=== PATIENT | male | born 1940 | race Caucasian/White ===

== ENCOUNTER 2018-12-12 00:07 | Outpatient (CLI) | payer MEDICARE, MEDICAID | END 2018-12-12 00:08 | disposition critical access hospital (66) | LOC: EMS 00:07 | PROVIDERS: ATTEND Surgery | DX: M25.551 Pain in right hip (principal); W01.0XXA Fall on same level from slipping, tripping and stumbling without subsequent striking against object, initial encounter; Y92.096 Garden or yard of other non-institutional residence as the place of occurrence of the external cause | CPT/HCPCS: A0425; A0429 ==

== ENCOUNTER 2018-12-12 00:24 | Emergency (ER) | payer MEDICARE, MEDICAID ==
--- NOTE | 2018-12-12 00:38 | ED Physician Documentation ---
PD HPI LOWER EXT INJURY - Stated complaint Stated Complaint: GLF, RT HIP PAIN - Chief complaint Chief Complaint: Ext Problem - History obtained from History obtained from: Patient - History of Present Illness PD HPI LOW EXT INJURY LOCATION: Right, Hip, Upper leg Type of injury: Fall (He states he was out smoking his evening cigarettes and got up to go back into the facility. He states he does have positional vertigo if he gets up quickly or turns fast and usually tries to move slowly. He got up from the chair and turned to walk and felt dizzy and off balance and fell to the right side. He had pain in the right hip and was unable to get back up. He denies any injury to the head. He is not noticing any chest pain or belly pain.) Where injury occurred: Home ([facility] where he has been a resident for only 3 weeks.) Timing - onset: How many hours ago (1), Today Timing - duration: Hours (1) Timing - details: Abrupt onset Worsened by: Moving, Palpating Associated symptoms: No: Weakness, Numbness Contributing factors: Anticoagulated (Xarelto for chronic atrial fibrillation) Similar symptoms before: Has not had sx before Recently seen: Not recently seen Review of Systems Constitutional: denies: Fever, Chills, Myalgias Nose: denies: Rhinorrhea / runny nose, Congestion Throat: denies: Sore throat Cardiac: denies: Chest pain / pressure, Pedal edema, Calf pain Respiratory: denies: Dyspnea, Cough GI: denies: Abdominal Pain, Vomiting, Diarrhea, Bloody / black stool : denies: Dysuria Skin: denies: Abrasion (s), Laceration (s) Musculoskeletal: reports: Joint pain (right hip since fall, not prior) Neurologic: denies: Generalized weakness, Altered mental status, Headache PD PAST MEDICAL HISTORY - Past Medical History Past Medical History: Yes Cardiovascular: Congestive heart failure, Atrial fibrillation Respiratory: None Neuro: Dementia (possibly with agitation) Endocrine/Autoimmune: None GI: None : Incontinence HEENT: None Psych: Schizophrenia Musculoskeletal: None Derm: None - Present Medications Home Medications: Ambulatory Orders Medication Instructions Recorded Confirmed Atorvastatin Calcium 20 mg PO DAILY 12/12/18 12/12/18 Calcium Carbonate/Vitamin D3 1 tab PO DAILY 12/12/18 12/12/18 [Calcium 500-Vit D3 200 Tablet] Carvedilol 12.5 mg PO BID 12/12/18 12/12/18 Cetirizine [ZyrTEC] 0.5 tab PO DAILY 12/12/18 12/12/18 Furosemide 20 mg PO DAILY 12/12/18 12/12/18 Gabapentin 300 mg PO BID 12/12/18 12/12/18 Lisinopril/Hydrochlorothiazide 10 mg PO DAILY 12/12/18 12/12/18 [Lisinopril-Hctz 10-12.5 mg Tab] Potassium Chloride 20 mg PO TID 12/12/18 12/12/18 QUEtiapine [SEROquel] 25 mg PO DAILY 12/12/18 12/12/18 Rivaroxaban [Xarelto] 20 mg PO DAILY 12/12/18 12/12/18 Sertraline [Zoloft] 50 mg PO DAILY 12/12/18 12/12/18 Spironolactone 25 mg PO DAILY 12/12/18 12/12/18 metFORMIN [Glucophage] 1,000 mg PO BID 12/12/18 12/12/18 traMADol [Ultram] 25 mg PO BID 12/12/18 12/12/18 - Allergies Allergies/Adverse Reactions: Allergies Allergy/AdvReac Type Severity Reaction Status Date / Time No Known Drug Allergies Allergy Verified 12/12/18 00:34 - Living Situation Living Situation: reports: Alone Living Arrangement: reports: retirement - Social History Does the pt smoke?: Yes Smoking Status: Current every day smoker PD ED PE NORMAL - Vitals Vital signs reviewed: Yes - General General: Alert and oriented X 3 (He is oriented to person place and time. He does get a little confused about some of his but background history. I asked if he has had an elevated blood count or white count in the past and he referred more to blood pressure and blood sugar.), No acute distress, Well developed/nourished - HEENT HEENT: Atraumatic, Moist mucous membranes - Neck Neck: Supple, no meningeal sign, No adenopathy - Cardiac Cardiac: No murmur, No rub. No: RRR (irregular but rate controlled) - Respiratory Respiratory: Other (no chestwall tenderness. Denies pain with deep breathing. ). No: Clear bilaterally (faint fine crackles at bases, but otherwise clear) - Abdomen Abdomen: Normal bowel sounds, Soft, Non tender, No organomegaly - Male Male : Deferred - Rectal Rectal: Deferred - Back Back: No CVA TTP, No spinal TTP - Derm Derm: Normal color, Warm and dry - Extremities Extremities: No edema, No calf tenderness / cord, Other (right hip with local swelling or deformity proximal femur/trochanter area. Pain with ROM. Normal pulses and cap refill in toes. ) - Neuro Neuro: Alert and oriented X 3 (he is oriented to person, place, time. He is able to tell me his new to the fall, home care facility. Prior to that he is not ledezma re the name of the facility and said that town was located in [place] and who could not actually tell if he meant [place] or [place]. old records currently unavailable.), No motor deficit, No sensory deficit Results - Vitals Vitals: Vital Signs - 24 hr 12/12/18 12/12/18 12/12/18 00:26 01:06 01:57 Heart Rate 92 97 Respiratory 17 17 16 Rate Blood Pressure 165/82 H O2 Saturation 100 12/12/18 12/12/18 12/12/18 02:08 03:08 03:39 Heart Rate 99 97 98 Respiratory 18 19 18 Rate Blood Pressure 142/76 H 128/73 145/77 H O2 Saturation 95 96 12/12/18 04:07 Heart Rate 94 Respiratory 18 Rate Blood Pressure 137/90 H O2 Saturation 97 Oxygen O2 Source Nasal cannula - Labs Labs: Laboratory Tests 12/12/18 12/12/18 12/12/18 00:50 00:50 01:45 WBC 28.8 H RBC 4.10 L Hgb 12.7 L Hct 40.2 L MCV 98.0 H MCH 31.0 MCHC 31.6 L RDW 13.4 Plt Count 297 MPV 11.7 H Neut # (Auto) Not Reportable Lymph # (Auto) Not Reportable [place] # (Auto) Not Reportable Eos # (Auto) Not Reportable Baso # (Auto) Not Reportable Absolute Nucleated RBC Not Reportable Total Counted 100 Band Neuts % (Manual) 9 Abnorm Lymph % (Manual) 0 Nucleated RBC % Not Reportable Neutrophils # (Manual) 24.2 H Lymphocytes # (Manual) 2.3 Monocytes # (Manual) 1.4 H Eosinophils # (Manual) 0.6 Basophils # (Manual) 0.3 H Differential Comment MANUAL DIFFERENTIAL Platelet Estimate NORMAL (130-450,000) RBC Morph Micro Appear NORMAL APPEARANCE PT 16.3 H INR 1.5 H APTT 35.7 H Sodium 139 Potassium 5.3 H Chloride 102 Carbon Dioxide 26 Anion Gap 11.0 BUN 30 H Creatinine 1.4 H Estimated GFR (MDRD) 49 L Glucose 202 H Calcium 9.4 Total Bilirubin 1.4 H AST 20 ALT 15 Alkaline Phosphatase 119 Total Protein 7.8 Albumin 4.2 Globulin 3.6 Albumin/Globulin Ratio 1.2 Lipase 26 Urine Color Urine Clarity Urine pH Ur Specific Lind[place] Urine Protein Urine Glucose (UA) Urine Ketones Urine Occult Blood Urine Nitrite Urine Bilirubin Urine Urobilinogen Ur Leukocyte Esterase Ur Microscopic Review Urine Culture Comments Ethyl Alcohol < 5.0 12/12/18 02:00 WBC RBC Hgb Hct MCV MCH MCHC RDW Plt Count MPV Neut # (Auto) Lymph # (Auto) [place] # (Auto) Eos # (Auto) Baso # (Auto) Absolute Nucleated RBC Total Counted Band Neuts % (Manual) Abnorm Lymph % (Manual) Nucleated RBC % Neutrophils # (Manual) Lymphocytes # (Manual) Monocytes # (Manual) Eosinophils # (Manual) Basophils # (Manual) Differential Comment Platelet Estimate RBC Morph Micro Appear PT INR APTT Sodium Potassium Chloride Carbon Dioxide Anion Gap BUN Creatinine Estimated GFR (MDRD) Glucose Calcium Total Bilirubin AST ALT Alkaline Phosphatase Total Protein Albumin Globulin Albumin/Globulin Ratio Lipase Urine Color YELLOW Urine Clarity CLEAR Urine pH 6.0 Ur Specific Lind[place] 1.020 Urine Protein NEGATIVE Urine Glucose (UA) NEGATIVE Urine Ketones NEGATIVE Urine Occult Blood NEGATIVE Urine Nitrite NEGATIVE Urine Bilirubin NEGATIVE Urine Urobilinogen 0.2 (NORMAL) Ur Leukocyte Esterase NEGATIVE Ur Microscopic Review NOT INDICATED Urine Culture Comments NOT INDICATED Ethyl Alcohol - Rads (name of study) head CT Radiology: Prelim report reviewed (Senescent changes. No signs of acute intracranial bleeding.), See rad report right femur Radiology: Prelim report reviewed (Right intertrochanteric fracture with slight displacement.), See rad report chest xray Radiology: Prelim report reviewed (Nondisplaced right 10th rib fracture. Cardiomegaly. No signs of heart failure.), See rad report PD MEDICAL DECISION MAKING - ED course Complexity details: considered differential (Sounded like a mechanical fall with feeling off balance as he stood up from his chair. He states he has had balance disorder with standing quickly in the past. He does have history of atrial fibrillation but does not seem to be in congestive failure. He denies any recent illness. He denies any blood dyscrasias such as leukemia. His findings are likely consistent with a hip fracture. However in addition to the hip fracture on x-ray, he also has an apparent 10th rib fracture though there is no chest pain or tenderness. He also has abnormal white count of 28,000 without apparent infectious source at the moment. He will need medical clearance for heart and also is on a blood thinner so these are complications to his surgical repair of the hip due to the medical comorbidities.), d/w patient, d/w consultant intern (Dr. Fry, Hospitalist at [facility]. His concern is we do not have pharmacy technician infusion available until Friday. The patient's chest x-ray suggestive of cardiomyopathy or enlarged heart at least. He does not have any pedal edema and only has faint crackles to suggest no acute CHF. However his medication list is consistent with CHF and he does have a known atrial fibrillation and is on Xarelto. Given the above medications and findings, Dr. Lopez did not feel he was able to medically clear the patient satisfactorily for at least 3 days not felt inappropriate for the hip fracture. He defers to another hospital.), other (I talked with Dr. Brown who is on for hospitalist service at [facility] who could do the medical clearance and request that we talk with orthopedics. I talked with Dr. Ramsey on for orthopedics who is able to take care of the hip fracture and is understanding of the need for transfer due to medical clearance issues.) Departure - Departure Disposition: 02 Transfer Acute Care Hosp Clinical Impression: Chronic atrial fibrillation, Anticoagulant long-term use Fall from slip, trip, or stumble Qualifiers: Encounter type: initial encounter Qualified Code(s): W01.0XXA - Fall on same level from slipping, tripping and stumbling without subsequent striking against object, initial encounter Closed right hip fracture Qualifiers: Encounter type: initial encounter Qualified Code(s): S72.001A - Fracture of unspecified part of neck of right femur, initial encounter for closed fracture Rib fracture Qualifiers: Encounter type: initial encounter Rib fracture type: single rib Fracture type: closed Laterality: right Qualified Code(s): S22.31XA - Fracture of one rib, right side, initial encounter for closed fracture Leukocytosis Qualifiers: Leukocytosis type: unspecified Qualified Code(s): D72.829 - Elevated white blood cell count, unspecified Condition: Stable Record reviewed to determine appropriate education?: Yes
[2018-12-12] MEDS ORDERED: MORPHINE 10 MG/ML VIAL IVP STA (00:51)
[2018-12-12] MEDS ORDERED: SODIUM CHLORIDE 0.9% 1,000 ML IV ONE ×2 (00:51→05:11)
[2018-12-12] MEDS ORDERED: ONDANSETRON 4 MG/2 ML VIAL IVP STA (00:51)
[2018-12-12 01:00] LABS: BASOPHILS % (AUTO) 0.5 %; EOSINOPHILS % (AUTO) 1.5 %; HGB - HEMOGLOBIN 12.7 g/dL (14.0-18.0); MEAN CORPUSCULAR HGB CONC 31.6 g/dL (32.0-36.0); MEAN PLATELET VOLUME 11.7 fL (7.4-11.4); MONOCYTES % (AUTO) 4.9 %; NEUTROPHILS % (AUTO) 86.2 %; PLT - PLATELET COUNT 297 10^3/uL (130-450); RED CELL DISTRIBUTION WIDTH 13.4 % (12.0-15.0); WHITE BLOOD COUNT 28.8 x10^3/uL (4.8-10.8)
[2018-12-12 01:12] LABS: ABNORMAL LYMPHS % (MANUAL) 0 %
[2018-12-12 01:13] LABS: ALBUMIN 4.2 g/dL (3.2-5.5); ALBUMIN/GLOBULIN RATIO 1.2 (1.0-2.2); ALKALINE PHOSPHATASE 119 IU/L (42-121); ALT ALANINE AMINOTRANSFERASE 15 IU/L (10-60); AST ASPARTATE AMINOTRANSFERASE 20 IU/L (10-42); BILIRUBIN,TOTAL 1.4 mg/dL (0.2-1.0); BUN - BLOOD UREA NITROGEN 30 mg/dL (6-20); CALCIUM 9.4 mg/dL (8.5-10.3); CARBON DIOXIDE - CO2 26 mmol/L (21-32); CHLORIDE 102 mmol/L (101-111); CREATININE 1.4 mg/dL (0.6-1.2); GFR - MDRD 49 (>89); GLUCOSE 202 mg/dL (70-100); LIPASE 26 U/L (22-51); SODIUM 139 mmol/L (135-145); TOTAL PROTEIN 7.8 g/dL (6.7-8.2)
[2018-12-12 01:43] LABS: BAND NEUTROPHILS % (MANUAL) 9 %; BASOPHILS # (MANUAL) 0.3 10^3/uL (0-0.1); BASOPHILS % (MANUAL) 1 %; DIFFERENTIAL COMMENT MANUAL DIFFERENTIAL; EOSINOPHILS # (MANUAL) 0.6 10^3/uL (0-0.7); LYMPHOCYTES # (MANUAL) 2.3 10^3/uL (1.5-3.5); LYMPHOCYTES % (MANUAL) 8 %; MONOCYTES # (MANUAL) 1.4 10^3/uL (0.0-1.0); PLATELET ESTIMATE, MANUAL NORMAL (130-450,000) (NORMAL); RBC MORPHOLOGY (MULTIPLE) NORMAL APPEARANCE (NORMAL)
[2018-12-12 02:03] LABS: INR 1.5 (0.8-1.2); PT - PROTHROMBIN TIME 16.3 secs (9.9-12.6)
--- NOTE | 2018-12-12 02:09 | XRAY Report ---
Reason: fall Procedure Date: 12/12/2018 Accession Number: [id number] / [id number] Procedure: XR - Chest 1 View X-Ray CPT Code: 00774 FULL RESULT: EXAM: CHEST RADIOGRAPHY EXAM DATE: 12/12/2018 01:55 AM. CLINICAL HISTORY: Fall. COMPARISON: None. TECHNIQUE: 1 view. FINDINGS: Lungs/Pleura: No focal opacities evident. No pleural effusion. No pneumothorax. Mediastinum: Within exam limitations, the cardiomediastinal contour is normal. Other: Nondisplaced right 10th rib fracture. IMPRESSION: Nondisplaced right 10th rib fracture. Clear lungs. No pneumothorax or pleural effusion. RADIA
--- NOTE | 2018-12-12 02:11 | CT Report ---
Reason: fall, leg injury, but on Xarelto Procedure Date: 12/12/2018 Accession Number: [id number] / [id number] Procedure: CT - HEAD WO CPT Code: FULL RESULT: EXAM: CT HEAD EXAM DATE: 12/12/2018 01:53 AM. CLINICAL HISTORY: Ground-level fall, on blood thinners, on Xarelto. COMPARISON: None. TECHNIQUE: Multiaxial CT images were obtained from the foramen magnum to the vertex. Reformats: Sagittal and coronal. IV contrast: None. In accordance with CT protocol optimization, one or more of the following dose reduction techniques were utilized for this exam: automated exposure control, adjustment of mA and/or KV based on patient size, or use of iterative reconstructive technique. FINDINGS: Parenchyma: No intraparenchymal hemorrhage. No evidence of mass, midline shift or CT findings of acute infarction. Small bilateral deep brain lacunar infarcts. Ortez-white differentiation is distinct. Diffuse mild chronic microangiopathic white matter changes are evident. Extraaxial Spaces: Normal for age. No subdural or epidural collections identified. Ventricles: The ventricles and cortical sulci are enlarged, consistent with age-related tissue loss. Sinuses: Imaged paranasal sinuses, orbits, and mastoids show no significant abnormality with incidental left maxillary sinus mucosal thickening noted. Bones: No evidence of fracture or calvarial defect. Other: None. IMPRESSION: Mild senescent changes without evidence of acute intracranial abnormality. RADIA
--- NOTE | 2018-12-12 02:11 | XRAY Report ---
Reason: fall with upper right thigh pain Procedure Date: 12/12/2018 Accession Number: [id number] / [id number] Procedure: XR - Femur 2V RT CPT Code: FULL RESULT: EXAM: RIGHT FEMUR RADIOGRAPHY EXAM DATE: 12/12/2018 01:56 AM. CLINICAL HISTORY: Fall with upper right thigh pain. COMPARISON: None. TECHNIQUE: 2 views. FINDINGS: Bones: Displaced intertrochanteric hip fracture. Joints: The visualized hip and knee joints are normal. No effusions. Soft Tissues: Vascular calcifications. IMPRESSION: Displaced right hip intertrochanteric fracture. RADIA
[2018-12-12 02:12] LABS: BILIRUBIN,URINE NEGATIVE (NEGATIVE); CLARITY,URINE CLEAR (CLEAR); GLUCOSE, URINE (UA) NEGATIVE (NEGATIVE); KETONES,URINE (UA) NEGATIVE (NEGATIVE); LEUKOCYTE ESTERASE, URINE NEGATIVE (NEGATIVE); NITRITE,URINE NEGATIVE (NEGATIVE); OCCULT BLOOD,URINE NEGATIVE (NEGATIVE); PROTEIN,URINE NEGATIVE (NEGATIVE); UROBILINOGEN,URINE 0.2 (NORMAL) E.U./dL (NORMAL)
[2018-12-12 02:21] LABS: PARTIAL THROMBOPLASTIN TIME 35.7 secs (24.9-33.3)
[2018-12-12] MEDS ORDERED: MORPHINE 2 MG/ML CARPUJECT IVP STA (02:36)
[2018-12-12] MEDS ORDERED: LORazepam 2 MG/ML VIAL IVP STA (02:36)
[2018-12-12 05:04] VITALS: BP 125/65
== END 2018-12-12 05:53 | disposition short-term general hospital (02) ==
LOC: ED 00:24
DX: S72.141A Displaced intertrochanteric fracture of right femur, initial encounter for closed fracture (principal); S22.31XA Fracture of one rib, right side, initial encounter for closed fracture; W01.0XXA Fall on same level from slipping, tripping and stumbling without subsequent striking against object, initial encounter; Y92.096 Garden or yard of other non-institutional residence as the place of occurrence of the external cause; D72.829 Elevated white blood cell count, unspecified; I48.20 Chronic atrial fibrillation, unspecified; Z79.01 Long term (current) use of anticoagulants; I50.9 Heart failure, unspecified; F17.210 Nicotine dependence, cigarettes, uncomplicated; F03.90 Unspecified dementia, unspecified severity, without behavioral disturbance, psychotic disturbance, mood disturbance, and anxiety
CPT/HCPCS: 36415; 70450; 71045; 73552; 80053; 81003; 83690; 83880; 85025; 85610; 85730; 93005; 96361; 96374; 96375; 99284; 99285; J2060; 80320; 81001; 87086

== ENCOUNTER 2018-12-12 05:20 | Outpatient (CLI) | payer MEDICARE, MEDICAID | END 2018-12-12 05:21 | disposition short-term general hospital (02) | LOC: EMS 05:20 | PROVIDERS: ATTEND Surgery | DX: S72.001A Fracture of unspecified part of neck of right femur, initial encounter for closed fracture (principal); S22.31XA Fracture of one rib, right side, initial encounter for closed fracture; I48.91 Unspecified atrial fibrillation; W01.0XXA Fall on same level from slipping, tripping and stumbling without subsequent striking against object, initial encounter | CPT/HCPCS: A0425; A0428 ==

== ENCOUNTER 2020-06-06 08:25 | Outpatient (CLI) | payer MEDICARE, MEDICAID ==
--- OUTSIDE RECORDS SUMMARY | 2020-06-13 23:33 | EXTERNAL MEDICAL SUMMARY RPT | Continuity of Care Document ---
:1940 Demographics Phone Unavailable Preferred Language Unknown Marital Status Unknown Gnosticist Affiliation Unknown Race Unknown Ethnic Group Unknown Author Organization [facility] Address [address] [place] [address] Phone Social History date description facility [id number]
== END 2020-06-06 08:26 | disposition critical access hospital (66) ==
LOC: EMS 08:25
DX: K62.5 Hemorrhage of anus and rectum (principal)
CPT/HCPCS: A0425; A0429

== ENCOUNTER 2020-06-06 08:33 | Inpatient (IN) | payer MEDICARE, MEDICAID ==
--- NOTE | 2020-06-06 08:45 | ED Physician Documentation ---
PD HPI GI BLEED - Stated complaint Stated Complaint: BRBPR - Chief complaint Chief Complaint: Abd Pain - History obtained from History obtained from: Patient, EMS - History of Present Illness Timing - onset: Today Timing - details: Abrupt onset Associated symptoms: BRBPR Contributing factors: Anticoagulated Improved by: Other (nothing) Worsened by: Other (nothing) Similar symptoms before: Has not had sx before Recently seen: Not recently seen - Additional information Additional information: 79-year-old male with history of schizophrenia who lives at [facility] is on Pradaxa for atrial fibrillation. This morning he was found to have bright red blood in the diaper. The patient otherwise feels similar to usual. Review of Systems Constitutional: denies: Fever Eyes: denies: Decreased vision Ears: denies: Ear pain Nose: denies: Congestion Throat: denies: Sore throat Cardiac: denies: Chest pain / pressure, Palpitations Respiratory: denies: Dyspnea, Cough GI: denies: Abdominal Pain, Nausea, Vomiting : denies: Dysuria, Frequency Skin: denies: Rash Musculoskeletal: denies: Neck pain, Back pain, Extremity pain Neurologic: denies: Generalized weakness, Focal weakness, Numbness PD PAST MEDICAL HISTORY - Past Medical History Cardiovascular: Congestive heart failure, Hypertension, High cholesterol, Atrial fibrillation Respiratory: None Neuro: Dementia Endocrine/Autoimmune: Type 2 diabetes GI: None : Incontinence HEENT: None Psych: Schizophrenia, Other Musculoskeletal: None Derm: None - Past Surgical History Past Surgical History: Yes - Present Medications Home Medications: Ambulatory Orders Medication Instructions Recorded Confirmed Atorvastatin Calcium 20 mg PO DAILY 12/12/18 12/12/18 Calcium Carbonate/Vitamin D3 1 tab PO DAILY 12/12/18 12/12/18 [Calcium 500-Vit D3 200 Tablet] Cetirizine [ZyrTEC] 0.5 tab PO DAILY 12/12/18 12/12/18 Furosemide 20 mg PO DAILY 12/12/18 12/12/18 Gabapentin 300 mg PO BID 12/12/18 12/12/18 Lisinopril/Hydrochlorothiazide 10 mg PO DAILY 12/12/18 12/12/18 [Lisinopril-Hctz 10-12.5 mg Tab] Potassium Chloride 20 mg PO TID 12/12/18 12/12/18 QUEtiapine [SEROquel] 25 mg PO DAILY 12/12/18 12/12/18 Rivaroxaban [Xarelto] 20 mg PO DAILY 12/12/18 12/12/18 Sertraline [Zoloft] 50 mg PO DAILY 12/12/18 12/12/18 Spironolactone 25 mg PO DAILY 12/12/18 12/12/18 carvediloL [Carvedilol] 12.5 mg PO BID 12/12/18 12/12/18 metFORMIN [Glucophage] 1,000 mg PO BID 12/12/18 12/12/18 traMADol [Ultram] 25 mg PO BID 12/12/18 12/12/18 - Allergies Allergies/Adverse Reactions: Allergies Allergy/AdvReac Type Severity Reaction Status Date / Time No Known Drug Allergies Allergy Verified 06/06/20 08:42 - Social History Does the pt smoke?: Yes Smoking Status: Current every day smoker - POLST Patient has POLST: No PD ED PE NORMAL - Vitals Vital signs reviewed: Yes (Normal) - General General: No acute distress, Well developed/nourished - HEENT HEENT: Atraumatic, PERRL, EOMI - Neck Neck: Supple, no meningeal sign - Cardiac Cardiac: RRR, No murmur - Respiratory Respiratory: No respiratory distress, Clear bilaterally - Abdomen Abdomen: Normal bowel sounds, Soft, Non tender, Non distended, No organomegaly - Rectal Rectal: Other (There is dried blood all over the buttocks and rectum. The exam is non-tender. ) - Back Back: No CVA TTP, No spinal TTP - Derm Derm: Normal color, Warm and dry - Neuro Neuro: director talent acquisition 2-12 intact, No motor deficit, No sensory deficit, Normal speech Eye Opening: Spontaneous Motor: Obeys Commands Verbal: Oriented GCS Score: 15 - Psych Psych: Normal mood, Normal affect Results - Vitals Vitals: Vital Signs - 24 hr 06/06/20 06/06/20 06/06/20 08:38 09:37 11:08 Temperature 36.7 C 36.4 C L Heart Rate 100 103 H 90 Respiratory 18 14 12 Rate Blood Pressure 110/66 120/72 119/79 O2 Saturation 99 99 97 Oxygen O2 Source Room air - Labs Labs: Laboratory Tests 06/06/20 06/06/20 06/06/20 03:30 09:00 09:00 WBC 9.3 RBC 3.28 L Hgb 9.9 L Hct 31.1 L MCV 94.8 H MCH 30.2 MCHC 31.8 L RDW 13.6 Plt Count 260 MPV 9.6 Neut # (Auto) 6.5 Lymph # (Auto) 1.6 Dukes # (Auto) 0.6 Eos # (Auto) 0.5 Baso # (Auto) 0.1 Absolute Nucleated RBC 0.00 Nucleated RBC % 0.0 PT INR APTT Sodium Potassium Chloride Carbon Dioxide Anion Gap BUN Creatinine Estimated GFR (MDRD) Glucose Calcium Total Bilirubin AST ALT Alkaline Phosphatase Total Protein Albumin Globulin Albumin/Globulin Ratio Lipase Blood Type O POSITIVE Blood Type Recheck O POSITIVE Antibody Screen NEGATIVE 06/06/20 06/06/20 09:00 09:00 WBC RBC Hgb Hct MCV MCH MCHC RDW Plt Count MPV Neut # (Auto) Lymph # (Auto) Dukes # (Auto) Eos # (Auto) Baso # (Auto) Absolute Nucleated RBC Nucleated RBC % PT 14.3 H INR 1.3 H APTT 32.3 Sodium 140 Potassium 4.7 Chloride 105 Carbon Dioxide 24 Anion Gap 11.0 BUN 20 Creatinine 1.0 Estimated GFR (MDRD) 72 L Glucose 121 H Calcium 8.9 Total Bilirubin 0.6 AST 14 ALT 16 Alkaline Phosphatase 162 H Total Protein 6.4 L Albumin 3.0 L Globulin 3.4 Albumin/Globulin Ratio 0.9 L Lipase 20 L Blood Type Blood Type Recheck Antibody Screen PD MEDICAL DECISION MAKING - ED course Complexity details: reviewed old records, reviewed results, re-evaluated patient, considered differential, d/w patient ED course: 79-year-old male with a history of chronic atrial fibrillation on Pradaxa has had bright red blood per rectum this morning his hemoglobin is down about 3 g from our only specimen from 2 years ago. He has not had further output since he has been here in the emergency department. Dr. Jolene Lux is consulted in the case and graciously agrees to care for the patient in the hospital. Patient has been admitted into the hospital during the coronavirus pandemic and is a respiratory PCR is obtained to rule out coronavirus for placement of the patient in the appropriate bed of the hospital. Departure - Departure Disposition: ED Place in Observation Clinical Impression: Anticoagulant long-term use GI bleeding Qualifiers: GI bleed type/associated pathology: melena Qualified Code(s): K92.1 - Kimberly
[2020-06-06 09:16] LABS: BASOPHILS # (AUTO) 0.1 10^3/uL (0.0-0.1); BASOPHILS % (AUTO) 0.6 %; EOSINOPHILS # (AUTO) 0.5 10^3/uL (0.0-0.7); EOSINOPHILS % (AUTO) 4.9 %; HCT - HEMATOCRIT 31.1 % (42.0-52.0); HGB - HEMOGLOBIN 9.9 g/dL (14.0-18.0); LYMPHOCYTES # (AUTO) 1.6 10^3/uL (1.5-3.5); LYMPHOCYTES % (AUTO) 17.4 %; MEAN CORPUSCULAR HEMOGLOBIN 30.2 pg (27.0-31.0); MEAN CORPUSCULAR HGB CONC 31.8 g/dL (32.0-36.0); MEAN CORPUSCULAR VOLUME 94.8 fL (80.0-94.0); MEAN PLATELET VOLUME 9.6 fL (7.4-11.4); MONOCYTES # (AUTO) 0.6 10^3/uL (0.0-1.0); MONOCYTES % (AUTO) 6.7 %; NEUTROPHILS # (AUTO) 6.5 10^3/uL (1.5-6.6); NEUTROPHILS % (AUTO) 70.1 %; PLT - PLATELET COUNT 260 10^3/uL (130-450); RED BLOOD COUNT 3.28 10^6/uL (4.70-6.10); RED CELL DISTRIBUTION WIDTH 13.6 % (12.0-15.0); WHITE BLOOD COUNT 9.3 x10^3/uL (4.8-10.8)
[2020-06-06 09:21] LABS: INR 1.3 (0.8-1.2); PT - PROTHROMBIN TIME 14.3 secs (9.9-12.6)
[2020-06-06 09:28] LABS: PARTIAL THROMBOPLASTIN TIME 32.3 secs (24.9-33.3)
[2020-06-06 09:29] LABS: ALBUMIN/GLOBULIN RATIO 0.9 (1.0-2.2); BILIRUBIN,TOTAL 0.6 mg/dL (0.2-1.0); CALCIUM 8.9 mg/dL (8.5-10.3); POTASSIUM 4.7 mmol/L (3.5-5.0); TOTAL PROTEIN 6.4 g/dL (6.7-8.2)
[2020-06-06] MEDS ORDERED: SODIUM CHLORIDE FLUSH 0.9% 10 ML SYRINGE IVP PRN (12:25)
[2020-06-06] MEDS ORDERED: ONDANSETRON 4 MG/2 ML VIAL IVP PRN (12:25)
[2020-06-06] MEDS ORDERED: ACETAMINOPHEN 325 MG TABLET PO PRN (12:25)
[2020-06-06] MEDS ORDERED: traMADol 50 MG TABLET PO PRN (12:39)
[2020-06-06 12:58] LABS: ESTIMATED AVERAGE GLUCOSE 146 mg/dL (70-100); HEMOGLOBIN A1c% 6.7 % (4.27-6.07)
[2020-06-06] MEDS ORDERED: carvediloL 12.5 MG TABLET PO SCH (13:00)
--- NOTE | 2020-06-06 13:46 | HISTORY & PHYSICAL EXAMINATION ---
Chief Complaint - Chief Complaint Chief Complaint: GI bleed History of Present Illness - Admitted From Admitted From:: ER - History Obtained From Records Reviewed: [facility] History obtained from: pt and [facility] - History of Present Illness HPI Comment/Other: This is a 79 years-old male with a past medical history significant for congestive heart failure, hypertension, hyperlipidemia, H fibrillation with Xarelto, dementia, diabetic 2, incontinence, schizophrenia, Hemorrhoid, who present ER complain of GI bleed. Pt Report on yesterday morning when he had a diarrhea, he notified toilet is red with blood. He denies abdominal pain, Lightheaded, dizziness, Chest pain, palpitation, fever, cough, shortness of breathing. Pt also Report he had a history of hemorrhoid. Patient is living at [facility]. Patient is taking Xarelto for his a fibrillation. Routine laboratory tests show patient's hemoglobin is 9.9, patient had 12.7 in 2019. Khari lowe is admitted for GI bleed. Discussed the care goal with patient, patient wish to have full code. History - Past Medical History Cardiovascular: reports: Congestive heart failure, Hypertension, High cholesterol, Atrial fibrillation Respiratory: reports: None Neuro: reports: Dementia Endocrine/Autoimmune: reports: Type 2 diabetes GI: reports: None : reports: Incontinence HEENT: reports: None Psych: reports: Schizophrenia, Other Musculoskeletal: reports: None Derm: reports: None MRSA Hx?: No - Family & Social History Family History: Mother: , Father: Family History Comment/Other: Patient reported his father had alcohol issue and at age 81. He report his mother from diabetic complication at later age of 80 Social History Notes: He lived with at [place] and moved to the [facility]. He had 3 children. now pt is living at [facility] - POLST Patient has POLST: No Meds/Allgy - Home Medications Home Medications: Ambulatory Orders Medication Instructions Recorded Confirmed Atorvastatin Calcium 20 mg PO DAILY 12/12/18 12/12/18 Calcium Carbonate/Vitamin D3 1 tab PO DAILY 12/12/18 12/12/18 [Calcium 500-Vit D3 200 Tablet] Cetirizine [ZyrTEC] 0.5 tab PO DAILY 12/12/18 12/12/18 Furosemide 10 mg PO DAILY 12/12/18 12/12/18 Gabapentin 300 mg PO TID 12/12/18 12/12/18 Lisinopril/Hydrochlorothiazide 10 mg PO DAILY 12/12/18 12/12/18 [Lisinopril-Hctz 10-12.5 mg Tab] Potassium Chloride 20 mg PO TID 12/12/18 12/12/18 QUEtiapine [SEROquel] 25 mg PO DAILY 12/12/18 12/12/18 Rivaroxaban [Xarelto] 20 mg PO DAILY 12/12/18 12/12/18 Sertraline [Zoloft] 50 mg PO DAILY 12/12/18 12/12/18 Spironolactone 25 mg PO DAILY 12/12/18 12/12/18 carvediloL [Carvedilol] 12.5 mg PO BID 12/12/18 12/12/18 metFORMIN [Glucophage] 1,000 mg PO BID 12/12/18 12/12/18 traMADol [Ultram] 50 mg PO Q8H PRN 12/12/18 12/12/18 Acetaminophen [Aphen] 650 mg PO Q4H PRN 06/06/20 Ascorbic Acid [Vitamin C] 250 mg PO DAILY 06/06/20 Calcium Carbonate/Vitamin D3 1 PO BID 06/06/20 [Calcium 500 mg Chewable Tablet] Cholecalciferol (Vitamin D3) 50 mcg PO DAILY 06/06/20 [Vitamin D3] Docusate Sodium [Dok] 300 mg PO TID 06/06/20 Ferrous Sulfate [Feosol] 325 mg PO DAILY 06/06/20 Loperamide [Imodium] 2 mg PO PRN PRN 06/06/20 Ondansetron HCl [Zofran] 4 mg PO Q4H PRN 06/06/20 Tamsulosin HCl [Flomax] 0.4 mg PO DAILY 06/06/20 bisacodyL [Gentle Laxative] 5 mg PO DAILY 06/06/20 carvediloL [Coreg] 3.125 mg PO BID 06/06/20 metFORMIN [Glucophage] 500 mg PO BID 06/06/20 risperiDONE [RisperDAL] 1 mg PO HS 06/06/20 - Allergies Allergies/Adverse Reactions: Allergies Allergy/AdvReac Type Severity Reaction Status Date / Time No Known Drug Allergies Allergy Verified 06/06/20 08:42 Review of Systems - Constitutional Constitutional: denies: Fever, Chills, Weakness, Diaphoresis - Eyes Eyes: denies: Pain, Blurred vision, Field loss, Vision loss - Ears, Nose & Throat Ears, Nose & Throat: denies: Ear pain, Vertigo, Nosebleeds, Bleeding gums - Cardiovascular Cariovascular: denies: Irregular heart rate, Palpitations, Chest pain, Lightheadedness, Syncope, Exertional dyspnea, Decr. exercise tolerance - Respiratory Respiratory: denies: Cough, Sputum production, Wheezing, Hemoptysis, SOB at rest - Gastrointestinal Gastrointestinal: reports: Diarrhea, Rectal bleeding. denies: Abdominal pain, Constipation, Black stools, Bloody stools, Nausea, Vomiting - Genitourinary Genitourinary: denies: Dysuria, Hematuria, Incontinence, Flank pain - Musculoskeletal Musculoskeletal: denies: Muscle pain, Muscle aches, Muscle weakness - Integumentary Integumentary: denies: Rash, Lesions - Neurological Neurological: denies: Focal weakness, Headache, Dizziness, Numbness, Pre- existing deficit, Abnormal gait, Seizures, Incoordination, Slurred speech - Psychiatric Psychiatric: denies: Depression, Suicidal - Endocrine Endocrine: denies: Polyuria, Polyphagia - Hematologic/Lymphatic Hematologic/Lymphatic: denies: Petechiae, Blood clots Prior Level of Functionality: pt is living at [facility] and dependent Exam - Vital Signs Vital Signs: Vital Signs x48h Temp Pulse Pulse Resp BP BP Pulse Ox 06/06/20 13:11 36.4 C L 86 20 127/59 L 99 06/06/20 11:08 36.4 C L 90 12 119/79 97 06/06/20 09:37 103 H 14 120/72 99 06/06/20 08:38 36.7 C 100 18 110/66 99 - Physical Exam General Appearance: positive: No acute distress, Alert. negative: Lethargic Eyes Bilateral: positive: Normal inspection, PERRL, No lid inflammation ENT: positive: ENT inspection nml, No signs of dehydration. negative: Purulent nasal drainage Neck: positive: Nml inspection, Trachea midline. negative: Thyromegaly, Tracheal deviation Respiratory: positive: Chest non-tender, No respiratory distress. negative: Wheezes, Rales Cardiovascular: positive: Regular rate & rhythm, No murmur. negative: Tachycardia, Bradycardia, Systolic murmur, Diastolic murmur Peripheral Pulses: positive: 2+ Abdomen: positive: Non-tender, Nml bowel sounds, No distention. negative: Tenderness, Guarding, Rebound Back: positive: Nml inspection Skin: positive: Color nml, Warm, Dry. negative: Cyanosis, Diaphoresis, Pallor Extremities: positive: Non-tender, Nml appearance. negative: Calf tenderness Neurologic/Psychiatric: positive: Sensation nml, Mood/affect nml. negative: W eakness, Sensory loss, Facial droop, Slurred/abnml speech Conclusion/Plan - Problem List (1) GI bleeding Conclusion/Plan: pt has rectal bleed, and HGB is 9.9, drop from previous 12.7. Patient is taking Xarelto for his atrial fibrillation. Consult with GI surgeon to plan to have colonoscopy for patient tomorrow, we will have to do bowel prepare, hold Xarelto, H&H monitor HGB. Patient also has history of hemorrhoid. Qualifiers: GI bleed type/associated pathology: melena Qualified Code(s): K92.1 - Melena (2) A-fib Conclusion/Plan: Patient's heart rate is controlled, will resume patient Coreg, hold Xarelto now, Continue monitor and storage bin tender (3) Diabetes Conclusion/Plan: Patient had A1c 6.7, patient take Metformin in the home, we will start with sliding scale, ACH S to check glucose, hypoglycemia protocol (4) HTN (hypertension) Conclusion/Plan: Patient's blood pressure is stable, we will resume home Coreg, continue vital signs monitor (5) Hx of schizophrenia Conclusion/Plan: Patient has history of schizophrenia, now patient seems stable, will resume home Zoloft and Seroquel. - Lab Results Fish Bones: 06/06/20 15:12 06/06/20 09:00 Core Measures - Anticipated LOS I expect patient to be DC'd or transferred within 96 hours.: Yes - DVT/VTE - Prophylaxis VTE/DVT Device ordered at admit?: Yes VTE/DVT Prophylaxis med ordered at admit?: Yes
[2020-06-06] MEDS: PANTOPRAZOLE 40 MG TABLET PO SCH (14:49)
[2020-06-06] MEDS: SERTRALINE 50 MG TABLET PO SCH (14:49)
[2020-06-06 15:14] LABS: B. PARAPERTUSSIS- RESP PCR PAN NOT DETECTED; B. PERTUSSIS- RESP PCR PANEL NOT DETECTED; C. PNEUMONIAE- RESP PCR PANEL NOT DETECTED; CORONAVIRUS 229E-RESP PCR NOT DETECTED; CORONAVIRUS HKU1-RESP PCR NOT DETECTED; CORONAVIRUS NL63-RESP PCR NOT DETECTED; CORONAVIRUS OC43-RESP PCR NOT DETECTED; HUMAN METAPNEUMOVIRUS NOT DETECTED; INFLUENZA A- RESP PCR PANEL NOT DETECTED; INFLUENZA B - RESP PCR PANEL NOT DETECTED; M. PNEUMONIAE- RESP PCR PANEL NOT DETECTED; PARAINFLUENZA VIRUS 1 NOT DETECTED; PARAINFLUENZA VIRUS 2 NOT DETECTED; PARAINFLUENZA VIRUS 3 NOT DETECTED; PARAINFLUENZA VIRUS 4 NOT DETECTED; RHINOVIRUS/ENTEROVIRUS DETECTED; RSV- RESP PCR PANEL NOT DETECTED; SARS-CoV-2 -RESP PCR PANEL NOT DETECTED
[2020-06-06 15:17] LABS: HCT - HEMATOCRIT 33.1 % (42.0-52.0); HGB - HEMOGLOBIN 10.5 g/dL (14.0-18.0)
[2020-06-06] MEDS: SODIUM CHLORIDE FLUSH 0.9% 10 ML SYRINGE IVP SCH (16:33)
--- NOTE | 2020-06-06 16:44 | CONSULTATION NOTE ---
Referring Provider Name of Referring Provider:: Tita Bautistaist Service Consult Date: 06/06/20 Chief Complaint - Chief Complaint Chief Complaint: Hematochezia History of Present Illness - Admitted From Admitted From:: [facility] assisted living - History Obtained From Records Reviewed: EMR and patient History obtained from: EMR and patient Exam Limitations: Patient with schizophrenia and some dementia - History of Present Illness HPI Comment/Other: 10-royr-lae-year-old male presenting for gastrointestinal bleed with hematochezia on systemic anticoagulation. Noncontributory family history. Notable past surgical history to include no prior abdominal surgical interventions. Patient reports change in bowel function, indicates positive bleeding per rectum, and also however denies reflux associated symptoms. Patient does not use tobacco. Patient has history of psychiatric disorder for which he is on medical management. Positive history of Coronary artery disease including atrial fibrillation. Patient takes Xarelto for systemic anticoagulation. Endoscopic history includes remote colonoscopy for which he is not able to provide definitive history. History - Past Medical History Cardiovascular: reports: Congestive heart failure, Hypertension, High cholesterol, Atrial fibrillation Respiratory: reports: None Neuro: reports: Dementia Endocrine/Autoimmune: reports: Type 2 diabetes GI: reports: None : reports: Incontinence HEENT: reports: None Psych: reports: Schizophrenia, Other Musculoskeletal: reports: None Derm: reports: None MRSA Hx?: No - Family & Social History Family History: Mother: , Father: Family History Comment/Other: Patient reported his father had alcohol issue and at age 81. He report his mother from diabetic complication at later age of 80 Social History Notes: He lived with at [place] and moved to the [facility]. He had 3 children. now pt is living at [facility] - POLST Patient has POLST: No Meds/Allgy - Home Medications Home Medications: Ambulatory Orders Medication Instructions Recorded Confirmed Furosemide 10 mg PO DAILY 12/12/18 06/06/20 Gabapentin 300 mg PO TID 12/12/18 06/06/20 Rivaroxaban [Xarelto] 20 mg PO DAILY 12/12/18 06/06/20 Sertraline [Zoloft] 50 mg PO DAILY 12/12/18 06/06/20 traMADol [Ultram] 50 mg PO Q8H PRN 12/12/18 06/06/20 Acetaminophen [Aphen] 650 mg PO Q4H PRN 06/06/20 06/06/20 Ascorbic Acid [Vitamin C] 250 mg PO DAILY 06/06/20 06/06/20 Calcium Carbonate [Tums (Calcium 500 mg PO BID 06/06/20 06/06/20 Carbonate 500mg)] Cholecalciferol (Vitamin D3) 50 mcg PO DAILY 06/06/20 06/06/20 [Vitamin D3] Diclofenac Sodium [Venngel One] 1 % TOP Q8H PRN 06/06/20 06/06/20 Docusate Sodium [Dok] 300 mg PO DAILY 06/06/20 06/06/20 Ferrous Sulfate [Feosol] 325 mg PO DAILY 06/06/20 06/06/20 Lidocaine [Lidoderm] 1 patch TOP DAILY 06/06/20 06/06/20 Lisinopril [Zestril] 2.5 mg PO DAILY 06/06/20 06/06/20 Loperamide [Imodium] 2 mg PO PRN PRN 06/06/20 06/06/20 Loratadine [Allergy Relief] 10 mg PO DAILY 06/06/20 06/06/20 Multivitamin with Iron 1 tab PO DAILY 06/06/20 06/06/20 [Multivitamins with Iron] Ondansetron HCl [Zofran] 4 mg PO Q4H PRN 06/06/20 06/06/20 Tamsulosin HCl [Flomax] 0.4 mg PO DAILY 06/06/20 06/06/20 bisacodyL [Gentle Laxative] 5 mg PO DAILY PRN 06/06/20 06/06/20 carvediloL [Coreg] 3.125 mg PO BID 06/06/20 06/06/20 metFORMIN [Glucophage] 500 mg PO BID 06/06/20 06/06/20 risperiDONE [RisperDAL] 1 mg PO HS 06/06/20 06/06/20 - Allergies Allergies/Adverse Reactions: Allergies Allergy/AdvReac Type Severity Reaction Status Date / Time No Known Drug Allergies Allergy Verified 06/06/20 08:42 Review of Systems - Constitutional Constitutional: reports: Fatigue - Gastrointestinal Gastrointestinal: reports: Change in bowel habits, Rectal bleeding Exam - Vital Signs Reviewed Vital Signs: Yes Vital Signs: Vital Signs x48h Temp Pulse Pulse Resp BP BP BP 06/06/20 15:54 36.3 C L 63 18 102/65 06/06/20 13:11 36.4 C L 86 20 127/59 L 06/06/20 11:08 36.4 C L 90 12 119/79 06/06/20 09:37 103 H 14 120/72 Pulse Ox 06/06/20 15:54 98 06/06/20 13:11 99 06/06/20 11:08 97 06/06/20 09:37 99 - Physical Exam General Appearance: positive: No acute distress, Alert Eyes Bilateral: positive: Normal inspection, PERRL, EOMI ENT: positive: ENT inspection nml, Pharynx nml, Other (Poor dentition) Neck: positive: Nml inspection Respiratory: positive: Chest non-tender, No respiratory distress, Breath sounds nml. negative: Wheezes, Rales, Rhonchi Cardiovascular: positive: Irregularly irregular Abdomen: positive: Non-tender, No distention. negative: Tenderness, Guarding, Rebound Skin: positive: Color nml Extremities: positive: Non-tender, Full ROM, Nml appearance Neurologic/Psychiatric: positive: Oriented x3, CN's nml (2-12), Motor nml, Sensation nml, Mood/affect nml Conclusion and Plan - Lab Results Laboratory Results 06/06/20 15:12: Hgb 10.5 L, Hct 33.1 L 06/06/20 12:55: Nasal Adenovirus (PCR) NOT DETECTED, Nasal B. parapertussis DNA (PCR) NOT DETECTED, Nasal Coronavir 229E PCR NOT DETECTED, Nasal Coronavir HKU1 PCR NOT DETECTED, Nasal Coronavir NL63 PCR NOT DETECTED, Nasal Coronavir OC43 PCR NOT DETECTED, Nasal Enterovir/Rhinovir PCR DETECTED A, Nasal Influenza B PCR NOT DETECTED, Nasal Influenza A PCR NOT DETECTED, Nasal Parainfluen 1 PCR NOT DETECTED, Nasal Parainfluen 2 PCR NOT DETECTED, Nasal Parainfluen 3 PCR NOT DETECTED, Nasal Parainfluen 4 PCR NOT DETECTED, Nasal RSV (PCR) NOT DETECTED, Nasal B.pertussis DNA PCR NOT DETECTED, Nasal C.pneumoniae (PCR) NOT DETECTED, Shine Human Metapneumo PCR NOT DETECTED, Nasal M.pneumoniae (PCR) NOT DETECTED, Nasal SARS-CoV-2 (PCR) NOT DETECTED 06/06/20 12:35: Estimat Average Glucose 146 H, Hemoglobin A1c % 6.7 H 06/06/20 09:00: Sodium 140, Potassium 4.7, Chloride 105, Carbon Dioxide 24, Anion Gap 11.0, BUN 20, Creatinine 1.0, Estimated GFR (MDRD) 72 L, Glucose 121 H, Calcium 8.9, Total Bilirubin 0.6, AST 14, ALT 16, Alkaline Phosphatase 162 H, Total Protein 6.4 L, Albumin 3.0 L, Globulin 3.4, Albumin/Globulin Ratio 0.9 L, Lipase 20 L 06/06/20 09:00: PT 14.3 H, INR 1.3 H, APTT 32.3 06/06/20 09:00: WBC 9.3, RBC 3.28 L, Hgb 9.9 L, Hct 31.1 L, MCV 94.8 H, MCH 30.2, MCHC 31.8 L, RDW 13.6, Plt Count 260, MPV 9.6, Neut # (Auto) 6.5, Lymph # (Auto) 1.6, Navarro # (Auto) 0.6, Eos # (Auto) 0.5, Baso # (Auto) 0.1, Absolute Nucleated RBC 0.00, Nucleated RBC % 0.0 06/06/20 09:00: Blood Type O POSITIVE, Antibody Screen NEGATIVE 06/06/20 03:30: Blood Type Recheck O POSITIVE - Diagnosis Diagnosis: 1. Atrial fibrillation. 2. Systemic anticoagulation. 3. Acute on chronic blood loss anemia. 4. Gastrointestinal bleed - Plan Plan: 1. Care per hospitalist service 2. Trend H&H and transfuse appropriately given the patient's history of cardiac disease 3. Telemetry and close hemodynamic monitoring 4. Plan upper endoscopy to evaluate source, as well as proceed with colonoscopy. Colonoscopy indicated for bleeding. Risks and benefits discussed at length. Informed consent obtained. Risks include but are not limited to, bleeding, infection, perforation, missed lesions, injury to local structures, need for further surgeries, and the periprocedural/sedation risks of heart attack stroke and . Patient was advised if any concerning areas were noted these would be sampled if too big to resect or performed for excision if within reasonable limits for endoscopic intervention. 5. Aggressive resuscitation 6. As is always the case, diagnostic endoscopy with potential for therapeutic interventions. Given limitations, surgical interventions and/or transfer for advanced gastrointestinal interventions and/or interventional radiographic interventions remain part of this complex algorithm. 7. Bowel rest and bowel prep in anticipation of colonoscopy 8. PPI infusion and consider Carafate pending results Please note that voice recognition software was used to transcribe this note and inadvertent errors might persist in spite of review and editing. I am obliged to you for your attention. I am thankful to you for allowing me to participate with you in this care of this patient.
[2020-06-06] MEDS: INSULIN ASPART 300 UNIT/3 ML PEN SUBQ SCH ×2 (17:39→21:25)
--- NOTE | 2020-06-06 18:02 | PHARMACY PROGRESS NOTE ---
- Best Possible Medication History Admit Date and Time: 06/06/20 1225 Processed by: Pharmacy Medication History completed: Yes Patient Interview: Pt unable to participate Secondary Source(s): Facility MAR as ONLY source As the person ultimately responsible for medication therapy, providers are able to order a medication from an existing home medication list in [facility] via the "Reconcile Routine" prior to Confirmation of that medication by manager decision support. Such practice is discouraged except when the physician, in their clinical judgment, deems that a medical need exists for a medication without regard to previous use.
[2020-06-06] MEDS: SODIUM/POTASSIUM/MAG SULFATES 354 ML PREP KIT PO SCH (19:07)
[2020-06-06] MEDS ORDERED: QUEtiapine 25 MG TABLET PO SCH (21:00)
[2020-06-06 22:59] LABS: HCT - HEMATOCRIT 29.5 % (42.0-52.0); HGB - HEMOGLOBIN 9.5 g/dL (14.0-18.0)
[2020-06-07] MEDS: SODIUM CHLORIDE FLUSH 0.9% 10 ML SYRINGE IVP SCH ×3 (01:15→19:39)
[2020-06-07 05:23] LABS: BASOPHILS # (AUTO) 0.1 10^3/uL (0.0-0.1); BASOPHILS % (AUTO) 0.7 %; EOSINOPHILS # (AUTO) 0.5 10^3/uL (0.0-0.7); EOSINOPHILS % (AUTO) 5.4 %; HCT - HEMATOCRIT 27.6 % (42.0-52.0); HGB - HEMOGLOBIN 8.8 g/dL (14.0-18.0); LYMPHOCYTES # (AUTO) 1.8 10^3/uL (1.5-3.5); LYMPHOCYTES % (AUTO) 21.5 %; MEAN CORPUSCULAR HEMOGLOBIN 30.6 pg (27.0-31.0); MEAN CORPUSCULAR HGB CONC 31.9 g/dL (32.0-36.0); MEAN CORPUSCULAR VOLUME 95.8 fL (80.0-94.0); MEAN PLATELET VOLUME 9.9 fL (7.4-11.4); MONOCYTES # (AUTO) 0.7 10^3/uL (0.0-1.0); MONOCYTES % (AUTO) 7.8 %; NEUTROPHILS # (AUTO) 5.5 10^3/uL (1.5-6.6); NEUTROPHILS % (AUTO) 64.4 %; PLT - PLATELET COUNT 239 10^3/uL (130-450); RED BLOOD COUNT 2.88 10^6/uL (4.70-6.10); RED CELL DISTRIBUTION WIDTH 13.7 % (12.0-15.0); WHITE BLOOD COUNT 8.5 x10^3/uL (4.8-10.8)
[2020-06-07 05:35] LABS: CALCIUM 8.3 mg/dL (8.5-10.3); POTASSIUM 4.2 mmol/L (3.5-5.0)
[2020-06-07] MEDS: SODIUM/POTASSIUM/MAG SULFATES 354 ML PREP KIT PO SCH (05:52)
[2020-06-07] MEDS: ZINC OXIDE 20% OINT 30 GM TUBE TOP PRN ×2 (05:52→22:05)
[2020-06-07] MEDS: PANTOPRAZOLE 40 MG TABLET PO SCH (06:08)
[2020-06-07] MEDS: INSULIN REGULAR HUMAN 300 UNIT/3 ML VIAL SUBQ SCH ×4 (08:46→22:04)
[2020-06-07] MEDS: SERTRALINE 50 MG TABLET PO SCH (08:47)
[2020-06-07] MEDS: carvediloL 3.125 MG TABLET PO SCH ×2 (08:51→22:05)
[2020-06-07 13:18] LABS: HCT - HEMATOCRIT 28.3 % (42.0-52.0); HGB - HEMOGLOBIN 9.2 g/dL (14.0-18.0)
[2020-06-07] MEDS: SODIUM CHLORIDE 0.9% 1,000 ML IV SCH ×2 (14:13→21:59)
--- NOTE | 2020-06-07 15:27 | PROVIDER PROGRESS NOTE ---
Assessment/Plan - Problem List (1) GI bleeding Qualifiers: GI bleed type/associated pathology: melena Qualified Code(s): K92.1 - Melena Assessment/Plan: 06/07 Patient had a bowel movement which still show bright bloody stool but blood content in stool is significantly reduced, compared with previous as pt state. Patient will have colonoscopy on later this afternoon. We will continue H&H, we will follow up colonoscopy results, Continue hold patient home anticoagulation medication. pt has rectal bleed, and HGB is 9.9, drop from previous 12.7. Patient is taking Xarelto for his atrial fibrillation. Consult with GI surgeon to plan to have colonoscopy for patient tomorrow, we will have to do bowel prepare, hold Xarelto, H&H monitor HGB. Patient also has history of hemorrhoid. (2) A-fib Conclusion/Plan: 06/07 Stable, continue hold home anticoagulation medication Patient's heart rate is controlled, will resume patient Coreg, hold Xarelto now, Continue quality assurance monitor (3) Diabetes Conclusion/Plan: Patient had A1c 6.7, patient take Metformin in the home, we will start with sliding scale, ACH S to check glucose, hypoglycemia protocol (4) HTN (hypertension) Conclusion/Plan: Patient's blood pressure is stable, we will resume home Coreg, continue vital signs monitor (5) Hx of schizophrenia Conclusion/Plan: Patient has history of schizophrenia, now patient seems stable, will resume home Zoloft and resperidal. - Current Meds Current Meds: Current Medications Generic Name Dose Route Start Last Admin Trade Name Freq PRN Reason Stop Dose Admin Acetaminophen 650 mg 06/06/20 12:25 06/07/20 08:46 Acetaminophen 325 Mg Tablet PO 650 mg Q4HR PRN Administration Pain 1 to 4 Carvedilol 3.125 mg 06/07/20 09:00 06/07/20 08:51 Carvedilol 3.125 Mg Tablet PO 3.125 mg BID JERRY Administration Sodium Chloride 1,000 mls @ 100 mls/hr 06/07/20 13:00 06/07/20 14:13 Normal Saline 0.9% IV 06/08/20 08:59 100 mls/hr .Q10H JERRY Administration Insulin Human Regular 1 - 5 unit 06/07/20 08:00 06/07/20 12:18 Insulin Regular Human 300 Unit/3 Ml Vial SUBQ Not Given Q6HR [facility] Protocol Multi-Ingredient Ointment 1 applic 06/07/20 02:42 06/07/20 05:52 Zinc Oxide 20% Oint 30 Gm Tube TOP 1 applic PRN PRN Administration Skin Care Pantoprazole Sodium 40 mg 06/06/20 13:00 06/07/20 06:08 Pantoprazole 40 Mg Tablet PO 40 mg QDAC JERRY Administration Quetiapine Fumarate 25 mg 06/06/20 21:00 06/06/20 21:24 Quetiapine 25 Mg Tablet PO 25 mg QPM JERRY Administration Sertraline HCl 50 mg 06/06/20 13:00 06/07/20 08:47 Sertraline 50 Mg Tablet PO 50 mg DAILY JERRY Administration Sodium Chloride 10 ml 06/06/20 17:00 06/07/20 08:51 Sodium Chloride Flush 0.9% 10 Ml Syringe IVP 10 ml 0100,0900,1700 JERRY Administration - Lab Result Fish Bone Diagrams: 06/07/20 13:05 06/07/20 05:04 - Additional Planning My Orders: My Active Orders 06/06/20 17:00 Sodium Chloride Flush 0.9% [Normal Saline Flush 0.9%] 10 ml IVP 0100,0900,1700 06/06/20 21:00 QUEtiapine [SEROquel] 25 mg PO QPM 06/07/20 00:01 NPO except Meds [DIET] 06/07/20 02:42 Zinc Oxide 20% Oint [Zinc Oxide] 1 applic TOP PRN PRN 06/07/20 08:00 Insulin Regular Human [Humulin R] 1 - 5 unit SUBQ Q6HR 06/07/20 09:00 carvediloL [Coreg] 3.125 mg PO BID 06/07/20 13:00 Sodium Chloride 0.9% [Normal Saline 0.9%] 1,000 ml IV 100 mls/hr 06/07/20 21:00 H&H [HEMOGLOBIN AND HEMATOCRIT] [HEME] Timed 06/08/20 05:00 BMP - BASIC METABOLIC PANEL [CHEM] DAILYLAB CBC - COMP BLD CT W/AUTO DIFF [HEME] DAILYLAB 06/09/20 05:00 BMP - BASIC METABOLIC PANEL [CHEM] DAILYLAB CBC - COMP BLD CT W/AUTO DIFF [HEME] DAILYLAB 06/10/20 05:00 BMP - BASIC METABOLIC PANEL [CHEM] DAILYLAB CBC - COMP BLD CT W/AUTO DIFF [HEME] DAILYLAB 06/11/20 05:00 BMP - BASIC METABOLIC PANEL [CHEM] DAILYLAB CBC - COMP BLD CT W/AUTO DIFF [HEME] DAILYLAB Subjective - Subjective Patient Reports: Feeling Better Objective Vital Signs: Vital Signs - 24 hr 06/06/20 06/06/20 06/07/20 15:54 21:00 01:00 Temperature 36.3 C L 36.4 C L 36.4 C L Heart Rate [ 63 87 87 Brachial] Respiratory 18 20 18 Rate Blood Pressure 102/65 152/77 H 136/76 H [Right Brachial artery] O2 Saturation 98 98 98 06/07/20 06/07/20 06/07/20 05:00 07:45 11:48 Temperature 36.4 C L 36.9 C 36.7 C Heart Rate [ 84 82 72 Brachial] Respiratory 16 16 18 Rate Blood Pressure 142/86 H 136/67 H 139/76 H [Right Brachial artery] O2 Saturation 100 97 98 Oxygen O2 Source Room air I&O (Last 24 Hrs): Intake and Output Totals x24h 06/05/20 06/06/20 06/07/20 23:59 23:59 23:59 Intake Total 1044 1100 Output Total 800 1255 Balance 244 -155 General: Alert, Oriented x3, Cooperative, No acute distress HEENT: Atraumatic Neck: Supple Lymphatic: no adenopathy Neuro: Alert, Non Focal, Oriented Times 3 Cardiovascular: Regular rate, Normal S1, Normal S2 Respiratory: Chest non-tender, No respiratory distress Abdomen: Normal bowel sounds, Soft Extremities: Normal pulses - Results Results: Laboratory Results WBC 8.5 x10^3/uL (4.8-10.8) 06/07/20 05:04 RBC 2.88 10^6/uL (4.70-6.10) L 06/07/20 05:04 Hgb 9.2 g/dL (14.0-18.0) L 06/07/20 13:05 Hct 28.3 % (42.0-52.0) L 06/07/20 13:05 MCV 95.8 fL (80.0-94.0) H 06/07/20 05:04 MCH 30.6 pg (27.0-31.0) 06/07/20 05:04 MCHC 31.9 g/dL (32.0-36.0) L 06/07/20 05:04 RDW 13.7 % (12.0-15.0) 06/07/20 05:04 Plt Count 239 10^3/uL (130-450) 06/07/20 05:04 MPV 9.9 fL (7.4-11.4) 06/07/20 05:04 Neut # (Auto) 5.5 10^3/uL (1.5-6.6) 06/07/20 05:04 Lymph # (Auto) 1.8 10^3/uL (1.5-3.5) 06/07/20 05:04 [place] # (Auto) 0.7 10^3/uL (0.0-1.0) 06/07/20 05:04 Eos # (Auto) 0.5 10^3/uL (0.0-0.7) 06/07/20 05:04 Baso # (Auto) 0.1 10^3/uL (0.0-0.1) 06/07/20 05:04 Absolute Nucleated RBC 0.00 x10^3/uL 06/07/20 05:04 Nucleated RBC % 0.0 /100WBC 06/07/20 05:04 PT 14.3 secs (9.9-12.6) H 06/06/20 09:00 INR 1.3 (0.8-1.2) H 06/06/20 09:00 APTT 32.3 secs (24.9-33.3) 06/06/20 09:00 Sodium 140 mmol/L (135-145) 06/07/20 05:04 Potassium 4.2 mmol/L (3.5-5.0) 06/07/20 05:04 Chloride 109 mmol/L (101-111) 06/07/20 05:04 Carbon Dioxide 24 mmol/L (21-32) 06/07/20 05:04 Anion Gap 7.0 (6-13) 06/07/20 05:04 BUN 17 mg/dL (6-20) 06/07/20 05:04 Creatinine 1.0 mg/dL (0.6-1.2) 06/07/20 05:04 Estimated GFR (MDRD) 72 (>89) L 06/07/20 05:04 Glucose 105 mg/dL (70-100) H 06/07/20 05:04 Estimat Average Glucose 146 mg/dL (70-100) H 06/06/20 12:35 Hemoglobin A1c % 6.7 % (4.27-6.07) H 06/06/20 12:35 Calcium 8.3 mg/dL (8.5-10.3) L 06/07/20 05:04 Total Bilirubin 0.6 mg/dL (0.2-1.0) 06/06/20 09:00 AST 14 IU/L (10-42) 06/06/20 09:00 ALT 16 IU/L (10-60) 06/06/20 09:00 Alkaline Phosphatase 162 IU/L (42-121) H 06/06/20 09:00 Total Protein 6.4 g/dL (6.7-8.2) L 06/06/20 09:00 Albumin 3.0 g/dL (3.2-5.5) L 06/06/20 09:00 Globulin 3.4 g/dL (2.1-4.2) 06/06/20 09:00 Albumin/Globulin Ratio 0.9 (1.0-2.2) L 06/06/20 09:00 Lipase 20 U/L (22-51) L 06/06/20 09:00 Nasal Adenovirus (PCR) NOT DETECTED 06/06/20 12:55 Nasal B. parapertussis DNA (PCR) NOT DETECTED 06/06/20 12:55 Nasal Coronavir 229E PCR NOT DETECTED 06/06/20 12:55 Nasal Coronavir HKU1 PCR NOT DETECTED 06/06/20 12:55 Nasal Coronavir NL63 PCR NOT DETECTED 06/06/20 12:55 Nasal Coronavir OC43 PCR NOT DETECTED 06/06/20 12:55 Nasal Enterovir/Rhinovir PCR DETECTED A 06/06/20 12:55 Nasal Influenza B PCR NOT DETECTED 06/06/20 12:55 Nasal Influenza A PCR NOT DETECTED 06/06/20 12:55 Nasal Parainfluen 1 PCR NOT DETECTED 06/06/20 12:55 Nasal Parainfluen 2 PCR NOT DETECTED 06/06/20 12:55 Nasal Parainfluen 3 PCR NOT DETECTED 06/06/20 12:55 Nasal Parainfluen 4 PCR NOT DETECTED 06/06/20 12:55 Nasal RSV (PCR) NOT DETECTED 06/06/20 12:55 Nasal B.pertussis DNA PCR NOT DETECTED 06/06/20 12:55 Nasal C.pneumoniae (PCR) NOT DETECTED 06/06/20 12:55 Shine Human Metapneumo PCR NOT DETECTED 06/06/20 12:55 Nasal M.pneumoniae (PCR) NOT DETECTED 06/06/20 12:55 Nasal SARS-CoV-2 (PCR) NOT DETECTED 06/06/20 12:55 Blood Type O POSITIVE 06/06/20 09:00 Blood Type Recheck O POSITIVE 06/06/20 03:30 Antibody Screen NEGATIVE 06/06/20 09:00 ABX Reporting Has patient been on IV antibiotics over the past 48 hours?: No Current Medications - Current Medications Current Medications: Active Medications Acetaminophen (Acetaminophen 325 Mg Tablet) 650 mg PO Q4HR PRN PRN Reason: Pain 1 to 4 Last Admin: 06/07/20 08:46 Dose: 650 mg Documented by: Carvedilol (Carvedilol 3.125 Mg Tablet) 3.125 mg PO BID [facility] Last Admin: 06/07/20 08:51 Dose: 3.125 mg Documented by: Ferrous Sulfate (Ferrous Sulfate 325 Mg Tablet) 325 mg PO DAILY [facility] Sodium Chloride (Normal Saline 0.9%) 1,000 mls @ 100 mls/hr IV .Q10H [facility] Stop: 06/08/20 08:59 Last Admin: 06/07/20 14:13 Dose: 100 mls/hr Documented by: Insulin Human Regular (Insulin Regular Human 300 Unit/3 Ml Vial) 1 - 5 unit SUBQ Q6HR [facility]; Protocol Last Admin: 06/07/20 12:18 Dose: Not Given Documented by: Loperamide HCl (Loperamide 2 Mg Capsule) 2 mg PO PRN PRN PRN Reason: Diarrhea Loratadine (Loratadine 10 Mg Tablet) 10 mg PO DAILY [facility] Multi-Ingredient Ointment (Zinc Oxide 20% Oint 30 Gm Tube) 1 applic TOP PRN PRN PRN Reason: Skin Care Last Admin: 06/07/20 05:52 Dose: 1 applic Documented by: Non-Formulary Medication (Ascorbic Acid [Vitamin C]) 250 mg PO DAILY [facility] Non-Formulary Medication (Multivitamin With Iron [Multivitamins With Iron]) 1 tab PO DAILY [facility] Ondansetron HCl (Ondansetron 4 Mg/2 Ml Vial) 4 mg IVP Q6HR PRN PRN Reason: Nausea / Vomiting Pantoprazole Sodium (Pantoprazole 40 Mg Tablet) 40 mg PO QDAC [facility] Last Admin: 06/07/20 06:08 Dose: 40 mg Documented by: Risperidone (Risperidone 1 Mg Tablet) 1 mg PO HS [facility] Sertraline HCl (Sertraline 50 Mg Tablet) 50 mg PO DAILY [facility] Last Admin: 06/07/20 08:47 Dose: 50 mg Documented by: Sodium Chloride (Sodium Chloride Flush 0.9% 10 Ml Syringe) 10 ml IVP PRN PRN PRN Reason: NEEDED PER PROVIDER ORDERS Sodium Chloride (Sodium Chloride Flush 0.9% 10 Ml Syringe) 10 ml IVP 0100,0900,1700 [facility] Last Admin: 06/07/20 08:51 Dose: 10 ml Documented by: Tramadol HCl (Tramadol 50 Mg Tablet) 50 mg PO Q4HR PRN PRN Reason: PAIN Furosemide 10 mg PO DAILY 12/12/18 Gabapentin 300 mg PO TID 12/12/18 Rivaroxaban [Xarelto] 20 mg PO DAILY 12/12/18 Sertraline [Zoloft] 50 mg PO DAILY 12/12/18 traMADol [Ultram] 50 mg PO Q8H PRN 12/12/18 Acetaminophen [Aphen] 650 mg PO Q4H PRN 06/06/20 Ascorbic Acid [Vitamin C] 250 mg PO DAILY 06/06/20 Calcium Carbonate [Tums (Calcium Carbonate 500mg)] 500 mg PO BID 06/06/20 Cholecalciferol (Vitamin D3) [Vitamin D3] 50 mcg PO DAILY 06/06/20 Diclofenac Sodium [Venngel One] 1 % TOP Q8H PRN 06/06/20 Docusate Sodium [Dok] 300 mg PO DAILY 06/06/20 Ferrous Sulfate [Feosol] 325 mg PO DAILY 06/06/20 Lidocaine [Lidoderm] 1 patch TOP DAILY 06/06/20 Lisinopril [Zestril] 2.5 mg PO DAILY 06/06/20 Loperamide [Imodium] 2 mg PO PRN PRN 06/06/20 Loratadine [Allergy Relief] 10 mg PO DAILY 06/06/20 Multivitamin with Iron [Multivitamins with Iron] 1 tab PO DAILY 06/06/20 Ondansetron HCl [Zofran] 4 mg PO Q4H PRN 06/06/20 Tamsulosin HCl [Flomax] 0.4 mg PO DAILY 06/06/20 bisacodyL [Gentle Laxative] 5 mg PO DAILY PRN 06/06/20 carvediloL [Coreg] 3.125 mg PO BID 06/06/20 metFORMIN [Glucophage] 500 mg PO BID 06/06/20 risperiDONE [RisperDAL] 1 mg PO HS 06/06/20
[2020-06-07] MEDS ORDERED: LOPERAMIDE 2 MG CAPSULE PO PRN (15:29)
--- NOTE | 2020-06-07 15:47 | ANESTHESIA ---
Pre-Anesthesia VS, & Labs - Diagnosis Diagnosis 1. Atrial fibrillation 2. Systemic anticoagulation 3. Acute on chronic blood loss anemia 4. Gastrointestinal bleed - Procedure EGD and colonoscopy Vital Signs: Temp Pulse Resp BP Pulse Ox 36.7 C 72 18 139/76 H 98 06/07/20 11:48 06/07/20 11:48 06/07/20 11:48 06/07/20 11:48 06/07/20 11:48 Height: 5 ft 9 in Weight (kg): 88.5 kg Body Mass Index: 28.8 BMI Classification: Overweight - NPO >8 hours - Lab Results Current Lab Results: Laboratory Tests 06/07/20 13:05: Hgb 9.2 L, Hct 28.3 L 06/07/20 05:04: Sodium 140, Potassium 4.2, Chloride 109, Carbon Dioxide 24, Anion Gap 7.0, BUN 17, Creatinine 1.0, Estimated GFR (MDRD) 72 L, Glucose 105 H, Calcium 8.3 L 06/07/20 05:04: WBC 8.5, RBC 2.88 L, Hgb 8.8 L, Hct 27.6 L, MCV 95.8 H, MCH 30.6, MCHC 31.9 L, RDW 13.7, Plt Count 239, MPV 9.9, Neut # (Auto) 5.5, Lymph # (Auto) 1.8, [place] # (Auto) 0.7, Eos # (Auto) 0.5, Baso # (Auto) 0.1, Absolute Nucleated RBC 0.00, Nucleated RBC % 0.0 06/06/20 22:53: Hgb 9.5 L, Hct 29.5 L 06/06/20 15:12: Hgb 10.5 L, Hct 33.1 L 06/06/20 12:35: Estimat Average Glucose 146 H, Hemoglobin A1c % 6.7 H 06/06/20 09:00: Sodium 140, Potassium 4.7, Chloride 105, Carbon Dioxide 24, Anion Gap 11.0, BUN 20, Creatinine 1.0, Estimated GFR (MDRD) 72 L, Glucose 121 H , Calcium 8.9, Total Bilirubin 0.6, AST 14, ALT 16, Alkaline Phosphatase 162 H, Total Protein 6.4 L, Albumin 3.0 L, Globulin 3.4, Albumin/Globulin Ratio 0.9 L, Lipase 20 L 06/06/20 09:00: PT 14.3 H, INR 1.3 H, APTT 32.3 06/06/20 09:00: WBC 9.3, RBC 3.28 L, Hgb 9.9 L, Hct 31.1 L, MCV 94.8 H, MCH 30.2, MCHC 31.8 L, RDW 13.6, Plt Count 260, MPV 9.6, Neut # (Auto) 6.5, Lymph # (Auto) 1.6, [place] # (Auto) 0.6, Eos # (Auto) 0.5, Baso # (Auto) 0.1, Absolute Nucleated RBC 0.00, Nucleated RBC % 0.0 06/06/20 09:00: Blood Type O POSITIVE, Antibody Screen NEGATIVE 06/06/20 03:30: Blood Type Recheck O POSITIVE Fish Bones: 06/07/20 13:05 06/07/20 05:04 Home Medications and Allergies Home Medications: Ambulatory Orders Acetaminophen [Aphen] 650 mg PO Q4H PRN 06/06/20 Ascorbic Acid [Vitamin C] 250 mg PO DAILY 06/06/20 Calcium Carbonate [Tums (Calcium Carbonate 500mg)] 500 mg PO BID 06/06/20 Cholecalciferol (Vitamin D3) [Vitamin D3] 50 mcg PO DAILY 06/06/20 Diclofenac Sodium [Venngel One] 1 % TOP Q8H PRN 06/06/20 Docusate Sodium [Dok] 300 mg PO DAILY 06/06/20 Ferrous Sulfate [Feosol] 325 mg PO DAILY 06/06/20 Lidocaine [Lidoderm] 1 patch TOP DAILY 06/06/20 Lisinopril [Zestril] 2.5 mg PO DAILY 06/06/20 Loperamide [Imodium] 2 mg PO PRN PRN 06/06/20 Loratadine [Allergy Relief] 10 mg PO DAILY 06/06/20 Multivitamin with Iron [Multivitamins with Iron] 1 tab PO DAILY 06/06/20 Ondansetron HCl [Zofran] 4 mg PO Q4H PRN 06/06/20 Tamsulosin HCl [Flomax] 0.4 mg PO DAILY 06/06/20 bisacodyL [Gentle Laxative] 5 mg PO DAILY PRN 06/06/20 carvediloL [Coreg] 3.125 mg PO BID 06/06/20 metFORMIN [Glucophage] 500 mg PO BID 06/06/20 risperiDONE [RisperDAL] 1 mg PO HS 06/06/20 Active Medications Acetaminophen (Acetaminophen 325 Mg Tablet) 650 mg PO Q4HR PRN PRN Reason: Pain 1 to 4 Last Admin: 06/07/20 08:46 Dose: 650 mg Documented by: Ascorbic Acid (Ascorbic Acid Chew 500 Mg Tablet) 250 mg PO DAILY [facility] Carvedilol (Carvedilol 3.125 Mg Tablet) 3.125 mg PO BID [facility] Last Admin: 06/07/20 08:51 Dose: 3.125 mg Documented by: Ferrous Sulfate (Ferrous Sulfate 325 Mg Tablet) 325 mg PO DAILY [facility] Sodium Chloride (Normal Saline 0.9%) 1,000 mls @ 100 mls/hr IV .Q10H [facility] Stop: 06/08/20 08:59 Last Admin: 06/07/20 14:13 Dose: 100 mls/hr Documented by: Insulin Human Regular (Insulin Regular Human 300 Unit/3 Ml Vial) 1 - 5 unit SUBQ Q6HR [facility]; Protocol Last Admin: 06/07/20 12:18 Dose: Not Given Documented by: Loperamide HCl (Loperamide 2 Mg Capsule) 2 mg PO PRN PRN PRN Reason: Diarrhea Loratadine (Loratadine 10 Mg Tablet) 10 mg PO DAILY [facility] Multi-Ingredient Ointment (Zinc Oxide 20% Oint 30 Gm Tube) 1 applic TOP PRN PRN PRN Reason: Skin Care Last Admin: 06/07/20 05:52 Dose: 1 applic Documented by: Non-Formulary Medication (Multivitamin With Iron [Multivitamins With Iron]) 1 tab PO DAILY [facility] Ondansetron HCl (Ondansetron 4 Mg/2 Ml Vial) 4 mg IVP Q6HR PRN PRN Reason: Nausea / Vomiting Pantoprazole Sodium (Pantoprazole 40 Mg Tablet) 40 mg PO QDAC [facility] Last Admin: 06/07/20 06:08 Dose: 40 mg Documented by: Risperidone (Risperidone 1 Mg Tablet) 1 mg PO HS [facility] Sertraline HCl (Sertraline 50 Mg Tablet) 50 mg PO DAILY [facility] Last Admin: 06/07/20 08:47 Dose: 50 mg Documented by: Sodium Chloride (Sodium Chloride Flush 0.9% 10 Ml Syringe) 10 ml IVP PRN PRN PRN Reason: NEEDED PER PROVIDER ORDERS Sodium Chloride (Sodium Chloride Flush 0.9% 10 Ml Syringe) 10 ml IVP 0100,0900,1700 JERRY Last Admin: 06/07/20 08:51 Dose: 10 ml Documented by: Tramadol HCl (Tramadol 50 Mg Tablet) 50 mg PO Q4HR PRN PRN Reason: PAIN Furosemide 10 mg PO DAILY 12/12/18 Gabapentin 300 mg PO TID 12/12/18 Rivaroxaban [Xarelto] 20 mg PO DAILY 12/12/18 Sertraline [Zoloft] 50 mg PO DAILY 12/12/18 traMADol [Ultram] 50 mg PO Q8H PRN 12/12/18 Acetaminophen [Aphen] 650 mg PO Q4H PRN 06/06/20 Ascorbic Acid [Vitamin C] 250 mg PO DAILY 06/06/20 Calcium Carbonate [Tums (Calcium Carbonate 500mg)] 500 mg PO BID 06/06/20 Cholecalciferol (Vitamin D3) [Vitamin D3] 50 mcg PO DAILY 06/06/20 Diclofenac Sodium [Venngel One] 1 % TOP Q8H PRN 06/06/20 Docusate Sodium [Dok] 300 mg PO DAILY 06/06/20 Ferrous Sulfate [Feosol] 325 mg PO DAILY 06/06/20 Lidocaine [Lidoderm] 1 patch TOP DAILY 06/06/20 Lisinopril [Zestril] 2.5 mg PO DAILY 06/06/20 Loperamide [Imodium] 2 mg PO PRN PRN 06/06/20 Loratadine [Allergy Relief] 10 mg PO DAILY 06/06/20 Multivitamin with Iron [Multivitamins with Iron] 1 tab PO DAILY 06/06/20 Ondansetron HCl [Zofran] 4 mg PO Q4H PRN 06/06/20 Tamsulosin HCl [Flomax] 0.4 mg PO DAILY 06/06/20 bisacodyL [Gentle Laxative] 5 mg PO DAILY PRN 06/06/20 carvediloL [Coreg] 3.125 mg PO BID 06/06/20 metFORMIN [Glucophage] 500 mg PO BID 06/06/20 risperiDONE [RisperDAL] 1 mg PO HS 06/06/20 Allergies/Adverse Reactions: Allergies Allergy/AdvReac Type Severity Reaction Status Date / Time No Known Drug Allergies Allergy Verified 06/06/20 08:42 Anes History & Medical History - Anesthetic History Family history of Anesthesia Complications: Denies Family history of Malignant Hyperthermia: Denies - Medical History Cardiovascular: reports: Congestive heart failure, Hypertension, High cholesterol, Atrial fibrillation Pulmonary: reports: None Gastrointestinal: reports: None Urinary: reports: Incontinence Neuro: reports: Dementia Musculoskeletal: reports: None Endocrine/Autoimmune: reports: Type 2 diabetes Blood Disorders: reports: None Skin: reports: None Smoking Status: Unknown if ever smoked Psychosocial: reports: No issues indicated History of Cancer?: No Exam General: Alert, Cooperative Dental: Poor dentition Mouth Openin Fingerbreadth Neck Mobility: Reduced Mallampati classification: III Thyromental Distance: 4-6 cm Mental/Cognitive Status: Normal for patient Plan Anesthesia Type: MAC Consent for Procedure(s) Verified and Reviewed: Yes Code Status: Attempt Resuscitation ASA classification: 3-Severe systemic disease Is this case an emergency?: No
[2020-06-07] MEDS ORDERED: PROPOFOL 200 MG/20 ML VIAL IVP ONE ×2 (16:14→16:59)
--- NOTE | 2020-06-07 17:54 | PROVIDER PROGRESS NOTE ---
Progress Note 79-year-old male presenting with acute gastrointestinal bleed. On Xarelto. History of multiple comorbid states including atrial fibrillation. Does not recollect last colonoscopy. Underwent bowel prep and upper and lower endoscopy with findings as per below: Colonoscopy: 1. Bright red blood noted within the sigmoid and left colon. Extensive diverticulosis both medium and large mouth. No active diverticular bleed appreciated. Great care was taken in order to evaluate the entirety of the left colon including the rectosigmoid junction, sigmoid and areas of most significant hematochezia. There is no active extravasation or bleeding diathesis noted both on intubation and slow withdrawal was circumferential survey. 2. The ileocecal valve was achieved and the the right colon was without any hematochezia was noted for bilious stool. A historic Endo Clip was noted within the cecum at a site of a likely previous polypectomy. We did not attempt to intubate the ileocecal valve absent any bright red blood noted within the cecum and ascending colon. 3. Slow circumferential withdrawal noted a sessile polyp within the splenic f lexure which was performed for hot snare polypectomy and closed with a Endo Clip. 4. Again as listed above the extensive diverticulosis was surveyed and without any active bleeding that could be appreciated however it became clear that this was the most likely source of the patient's hematochezia which appeared to be self-limited at this time. 5. Retroflexion revealed internal hemorrhoids nonbleeding. Esophagogastro duodenoscopy: 1. Hiatal hernia appreciated large 2. Duodenum intubated and noted to the second portion, no duodenitis. There was no blood noted throughout the entirety of the EGD exam. No biopsies taken given the patient is anticoagulated historically and absent generalized symptoms we deferred sampling at this time. 3. No diffuse gastritis or gastropathy. No antral gastritis. Stomach was only noted for hiatal hernia. 4. GE junction without any significant reflux associated changes. No varices. No esophagitis. Recommendations going forward: 1. Hold anticoagulation 2. Acid suppression therapy may transition to oral 3. Trend H&H 4. If the patient rebleeds may be best served by transfer to a center that able to perform angiography however the bleed is most likely diverticular in nature and the majority of these are self-limited. Please note that voice recognition software was used to transcribe this note and inadvertent errors might persist in spite of review and editing. I am obliged to you for your attention. I am thankful to you for allowing me to participate with you in this care of this patient.
[2020-06-07 21:10] LABS: HCT - HEMATOCRIT 28.8 % (42.0-52.0); HGB - HEMOGLOBIN 9.2 g/dL (14.0-18.0)
--- NOTE | 2020-06-07 21:38 | ANESTHESIA POST OP EVALUATION ---
Anesthesia Post Eval - Post Anesthesia Eval Vitals: Last Vital Signs Temp 36.7 C 06/07/20 20:03 Pulse 97 06/07/20 20:03 Resp 18 06/07/20 20:03 BP 148/67 H 06/07/20 20:03 Pulse Ox 96 06/07/20 20:03 CV Function Including HR & BP: positive: Stable Pain Control: positive: Satisfactory Nausea & Vomiting: positive: Negative Mental Status: positive: Baseline Respiratory Status: Airway Patent Hydration Status: Satisfactory Anesthesia Complications: positive: None
[2020-06-07] MEDS: risperiDONE 1 MG TABLET PO SCH (22:05)
[2020-06-08] MEDS: SODIUM CHLORIDE FLUSH 0.9% 10 ML SYRINGE IVP SCH ×3 (04:55→20:48)
[2020-06-08 05:42] LABS: BASOPHILS # (AUTO) 0.1 10^3/uL (0.0-0.1); BASOPHILS % (AUTO) 0.6 %; EOSINOPHILS # (AUTO) 0.4 10^3/uL (0.0-0.7); EOSINOPHILS % (AUTO) 3.9 %; HCT - HEMATOCRIT 26.1 % (42.0-52.0); HGB - HEMOGLOBIN 8.3 g/dL (14.0-18.0); LYMPHOCYTES # (AUTO) 1.6 10^3/uL (1.5-3.5); LYMPHOCYTES % (AUTO) 17.8 %; MEAN CORPUSCULAR HEMOGLOBIN 30.2 pg (27.0-31.0); MEAN CORPUSCULAR HGB CONC 31.8 g/dL (32.0-36.0); MEAN CORPUSCULAR VOLUME 94.9 fL (80.0-94.0); MEAN PLATELET VOLUME 9.9 fL (7.4-11.4); MONOCYTES # (AUTO) 0.7 10^3/uL (0.0-1.0); NEUTROPHILS # (AUTO) 6.3 10^3/uL (1.5-6.6); NEUTROPHILS % (AUTO) 69.5 %; PLT - PLATELET COUNT 214 10^3/uL (130-450); RED BLOOD COUNT 2.75 10^6/uL (4.70-6.10); RED CELL DISTRIBUTION WIDTH 14.1 % (12.0-15.0)
[2020-06-08] MEDS: PANTOPRAZOLE 40 MG TABLET PO SCH (06:40)
[2020-06-08] MEDS: INSULIN REGULAR HUMAN 300 UNIT/3 ML VIAL SUBQ SCH ×4 (06:43→20:49)
[2020-06-08 08:27] LABS: MAGNESIUM 2.1 mg/dL (1.7-2.8); PHOSPHORUS 3.5 mg/dL (2.5-4.6)
[2020-06-08] MEDS: ASCORBIC ACID CHEW 500 MG TABLET PO SCH (09:10)
[2020-06-08] MEDS: SERTRALINE 50 MG TABLET PO SCH (09:10)
[2020-06-08] MEDS: carvediloL 3.125 MG TABLET PO SCH ×2 (09:10→20:48)
[2020-06-08] MEDS: TAMSULOSIN 0.4 MG CAPSULE PO SCH (09:10)
[2020-06-08] MEDS: MULTIVITAMIN TABLET PO SCH (09:10)
[2020-06-08] MEDS: FERROUS SULFATE 325 MG TABLET PO SCH (09:10)
[2020-06-08] MEDS: LORATADINE 10 MG TABLET PO SCH (09:11)
[2020-06-08] MEDS: guaiFENesin 600 MG TABLET PO SCH ×2 (10:57→20:48)
[2020-06-08 13:01] LABS: HCT - HEMATOCRIT 29.4 % (42.0-52.0); HGB - HEMOGLOBIN 9.3 g/dL (14.0-18.0)
--- NOTE | 2020-06-08 14:43 | PROVIDER PROGRESS NOTE ---
Assessment/Plan - Problem List (1) GI bleeding Qualifiers: GI bleed type/associated pathology: melena Qualified Code(s): K92.1 - Melena Assessment/Plan: he had colonoscopy done on yesterday by surgeon, patient was found diverticulosis which likely caused patient had a GI bleed. Patient was recommended by surgeon hold patient's home Xarelto. Patient hemoglobin was decreased to 8.3 then increased to 9.3. Patient had no bowel movement on today. We will continue H&H to monitor hemoglobin, Monitor if bloody in bowel movement. 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 Patient is planned to [facility] where he come from. 06/07 Patient had a bowel movement which still show bright bloody stool but blood content in stool is significantly reduced, compared with previous as pt state. Patient will have colonoscopy on later this afternoon. We will continue H&H, we will follow up colonoscopy results, Continue hold patient home anticoagulation medication. pt has rectal bleed, and HGB is 9.9, drop from previous 12.7. Patient is taking Xarelto for his atrial fibrillation. Consult with GI surgeon to plan to have colonoscopy for patient tomorrow, we will have to do bowel prepare, hold Xarelto, H&H monitor HGB. Patient also has history of hemorrhoid. (2) A-fib Conclusion/Plan: 06/08 stable 06/07 Stable, continue hold home anticoagulation medication Patient's heart rate is controlled, will resume patient Coreg, hold Xarelto now, Continue hospital monitor (3) Diabetes Conclusion/Plan: Patient had A1c 6.7, patient take Metformin in the home, we will start with sliding scale, ACH S to check glucose, hypoglycemia protocol (4) HTN (hypertension) Conclusion/Plan: Patient's blood pressure is stable, we will resume home Coreg, continue vital signs monitor (5) Hx of schizophrenia Conclusion/Plan: Patient has history of schizophrenia, now patient seems stable, will resume home Zoloft and resperidal. - Current Meds Current Meds: Current Medications Generic Name Dose Route Start Last Admin Trade Name Freq PRN Reason Stop Dose Admin Acetaminophen 650 mg 06/06/20 12:25 06/07/20 08:46 Acetaminophen 325 Mg Tablet PO 650 mg Q4HR PRN Administration Pain 1 to 4 Ascorbic Acid 250 mg 06/08/20 09:00 06/08/20 09:10 Ascorbic Acid Chew 500 Mg Tablet PO 250 mg DAILY JERRY Administration Carvedilol 3.125 mg 06/07/20 09:00 06/08/20 09:10 Carvedilol 3.125 Mg Tablet PO 3.125 mg BID JERRY Administration Ferrous Sulfate 325 mg 06/08/20 09:00 06/08/20 09:10 Ferrous Sulfate 325 Mg Tablet PO 325 mg DAILY JERRY Administration Guaifenesin 600 mg 06/08/20 10:00 06/08/20 10:57 Guaifenesin 600 Mg Tablet PO 600 mg BID JERRY Administration Insulin Human Regular 1 - 5 unit 06/07/20 21:00 06/08/20 11:21 Insulin Regular Human 300 Unit/3 Ml Vial SUBQ 2 unit ACHS JERRY Administration Protocol Loratadine 10 mg 06/08/20 09:00 06/08/20 09:11 Loratadine 10 Mg Tablet PO 10 mg DAILY JERRY Administration Multi-Ingredient Ointment 1 applic 06/07/20 02:42 06/07/20 22:05 Zinc Oxide 20% Oint 30 Gm Tube TOP 1 applic PRN PRN Administration Skin Care Multivitamins 1 tab 06/08/20 08:00 06/08/20 09:10 Multivitamin Tablet PO 1 tab DAILYWM JERRY Administration Pantoprazole Sodium 40 mg 06/06/20 13:00 06/08/20 06:40 Pantoprazole 40 Mg Tablet PO 40 mg QDAC JERRY Administration Risperidone 1 mg 06/07/20 21:00 06/07/20 22:05 Risperidone 1 Mg Tablet PO 1 mg HS JERRY Administration Sertraline HCl 50 mg 06/06/20 13:00 06/08/20 09:10 Sertraline 50 Mg Tablet PO 50 mg DAILY JERRY Administration Sodium Chloride 10 ml 06/06/20 17:00 06/08/20 09:11 Sodium Chloride Flush 0.9% 10 Ml Syringe IVP 10 ml 0100,0900,1700 JERRY Administration Tamsulosin HCl 0.4 mg 06/08/20 09:00 06/08/20 09:10 Tamsulosin 0.4 Mg Capsule PO 0.4 mg DAILY JERRY Administration - Lab Result Fish Bone Diagrams: 06/08/20 12:53 06/08/20 05:03 - Additional Planning My Orders: My Active Orders 06/07/20 15:29 Loperamide [Imodium] 2 mg PO PRN PRN 06/07/20 Dinner Carb-controlled Diet [DIET] 06/07/20 21:00 risperiDONE [RisperDAL] 1 mg PO HS 06/08/20 08:00 Multivitamin [Theragran] 1 tab PO DAILYWM 06/08/20 08:57 Out of bed 3+ hours today [RC] TID 06/08/20 09:00 Ascorbic Acid Chew [Vitamin C] 250 mg PO DAILY Ferrous Sulfate [Feosol] 325 mg PO DAILY Loratadine [Claritin] 10 mg PO DAILY Tamsulosin [Flomax] 0.4 mg PO DAILY 06/08/20 10:00 guaiFENesin [Mucinex] 600 mg PO BID 06/08/20 21:00 H&H [HEMOGLOBIN AND HEMATOCRIT] [HEME] Q8H 06/09/20 05:00 BMP - BASIC METABOLIC PANEL [CHEM] DAILYLAB CBC - COMP BLD CT W/AUTO DIFF [HEME] DAILYLAB 06/10/20 05:00 BMP - BASIC METABOLIC PANEL [CHEM] DAILYLAB CBC - COMP BLD CT W/AUTO DIFF [HEME] DAILYLAB 06/11/20 05:00 BMP - BASIC METABOLIC PANEL [CHEM] DAILYLAB CBC - COMP BLD CT W/AUTO DIFF [HEME] DAILYLAB Subjective - Subjective Patient Reports: Feeling Better Objective Vital Signs: Vital Signs - 24 hr 06/07/20 06/07/20 06/07/20 17:00 17:20 18:00 Temperature 36.8 C 36.8 C 36.6 C Heart Rate [ 92 74 78 Brachial] Respiratory 17 17 16 Rate Blood Pressure 113/57 L 125/63 138/67 H [Right Brachial artery] O2 Saturation 96 97 99 06/07/20 06/07/20 06/07/20 20:03 21:37 23:44 Temperature 36.7 C 36.7 C 36.7 C Heart Rate [ 97 99 69 Brachial] Respiratory 18 18 16 Rate Blood Pressure 148/67 H 138/56 H 94/48 L [Right Brachial artery] O2 Saturation 96 99 97 06/08/20 06/08/20 04:52 07:16 Temperature 36.5 C 36.3 C L Heart Rate [ 80 77 Brachial] Respiratory 18 16 Rate Blood Pressure 122/73 130/60 [Right Brachial artery] O2 Saturation 94 95 Oxygen O2 Source Room air I&O (Last 24 Hrs): Intake and Output Totals x24h 06/06/20 06/07/20 06/08/20 23:59 23:59 23:59 Intake Total 1044 2196.667 2775 Output Total 800 1605 100 Balance 244 204.656 3282 General: Alert, Cooperative, No acute distress HEENT: Atraumatic Neck: Supple Lymphatic: no adenopathy Neuro: Alert Cardiovascular: Regular rate, Normal S1, Normal S2 Respiratory: Chest non-tender, No respiratory distress Abdomen: Normal bowel sounds, Soft Extremities: Normal pulses - Results Results: Laboratory Results WBC 9.0 x10^3/uL (4.8-10.8) 06/08/20 05:03 RBC 2.75 10^6/uL (4.70-6.10) L 06/08/20 05:03 Hgb 9.3 g/dL (14.0-18.0) L 06/08/20 12:53 Hct 29.4 % (42.0-52.0) L 06/08/20 12:53 MCV 94.9 fL (80.0-94.0) H 06/08/20 05:03 MCH 30.2 pg (27.0-31.0) 06/08/20 05:03 MCHC 31.8 g/dL (32.0-36.0) L 06/08/20 05:03 RDW 14.1 % (12.0-15.0) 06/08/20 05:03 Plt Count 214 10^3/uL (130-450) 06/08/20 05:03 MPV 9.9 fL (7.4-11.4) 06/08/20 05:03 Neut # (Auto) 6.3 10^3/uL (1.5-6.6) 06/08/20 05:03 Lymph # (Auto) 1.6 10^3/uL (1.5-3.5) 06/08/20 05:03 [place] # (Auto) 0.7 10^3/uL (0.0-1.0) 06/08/20 05:03 Eos # (Auto) 0.4 10^3/uL (0.0-0.7) 06/08/20 05:03 Baso # (Auto) 0.1 10^3/uL (0.0-0.1) 06/08/20 05:03 Absolute Nucleated RBC 0.00 x10^3/uL 06/08/20 05:03 Nucleated RBC % 0.0 /100WBC 06/08/20 05:03 PT 14.3 secs (9.9-12.6) H 06/06/20 09:00 INR 1.3 (0.8-1.2) H 06/06/20 09:00 APTT 32.3 secs (24.9-33.3) 06/06/20 09:00 Sodium 139 mmol/L (135-145) 06/08/20 05:03 Potassium 4.0 mmol/L (3.5-5.0) 06/08/20 05:03 Chloride 109 mmol/L (101-111) 06/08/20 05:03 Carbon Dioxide 22 mmol/L (21-32) 06/08/20 05:03 Anion Gap 8.0 (6-13) 06/08/20 05:03 BUN 15 mg/dL (6-20) 06/08/20 05:03 Creatinine 1.0 mg/dL (0.6-1.2) 06/08/20 05:03 Estimated GFR (MDRD) 72 (>89) L 06/08/20 05:03 Glucose 96 mg/dL (70-100) 06/08/20 05:03 Estimat Average Glucose 146 mg/dL (70-100) H 06/06/20 12:35 Hemoglobin A1c % 6.7 % (4.27-6.07) H 06/06/20 12:35 Calcium 8.0 mg/dL (8.5-10.3) L 06/08/20 05:03 Phosphorus 3.5 mg/dL (2.5-4.6) 06/08/20 05:03 Magnesium 2.1 mg/dL (1.7-2.8) 06/08/20 05:03 Total Bilirubin 0.6 mg/dL (0.2-1.0) 06/06/20 09:00 AST 14 IU/L (10-42) 06/06/20 09:00 ALT 16 IU/L (10-60) 06/06/20 09:00 Alkaline Phosphatase 162 IU/L (42-121) H 06/06/20 09:00 Total Protein 6.4 g/dL (6.7-8.2) L 06/06/20 09:00 Albumin 3.0 g/dL (3.2-5.5) L 06/06/20 09:00 Globulin 3.4 g/dL (2.1-4.2) 06/06/20 09:00 Albumin/Globulin Ratio 0.9 (1.0-2.2) L 06/06/20 09:00 Lipase 20 U/L (22-51) L 06/06/20 09:00 Nasal Adenovirus (PCR) NOT DETECTED 06/06/20 12:55 Nasal B. parapertussis DNA (PCR) NOT DETECTED 06/06/20 12:55 Nasal Coronavir 229E PCR NOT DETECTED 06/06/20 12:55 Nasal Coronavir HKU1 PCR NOT DETECTED 06/06/20 12:55 Nasal Coronavir NL63 PCR NOT DETECTED 06/06/20 12:55 Nasal Coronavir OC43 PCR NOT DETECTED 06/06/20 12:55 Nasal Enterovir/Rhinovir PCR DETECTED A 06/06/20 12:55 Nasal Influenza B PCR NOT DETECTED 06/06/20 12:55 Nasal Influenza A PCR NOT DETECTED 06/06/20 12:55 Nasal Parainfluen 1 PCR NOT DETECTED 06/06/20 12:55 Nasal Parainfluen 2 PCR NOT DETECTED 06/06/20 12:55 Nasal Parainfluen 3 PCR NOT DETECTED 06/06/20 12:55 Nasal Parainfluen 4 PCR NOT DETECTED 06/06/20 12:55 Nasal RSV (PCR) NOT DETECTED 06/06/20 12:55 Nasal B.pertussis DNA PCR NOT DETECTED 06/06/20 12:55 Nasal C.pneumoniae (PCR) NOT DETECTED 06/06/20 12:55 Shine Human Metapneumo PCR NOT DETECTED 06/06/20 12:55 Nasal M.pneumoniae (PCR) NOT DETECTED 06/06/20 12:55 Nasal SARS-CoV-2 (PCR) NOT DETECTED 06/06/20 12:55 Blood Type O POSITIVE 06/06/20 09:00 Blood Type Recheck O POSITIVE 06/06/20 03:30 Antibody Screen NEGATIVE 06/06/20 09:00 ABX Reporting Has patient been on IV antibiotics over the past 48 hours?: No Current Medications - Current Medications Current Medications: Active Medications Acetaminophen (Acetaminophen 325 Mg Tablet) 650 mg PO Q4HR PRN PRN Reason: Pain 1 to 4 Last Admin: 06/07/20 08:46 Dose: 650 mg Documented by: Ascorbic Acid (Ascorbic Acid Chew 500 Mg Tablet) 250 mg PO DAILY [facility] Last Admin: 06/08/20 09:10 Dose: 250 mg Documented by: Carvedilol (Carvedilol 3.125 Mg Tablet) 3.125 mg PO BID [facility] Last Admin: 06/08/20 09:10 Dose: 3.125 mg Documented by: Ferrous Sulfate (Ferrous Sulfate 325 Mg Tablet) 325 mg PO DAILY [facility] Last Admin: 06/08/20 09:10 Dose: 325 mg Documented by: Guaifenesin (Guaifenesin 600 Mg Tablet) 600 mg PO BID [facility] Last Admin: 06/08/20 10:57 Dose: 600 mg Documented by: Insulin Human Regular (Insulin Regular Human 300 Unit/3 Ml Vial) [facility] Protocol Last Admin: 06/08/20 11:21 Dose: 2 unit Documented by: Loperamide HCl (Loperamide 2 Mg Capsule) 2 mg PO PRN PRN PRN Reason: Diarrhea Loratadine (Loratadine 10 Mg Tablet) 10 mg PO DAILY [facility] Last Admin: 06/08/20 09:11 Dose: 10 mg Documented by: Multi-Ingredient Ointment (Zinc Oxide 20% Oint 30 Gm Tube) 1 applic TOP PRN PRN PRN Reason: Skin Care Last Admin: 06/07/20 22:05 Dose: 1 applic Documented by: Multivitamins (Multivitamin Tablet) 1 tab PO DAILYWM [facility] Last Admin: 06/08/20 09:10 Dose: 1 tab Documented by: Ondansetron HCl (Ondansetron 4 Mg/2 Ml Vial) 4 mg IVP Q6HR PRN PRN Reason: Nausea / Vomiting Pantoprazole Sodium (Pantoprazole 40 Mg Tablet) 40 mg PO QDAC [facility] Last Admin: 06/08/20 06:40 Dose: 40 mg Documented by: Risperidone (Risperidone 1 Mg Tablet) 1 mg PO HS [facility] Last Admin: 06/07/20 22:05 Dose: 1 mg Documented by: Sertraline HCl (Sertraline 50 Mg Tablet) 50 mg PO DAILY [facility] Last Admin: 06/08/20 09:10 Dose: 50 mg Documented by: Sodium Chloride (Sodium Chloride Flush 0.9% 10 Ml Syringe) 10 ml IVP PRN PRN PRN Reason: NEEDED PER PROVIDER ORDERS Sodium Chloride (Sodium Chloride Flush 0.9% 10 Ml Syringe) 10 ml IVP 0100,0900,1700 [facility] Last Admin: 06/08/20 09:11 Dose: 10 ml Documented by: Tamsulosin HCl (Tamsulosin 0.4 Mg Capsule) 0.4 mg PO DAILY [facility] Last Admin: 06/08/20 09:10 Dose: 0.4 mg Documented by: Tramadol HCl (Tramadol 50 Mg Tablet) 50 mg PO Q4HR PRN PRN Reason: PAIN Furosemide 10 mg PO DAILY 12/12/18 Gabapentin 300 mg PO TID 12/12/18 Rivaroxaban [Xarelto] 20 mg PO DAILY 12/12/18 Sertraline [Zoloft] 50 mg PO DAILY 12/12/18 traMADol [Ultram] 50 mg PO Q8H PRN 12/12/18 Acetaminophen [Aphen] 650 mg PO Q4H PRN 06/06/20 Ascorbic Acid [Vitamin C] 250 mg PO DAILY 06/06/20 Calcium Carbonate [Tums (Calcium Carbonate 500mg)] 500 mg PO BID 06/06/20 Cholecalciferol (Vitamin D3) [Vitamin D3] 50 mcg PO DAILY 06/06/20 Diclofenac Sodium [Venngel One] 1 % TOP Q8H PRN 06/06/20 Docusate Sodium [Dok] 300 mg PO DAILY 06/06/20 Ferrous Sulfate [Feosol] 325 mg PO DAILY 06/06/20 Lidocaine [Lidoderm] 1 patch TOP DAILY 06/06/20 Lisinopril [Zestril] 2.5 mg PO DAILY 06/06/20 Loperamide [Imodium] 2 mg PO PRN PRN 06/06/20 Loratadine [Allergy Relief] 10 mg PO DAILY 06/06/20 Multivitamin with Iron [Multivitamins with Iron] 1 tab PO DAILY 06/06/20 Ondansetron HCl [Zofran] 4 mg PO Q4H PRN 06/06/20 Tamsulosin HCl [Flomax] 0.4 mg PO DAILY 06/06/20 bisacodyL [Gentle Laxative] 5 mg PO DAILY PRN 06/06/20 carvediloL [Coreg] 3.125 mg PO BID 06/06/20 metFORMIN [Glucophage] 500 mg PO BID 06/06/20 risperiDONE [RisperDAL] 1 mg PO HS 06/06/20
[2020-06-08] MEDS: risperiDONE 1 MG TABLET PO SCH (20:49)
[2020-06-08 21:06] LABS: HCT - HEMATOCRIT 26.4 % (42.0-52.0); HGB - HEMOGLOBIN 8.7 g/dL (14.0-18.0)
[2020-06-09] MEDS: SODIUM CHLORIDE FLUSH 0.9% 10 ML SYRINGE IVP SCH ×3 (01:57→21:26)
[2020-06-09] MEDS: PANTOPRAZOLE 40 MG TABLET PO SCH (06:00)
[2020-06-09 07:28] LABS: BASOPHILS % (AUTO) 0.5 %; EOSINOPHILS # (AUTO) 0.4 10^3/uL (0.0-0.7); HCT - HEMATOCRIT 24.9 % (42.0-52.0); HGB - HEMOGLOBIN 8.3 g/dL (14.0-18.0); LYMPHOCYTES # (AUTO) 1.7 10^3/uL (1.5-3.5); LYMPHOCYTES % (AUTO) 19.7 %; MEAN CORPUSCULAR HEMOGLOBIN 31.4 pg (27.0-31.0); MEAN CORPUSCULAR HGB CONC 33.3 g/dL (32.0-36.0); MEAN CORPUSCULAR VOLUME 94.3 fL (80.0-94.0); MEAN PLATELET VOLUME 9.9 fL (7.4-11.4); MONOCYTES # (AUTO) 0.7 10^3/uL (0.0-1.0); MONOCYTES % (AUTO) 8.1 %; NEUTROPHILS # (AUTO) 5.9 10^3/uL (1.5-6.6); NEUTROPHILS % (AUTO) 67.4 %; PLT - PLATELET COUNT 208 10^3/uL (130-450); RED BLOOD COUNT 2.64 10^6/uL (4.70-6.10); RED CELL DISTRIBUTION WIDTH 13.9 % (12.0-15.0); WHITE BLOOD COUNT 8.7 x10^3/uL (4.8-10.8)
[2020-06-09 07:38] LABS: CALCIUM 8.3 mg/dL (8.5-10.3); CREATININE 1.2 mg/dL (0.6-1.2)
[2020-06-09] MEDS: MULTIVITAMIN TABLET PO SCH (08:00)
[2020-06-09] MEDS: INSULIN REGULAR HUMAN 300 UNIT/3 ML VIAL SUBQ SCH ×4 (08:00→21:27)
[2020-06-09] MEDS: ASCORBIC ACID CHEW 500 MG TABLET PO SCH (09:08)
[2020-06-09] MEDS: FERROUS SULFATE 325 MG TABLET PO SCH (09:08)
[2020-06-09] MEDS: LORATADINE 10 MG TABLET PO SCH (09:08)
[2020-06-09] MEDS: carvediloL 3.125 MG TABLET PO SCH ×2 (09:08→21:25)
[2020-06-09] MEDS: TAMSULOSIN 0.4 MG CAPSULE PO SCH (09:08)
[2020-06-09] MEDS: SERTRALINE 50 MG TABLET PO SCH (09:08)
[2020-06-09] MEDS: guaiFENesin 600 MG TABLET PO SCH ×2 (09:12→21:25)
[2020-06-09] MEDS ORDERED: GI COCKTAIL 120 ML BOTTLE PO PRN (11:26)
[2020-06-09 12:41] LABS: HCT - HEMATOCRIT 29.7 % (42.0-52.0); HGB - HEMOGLOBIN 9.7 g/dL (14.0-18.0)
--- NOTE | 2020-06-09 14:27 | PROVIDER PROGRESS NOTE ---
Assessment/Plan - Problem List (1) GI bleeding Qualifiers: GI bleed type/associated pathology: melena Qualified Code(s): K92.1 - Melena Assessment/Plan: 06/09 Patient had no bowel movement on today. Patient's hemoglobin increases to 9.7 from 8.3. Patient's home Xarelto is hold now. Continue H&H to monitor HGB. [facility] can not take the patient on today, per social work, plan to take pt on tomorrow. he had colonoscopy done on yesterday by surgeon, patient was found diverticulosis which likely caused patient had a GI bleed. Patient was recommended by surgeon hold patient's home Xarelto. Patient hemoglobin was dec reased to 8.3 then increased to 9.3. Patient had no bowel movement on today. We will continue H&H to monitor hemoglobin, Monitor if bloody in bowel movement. hospital tray service worker report patient cannot be discharged on today because authorization from insurance. Patient is planned to [facility] come from. 06/07 Patient had a bowel movement which still show bright bloody stool but blood content in stool is significantly reduced, compared with previous as pt state. Patient will have colonoscopy on later this afternoon. We will continue H&H, we will follow up colonoscopy results, Continue hold patient home anticoagulation medication. pt has rectal bleed, and HGB is 9.9, drop from previous 12.7. Patient is taking Xarelto for his atrial fibrillation. Consult with GI surgeon to plan to have colonoscopy for patient tomorrow, we will have to do bowel prepare, hold Xarelto, H&H monitor HGB. Patient also has history of hemorrhoid. 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 - Current Meds Current Meds: Current Medications Generic Name Dose Route Start Last Admin Trade Name Freq PRN Reason Stop Dose Admin Acetaminophen 650 mg 06/06/20 12:25 06/07/20 08:46 Acetaminophen 325 Mg Tablet PO 650 mg Q4HR PRN Administration Pain 1 to 4 Ascorbic Acid 250 mg 06/08/20 09:00 06/09/20 09:08 Ascorbic Acid Chew 500 Mg Tablet PO 250 mg DAILY JERRY Administration Carvedilol 3.125 mg 06/07/20 09:00 06/09/20 09:08 Carvedilol 3.125 Mg Tablet PO 3.125 mg BID JERRY Administration Ferrous Sulfate 325 mg 06/08/20 09:00 06/09/20 09:08 Ferrous Sulfate 325 Mg Tablet PO 325 mg DAILY JERRY Administration Guaifenesin 600 mg 06/08/20 10:00 06/09/20 09:12 Guaifenesin 600 Mg Tablet PO 600 mg BID JERRY Administration Insulin Human Regular 1 - 5 unit 06/07/20 21:00 06/09/20 11:58 Insulin Regular Human 300 Unit/3 Ml Vial SUBQ 1 unit ACHS JERRY Administration Protocol Loratadine 10 mg 06/08/20 09:00 06/09/20 09:08 Loratadine 10 Mg Tablet PO 10 mg DAILY JERRY Administration Multi-Ingredient Mouthwash/Gargle 30 ml 06/09/20 11:26 06/09/20 11:51 Gi Cocktail 120 Ml Bottle PO 30 ml Q4H PRN Administration Abdominal Pain Multi-Ingredient Ointment 1 applic 06/07/20 02:42 06/07/20 22:05 Zinc Oxide 20% Oint 30 Gm Tube TOP 1 applic PRN PRN Administration Skin Care Multivitamins 1 tab 06/08/20 08:00 06/09/20 08:00 Multivitamin Tablet PO 1 tab DAILYWM JERRY Administration Pantoprazole Sodium 40 mg 06/06/20 13:00 06/09/20 06:00 Pantoprazole 40 Mg Tablet PO 40 mg QDAC JERRY Administration Risperidone 1 mg 06/07/20 21:00 06/08/20 20:49 Risperidone 1 Mg Tablet PO 1 mg HS JERRY Administration Sertraline HCl 50 mg 06/06/20 13:00 06/09/20 09:08 Sertraline 50 Mg Tablet PO 50 mg DAILY JERRY Administration Sodium Chloride 10 ml 06/06/20 17:00 06/09/20 09:08 Sodium Chloride Flush 0.9% 10 Ml Syringe IVP 10 ml 0100,0900,1700 JERRY Administration Tamsulosin HCl 0.4 mg 06/08/20 09:00 06/09/20 09:08 Tamsulosin 0.4 Mg Capsule PO 0.4 mg DAILY JERRY Administration - Lab Result Fish Bone Diagrams: 06/09/20 12:27 06/09/20 07:15 - Additional Planning My Orders: My Active Orders 06/09/20 07:58 Out of bed 4+ hours [RC] QID 06/09/20 11:26 Gi Cocktail 30 ml PO Q4H PRN 06/10/20 05:00 BMP - BASIC METABOLIC PANEL [CHEM] DAILYLAB CBC - COMP BLD CT W/AUTO DIFF [HEME] DAILYLAB 06/11/20 05:00 BMP - BASIC METABOLIC PANEL [CHEM] DAILYLAB CBC - COMP BLD CT W/AUTO DIFF [HEME] DAILYLAB Subjective - Subjective Patient Reports: Feeling Better Objective Vital Signs: Vital Signs - 24 hr 06/08/20 06/08/20 06/09/20 17:30 19:51 00:50 Temperature 36.2 C L 36.5 C 36.5 C Heart Rate [ 68 68 77 Brachial] Respiratory 20 20 18 Rate Blood Pressure 125/53 L 138/67 H 122/69 [Right Brachial artery] O2 Saturation 98 98 98 06/09/20 06/09/20 06/09/20 05:57 07:25 11:16 Temperature 36.5 C 36.5 C 36.9 C Heart Rate [ 88 85 99 Brachial] Respiratory 18 18 18 Rate Blood Pressure 130/72 149/71 H 139/79 H [Right Brachial artery] O2 Saturation 96 97 95 Oxygen O2 Source Room air I&O (Last 24 Hrs): Intake and Output Totals x24h 06/07/20 06/08/20 06/09/20 23:59 23:59 23:59 Intake Total 2196.667 3305 1680 Output Total 8534 976 8212 Balance 662.528 6545 85 General: Alert, Cooperative, No acute distress HEENT: Atraumatic Neck: Supple Lymphatic: no adenopathy Neuro: Alert, Non Focal Cardiovascular: Regular rate, Normal S1, Normal S2 Respiratory: Chest non-tender, No respiratory distress Abdomen: Normal bowel sounds, Soft Extremities: Normal pulses - Results Results: Laboratory Results WBC 8.7 x10^3/uL (4.8-10.8) 06/09/20 07:15 RBC 2.64 10^6/uL (4.70-6.10) L 06/09/20 07:15 Hgb 9.7 g/dL (14.0-18.0) L 06/09/20 12:27 Hct 29.7 % (42.0-52.0) L 06/09/20 12:27 MCV 94.3 fL (80.0-94.0) H 06/09/20 07:15 MCH 31.4 pg (27.0-31.0) H 06/09/20 07:15 MCHC 33.3 g/dL (32.0-36.0) 06/09/20 07:15 RDW 13.9 % (12.0-15.0) 06/09/20 07:15 Plt Count 208 10^3/uL (130-450) 06/09/20 07:15 MPV 9.9 fL (7.4-11.4) 06/09/20 07:15 Neut # (Auto) 5.9 10^3/uL (1.5-6.6) 06/09/20 07:15 Lymph # (Auto) 1.7 10^3/uL (1.5-3.5) 06/09/20 07:15 Steele # (Auto) 0.7 10^3/uL (0.0-1.0) 06/09/20 07:15 Eos # (Auto) 0.4 10^3/uL (0.0-0.7) 06/09/20 07:15 Baso # (Auto) 0.0 10^3/uL (0.0-0.1) 06/09/20 07:15 Absolute Nucleated RBC 0.00 x10^3/uL 06/09/20 07:15 Nucleated RBC % 0.0 /100WBC 06/09/20 07:15 PT 14.3 secs (9.9-12.6) H 06/06/20 09:00 INR 1.3 (0.8-1.2) H 06/06/20 09:00 APTT 32.3 secs (24.9-33.3) 06/06/20 09:00 Sodium 139 mmol/L (135-145) 06/09/20 07:15 Potassium 4.0 mmol/L (3.5-5.0) 06/09/20 07:15 Chloride 107 mmol/L (101-111) 06/09/20 07:15 Carbon Dioxide 23 mmol/L (21-32) 06/09/20 07:15 Anion Gap 9.0 (6-13) 06/09/20 07:15 BUN 13 mg/dL (6-20) 06/09/20 07:15 Creatinine 1.2 mg/dL (0.6-1.2) 06/09/20 07:15 Estimated GFR (MDRD) 58 (>89) L 06/09/20 07:15 Glucose 124 mg/dL (70-100) H 06/09/20 07:15 Estimat Average Glucose 146 mg/dL (70-100) H 06/06/20 12:35 Hemoglobin A1c % 6.7 % (4.27-6.07) H 06/06/20 12:35 Calcium 8.3 mg/dL (8.5-10.3) L 06/09/20 07:15 Phosphorus 3.5 mg/dL (2.5-4.6) 06/08/20 05:03 Magnesium 2.1 mg/dL (1.7-2.8) 06/08/20 05:03 Total Bilirubin 0.6 mg/dL (0.2-1.0) 06/06/20 09:00 AST 14 IU/L (10-42) 06/06/20 09:00 ALT 16 IU/L (10-60) 06/06/20 09:00 Alkaline Phosphatase 162 IU/L (42-121) H 06/06/20 09:00 Total Protein 6.4 g/dL (6.7-8.2) L 06/06/20 09:00 Albumin 3.0 g/dL (3.2-5.5) L 06/06/20 09:00 Globulin 3.4 g/dL (2.1-4.2) 06/06/20 09:00 Albumin/Globulin Ratio 0.9 (1.0-2.2) L 06/06/20 09:00 Lipase 20 U/L (22-51) L 06/06/20 09:00 Nasal Adenovirus (PCR) NOT DETECTED 06/06/20 12:55 Nasal B. parapertussis DNA (PCR) NOT DETECTED 06/06/20 12:55 Nasal Coronavir 229E PCR NOT DETECTED 06/06/20 12:55 Nasal Coronavir HKU1 PCR NOT DETECTED 06/06/20 12:55 Nasal Coronavir NL63 PCR NOT DETECTED 06/06/20 12:55 Nasal Coronavir OC43 PCR NOT DETECTED 06/06/20 12:55 Nasal Enterovir/Rhinovir PCR DETECTED A 06/06/20 12:55 Nasal Influenza B PCR NOT DETECTED 06/06/20 12:55 Nasal Influenza A PCR NOT DETECTED 06/06/20 12:55 Nasal Parainfluen 1 PCR NOT DETECTED 06/06/20 12:55 Nasal Parainfluen 2 PCR NOT DETECTED 06/06/20 12:55 Nasal Parainfluen 3 PCR NOT DETECTED 06/06/20 12:55 Nasal Parainfluen 4 PCR NOT DETECTED 06/06/20 12:55 Nasal RSV (PCR) NOT DETECTED 06/06/20 12:55 Nasal B.pertussis DNA PCR NOT DETECTED 06/06/20 12:55 Nasal C.pneumoniae (PCR) NOT DETECTED 06/06/20 12:55 Shine Human Metapneumo PCR NOT DETECTED 06/06/20 12:55 Nasal M.pneumoniae (PCR) NOT DETECTED 06/06/20 12:55 Nasal SARS-CoV-2 (PCR) NOT DETECTED 06/06/20 12:55 Blood Type O POSITIVE 06/06/20 09:00 Blood Type Recheck O POSITIVE 06/06/20 03:30 Antibody Screen NEGATIVE 06/06/20 09:00 ABX Reporting Has patient been on IV antibiotics over the past 48 hours?: No Current Medications - Current Medications Current Medications: Active Medications Acetaminophen (Acetaminophen 325 Mg Tablet) 650 mg PO Q4HR PRN PRN Reason: Pain 1 to 4 Last Admin: 06/07/20 08:46 Dose: 650 mg Documented by: Ascorbic Acid (Ascorbic Acid Chew 500 Mg Tablet) 250 mg PO DAILY [facility] Last Admin: 06/09/20 09:08 Dose: 250 mg Documented by: Carvedilol (Carvedilol 3.125 Mg Tablet) 3.125 mg PO BID [facility] Last Admin: 06/09/20 09:08 Dose: 3.125 mg Documented by: Ferrous Sulfate (Ferrous Sulfate 325 Mg Tablet) 325 mg PO DAILY [facility] Last Admin: 06/09/20 09:08 Dose: 325 mg Documented by: Guaifenesin (Guaifenesin 600 Mg Tablet) 600 mg PO BID [facility] Last Admin: 06/09/20 09:12 Dose: 600 mg Documented by: Insulin Human Regular (Insulin Regular Human 300 Unit/3 Ml Vial) 1 - 5 unit SUBQ [facility]; Protocol Last Admin: 06/09/20 11:58 Dose: 1 unit Documented by: Loperamide HCl (Loperamide 2 Mg Capsule) 2 mg PO PRN PRN PRN Reason: Diarrhea Loratadine (Loratadine 10 Mg Tablet) 10 mg PO DAILY [facility] Last Admin: 06/09/20 09:08 Dose: 10 mg Documented by: Multi-Ingredient Mouthwash/Gargle (Gi Cocktail 120 Ml Bottle) 30 ml PO Q4H PRN PRN Reason: Abdominal Pain Last Admin: 06/09/20 11:51 Dose: 30 ml Documented by: Multi-Ingredient Ointment (Zinc Oxide 20% Oint 30 Gm Tube) 1 applic TOP PRN PRN PRN Reason: Skin Care Last Admin: 06/07/20 22:05 Dose: 1 applic Documented by: Multivitamins (Multivitamin Tablet) 1 tab PO DAILYWM [facility] Last Admin: 06/09/20 08:00 Dose: 1 tab Documented by: Non-Formulary Medication (Lisinopril [Zestril]) 2.5 mg PO DAILY [facility] Ondansetron HCl (Ondansetron 4 Mg/2 Ml Vial) 4 mg IVP Q6HR PRN PRN Reason: Nausea / Vomiting Pantoprazole Sodium (Pantoprazole 40 Mg Tablet) 40 mg PO QDAC [facility] Last Admin: 06/09/20 06:00 Dose: 40 mg Documented by: Risperidone (Risperidone 1 Mg Tablet) 1 mg PO HS [facility] Last Admin: 06/08/20 20:49 Dose: 1 mg Documented by: Sertraline HCl (Sertraline 50 Mg Tablet) 50 mg PO DAILY [facility] Last Admin: 06/09/20 09:08 Dose: 50 mg Documented by: Sodium Chloride (Sodium Chloride Flush 0.9% 10 Ml Syringe) 10 ml IVP PRN PRN PRN Reason: NEEDED PER PROVIDER ORDERS Sodium Chloride (Sodium Chloride Flush 0.9% 10 Ml Syringe) 10 ml IVP 0100,0900,1700 [facility] Last Admin: 06/09/20 09:08 Dose: 10 ml Documented by: Tamsulosin HCl (Tamsulosin 0.4 Mg Capsule) 0.4 mg PO DAILY [facility] Last Admin: 06/09/20 09:08 Dose: 0.4 mg Documented by: Tramadol HCl (Tramadol 50 Mg Tablet) 50 mg PO Q4HR PRN PRN Reason: PAIN Furosemide 10 mg PO DAILY 12/12/18 Gabapentin 300 mg PO TID 12/12/18 Rivaroxaban [Xarelto] 20 mg PO DAILY 12/12/18 Sertraline [Zoloft] 50 mg PO DAILY 12/12/18 traMADol [Ultram] 50 mg PO Q8H PRN 12/12/18 Acetaminophen [Aphen] 650 mg PO Q4H PRN 06/06/20 Ascorbic Acid [Vitamin C] 250 mg PO DAILY 06/06/20 Calcium Carbonate [Tums (Calcium Carbonate 500mg)] 500 mg PO BID 06/06/20 Cholecalciferol (Vitamin D3) [Vitamin D3] 50 mcg PO DAILY 06/06/20 Diclofenac Sodium [Venngel One] 1 % TOP Q8H PRN 06/06/20 Docusate Sodium [Dok] 300 mg PO DAILY 06/06/20 Ferrous Sulfate [Feosol] 325 mg PO DAILY 06/06/20 Lidocaine [Lidoderm] 1 patch TOP DAILY 06/06/20 Lisinopril [Zestril] 2.5 mg PO DAILY 06/06/20 Loperamide [Imodium] 2 mg PO PRN PRN 06/06/20 Loratadine [Allergy Relief] 10 mg PO DAILY 06/06/20 Multivitamin with Iron [Multivitamins with Iron] 1 tab PO DAILY 06/06/20 Ondansetron HCl [Zofran] 4 mg PO Q4H PRN 06/06/20 Tamsulosin HCl [Flomax] 0.4 mg PO DAILY 06/06/20 bisacodyL [Gentle Laxative] 5 mg PO DAILY PRN 06/06/20 carvediloL [Coreg] 3.125 mg PO BID 06/06/20 metFORMIN [Glucophage] 500 mg PO BID 06/06/20 risperiDONE [RisperDAL] 1 mg PO HS 06/06/20
[2020-06-09] MEDS: lisinopriL 5 MG TABLET PO SCH (16:43)
--- NOTE | 2020-06-09 16:50 | Discharge Plan ---
"Discharge Plan for SNF / [facility] - Discharge Plan And Transition Orders Problem Reviewed?: Yes Disposition: 03 SNF DC/Xfer Condition: Stable Allergies and Adverse Reactions: Allergies Allergy/AdvReac Type Severity Reaction Status Date / Time No Known Drug Allergies Allergy Verified 06/06/20 08:42 Health Concerns: GI bleeding Plan of Treatment: pt had colonoscopy which show patient had Extensive diverticulosis, the bleed is most likely diverticular in nature and the majority of these are self- limited. pt's HGB is increased significantly, pt had no bowel movement on today. pt has hx of afib and took Xarelto, may hold Xarelto now for his GI bleed healing, and discuss with pt's PCP for further management. Care Goals: stabilization and improvement of pt's medical conditions. Assessment: Discussed the care plan with pt, answered his questions. - SNF / [facility] Transition Orders Admit to (Facility): [facility] Under the care of (Name): Dr. Alfredo Barakat Discharge Diagnosis: GI bleed, afib, diabetes, HTN, hx of schizophrenia. Medicare Certification Statement: I certify that [facility] care is medically necessary on a continuing basis for any of the conditions for which she/he is receiving care during hospitalization. Notify PCP of admission and forward orders to primary provider for signature. Weight on admission and: Daily Call PCP immediately if weight increases by: 2 kg Other Notification Orders: Call PCP immediately if patient develops dyspnea, chest pain/tightness or edema. House Bowel Program: Yes Additional Bowel Program Orders: If no BM after 2 days, nurse may give M.O.M. 30ml PO PRN and/or ducolax Supp 1 ND and/or MCKENNA 250mg P.O., and/or senna 1-2 tabs PO. On day 3 nurse may give repeat above order until residents constipation is resolved. Annual Influenza Vaccine (between Nov 08 and June 07): Yes Two-step PPD per [facility] [id number] or approved exception documents: Yes Treatments & Other Orders: pt had colonoscopy which show patient had Extensive diverticulosis, the bleed is most likely diverticular in nature and the majority of these are self-limited. pt's HGB is increased significantly, pt had no bowel movement on today. pt has hx of afib and took Xarelto, may hold Xarelto now for his GI bleed healing, and discuss with pt's PCP for further management. Medication Orders: PLEASE REFER TO THE DISCHARGE MEDICATION LIST. Insulin Orders?: No - Medications New Prescriptions: Pantoprazole Sodium [Protonix] 20 mg PO DAILY #30 tab - Diet Type: Geriatric Texture: Regular Liquids: Thin May have monthly special meal: Yes - Therapies | Activity Rehabilitation Potential: Maximize functional status Activity: Activity as Tolerated"
--- NOTE | 2020-06-09 17:14 | DISCHARGE SUMMARY ---
"Discharge Summary Admit Date: 06/06/20 Discharge Date: 06/10/20 Discharging Provider: Karlos Watts Primary Care Provider: Anika Garcia Condition at Discharge: Stable Discharge Disposition: SNF DC/Xfer Discharge Facility Name: [facility] - DIAGNOSES Discharge Diagnoses with Status of Each Condition: (1) GI bleeding pt has bowel movement, no GI bleeding. pt's HGB is stable. Pt had colonoscopy done at hospital, which was found to have extensive diverticulosis. Per surgeon report it is likely the resource to cause the bleed. pt took Xarelto at home. pt's home med Xarelto is hold now. Discussed with pt, Pt may discuss with his PCP to determine if continue Xarelto after his GI bleeding was healed. continue home iron pill. (2) A-fib HR is stable, hold Xarelto as discussed above, continue home meds (3) Diabetes Patient had A1c 6.7, continue home meds (4) HTN (hypertension) stable (5) Hx of schizophrenia stable - HPI History of Present Illness: This is a 79 years-old male with a past medical history significant for congestive heart failure, hypertension, hyperlipidemia, H fibrillation with Xarelto, dementia, diabetic 2, incontinence, schizophrenia, Hemorrhoid, who present ER complain of GI bleed. Pt Report on yesterday morning when he had a diarrhea, he notified toilet is red with blood. He denies abdominal pain, Lightheaded, dizziness, Chest pain, palpitation, fever, cough, shortness of breathing. Pt also Report he had a history of hemorrhoid. Patient is living at [facility]. Patient is taking Xarelto for his a fibrillation. Routine laboratory tests show patient's hemoglobin is 9.9, patient had 12.7 in 2019. Patient is admitted for GI bleed. Discussed the care goal with patient, patient wish to have full code. - CONSULTS | PROCEDURES Consultations: Dr. Cooper Procedures: Colonoscopy - HOSPITAL COURSE Hospital Course: pt was admitted for GI bleed. pt took Xarelto at home. pt had H&H to monitor his HGB. pt had colonoscopy done at hospital. pt was found to have extensive diverticulosis which is likely the resource for bleeding. pt's home med Xarelto is hold now. Discussed with pt, Pt may discuss with his PCP to determine if continue Xarelto after his GI bleeding was healed. After treated in hospital, pt has no more GI bleed, his HGB is stable. - ALLERGIES Allergies/Adverse Reactions: Allergies Allergy/AdvReac Type Severity Reaction Status Date / Time No Known Drug Allergies Allergy Verified 06/06/20 08:42 - MEDICATIONS Home Medications: Ambulatory Orders Medication Instructions Recorded Confirmed Furosemide 10 mg PO DAILY 12/12/18 06/06/20 Gabapentin 300 mg PO TID 12/12/18 06/06/20 Sertraline [Zoloft] 50 mg PO DAILY 12/12/18 06/06/20 traMADol [Ultram] 50 mg PO Q8H PRN 12/12/18 06/06/20 Acetaminophen [Aphen] 650 mg PO Q4H PRN 06/06/20 06/06/20 Ascorbic Acid [Vitamin C] 250 mg PO DAILY 06/06/20 06/06/20 Calcium Carbonate [Tums (Calcium 500 mg PO BID 06/06/20 06/06/20 Carbonate 500mg)] Cholecalciferol (Vitamin D3) 50 mcg PO DAILY 06/06/20 06/06/20 [Vitamin D3] Diclofenac Sodium [Venngel One] 1 % TOP Q8H PRN 06/06/20 06/06/20 Docusate Sodium [Dok] 300 mg PO DAILY 06/06/20 06/06/20 Ferrous Sulfate [Feosol] 325 mg PO DAILY 06/06/20 06/06/20 Lidocaine [Lidoderm] 1 patch TOP DAILY 06/06/20 06/06/20 Lisinopril [Zestril] 2.5 mg PO DAILY 06/06/20 06/06/20 Loperamide [Imodium] 2 mg PO PRN PRN 06/06/20 06/06/20 Loratadine [Allergy Relief] 10 mg PO DAILY 06/06/20 06/06/20 Multivitamin with Iron 1 tab PO DAILY 06/06/20 06/06/20 [Multivitamins with Iron] Ondansetron HCl [Zofran] 4 mg PO Q4H PRN 06/06/20 06/06/20 Tamsulosin HCl [Flomax] 0.4 mg PO DAILY 06/06/20 06/06/20 bisacodyL [Gentle Laxative] 5 mg PO DAILY PRN 06/06/20 06/06/20 carvediloL [Coreg] 3.125 mg PO BID 06/06/20 06/06/20 metFORMIN [Glucophage] 500 mg PO BID 06/06/20 06/06/20 risperiDONE [RisperDAL] 1 mg PO HS 06/06/20 06/06/20 Pantoprazole Sodium [Protonix] 20 mg PO DAILY #30 tab 06/09/20 - PHYSICAL EXAM AT DISCHARGE General Appearance: positive: No acute distress, Alert. negative: Lethargic Eyes Bilateral: positive: Normal inspection, PERRL, No lid inflammation ENT: positive: ENT inspection nml, No signs of dehydration. negative: Purulent nasal drainage Neck: positive: Nml inspection, Trachea midline. negative: Thyromegaly, Tracheal deviation Respiratory: positive: Chest non-tender, No respiratory distress, Breath sounds nml. negative: Wheezes, Rales Cardiovascular: positive: Regular rate & rhythm, No murmur. negative: Tachycardia, Bradycardia, Systolic murmur, Diastolic murmur Peripheral Pulses: positive: 2+ Abdomen: positive: Non-tender, Nml bowel sounds, No distention. negative: Tenderness, Guarding, Rebound Back: positive: Nml inspection Skin: positive: Color nml, Warm, Dry. negative: Cyanosis, Diaphoresis, Pallor Extremities: positive: Non-tender, Nml appearance. negative: Pedal edema Neurologic/Psychiatric: positive: Motor nml, Sensation nml, Mood/affect nml. negative: Weakness, Sensory loss, Facial droop, Slurred/abnml speech, Depressed mood/affect - LABS Result Diagrams: 06/10/20 05:40 06/10/20 05:40 - FOLLOW UP Follow Up: pt had colonoscopy which show patient had Extensive diverticulosis, the bleed is most likely diverticular in nature and the majority of these are self- limited. pt's HGB is increased significantly, pt had no bowel movement on today. pt has hx of afib and took Xarelto, may hold Xarelto now for his GI bleed healing, and discuss with pt's PCP for further management after his GI bleeding was healed - TIME SPENT Time Spent in Discharge (Minutes): 30"
[2020-06-09 19:44] LABS: B. PARAPERTUSSIS- RESP PCR PAN NOT DETECTED; B. PERTUSSIS- RESP PCR PANEL NOT DETECTED; C. PNEUMONIAE- RESP PCR PANEL NOT DETECTED; CORONAVIRUS 229E-RESP PCR NOT DETECTED; CORONAVIRUS HKU1-RESP PCR NOT DETECTED; CORONAVIRUS NL63-RESP PCR NOT DETECTED; CORONAVIRUS OC43-RESP PCR NOT DETECTED; HUMAN METAPNEUMOVIRUS NOT DETECTED; INFLUENZA A- RESP PCR PANEL NOT DETECTED; INFLUENZA B - RESP PCR PANEL NOT DETECTED; M. PNEUMONIAE- RESP PCR PANEL NOT DETECTED; PARAINFLUENZA VIRUS 1 NOT DETECTED; PARAINFLUENZA VIRUS 2 NOT DETECTED; PARAINFLUENZA VIRUS 3 NOT DETECTED; PARAINFLUENZA VIRUS 4 NOT DETECTED; RHINOVIRUS/ENTEROVIRUS DETECTED; RSV- RESP PCR PANEL NOT DETECTED; SARS-CoV-2 -RESP PCR PANEL NOT DETECTED
[2020-06-09 21:08] LABS: HCT - HEMATOCRIT 26.8 % (42.0-52.0); HGB - HEMOGLOBIN 8.7 g/dL (14.0-18.0)
[2020-06-09] MEDS: risperiDONE 1 MG TABLET PO SCH (21:25)
[2020-06-10] MEDS: SODIUM CHLORIDE FLUSH 0.9% 10 ML SYRINGE IVP SCH ×2 (00:07→08:31)
[2020-06-10 06:10] LABS: BASOPHILS # (AUTO) 0.1 10^3/uL (0.0-0.1); BASOPHILS % (AUTO) 0.6 %; EOSINOPHILS # (AUTO) 0.4 10^3/uL (0.0-0.7); EOSINOPHILS % (AUTO) 4.6 %; HCT - HEMATOCRIT 26.6 % (42.0-52.0); HGB - HEMOGLOBIN 8.6 g/dL (14.0-18.0); LYMPHOCYTES # (AUTO) 1.7 10^3/uL (1.5-3.5); LYMPHOCYTES % (AUTO) 19.1 %; MEAN CORPUSCULAR HEMOGLOBIN 30.6 pg (27.0-31.0); MEAN CORPUSCULAR HGB CONC 32.3 g/dL (32.0-36.0); MEAN CORPUSCULAR VOLUME 94.7 fL (80.0-94.0); MEAN PLATELET VOLUME 9.9 fL (7.4-11.4); MONOCYTES # (AUTO) 0.7 10^3/uL (0.0-1.0); MONOCYTES % (AUTO) 7.7 %; NEUTROPHILS % (AUTO) 67.8 %; PLT - PLATELET COUNT 225 10^3/uL (130-450); RED BLOOD COUNT 2.81 10^6/uL (4.70-6.10); RED CELL DISTRIBUTION WIDTH 14.3 % (12.0-15.0); WHITE BLOOD COUNT 8.9 x10^3/uL (4.8-10.8)
[2020-06-10 06:14] LABS: CALCIUM 8.4 mg/dL (8.5-10.3); CREATININE 1.1 mg/dL (0.6-1.2); POTASSIUM 3.9 mmol/L (3.5-5.0)
[2020-06-10] MEDS: INSULIN REGULAR HUMAN 300 UNIT/3 ML VIAL SUBQ SCH (06:25)
[2020-06-10] MEDS: PANTOPRAZOLE 40 MG TABLET PO SCH (06:34)
[2020-06-10] MEDS: INSULIN ASPART 300 UNIT/3 ML PEN SUBQ SCH ×2 (07:39→12:12)
[2020-06-10] MEDS: MULTIVITAMIN TABLET PO SCH (08:29)
[2020-06-10] MEDS: guaiFENesin 600 MG TABLET PO SCH (08:29)
[2020-06-10] MEDS: lisinopriL 5 MG TABLET PO SCH (08:30)
[2020-06-10] MEDS: ASCORBIC ACID CHEW 500 MG TABLET PO SCH (08:30)
[2020-06-10] MEDS: TAMSULOSIN 0.4 MG CAPSULE PO SCH (08:30)
[2020-06-10] MEDS: SERTRALINE 50 MG TABLET PO SCH (08:30)
[2020-06-10] MEDS: FERROUS SULFATE 325 MG TABLET PO SCH (08:30)
[2020-06-10] MEDS: LORATADINE 10 MG TABLET PO SCH (08:31)
[2020-06-10] MEDS: carvediloL 3.125 MG TABLET PO SCH (08:31)
[2020-06-10] MEDS ORDERED: MIN OIL/DIMETHICON/COCONUT OIL 92 GM TUBE TOP PRN (10:22)
[2020-06-10] MEDS: ZINC OXIDE 20% OINT 30 GM TUBE TOP PRN (12:12)
[2020-06-10 13:14] VITALS: BP 119/67
--- OUTSIDE RECORDS SUMMARY | 2020-06-13 22:10 | EXTERNAL MEDICAL SUMMARY RPT | Continuity of Care Document ---
:1940 Demographics Phone Unavailable Preferred Language Unknown Marital Status Unknown Moravian Affiliation Unknown Race Unknown Ethnic Group Unknown Author Organization [facility] [address] [place] [address] Phone Social History date description facility [id number]
== END 2020-06-10 13:20 | DRG 378 ==
LOC: EDUNIT# → ED 08:33 → MS2 12:25 → OBSVTOIN 06-07 14:27
PROVIDERS: ADMIT Nurse Practitioner Gerontology; ATTEND Specialist
PROC: 0DBL8ZZ Excision of Transverse Colon, Via Natural or Artificial Opening Endoscopic (ICD-10-PCS; principal; 2020-06-07 16:30)
PROC: 0DJ08ZZ Inspection of Upper Intestinal Tract, Via Natural or Artificial Opening Endoscopic (ICD-10-PCS; 2020-06-07 16:30)
DX: K92.2 Gastrointestinal hemorrhage, unspecified (principal); K57.31 Diverticulosis of large intestine without perforation or abscess with bleeding; I48.20 Chronic atrial fibrillation, unspecified; Z20.822 Contact with and (suspected) exposure to COVID-19; D62 Acute posthemorrhagic anemia; K64.8 Other hemorrhoids; I11.0 Hypertensive heart disease with heart failure; I50.9 Heart failure, unspecified; F20.9 Schizophrenia, unspecified; E78.5 Hyperlipidemia, unspecified; E11.9 Type 2 diabetes mellitus without complications; R32 Unspecified urinary incontinence; R19.7 Diarrhea, unspecified; K64.9 Unspecified hemorrhoids; Z79.01 Long term (current) use of anticoagulants; Z79.899 Other long term (current) drug therapy; F03.90 Unspecified dementia, unspecified severity, without behavioral disturbance, psychotic disturbance, mood disturbance, and anxiety; I25.10 Atherosclerotic heart disease of native coronary artery without angina pectoris; D12.3 Benign neoplasm of transverse colon; K44.9 Diaphragmatic hernia without obstruction or gangrene; E66.3 Overweight; Z68.28 Body mass index [BMI] 28.0-28.9, adult; Z79.84 Long term (current) use of oral hypoglycemic drugs
CPT/HCPCS: 36415; 80048; 80053; 83036; 83690; 83735; 84100; 85014; 85018; 85025; 85610; 85730; 86850; 86900; 86901; 87631; 99284; 99285; A9270; G0378; J1815; 0202U

== ENCOUNTER 2020-06-14 08:00 | Outpatient (CLI) | payer MEDICARE, MEDICAID ==
[2020-06-14 14:18] LABS: BASOPHILS # (AUTO) 0.1 10^3/uL (0.0-0.1); BASOPHILS % (AUTO) 0.7 %; EOSINOPHILS # (AUTO) 0.3 10^3/uL (0.0-0.7); EOSINOPHILS % (AUTO) 4.8 %; HCT - HEMATOCRIT 28.7 % (42.0-52.0); LYMPHOCYTES # (AUTO) 1.3 10^3/uL (1.5-3.5); LYMPHOCYTES % (AUTO) 18.3 %; MEAN CORPUSCULAR HEMOGLOBIN 30.8 pg (27.0-31.0); MEAN CORPUSCULAR HGB CONC 31.4 g/dL (32.0-36.0); MEAN CORPUSCULAR VOLUME 98.3 fL (80.0-94.0); MEAN PLATELET VOLUME 10.2 fL (7.4-11.4); MONOCYTES # (AUTO) 0.6 10^3/uL (0.0-1.0); NEUTROPHILS # (AUTO) 4.6 10^3/uL (1.5-6.6); NEUTROPHILS % (AUTO) 67.1 %; PLT - PLATELET COUNT 240 10^3/uL (130-450); RED BLOOD COUNT 2.92 10^6/uL (4.70-6.10); RED CELL DISTRIBUTION WIDTH 15.9 % (12.0-15.0); WHITE BLOOD COUNT 6.9 x10^3/uL (4.8-10.8)
[2020-06-14 14:29] LABS: ALBUMIN 3.2 g/dL (3.2-5.5); BILIRUBIN,TOTAL 0.9 mg/dL (0.2-1.0); CALCIUM 8.7 mg/dL (8.5-10.3); POTASSIUM 4.2 mmol/L (3.5-5.0); TOTAL PROTEIN 6.3 g/dL (6.7-8.2)
== END 2020-06-14 23:59 | disposition home or self-care (01) ==
LOC: LAB.R 08:00
DX: E78.5 Hyperlipidemia, unspecified (principal); E11.40 Type 2 diabetes mellitus with diabetic neuropathy, unspecified; E16.2 Hypoglycemia, unspecified; R17 Unspecified jaundice; E66.09 Other obesity due to excess calories; I50.9 Heart failure, unspecified; K57.92 Diverticulitis of intestine, part unspecified, without perforation or abscess without bleeding
CPT/HCPCS: 80053; 82728; 85025

== ENCOUNTER 2020-07-04 16:02 | Outpatient (CLI) | payer MEDICARE, MEDICAID | END 2020-07-04 16:03 | disposition home or self-care (01) | LOC: EMS 16:02 | DX: M25.551 Pain in right hip (principal); M25.511 Pain in right shoulder; S09.90XA Unspecified injury of head, initial encounter; W06.XXXA Fall from bed, initial encounter; Y93.89 Activity, other specified; Y92.199 Unspecified place in other specified residential institution as the place of occurrence of the external cause; Z74.01 Bed confinement status | CPT/HCPCS: A0425; A0428; A0429 ==

== ENCOUNTER 2020-07-04 16:07 | Emergency (ER) | payer MEDICARE, MEDICAID ==
--- NOTE | 2020-07-04 16:25 | ED Physician Documentation ---
PD HPI Fall - Stated complaint Stated Complaint: DECREASED LOC/HIP PX - Chief complaint Chief Complaint: Ext Problem - History obtained from History obtained from: Patient, EMS, Caregiver - History of Present Illness Mechanism of injury: Unknown (patient reportedly rolled out of bed and fell to right side with pain at right hip, elbow, lateral chest. Did strike head but denies headache per se. Patient states he was feeling somewhat weaker the past few days.) Fall distance: From bed Where injury occurred: Other (SNF) Timing - onset: Today Injury(ies) location: Head, Chest, Right Upper Extremity (elbow), Right Lower Extremity (lateral hip). No: Neck, Abdomen Associated symptoms: No: LOC, AMS, Weakness, Paresthesias Worsens with: Movement (mainly the hip), Palpation Similar symptoms before: Diagnosis (has had prior hip repairs both sides in the past.) Recently seen: Not recently seen Review of Systems Constitutional: denies: Fever, Chills Nose: denies: Rhinorrhea / runny nose, Congestion Throat: denies: Sore throat Respiratory: denies: Cough GI: denies: Abdominal Pain Skin: denies: Abrasion (s), Laceration (s) Neurologic: denies: Focal weakness, Numbness, Headache PD PAST MEDICAL HISTORY - Past Medical History Cardiovascular: Congestive heart failure, Hypertension, High cholesterol, Atrial fibrillation Respiratory: None Neuro: Dementia Endocrine/Autoimmune: Type 2 diabetes GI: None : Incontinence HEENT: None Psych: Schizophrenia, Other Musculoskeletal: None Derm: None - Past Surgical History Past Surgical History: Yes - Present Medications Home Medications: Ambulatory Orders Medication Instructions Recorded Confirmed Furosemide 10 mg PO DAILY 12/12/18 06/06/20 Gabapentin 300 mg PO TID 12/12/18 06/06/20 Sertraline [Zoloft] 50 mg PO DAILY 12/12/18 06/06/20 traMADol [Ultram] 50 mg PO Q8H PRN 12/12/18 06/06/20 Acetaminophen [Aphen] 650 mg PO Q4H PRN 06/06/20 06/06/20 Ascorbic Acid [Vitamin C] 250 mg PO DAILY 06/06/20 06/06/20 Calcium Carbonate [Tums (Calcium 500 mg PO BID 06/06/20 06/06/20 Carbonate 500mg)] Cholecalciferol (Vitamin D3) 50 mcg PO DAILY 06/06/20 06/06/20 [Vitamin D3] Diclofenac Sodium [Venngel One] 1 % TOP Q8H PRN 06/06/20 06/06/20 Docusate Sodium [Dok] 300 mg PO DAILY 06/06/20 06/06/20 Ferrous Sulfate [Feosol] 325 mg PO DAILY 06/06/20 06/06/20 Lidocaine [Lidoderm] 1 patch TOP DAILY 06/06/20 06/06/20 Lisinopril [Zestril] 2.5 mg PO DAILY 06/06/20 06/06/20 Loperamide [Imodium] 2 mg PO PRN PRN 06/06/20 06/06/20 Loratadine [Allergy Relief] 10 mg PO DAILY 06/06/20 06/06/20 Multivitamin with Iron 1 tab PO DAILY 06/06/20 06/06/20 [Multivitamins with Iron] Ondansetron HCl [Zofran] 4 mg PO Q4H PRN 06/06/20 06/06/20 Tamsulosin HCl [Flomax] 0.4 mg PO DAILY 06/06/20 06/06/20 bisacodyL [Gentle Laxative] 5 mg PO DAILY PRN 06/06/20 06/06/20 carvediloL [Coreg] 3.125 mg PO BID 06/06/20 06/06/20 metFORMIN [Glucophage] 500 mg PO BID 06/06/20 06/06/20 risperiDONE [RisperDAL] 1 mg PO HS 06/06/20 06/06/20 Pantoprazole Sodium [Protonix] 20 mg PO DAILY #30 tab 06/09/20 - Allergies Allergies/Adverse Reactions: Allergies Allergy/AdvReac Type Severity Reaction Status Date / Time No Known Drug Allergies Allergy Verified 06/06/20 08:42 - Social History Does the pt smoke?: Yes Smoking Status: Unknown if ever smoked Does the pt drink ETOH?: No Does the pt have substance abuse?: No - POLST Patient has POLST: No PD ED PE NORMAL - Vitals Vital signs reviewed: Yes - General General: Alert and oriented X 3, No acute distress, Well developed/nourished - HEENT HEENT: Other (mild tender right lateral occiput. ) - Neck Neck: Supple, no meningeal sign, No bony TTP - Cardiac Cardiac: RRR, No murmur - Respiratory Respiratory: Clear bilaterally - Abdomen Abdomen: Soft, Non tender - Derm Derm: Normal color, Warm and dry - Extremities Extremities: Other (right elbow with mild lateral tenderness; no effusion. No noted deformity. Right lateral hip with tender area but passive ROM of the hip without pain. ) - Neuro Neuro: Alert and oriented X 3, No motor deficit, Normal speech Results - Vitals Vitals: Vital Signs - 24 hr 07/04/20 07/04/20 07/04/20 16:14 16:21 16:32 Temperature 36.7 C Heart Rate 81 91 Respiratory 18 16 Rate Blood Pressure 172/72 H 148/90 H O2 Saturation 97 98 07/04/20 18:48 Temperature Heart Rate 88 Respiratory 18 Rate Blood Pressure 147/66 H O2 Saturation 98 Oxygen O2 Source Room air - Labs Labs: Laboratory Tests 07/04/20 07/04/20 16:32 16:32 WBC 7.9 RBC 3.26 L Hgb 10.0 L Hct 31.5 L MCV 96.6 H MCH 30.7 MCHC 31.7 L RDW 15.0 Plt Count 227 MPV 10.0 Neut # (Auto) 5.7 Lymph # (Auto) 1.0 L Norman # (Auto) 0.8 Eos # (Auto) 0.4 Baso # (Auto) 0.0 Absolute Nucleated RBC 0.00 Nucleated RBC % 0.0 Sodium 139 Potassium 4.0 Chloride 104 Carbon Dioxide 26 Anion Gap 9.0 BUN 20 Creatinine 1.1 Estimated GFR (MDRD) 64 L Glucose 110 H Calcium 8.6 Total Bilirubin 0.8 AST 17 ALT 17 Alkaline Phosphatase 115 Total Creatine Kinase 37 Total Protein 6.9 Albumin 3.5 Globulin 3.4 Albumin/Globulin Ratio 1.0 Lipase 22 - Rads (name of study) head CT Radiology: Prelim report reviewed (no ICH nor acute findings.), See rad report elbow xray Radiology: Prelim report reviewed (no fracture), See rad report chest xray Radiology: Prelim report reviewed (no acute process, no fractures), See rad report right hip Radiology: Prelim report reviewed (no fracture; prior hip repairs both sides. ), See rad report PD MEDICAL DECISION MAKING - ED course Complexity details: considered differential, d/w patient Departure - Departure Disposition: 01 Home, Self Care Clinical Impression: Fall from bed, initial encounter Contusion, hip Qualifiers: Encounter type: initial encounter Laterality: right Qualified Code(s): S70.01XA - Contusion of right hip, initial encounter Contusion, upper arm Qualifiers: Encounter type: initial encounter Laterality: right Qualified Code(s): S40.021A - Contusion of right upper arm, initial encounter Head contusion Qualifiers: Encounter type: initial encounter Contusion of head detail: scalp Qualified Code(s): S00.03XA - Contusion of scalp, initial encounter Condition: Stable Record reviewed to determine appropriate education?: Yes Instructions: ED Contusion Hip Follow-Up: Alfredo Barakat, [Primary Care Provider] - Comments: No fracture seen on your elbow chest or hip. No bleeding or abnormality seen on your head CT scan. Your basic white count and chemistry panel are normal. You are slightly anemic on blood count. Continue usual medications. Add Tylenol every 4-6 hours if needed for pains. Discharge Date/Time: 07/04/20 19:25
[2020-07-04 16:37] LABS: BASOPHILS % (AUTO) 0.5 %; EOSINOPHILS # (AUTO) 0.4 10^3/uL (0.0-0.7); EOSINOPHILS % (AUTO) 5.6 %; HCT - HEMATOCRIT 31.5 % (42.0-52.0); MEAN CORPUSCULAR HEMOGLOBIN 30.7 pg (27.0-31.0); MEAN CORPUSCULAR HGB CONC 31.7 g/dL (32.0-36.0); MEAN CORPUSCULAR VOLUME 96.6 fL (80.0-94.0); MONOCYTES # (AUTO) 0.8 10^3/uL (0.0-1.0); MONOCYTES % (AUTO) 10.1 %; NEUTROPHILS # (AUTO) 5.7 10^3/uL (1.5-6.6); NEUTROPHILS % (AUTO) 71.7 %; PLT - PLATELET COUNT 227 10^3/uL (130-450); RED BLOOD COUNT 3.26 10^6/uL (4.70-6.10); WHITE BLOOD COUNT 7.9 x10^3/uL (4.8-10.8)
[2020-07-04 16:51] LABS: ALBUMIN 3.5 g/dL (3.2-5.5); BILIRUBIN,TOTAL 0.8 mg/dL (0.2-1.0); CALCIUM 8.6 mg/dL (8.5-10.3); CREATININE 1.1 mg/dL (0.6-1.2); TOTAL PROTEIN 6.9 g/dL (6.7-8.2)
--- NOTE | 2020-07-04 17:30 | XRAY Report ---
PROCEDURE: Hip w/Pelvis 2-3V RT INDICATIONS: fall to right side TECHNIQUE: AP pelvis with lateral view(s) of the right hip(s). COMPARISON: X-ray femur 12/12/2018 FINDINGS: Bones: There is bilateral soni fixation of the femoral heads and necks bilaterally. Previous right fra cture appears healed. Mild deformity is noted within the left femur is also suggestive of old fractur e. Hardware is intact. Lateral view is limited secondary to overlying soft tissues. Pelvic ring appea rs intact. No suspicious bony lesions. Soft tissues: The visualized bowel gas pattern is normal. No suspicious soft tissue calcifications. IMPRESSION: 1. Bilateral hip fixation with hardware intact. Old fractures are present. 2. No definitively identified acute fracture. However, lateral view is limited. If this remains of co ncern, CT is recommended for further evaluation. Reviewed by: Leonor Mejia MD on 07/04/2020 4:29 PM JESSICA Approved by: Leonor Mejia MD on 07/04/2020 4:29 PM AKBRIGETTE Station ID: [id number]
--- NOTE | 2020-07-04 17:30 | XRAY Report ---
PROCEDURE: Elbow 3 View RT INDICATIONS: fall to right side TECHNIQUE: 3 views of the elbow were acquired. COMPARISON: None FINDINGS: Bones: No fractures or dislocations. No suspicious bony lesions. Soft tissues: No elbow joint effusion. No suspicious soft tissue calcifications. Radiodensity is n oted overlying the soft tissues at the level of the distal humerus possibly related to radiopaque for eign body of indeterminate age. IMPRESSION: No visualized acute fracture or dislocation. However, occult injury cannot be excluded. Recommend mike rt interval imaging follow-up in 7-10 days as clinically indicated for additional evaluation. Reviewed by: Leonor Mejia MD on 07/04/2020 4:29 PM JESSICA Approved by: Leonor Mejia MD on 07/04/2020 4:29 PM AKBRIGETTE Station ID: [id number]
--- NOTE | 2020-07-04 17:31 | XRAY Report ---
PROCEDURE: Chest 1 View X-Ray INDICATIONS: fall with some chest pain TECHNIQUE: One view of the chest was acquired. COMPARISON: Chest x-ray 12/12/2018 FINDINGS: Surgical changes and devices: None. Lungs and pleura: There is a diffuse appearance of increased pulmonary vascularity. Mediastinum: Mediastinal contours appear normal. Heart size is enlarged. Bones and chest wall: No suspicious bony lesions. Overlying soft tissues appear unremarkable. IMPRESSION: Cardiomegaly with diffuse pulmonary vascularity suggestive of edema. Reviewed by: Leonor Mejia MD on 07/04/2020 4:30 PM AKBRIGETTE Approved by: Leonor Mejia MD on 07/04/2020 4:30 PM AKBRIGETTE Station ID: [id number]
--- NOTE | 2020-07-04 17:35 | CT Report ---
PROCEDURE: HEAD WO INDICATIONS: fall struck head TECHNIQUE: Noncontrast 4.5 mm thick angled axial sections acquired from the foramen magnum to the vertex. For r adiation dose reduction, the following was used: automated exposure control, adjustment of mA and/or kV according to patient size. COMPARISON: None. FINDINGS: Image quality: Excellent. The ventricular system and cortical sulci demonstrate atrophy, consistent for patient's stated age. There are areas of hypodensity in the periventricular and subcortical white matter. There is no acut e intra or extra-axial fluid collection. No acute hemorrhage, mass lesion or midline shift. Brainst em is unremarkable. Globes are symmetrical. Sinuses demonstrate partially visualized mucous retention cysts versus polyps in the maxillary sinuses bilaterally. Osseous structures are intact. IMPRESSION: 1. No acute intracranial process. 2. Moderate atrophy and chronic microvascular ischemic changes. Reviewed by: Leonor Mejia MD on 07/04/2020 4:34 PM JESSICA Approved by: Leonor Mejia MD on 07/04/2020 4:34 PM AKDT Station ID: [id number]
[2020-07-04 18:48] VITALS: BP 147/66
== END 2020-07-04 19:25 | disposition home or self-care (01) ==
LOC: EDUNIT# → ED 16:07 → SUPCPDRO 16:07 → ED 19:25
DX: S70.01XA Contusion of right hip, initial encounter (principal); S50.01XA Contusion of right elbow, initial encounter; S00.93XA Contusion of unspecified part of head, initial encounter; W06.XXXA Fall from bed, initial encounter; Y92.129 Unspecified place in nursing home as the place of occurrence of the external cause; I10 Essential (primary) hypertension; I48.91 Unspecified atrial fibrillation
CPT/HCPCS: 36415; 80053; 82550; 83690; 85025; 99284

== ENCOUNTER 2020-07-04 19:23 | Outpatient (CLI) | payer MEDICARE, MEDICAID | END 2020-07-04 19:24 | disposition home or self-care (01) | LOC: EMS 19:23 | PROVIDERS: ATTEND Emergency Medicine | DX: Z74.01 Bed confinement status (principal) | CPT/HCPCS: A0425; A0428 ==

== ENCOUNTER 2021-03-22 07:00 | Outpatient (CLI) | payer MEDICARE, MEDICAID ==
[2021-03-22 17:41] LABS: BASOPHILS # (AUTO) 0.1 10^3/uL (0.0-0.1); BASOPHILS % (AUTO) 0.8 %; EOSINOPHILS # (AUTO) 0.3 10^3/uL (0.0-0.7); EOSINOPHILS % (AUTO) 4.6 %; HCT - HEMATOCRIT 36.5 % (42.0-52.0); HGB - HEMOGLOBIN 12.1 g/dL (14.0-18.0); LYMPHOCYTES # (AUTO) 1.7 10^3/uL (1.5-3.5); LYMPHOCYTES % (AUTO) 23.7 %; MEAN CORPUSCULAR HEMOGLOBIN 31.3 pg (27.0-31.0); MEAN CORPUSCULAR HGB CONC 33.2 g/dL (32.0-36.0); MEAN CORPUSCULAR VOLUME 94.6 fL (80.0-94.0); MEAN PLATELET VOLUME 12.1 fL (7.4-11.4); MONOCYTES # (AUTO) 0.5 10^3/uL (0.0-1.0); MONOCYTES % (AUTO) 7.5 %; NEUTROPHILS # (AUTO) 4.5 10^3/uL (1.5-6.6); NEUTROPHILS % (AUTO) 63.3 %; PLT - PLATELET COUNT 199 10^3/uL (130-450); RED BLOOD COUNT 3.86 10^6/uL (4.70-6.10); RED CELL DISTRIBUTION WIDTH 14.6 % (12.0-15.0); WHITE BLOOD COUNT 7.1 x10^3/uL (4.8-10.8)
[2021-03-22 18:04] LABS: ALBUMIN 3.3 g/dL (3.2-5.5); ALKALINE PHOSPHATASE 58 IU/L (42-121); ALT ALANINE AMINOTRANSFERASE 13 IU/L (10-60); AST ASPARTATE AMINOTRANSFERASE 15 IU/L (10-42); BILIRUBIN,TOTAL 1.3 mg/dL (0.2-1.0); BUN - BLOOD UREA NITROGEN 32 mg/dL (6-20); CALCIUM 8.7 mg/dL (8.5-10.3); CARBON DIOXIDE - CO2 26 mmol/L (21-32); CHLORIDE 103 mmol/L (101-111); CHOL/HDL RATIO 4.7 (<5.0); CHOLESTEROL 147 mg/dL; CREATININE 1.1 mg/dL (0.6-1.2); GFR - MDRD 64 (>89); GLUCOSE 127 mg/dL (70-100); HDL CHOLESTEROL 31 mg/dL; LDL CHOLESTEROL,CALCULATED 98 mg/dL; LDL/HDL RATIO 3.2 (<3.6); POTASSIUM 3.7 mmol/L (3.5-5.0); SODIUM 138 mmol/L (135-145); TOTAL PROTEIN 6.6 g/dL (6.7-8.2); TRIGLYCERIDES 89 mg/dL; VLDL CHOLESTEROL 18 mg/dL
[2021-03-22 20:26] LABS: ESTIMATED AVERAGE GLUCOSE 126 mg/dL (70-100)
== END 2021-03-22 23:59 | disposition home or self-care (01) ==
LOC: LAB 07:00
DX: E78.5 Hyperlipidemia, unspecified (principal); D62 Acute posthemorrhagic anemia; E66.09 Other obesity due to excess calories; E11.40 Type 2 diabetes mellitus with diabetic neuropathy, unspecified; R13.11 Dysphagia, oral phase
CPT/HCPCS: 36415; 80053; 80061; 83036; 83721; 84443; 85025

== ENCOUNTER 2021-12-18 14:30 | Outpatient (CLI) | payer MEDICARE, MEDICAID ==
--- NOTE | 2021-12-18 15:38 | XRAY Report ---
PROCEDURE: Chest 2 View X-Ray INDICATIONS: SHORTNESS OF BREATH TECHNIQUE: 2 view(s) of the chest. COMPARISON: Chest x-ray one view, 07/04/2020. FINDINGS: Surgical changes and devices: None. Lungs and pleura: There is left hemidiaphragm elevation and left basilar scars and atelectasis. No p leural effusions or pneumothorax. Mediastinum: Mediastinal contours are normal. Heart size is mildly increased. Aorta is tortuous and mildly aneurysmal. Bones and chest wall: No suspicious bony abnormalities. Soft tissues appear unremarkable. IMPRESSION: 1. No acute cardiopulmonary disease. 2. Left hemidiaphragm elevation and left basilar scars and atelectasis. 3. Mild cardiomegaly. 4. Tortuous and mildly aneurysmal thoracic aorta. Reviewed by: Vane Morel MD on 12/18/2021 3:36 PM PDT Approved by: Vane Morel MD on 12/18/2021 3:36 PM PDT Station ID: [id number]
== END 2021-12-18 14:31 | disposition home or self-care (01) ==
LOC: DI 14:30
PROVIDERS: ATTEND Internal Medicine
DX: J98.11 Atelectasis (principal); I71.20 Thoracic aortic aneurysm, without rupture, unspecified; I51.7 Cardiomegaly; J98.6 Disorders of diaphragm; R06.02 Shortness of breath

== ENCOUNTER 2022-01-17 08:00 | Outpatient (CLI) | payer MEDICARE, MEDICAID ==
[2022-01-17 18:36] LABS: HCT - HEMATOCRIT 37.8 % (42.0-52.0); HGB - HEMOGLOBIN 12.2 g/dL (14.0-18.0); MEAN CORPUSCULAR HEMOGLOBIN 30.1 pg (27.0-31.0); MEAN CORPUSCULAR HGB CONC 32.3 g/dL (32.0-36.0); MEAN CORPUSCULAR VOLUME 93.3 fL (80.0-94.0); MEAN PLATELET VOLUME 11.5 fL (7.4-11.4); RED BLOOD COUNT 4.05 10^6/uL (4.70-6.10); RED CELL DISTRIBUTION WIDTH 13.7 % (12.0-15.0); WHITE BLOOD COUNT 8.2 x10^3/uL (4.8-10.8)
[2022-01-17 18:48] LABS: ALBUMIN 3.7 g/dL (3.2-5.5); ALBUMIN/GLOBULIN RATIO 1.2 (1.0-2.2); BILIRUBIN,TOTAL 1.2 mg/dL (0.2-1.0); CREATININE 1.1 mg/dL (0.6-1.2); POTASSIUM 4.1 mmol/L (3.5-5.0); TOTAL PROTEIN 6.8 g/dL (6.7-8.2)
== END 2022-01-17 23:59 | disposition home or self-care (01) ==
LOC: LAB.R 08:00
PROVIDERS: ATTEND Internal Medicine
DX: E11.9 Type 2 diabetes mellitus without complications (principal); E78.5 Hyperlipidemia, unspecified; R53.81 Other malaise; D62 Acute posthemorrhagic anemia
CPT/HCPCS: 80053; 85027

== ENCOUNTER 2022-07-11 08:00 | Outpatient (CLI) | payer MEDICARE, MEDICAID | END 2022-07-11 23:59 | disposition home or self-care (01) | LOC: LAB 08:00 | PROVIDERS: ATTEND Registered Nurse | DX: E11.9 Type 2 diabetes mellitus without complications (principal) | CPT/HCPCS: 36415 ==

== ENCOUNTER 2022-07-14 08:00 | Outpatient (CLI) | payer MEDICARE, MEDICAID ==
[2022-07-14 21:14] LABS: ESTIMATED AVERAGE GLUCOSE 126 mg/dL (70-100)
== END 2022-07-14 23:59 | disposition home or self-care (01) ==
LOC: LAB.R 08:00
DX: E11.9 Type 2 diabetes mellitus without complications (principal)
CPT/HCPCS: 83036

== ENCOUNTER 2022-10-27 08:00 | Outpatient (CLI) | payer MEDICARE, MEDICAID ==
[2022-10-27 07:27] LABS: CALCIUM 9.2 mg/dL (8.5-10.3); CREATININE 1.1 mg/dL (0.6-1.3); POTASSIUM 4.1 mmol/L (3.5-4.5)
[2022-10-27 07:32] LABS: BASOPHILS # (AUTO) 0.1 10^3/uL (0.0-0.1); EOSINOPHILS # (AUTO) 0.4 10^3/uL (0.0-0.7); HCT - HEMATOCRIT 36.5 % (42.0-52.0); HGB - HEMOGLOBIN 11.8 g/dL (14.0-18.0); LYMPHOCYTES # (AUTO) 1.3 10^3/uL (1.5-3.5); LYMPHOCYTES % (AUTO) 22.6 %; MEAN CORPUSCULAR HEMOGLOBIN 30.4 pg (27.0-31.0); MEAN CORPUSCULAR HGB CONC 32.3 g/dL (32.0-36.0); MEAN CORPUSCULAR VOLUME 94.1 fL (80.0-94.0); MONOCYTES # (AUTO) 0.6 10^3/uL (0.0-1.0); MONOCYTES % (AUTO) 9.6 %; NEUTROPHILS # (AUTO) 3.5 10^3/uL (1.5-6.6); NEUTROPHILS % (AUTO) 60.6 %; PLT - PLATELET COUNT 183 10^3/uL (130-450); RED BLOOD COUNT 3.88 10^6/uL (4.70-6.10); RED CELL DISTRIBUTION WIDTH 13.5 % (12.0-15.0); WHITE BLOOD COUNT 5.8 x10^3/uL (4.8-10.8)
[2022-10-27 18:42] LABS: BILIRUBIN,URINE NEGATIVE (NEGATIVE); GLUCOSE, URINE (UA) NEGATIVE (NEGATIVE); KETONES,URINE (UA) NEGATIVE (NEGATIVE); LEUKOCYTE ESTERASE, URINE TRACE (NEGATIVE); NITRITE,URINE POSITIVE (NEGATIVE); OCCULT BLOOD,URINE TRACE-INTA (NEGATIVE); PROTEIN,URINE NEGATIVE (NEGATIVE); UROBILINOGEN,URINE 0.2 (NORMAL) E.U./dL (NORMAL)
[2022-10-27 18:43] LABS: CLARITY,URINE HAZY (CLEAR)
[2022-10-27 18:50] LABS: BACTERIA,URINE Many /HPF (None Seen); RBC,URINE 0-5 /HPF (0-5); SQUAMOUS EPITHELIAL CELL,UR FEW Squamous (<= Few)
== END 2022-10-27 23:59 | disposition home or self-care (01) ==
LOC: LAB.R 08:00
PROVIDERS: ATTEND Registered Nurse
DX: E11.9 Type 2 diabetes mellitus without complications (principal); N39.0 Urinary tract infection, site not specified
CPT/HCPCS: 80048; 81001; 85025; 87077; 87086; 87181

== ENCOUNTER 2023-02-19 08:00 | Outpatient (CLI) | payer MEDICARE, MEDICAID | END 2023-02-19 08:01 | disposition home or self-care (01) | LOC: LAB.R 08:00 | PROVIDERS: ATTEND Registered Nurse | DX: N39.0 Urinary tract infection, site not specified (principal) ==

== ENCOUNTER 2023-02-19 08:00 | Outpatient (CLI) | payer MEDICARE, MEDICAID ==
[2023-02-19 21:19] LABS: BILIRUBIN,URINE NEGATIVE (NEGATIVE); GLUCOSE, URINE (UA) NEGATIVE (NEGATIVE); KETONES,URINE (UA) NEGATIVE (NEGATIVE); LEUKOCYTE ESTERASE, URINE NEGATIVE (NEGATIVE); NITRITE,URINE NEGATIVE (NEGATIVE); OCCULT BLOOD,URINE NEGATIVE (NEGATIVE); PH,URINE 5.5 PH (5.0-7.5); PROTEIN,URINE NEGATIVE (NEGATIVE); UROBILINOGEN,URINE 0.2 (NORMAL) E.U./dL (NORMAL)
[2023-02-19 21:22] LABS: CLARITY,URINE HAZY (CLEAR)
[2023-02-19 21:32] LABS: BACTERIA,URINE Many /HPF (None Seen); RBC,URINE None Seen /HPF (0-5); SQUAMOUS EPITHELIAL CELL,UR FEW Squamous (<= Few); WBC,URINE 0-3 /HPF (0-3)
== END 2023-02-19 23:59 | disposition home or self-care (01) ==
LOC: LAB 08:00 → MERGE 21:02 → LAB 23:59
PROVIDERS: ATTEND Registered Nurse
DX: N39.0 Urinary tract infection, site not specified (principal)
CPT/HCPCS: 81001; 87086

== ENCOUNTER 2023-02-28 03:52 | Outpatient (CLI) | payer MEDICARE, MEDICAID | END 2023-02-28 03:53 | disposition critical access hospital (66) | LOC: EMS 03:52 | DX: R31.9 Hematuria, unspecified (principal) | CPT/HCPCS: A0425; A0429 ==

== ENCOUNTER 2023-02-28 04:00 | Emergency (ER) | payer MEDICARE, MEDICAID ==
--- NOTE | 2023-02-28 04:09 | ED Physician Documentation ---
History of Present Illness - Stated complaint Stated Complaint: - Chief complaint Chief Complaint: General - History obtained from History obtained from: EMS - Additonal information Additional information: 82yM with history of dementia presents from [facility] where a caregiver was doing a nighttime check and found he had blood in his urine. ems was called due to this concern. patient denies pain anywhere. history limited by patient dementia. PD PAST MEDICAL HISTORY - Past Medical History Cardiovascular: High cholesterol, Atrial fibrillation, Congestive heart failure, Hypertension Respiratory: None Neuro: Dementia Endocrine/Autoimmune: Type 2 diabetes GI: None : Incontinence HEENT: None Psych: Schizophrenia, Other Musculoskeletal: None Derm: None - Past Surgical History Past Surgical History: Yes - Present Medications Home Medications: Ambulatory Orders Medication Instructions Recorded Confirmed Furosemide 10 mg PO DAILY 12/12/18 02/28/23 Gabapentin 300 mg PO TID 12/12/18 02/28/23 Sertraline [Zoloft] 50 mg PO DAILY 12/12/18 02/28/23 Acetaminophen [Aphen] 650 mg PO Q4H PRN 06/06/20 02/28/23 Ascorbic Acid [Vitamin C] 250 mg PO DAILY 06/06/20 02/28/23 Calcium Carbonate [Tums (Calcium 500 mg PO BID 06/06/20 02/28/23 Carbonate 500mg)] Diclofenac Sodium [Venngel One] 1 % TOP Q8H PRN 06/06/20 02/28/23 Docusate Sodium [Dok] 300 mg PO DAILY 06/06/20 02/28/23 Lisinopril [Zestril] 10 mg PO DAILY 06/06/20 02/28/23 Loperamide [Imodium] 2 mg PO PRN PRN 06/06/20 02/28/23 Multivitamin with Iron 1 tab PO DAILY 06/06/20 02/28/23 [Multivitamins with Iron] Tamsulosin HCl [Flomax] 0.4 mg PO DAILY 06/06/20 02/28/23 bisacodyL [Gentle Laxative] 5 mg PO DAILY PRN 06/06/20 02/28/23 carvediloL [Coreg] 3.125 mg PO BID 06/06/20 02/28/23 metFORMIN [Glucophage] 500 mg PO BID 06/06/20 02/28/23 risperiDONE [RisperDAL] 1 mg PO HS 06/06/20 02/28/23 Pantoprazole Sodium [Protonix] 20 mg PO DAILY #30 tab 06/09/20 02/28/23 Albuterol Sulfate [Proair 2 puffs IH Q4HR PRN 02/28/23 02/28/23 Digihaler] Aspirin EC [Ecotrin] 1 tab PO DAILY 02/28/23 02/28/23 Cefpodoxime Proxetil [Vantin] 200 mg PO Q12H #28 tablet 02/28/23 Tamsulosin HCl [Flomax] 1 cap PO DAILY 02/28/23 02/28/23 - Allergies Allergies/Adverse Reactions: Allergies Allergy/AdvReac Type Severity Reaction Status Date / Time No Known Drug Allergies Allergy Verified 02/20/23 14:20 - Social History Does the pt smoke?: Yes Smoking Status: Current every day smoker Does the pt drink ETOH?: No Does the pt have substance abuse?: No - POLST Patient has POLST: No PD ED PE NORMAL - Vitals Vital signs reviewed: Yes - General General: No acute distress, Well developed/nourished, Other (AOX1 at baseline) - HEENT HEENT: Atraumatic, PERRL, EOMI, Moist mucous membranes, Pharynx benign - Abdomen Abdomen: Non tender, Non distended - Male Male : Other (normal ext male genitalia. patient wearing clean diaper) Results - Vitals Vitals: Vital Signs - 24 hr 02/28/23 04:01 Temperature 35.7 C L Heart Rate 75 Respiratory 20 Rate Blood Pressure 133/59 H O2 Saturation 98 Oxygen O2 Source Room air - Labs Labs: Laboratory Tests 02/28/23 04:10 Urine Color YELLOW Urine Clarity HAZY Urine pH 6.0 Ur Specific [place] 1.020 Urine Protein TRACE Urine Glucose (UA) NEGATIVE Urine Ketones NEGATIVE Urine Occult Blood LARGE H Urine Nitrite NEGATIVE Urine Bilirubin NEGATIVE Urine Urobilinogen 4 H Ur Leukocyte Esterase TRACE H Urine RBC TNTC H Urine WBC 4-5 Ur Squamous Epith Cells MOD Squamous H Urine Bacteria Many H Urine Culture Comments NOT INDICATED PD Medical Decision Making - ED course ED course: 82yM presents to the ED with hematuria detected by staffing specialist at [facility] on nighttime rounds. patient otherwise asymptomatic. straight cath and urinalysis conducted. +blood and leuk esterase on u/a. Saw on previous labs he had uti back in october. plan to administer antibiotics and dc home to [facility] to f/u with his pcp. return precautions given. Departure - Departure Disposition: , Self Care Clinical Impression: UTI (urinary tract infection) Condition: Stable Instructions: ED UTI Cystitis Male Prescriptions: Cefpodoxime Proxetil [Vantin] 200 mg PO Q12H #28 tablet Comments: Mr. Zee was seen in the emergency department for blood in the urine and found to have UTI. Antibiotics were provided and prescription was printed for him. Please follow-up with his primary care provider and have him return to the [facility] if he has any new or worsening symptoms or you have other concerns. Forms: PCP List
[2023-02-28 04:18] LABS: BILIRUBIN,URINE NEGATIVE (NEGATIVE); GLUCOSE, URINE (UA) NEGATIVE (NEGATIVE); KETONES,URINE (UA) NEGATIVE (NEGATIVE); LEUKOCYTE ESTERASE, URINE TRACE (NEGATIVE); NITRITE,URINE NEGATIVE (NEGATIVE); OCCULT BLOOD,URINE LARGE (NEGATIVE); PROTEIN,URINE TRACE mg/dL (NEGATIVE); UROBILINOGEN,URINE 4 E.U./dL (NORMAL)
[2023-02-28 04:19] LABS: CLARITY,URINE HAZY (CLEAR)
[2023-02-28 04:30] LABS: BACTERIA,URINE Many /HPF (None Seen); RBC,URINE TNTC /HPF (0-5); SQUAMOUS EPITHELIAL CELL,UR MOD Squamous (<= Few)
[2023-02-28] MEDS ORDERED: LIDOCAINE 1% 2 ML VIAL MC ONE (04:32)
[2023-02-28] MEDS ORDERED: cefTRIAXone 1 GM VIAL IM STA (04:32)
[2023-02-28 05:48] VITALS: BP 132/70; O2SAT 95
== END 2023-02-28 04:57 | disposition home or self-care (01) ==
LOC: EDUNIT# → ED 04:00
DX: N39.0 Urinary tract infection, site not specified (principal); R31.9 Hematuria, unspecified; E78.00 Pure hypercholesterolemia, unspecified; I48.91 Unspecified atrial fibrillation; I11.0 Hypertensive heart disease with heart failure; I50.9 Heart failure, unspecified; F03.90 Unspecified dementia, unspecified severity, without behavioral disturbance, psychotic disturbance, mood disturbance, and anxiety; E11.9 Type 2 diabetes mellitus without complications; F17.200 Nicotine dependence, unspecified, uncomplicated; Z87.440 Personal history of urinary (tract) infections; Z79.899 Other long term (current) drug therapy; Z79.84 Long term (current) use of oral hypoglycemic drugs; Z79.82 Long term (current) use of aspirin
CPT/HCPCS: 51701; 81001; 87086; 99283; 99284

== ENCOUNTER 2023-02-28 04:58 | Outpatient (CLI) | payer MEDICARE, MEDICAID | END 2023-02-28 04:59 | LOC: EMS 04:58 | PROVIDERS: ATTEND Emergency Medicine | DX: Z51.5 Encounter for palliative care (principal); N39.0 Urinary tract infection, site not specified; R53.1 Weakness | CPT/HCPCS: A0425; A0428 ==

== ENCOUNTER 2023-06-11 10:37 | Outpatient (CLI) | payer MEDICARE, MEDICAID ==
[2023-06-11 12:48] LABS: ESTIMATED AVERAGE GLUCOSE 114 mg/dL (70-100); HEMOGLOBIN A1c% 5.6 % (4.27-6.07)
== END 2023-06-11 10:38 | disposition home or self-care (01) ==
LOC: LAB.R 10:37
PROVIDERS: ATTEND Registered Nurse
DX: E11.9 Type 2 diabetes mellitus without complications (principal)
CPT/HCPCS: 83036

== ENCOUNTER 2023-06-25 11:50 | Outpatient (CLI) | payer MEDICARE, MEDICAID ==
--- NOTE | 2023-06-25 16:21 | XRAY Report ---
PROCEDURE: Chest 2V INDICATIONS: PNEUMONIA TECHNIQUE: 2 views of the chest were acquired. COMPARISON: Chest x-ray 12/18/2021 FINDINGS: Surgical changes and devices: None. Lungs and pleura: Mild streaky opacities within the visualized left base. Mediastinum: Mediastinal contours appear normal. Heart size is normal. Unchanged elevation of the left hemidiaphragm. Bones and chest wall: No suspicious bony lesions. Overlying soft tissues appear unremarkable. IMPRESSION: Mild left basilar streaky opacities possibly representing atelectasis. Developing pneumonia cannot be excluded. Reviewed by: Leonor Mejia MD on 06/25/2023 4:19 PM PDT Approved by: Leonor Mejia MD on 06/25/2023 4:19 PM PDT Station ID: [id number]
== END 2023-06-25 11:51 | disposition home or self-care (01) ==
LOC: DI 11:50
PROVIDERS: ATTEND Registered Nurse
DX: J18.9 Pneumonia, unspecified organism (principal)

== ENCOUNTER 2023-07-04 14:32 | Outpatient (CLI) | payer MEDICARE, MEDICAID ==
[2023-07-04 15:25] LABS: ALBUMIN 3.6 g/dL (3.2-5.5); ALBUMIN/GLOBULIN RATIO 1.2 (1.0-2.2); BILIRUBIN,TOTAL 1.1 mg/dL (0.2-1.0); CALCIUM 9.4 mg/dL (8.5-10.3); POTASSIUM 4.3 mmol/L (3.5-4.5); TOTAL PROTEIN 6.6 g/dL (6.4-8.9)
== END 2023-07-04 14:33 | disposition home or self-care (01) ==
LOC: LAB.R 14:32
PROVIDERS: ATTEND Registered Nurse
DX: E78.5 Hyperlipidemia, unspecified (principal)
CPT/HCPCS: 80053

== ENCOUNTER 2023-10-01 13:46 | Outpatient (CLI) | payer MEDICARE, MEDICAID | END 2023-10-01 23:59 | disposition critical access hospital (66) | LOC: EMS 13:46 | DX: R41.82 Altered mental status, unspecified (principal) | CPT/HCPCS: A0425; A0429 ==

== ENCOUNTER 2023-10-01 13:55 | Emergency (ER) | payer MEDICARE, MEDICAID ==
--- NOTE | 2023-10-01 14:12 | ED Physician Documentation ---
PD HPI ALTERED MENTAL STATUS - Stated complaint Stated Complaint: AMS - Chief complaint Chief Complaint: Neuro - History obtained from History obtained from: Patient, EMS, Caregiver - History of Present Illness Timing - onset: Today Timing - duration: Hours Timing - details: Other (Unknown onset of symptoms. The patient was felt to be acting more close to normal around 9 AM this morning but reportedly was not necessarily up and out of bed per se. Noted to be fairly confused and poor interaction prior to EMS called and brought here. No focal deficits.) Quality / character: Less responsive, Confused Contributing factors: Recent med change (The patient had been having some problems with agitation at times. He was started on hydroxyzine new medication just yesterday with apparently a dose at bedtime. Not clear if he had another dose this morning as his MAR was not with him but his med list was.) Basline status: Alert and oriented X 3 (with some forgetfulness c/w dementia.), Walker Similar symptoms before: Has not had sx before Review of Systems Unable to obtain: AMS, Other (info from caregivers.) Constitutional: denies: Fever Nose: denies: Congestion GI: denies: Vomiting, Diarrhea PD PAST MEDICAL HISTORY - Past Medical History Cardiovascular: High cholesterol, Atrial fibrillation, Congestive heart failure, Hypertension Respiratory: None Neuro: Dementia Endocrine/Autoimmune: Type 2 diabetes GI: None : Incontinence HEENT: None Psych: Schizophrenia, Other Musculoskeletal: None Derm: None - Past Surgical History Past Surgical History: Yes - Present Medications Home Medications: Ambulatory Orders Medication Instructions Recorded Confirmed Furosemide 10 mg PO DAILY 12/12/18 10/01/23 Gabapentin 300 mg PO TID 12/12/18 10/01/23 Sertraline [Zoloft] 50 mg PO DAILY 12/12/18 10/01/23 Acetaminophen [Aphen] 650 mg PO Q4H PRN 06/06/20 10/01/23 Ascorbic Acid [Vitamin C] 250 mg PO DAILY 06/06/20 10/01/23 Calcium Carbonate [Tums (Calcium 500 mg PO BID 06/06/20 10/01/23 Carbonate 500mg)] Diclofenac Sodium [Venngel One] 1 % TOP Q8H PRN 06/06/20 10/01/23 Docusate Sodium [Dok] 300 mg PO DAILY 06/06/20 10/01/23 Lisinopril [Zestril] 10 mg PO DAILY 06/06/20 10/01/23 Loperamide [Imodium] 2 mg PO PRN PRN 06/06/20 10/01/23 Multivitamin with Iron 1 tab PO DAILY 06/06/20 10/01/23 [Multivitamins with Iron] Tamsulosin HCl [Flomax] 0.4 mg PO DAILY 06/06/20 10/01/23 bisacodyL [Gentle Laxative] 5 mg PO DAILY PRN 06/06/20 10/01/23 carvediloL [Coreg] 3.125 mg PO BID 06/06/20 10/01/23 metFORMIN [Glucophage] 500 mg PO BID 06/06/20 10/01/23 risperiDONE [RisperDAL] 1 mg PO HS 06/06/20 10/01/23 Pantoprazole Sodium [Protonix] 20 mg PO DAILY #30 tab 06/09/20 10/01/23 Albuterol Sulfate [Proair 2 puffs IH Q4HR PRN 02/28/23 10/01/23 Digihaler] Aspirin EC [Ecotrin] 1 tab PO DAILY 02/28/23 10/01/23 Cefpodoxime Proxetil [Vantin] 200 mg PO Q12H #28 tablet 02/28/23 10/01/23 Tamsulosin HCl [Flomax] 1 cap PO DAILY 02/28/23 10/01/23 Ciprofloxacin [Cipro] 250 mg PO Q12H #14 tablet 10/01/23 - Allergies Allergies/Adverse Reactions: Allergies Allergy/AdvReac Type Severity Reaction Status Date / Time No Known Drug Allergies Allergy Verified 10/01/23 13:59 - Social History Does the pt smoke?: Yes Smoking Status: Current every day smoker Does the pt drink ETOH?: No Does the pt have substance abuse?: No - POLST Patient has POLST: No PD ED PE NORMAL - General General: No: Alert and oriented X 3 (rousable to eye opening and some verbal response that is unintelligible. ) - Neck Neck: No adenopathy, No bruit - Cardiac Cardiac: RRR, No murmur - Respiratory Respiratory: Clear bilaterally - Abdomen Abdomen: Normal bowel sounds, Soft, Non distended - Derm Derm: Normal color, Warm and dry - Extremities Extremities: Other (responds to firm tactile with mild eye opening. Has adequate gag reflex. ) - Neuro Neuro: No: Alert and oriented X 3 Results - Vitals Vitals: Vital Signs - 24 hr 10/01/23 10/01/23 13:59 16:17 Temperature 36.8 C 36.2 C L Heart Rate 66 61 Respiratory 18 24 Rate Blood Pressure 137/82 H 164/80 H O2 Saturation 98 95 Oxygen O2 Source Room air - Labs Labs: Laboratory Tests 10/01/23 10/01/23 10/01/23 14:32 14:32 15:05 WBC 6.6 RBC 3.75 L Hgb 11.5 L Hct 36.3 L MCV 96.8 H MCH 30.7 MCHC 31.7 L RDW 15.5 H Plt Count 146 MPV 11.7 H Neut # (Auto) 4.0 Lymph # (Auto) 1.3 L [place] # (Auto) 0.7 Eos # (Auto) 0.6 Baso # (Auto) 0.1 Absolute Nucleated RBC 0.00 Nucleated RBC % 0.0 Sodium 138 Potassium 4.0 Chloride 103 Carbon Dioxide 30 Anion Gap 5.0 L BUN 20 Creatinine 0.9 Estimated GFR (MDRD) 81 L Glucose 84 Calcium 9.3 Magnesium 1.6 L Total Bilirubin 1.7 H AST 13 ALT 10 Alkaline Phosphatase 61 Total Protein 6.7 Albumin 3.7 Globulin 3.0 Albumin/Globulin Ratio 1.2 Lipase 21 Urine Color YELLOW Urine Clarity HAZY Urine pH 7.0 Ur Specific [place] 1.010 Urine Protein NEGATIVE Urine Glucose (UA) NEGATIVE Urine Ketones NEGATIVE Urine Occult Blood NEGATIVE Urine Nitrite POSITIVE H Urine Bilirubin NEGATIVE Urine Urobilinogen 0.2 (NORMAL) Ur Leukocyte Esterase SMALL H Urine RBC 0-5 Urine WBC 11-25 H Ur Squamous Epith Cells RARE Squamous Urine Bacteria Many H Ur Microscopic Review INDICATED Urine Culture Comments INDICATED PD Medical Decision Making - ED course Complexity details: reviewed results, d/w patient (Minimal information from the patient himself due to altered mentation.), other (Information from EMS relayed from caregivers as the patient was apparently more normal this morning at 9 AM though truly was not out of bed and doing full normal activity. He was noted to be poorly interacting just after lunchtime when he was found to not have eaten.) ED course: The patient reportedly does have history of some dementia and times had been having agitation. He had been started on new medication of hydroxyzine last evening before bedtime and unclear if a repeat dose today. Will ask regions to send the actual MAR. They did send his med list. No other apparent changes in his medications. No reports of him being ill. Car egivers familiar with the patient states he does have some dementia and has some forgetfulness but is typically conversant and gets around with a walker. The current status is new for him. We will investigate for other potential sources of altered mental status aside from the new medication. This would include checking electrolytes, blood sugar, blood count in particular white count to look for infection as well as pointed sources of infection such as a chest x-ray and a urinalysis. There was no report of respiratory illness. Held the respiratory panel at this point. Lungs are sounding clear. His oxygenation is adequate. He seems to be having adequate ventilation and will respond to firm tactile stimulus with some moderate eye-opening and localizing pain. He does have a gag reflex present. I kept the bed at 30 degrees head of bed elevation. Departure - Departure Disposition: 01 Home, Self Care Clinical Impression: UTI (urinary tract infection) Altered mental status Qualifiers: Altered mental status type: delirium Qualified Code(s): R41.0 - Disorientation, unspecified Medication adverse effect Qualifiers: Encounter type: initial encounter Qualified Code(s): T50.905A - Adverse effect of unspecified drugs, medicaments and biological substances, initial encounter Condition: Stable Instructions: ED UTI Cystitis Male Prescriptions: Ciprofloxacin [Cipro] 250 mg PO Q12H #14 tablet Comments: Sanchez was seen today for altered mental status. He is back to normal now and we think this is likely related to the new medication, the hydroxyzine. He did have a positive urinalysis which I am treating, but if that was the cause of his altered mental status we would presume that his altered mental status would be persistent at this point which it is not. Return for new or worsening symptoms. I sent the prescription electronically to [facility]. He did receive the first dose here. We will culture your urine, the results should be done in 48-72 hours. If an antibiotic change is necessary we will call you. Forms: PCP List Discharge Date/Time: 10/01/23 16:19
[2023-10-01 14:37] LABS: BASOPHILS # (AUTO) 0.1 10^3/uL (0.0-0.1); BASOPHILS % (AUTO) 1.1 %; EOSINOPHILS # (AUTO) 0.6 10^3/uL (0.0-0.7); EOSINOPHILS % (AUTO) 8.9 %; HCT - HEMATOCRIT 36.3 % (42.0-52.0); HGB - HEMOGLOBIN 11.5 g/dL (14.0-18.0); LYMPHOCYTES # (AUTO) 1.3 10^3/uL (1.5-3.5); LYMPHOCYTES % (AUTO) 19.4 %; MEAN CORPUSCULAR HEMOGLOBIN 30.7 pg (27.0-31.0); MEAN CORPUSCULAR HGB CONC 31.7 g/dL (32.0-36.0); MEAN CORPUSCULAR VOLUME 96.8 fL (80.0-94.0); MEAN PLATELET VOLUME 11.7 fL (7.4-11.4); MONOCYTES # (AUTO) 0.7 10^3/uL (0.0-1.0); MONOCYTES % (AUTO) 10.7 %; NEUTROPHILS % (AUTO) 59.7 %; PLT - PLATELET COUNT 146 10^3/uL (130-450); RED BLOOD COUNT 3.75 10^6/uL (4.70-6.10); RED CELL DISTRIBUTION WIDTH 15.5 % (12.0-15.0); WHITE BLOOD COUNT 6.6 x10^3/uL (4.8-10.8)
[2023-10-01 14:53] LABS: ALBUMIN 3.7 g/dL (3.2-5.5); ALBUMIN/GLOBULIN RATIO 1.2 (1.0-2.2); BILIRUBIN,TOTAL 1.7 mg/dL (0.2-1.0); CALCIUM 9.3 mg/dL (8.5-10.3); CREATININE 0.9 mg/dL (0.6-1.3); MAGNESIUM 1.6 mg/dL (1.7-2.3); TOTAL PROTEIN 6.7 g/dL (6.4-8.9)
[2023-10-01 15:14] LABS: BILIRUBIN,URINE NEGATIVE (NEGATIVE); GLUCOSE, URINE (UA) NEGATIVE (NEGATIVE); KETONES,URINE (UA) NEGATIVE (NEGATIVE); LEUKOCYTE ESTERASE, URINE SMALL (NEGATIVE); NITRITE,URINE POSITIVE (NEGATIVE); OCCULT BLOOD,URINE NEGATIVE (NEGATIVE); PROTEIN,URINE NEGATIVE (NEGATIVE); UROBILINOGEN,URINE 0.2 (NORMAL) E.U./dL (NORMAL)
[2023-10-01 15:15] LABS: CLARITY,URINE HAZY (CLEAR)
[2023-10-01 15:25] LABS: BACTERIA,URINE Many /HPF (None Seen); RBC,URINE 0-5 /HPF (0-5); SQUAMOUS EPITHELIAL CELL,UR RARE Squamous (<= Few)
[2023-10-01] MEDS: SODIUM CHLORIDE 0.9% 1,000 ML IV STA (15:41)
--- NOTE | 2023-10-01 15:42 | CT Report ---
PROCEDURE: Head WO INDICATIONS: AMS today TECHNIQUE: Noncontrast 4.5 mm thick angled axial sections acquired from the foramen magnum to the vertex. For r adiation dose reduction, the following was used: automated exposure control, adjustment of mA and/or kV according to patient size. COMPARISON: 07/04/2020 FINDINGS: Image quality: Excellent. CSF spaces: Basal cisterns are patent. No extra-axial fluid collections. Ventricles are normal in size and shape. Brain: No midline shift. Bilateral lacunar infarcts. No intracranial masses or hemorrhage. Age-rela renetta global volume loss and chronic microvascular ischemic changes. Intracranial atherosclerotic vascu lar calcifications. Ortez-white matter interface is normal. Skull and face: Calvarium and visualized facial bones are intact, without suspicious lesions. Sinuses: Visualized sinuses and mastoids are clear. IMPRESSION: No acute intracranial pathology. Reviewed by: Joe Matos MD on 10/01/2023 3:41 PM PDT Approved by: Joe Matos MD on 10/01/2023 3:41 PM PDT Station ID: [id number]
--- NOTE | 2023-10-01 15:43 | ED Physician Documentation ---
ED Addendum - Addendum Addendum: 10/01/23 15:[address] Gaines at 3 PM shift change. Briefly this is an 82-year-old gentleman with dementia who is long-term at a SNF who presented for confusion and obtundation. He started hydroxyzine, were not exactly sure when but within the last 24 hours. At this point his workup is notable for a CBC with chronic anemia, no leukocytosis. CMP grossly normal save very mild hypomagnesemia and elevated bilirubin which is chronic for him. He does have a positive UA which I will treat but at this juncture he is seems to be back to normal. One of our MAs used to work at [facility] and confirms that he is back to his baseline so presume the new medication, the hydroxyzine caused his transient obtundation. He is safe for discharge. I will recommend to the facility that they discontinue this medication for now. Disposition: Discharged home Condition: Stable Diagnosis: 1. Altered mental status 2. Medication side effect 3. UTI 10/01/23 16:14 CT of the head showing no acute disease. Showing pulmonary edema and pleural effusion which does not fit his symptoms.
[2023-10-01] MEDS: CIPROFLOXACIN 250 MG TABLET PO STA (15:46)
--- NOTE | 2023-10-01 16:11 | XRAY Report ---
PROCEDURE: Chest 1V INDICATIONS: altered mental status TECHNIQUE: One view of the chest was acquired. COMPARISON: Chest x-ray 06/25/2023 FINDINGS: Surgical changes and devices: None. Lungs and pleura: Mild increased vascularity. Right effusion with superimposed consolidation. Mediastinum: Mediastinal contours appear normal. Heart size is enlarged Bones and chest wall: No suspicious bony lesions. Overlying soft tissues appear unremarkable. IMPRESSION: Increased vascularity right effusion and cardiomegaly most consistent with edema. Underlying areas of pneumonia and/or atelectasis cannot be excluded in the left base. Reviewed by: Leonor Mejia MD on 10/01/2023 4:10 PM PDT Approved by: Leonor Mejia MD on 10/01/2023 4:10 PM PDT Station ID: [id number]
[2023-10-01 16:27] VITALS: BP 164/80; O2SAT 95
== END 2023-10-01 16:19 | disposition home or self-care (01) ==
LOC: EDUNIT# → ED 13:55
DX: N39.0 Urinary tract infection, site not specified (principal); R41.0 Disorientation, unspecified; T50.905A Adverse effect of unspecified drugs, medicaments and biological substances, initial encounter; I11.0 Hypertensive heart disease with heart failure; I50.9 Heart failure, unspecified; I48.91 Unspecified atrial fibrillation; E78.00 Pure hypercholesterolemia, unspecified; E11.9 Type 2 diabetes mellitus without complications; F03.90 Unspecified dementia, unspecified severity, without behavioral disturbance, psychotic disturbance, mood disturbance, and anxiety; Z79.84 Long term (current) use of oral hypoglycemic drugs; Z79.899 Other long term (current) drug therapy; F17.200 Nicotine dependence, unspecified, uncomplicated
CPT/HCPCS: 36415; 70450; 71045; 80053; 81001; 83690; 83735; 85025; 87086; 93005; 99284; A9270; 81003; 87077; 87181

== ENCOUNTER 2023-10-01 16:20 | Outpatient (CLI) | payer MEDICARE, MEDICAID | END 2023-10-01 23:59 | disposition home or self-care (01) | LOC: EMS 16:20 | PROVIDERS: ATTEND Emergency Medicine | DX: F03.90 Unspecified dementia, unspecified severity, without behavioral disturbance, psychotic disturbance, mood disturbance, and anxiety (principal); R41.0 Disorientation, unspecified | CPT/HCPCS: A0425; A0428 ==

== ENCOUNTER 2023-10-07 12:56 | Outpatient (CLI) | payer MEDICARE, MEDICAID | END 2023-10-07 23:59 | disposition critical access hospital (66) | LOC: EMS 12:56 | DX: R41.82 Altered mental status, unspecified (principal); R06.3 Periodic breathing; R09.89 Other specified symptoms and signs involving the circulatory and respiratory systems; I10 Essential (primary) hypertension; H57.02 Anisocoria | CPT/HCPCS: A0425; A0429 ==

== ENCOUNTER 2023-10-07 13:02 | Inpatient (IN) | payer MEDICARE, MEDICAID ==
[2023-10-07 13:18] LABS: BASOPHILS # (AUTO) 0.1 10^3/uL (0.0-0.1); BASOPHILS % (AUTO) 1.5 %; EOSINOPHILS # (AUTO) 0.5 10^3/uL (0.0-0.7); EOSINOPHILS % (AUTO) 7.9 %; HCT - HEMATOCRIT 36.5 % (42.0-52.0); HGB - HEMOGLOBIN 11.6 g/dL (14.0-18.0); LYMPHOCYTES # (AUTO) 1.3 10^3/uL (1.5-3.5); LYMPHOCYTES % (AUTO) 21.1 %; MEAN CORPUSCULAR HEMOGLOBIN 30.4 pg (27.0-31.0); MEAN CORPUSCULAR HGB CONC 31.8 g/dL (32.0-36.0); MEAN CORPUSCULAR VOLUME 95.8 fL (80.0-94.0); MEAN PLATELET VOLUME 10.9 fL (7.4-11.4); MONOCYTES # (AUTO) 0.5 10^3/uL (0.0-1.0); MONOCYTES % (AUTO) 7.5 %; NEUTROPHILS # (AUTO) 3.7 10^3/uL (1.5-6.6); NEUTROPHILS % (AUTO) 61.8 %; PLT - PLATELET COUNT 179 10^3/uL (130-450); RED BLOOD COUNT 3.81 10^6/uL (4.70-6.10); RED CELL DISTRIBUTION WIDTH 14.6 % (12.0-15.0)
[2023-10-07 13:26] LABS: INR 1.3 (0.8-1.2); PT - PROTHROMBIN TIME 13.6 secs (9.9-12.6)
[2023-10-07 13:28] LABS: MAGNESIUM 1.6 mg/dL (1.7-2.3)
[2023-10-07 13:34] LABS: ALBUMIN 3.3 g/dL (3.2-5.5); ALBUMIN/GLOBULIN RATIO 1.1 (1.0-2.2); ALKALINE PHOSPHATASE 51 IU/L (42-121); ALT ALANINE AMINOTRANSFERASE 8 IU/L (10-60); AST ASPARTATE AMINOTRANSFERASE 11 IU/L (10-42); BILIRUBIN,TOTAL 0.9 mg/dL (0.2-1.0); BUN - BLOOD UREA NITROGEN 18 mg/dL (6-20); CALCIUM 9.2 mg/dL (8.5-10.3); CARBON DIOXIDE - CO2 28 mmol/L (21-32); CHLORIDE 107 mmol/L (101-111); ETOH - ETHANOL < 10.0 mg/dL; GFR - MDRD 71 (>89); GLUCOSE 86 mg/dL (74-104); SODIUM 141 mmol/L (135-145); TOTAL PROTEIN 6.3 g/dL (6.4-8.9)
--- NOTE | 2023-10-07 13:38 | ED Physician Documentation ---
History of Present Illness - Stated complaint Stated Complaint: LETHARGIC - Chief complaint Chief Complaint: Neuro - History of Present Illness Timing: Prior to arrival - Additonal information Additional information: Patient is an 82-year-old male with past medical history of atrial fibrillation presenting to the emergency department with lethargy and change in mental status. Patient has past medical history remarkable for type 2 diabetes atrial fibrillation BPH hypertension chronic DVTs presenting to emergency department with unresponsiveness only to pain. Patient was last known well time was 11:00 brought in by EMS blood sugar on arrival was 122. Patient was on 2 L nasal cannula oxygen on arrival due to hypoxia. Patient saturating well GCS of 5 on arrival. Patient baseline usually awake and talking baseline of ANO x 0. Patient stroke alert called on arrival as EMS reported blown pupil in the field. On arrival no appreciable blown pupil and pupils are equal reactive to light and accommodation on arrival. Patient unable to follow commands or answer any questions. PD PAST MEDICAL HISTORY - Past Medical History Cardiovascular: High cholesterol, Atrial fibrillation, Congestive heart failure, Hypertension Respiratory: None Neuro: Dementia Endocrine/Autoimmune: Type 2 diabetes GI: None : Incontinence HEENT: None Psych: Schizophrenia, Other Musculoskeletal: None Derm: None - Past Surgical History Past Surgical History: Yes - Present Medications Home Medications: Ambulatory Orders Medication Instructions Recorded Confirmed Furosemide 10 mg PO DAILY 12/12/18 10/07/23 Gabapentin 300 mg PO TID 12/12/18 10/07/23 Sertraline [Zoloft] 37.5 mg PO DAILY 12/12/18 10/07/23 Acetaminophen [Aphen] 650 mg PO Q4H PRN 06/06/20 10/07/23 Calcium Carbonate [Tums (Calcium 500 mg PO BID 06/06/20 10/07/23 Carbonate 500mg)] Diclofenac Sodium [Venngel One] 1 % TOP Q8H PRN 06/06/20 10/07/23 Docusate Sodium [Dok] 100 mg PO DAILY 06/06/20 10/07/23 Lisinopril [Zestril] 10 mg PO DAILY 06/06/20 10/07/23 Loperamide [Imodium] 2 mg PO PRN PRN 06/06/20 10/07/23 Multivitamin with Iron 1 tab PO DAILY 06/06/20 10/07/23 [Multivitamins with Iron] Tamsulosin HCl [Flomax] 0.4 mg PO DAILY 06/06/20 10/07/23 carvediloL [Coreg] 3.125 mg PO BID 06/06/20 10/07/23 metFORMIN [Glucophage] 500 mg PO BID 06/06/20 10/07/23 risperiDONE [RisperDAL] 1 mg PO HS 06/06/20 10/07/23 Pantoprazole Sodium [Protonix] 20 mg PO DAILY #30 tab 06/09/20 10/07/23 Aspirin EC [Ecotrin] 1 tab PO DAILY 02/28/23 10/07/23 Ciprofloxacin [Cipro] 250 mg PO Q12H #14 tablet 10/01/23 10/07/23 Ferrous Sulfate [Feosol] 325 mg PO DAILY 10/07/23 10/07/23 Oxycodone HCl 5 mg PO Q6HR PRN 10/07/23 10/07/23 - Allergies Allergies/Adverse Reactions: Allergies Allergy/AdvReac Type Severity Reaction Status Date / Time No Known Drug Allergies Allergy Verified 10/07/23 13:16 - Social History Does the pt smoke?: Yes Smoking Status: Current every day smoker Does the pt drink ETOH?: No Does the pt have substance abuse?: No - POLST Patient has POLST: No PD ED PE NORMAL - Vitals Vital signs reviewed: Yes (Patient hypoxic on arrival to 90% nasal cannula 2 L restarted here in the e) - General General: Other - HEENT HEENT: Atraumatic, Ears normal, Other (Patient not spontaneously opening eyes but on examination pupils are equal round reactive to light and accommodation.) - Neck Neck: Supple, no meningeal sign - Cardiac Cardiac: No gallop, No rub, Strong equal pulses (Palpable upper and lower extremity pulses.), Other (Irregular rhythm but normal rate on examination) - Respiratory Respiratory: Other (Bradypnea appreciated on examination) - Abdomen Abdomen: Normal bowel sounds - Male Male : Other (No signs of rash or infection in inguinal region.) - Derm Derm: Other (Good capillary refill upper and lower extremities are warm to touch) - Extremities Extremities: No deformity - Neuro Neuro: Other Eye Opening: None Motor: Abnormal Flexion Verbal: None GCS Score: 5 Results - Vitals Vitals: Vital Signs - 24 hr 10/07/23 10/07/23 10/07/23 13:05 13:16 13:22 Temperature 36.3 C L Heart Rate 61 87 59 L Respiratory 16 17 15 Rate Blood Pressure 164/70 H 156/69 H 156/66 H O2 Saturation 99 96 100 If not protocol 2 2 : Oxygen Flow, liters/minute 10/07/23 10/07/23 10/07/23 13:46 14:34 14:59 Temperature Heart Rate 75 71 66 Respiratory 14 15 16 Rate Blood Pressure 156/69 H 157/66 H O2 Saturation 99 100 97 If not protocol 2 5 2 : Oxygen Flow, liters/minute 10/07/23 10/07/23 10/07/23 15:00 15:30 16:05 Temperature 35.9 C L Heart Rate 83 67 Respiratory 14 14 Rate Blood Pressure 160/76 H 158/87 H O2 Saturation 98 100 If not protocol 2 2 : Oxygen Flow, liters/minute Oxygen O2 Source Nasal cannula Oxygen Flow Rate 2 - Labs Labs: Laboratory Tests 10/07/23 10/07/23 10/07/23 13:03 13:03 13:03 WBC RBC Hgb Hct MCV MCH MCHC RDW Plt Count MPV Neut # (Auto) Lymph # (Auto) [place] # (Auto) Eos # (Auto) Baso # (Auto) Absolute Nucleated RBC Nucleated RBC % PT 13.6 H INR 1.3 H VBG pH VBG pCO2 VBG pO2 VBG HCO3 VBG Total CO2 VBG O2 Saturation VBG Base Excess Sodium 141 Potassium 4.0 Chloride 107 Carbon Dioxide 28 Anion Gap 6.0 BUN 18 Creatinine 1.0 Estimated GFR (MDRD) 71 L Glucose 86 Lactic Acid Calcium 9.2 Magnesium 1.6 L Total Bilirubin 0.9 AST 11 ALT 8 L Alkaline Phosphatase 51 Troponin I High Sens 12.0 B-Natriuretic Peptide Total Protein 6.3 L Albumin 3.3 Globulin 3.0 Albumin/Globulin Ratio 1.1 Urine Color Urine Clarity Urine pH Ur Specific [place] Urine Protein Urine Glucose (UA) Urine Ketones Urine Occult Blood Urine Nitrite Urine Bilirubin Urine Urobilinogen Ur Leukocyte Esterase Ur Microscopic Review Urine Culture Comments Ethyl Alcohol < 10.0 10/07/23 10/07/23 10/07/23 13:03 13:13 13:52 WBC 6.0 RBC 3.81 L Hgb 11.6 L Hct 36.5 L MCV 95.8 H MCH 30.4 MCHC 31.8 L RDW 14.6 Plt Count 179 MPV 10.9 Neut # (Auto) 3.7 Lymph # (Auto) 1.3 L [place] # (Auto) 0.5 Eos # (Auto) 0.5 Baso # (Auto) 0.1 Absolute Nucleated RBC 0.00 Nucleated RBC % 0.0 PT INR VBG pH VBG pCO2 VBG pO2 VBG HCO3 VBG Total CO2 VBG O2 Saturation VBG Base Excess Sodium Potassium Chloride Carbon Dioxide Anion Gap BUN Creatinine Estimated GFR (MDRD) Glucose Lactic Acid 1.3 Calcium Magnesium Total Bilirubin AST ALT Alkaline Phosphatase Troponin I High Sens B-Natriuretic Peptide 744 H Total Protein Albumin Globulin Albumin/Globulin Ratio Urine Color Urine Clarity Urine pH Ur Specific [place] Urine Protein Urine Glucose (UA) Urine Ketones Urine Occult Blood Urine Nitrite Urine Bilirubin Urine Urobilinogen Ur Leukocyte Esterase Ur Microscopic Review Urine Culture Comments Ethyl Alcohol 10/07/23 10/07/23 13:52 14:07 WBC RBC Hgb Hct MCV MCH MCHC RDW Plt Count MPV Neut # (Auto) Lymph # (Auto) [place] # (Auto) Eos # (Auto) Baso # (Auto) Absolute Nucleated RBC Nucleated RBC % PT INR VBG pH 7.361 VBG pCO2 47.7 VBG pO2 30.3 VBG HCO3 26.4 VBG Total CO2 27.9 VBG O2 Saturation 55.7 L VBG Base Excess 0.5 Sodium Potassium Chloride Carbon Dioxide Anion Gap BUN Creatinine Estimated GFR (MDRD) Glucose Lactic Acid Calcium Magnesium Total Bilirubin AST ALT Alkaline Phosphatase Troponin I High Sens B-Natriuretic Peptide Total Protein Albumin Globulin Albumin/Globulin Ratio Urine Color YELLOW Urine Clarity CLEAR Urine pH 6.0 Ur Specific [place] 1.020 Urine Protein NEGATIVE Urine Glucose (UA) NEGATIVE Urine Ketones NEGATIVE Urine Occult Blood NEGATIVE Urine Nitrite NEGATIVE Urine Bilirubin NEGATIVE Urine Urobilinogen 0.2 (NORMAL) Ur Leukocyte Esterase NEGATIVE Ur Microscopic Review NOT INDICATED Urine Culture Comments NOT INDICATED Ethyl Alcohol PD Medical Decision Making - ED course Complexity details: reviewed old records, reviewed results ED course: Patient 82-year-old male came into emergency department GCS of 5 on arrival last known well time of 11:00 patient appears lethargic on arrival. He is bradycardic but irregular rhythm EKG obtained here shows atrial fibrillation patient does have past medical history of atrial fibrillation and is on aspirin no other blood thinners. He is saturating at 90% on room air 2 L nasal cannula added patient improved to 98% no tachycardia no tachypnea appreciated. Blood sugar on arrival was 122. Stroke alert called on arrival due to patient's presentation last known well time. 1354: Head CT scan was negative for any acute intracranial bleed. Called in by Dr. Moreira CTA also obtained here in the ED showing no large vessel effusion mild aortic aneurysm prominent mediastinal lymph nodes no significant stenosis. Labs obtained here in the emergency department show no significant leukocytosis UA shows no signs of UTI reviewed culture strains from recent UTI 3 days ago here in the emergency department shows sensitivity to Ciprofloxacin that he was started on a few days ago. Patient chest x-ray did return with basilar opacity and left lung with pulmonary edema moderate noted. 1400: Discussed with teleneurologist on-call who will evaluate patient no need for TNK given patient's age and outside of window here in the emergency department. Patient admitted to hospitalist for pneumonia and altered mental status. Patient facility updated and informed. Departure - Departure Disposition: 66 [facility] DC/Xfer Clinical Impression: Left lower lobe pneumonia Condition: Poor Forms: PCP List
[2023-10-07] MEDS ORDERED: iohexoL-300 100 ML VIAL ONE (13:52)
[2023-10-07 13:54] LABS: VBG BASE EXCESS 0.5 mmol/L (-2 - +2); VBG HCO3 26.4 mmol/L (23-28); VBG OXYGEN SATURATION 55.7 % (60-80); VBG PCO2 47.7 mmHg (41-51); VBG PH 7.361 (7.31-7.41); VBG PO2 30.3 mmHg (25-47); VBG TOTAL CO2 27.9 mmol/L (24-29)
--- NOTE | 2023-10-07 13:56 | CT Report ---
PROCEDURE: Head W/O Stroke Protocol INDICATIONS: stroke alert TECHNIQUE: Noncontrast 4.5 mm thick angled axial sections acquired from the foramen magnum to the vertex, with c oronal reformats. For radiation dose reduction, the following was used: automated exposure control, adjustment of mA and/or kV according to patient size. COMPARISON: 10/01/2023 FINDINGS: Image quality: Excellent. CSF spaces: Basal cisterns are patent. No extra-axial fluid collections. Ventricles are normal in size and shape. Brain: No midline shift. No intracranial masses or hemorrhage. Ortez-white matter interface is norm al. Leukoaraiosis, commonly caused by chronic small vessel ischemic disease. Age-related volume loss . Skull and face: Calvarium and visualized facial bones are intact, without suspicious lesions. Sinuses: Visualized sinuses and mastoids are clear. IMPRESSION: No acute intracranial process. Findings discussed with ED provider Lula at 1:53 PM on 10/07/2023. This study fulfills neurological imaging criteria for inclusion or exclusion of acute stroke therapie s based on available published neurological imaging guidelines. Reviewed by: Filiberto Moreira MD on 10/07/2023 1:54 PM PDT Approved by: Filiberto Moreira MD on 10/07/2023 1:54 PM PDT Station ID: [id number]
[2023-10-07 14:12] LABS: BILIRUBIN,URINE NEGATIVE (NEGATIVE); GLUCOSE, URINE (UA) NEGATIVE (NEGATIVE); KETONES,URINE (UA) NEGATIVE (NEGATIVE); LEUKOCYTE ESTERASE, URINE NEGATIVE (NEGATIVE); NITRITE,URINE NEGATIVE (NEGATIVE); OCCULT BLOOD,URINE NEGATIVE (NEGATIVE); PROTEIN,URINE NEGATIVE (NEGATIVE); UROBILINOGEN,URINE 0.2 (NORMAL) E.U./dL (NORMAL)
--- NOTE | 2023-10-07 14:12 | CT Report ---
PROCEDURE: Angio Head/Neck INDICATIONS: stroke alert TECHNIQUE: After the administration of intravenous contrast, 1 mm thick sections acquired from the aortic arch t hrough the [place]. 3-dimensional ybqoldb-ryfiadich-gzipgjyrxw (MIP) and/or volume renderin g reformats were acquired of the central intracranial vasculature and neck separately. For radiation dose reduction, the following was used: automated exposure control, adjustment of mA and/or kV acco rding to patient size. CONTRAST: 80ml [id number] COMPARISON: Same day head CT, CT 10/01/2023 FINDINGS: Image quality: Suboptimal due to motion artifact. HEAD CT: Please see same day head CT. HEAD CT ANGIOGRAPHY: Anterior circulation: Intracranial internal carotid arteries are normal in size and flow. The flow within the paired anterior cerebral arteries is normal and symmetric. The flow within the middle cer ebral arteries is normal and symmetric. The anterior communicating artery is seen. No aneurysms are seen. Posterior circulation: Visualized portions of the vertebral arteries demonstrate normal caliber, and join to form a normal appearing basilar artery. Flow within the posterior cerebral arteries is norm al and symmetric. No aneurysms are seen. NECK CT ANGIOGRAPHY: Carotid system: The great vessels demonstrate a conventional anatomy as they arise from the aortic a rch. The origins of the common carotid arteries appear patent. The common carotid arteries demonstr ate normal caliber and courses. The bifurcation regions are both widely patent. The internal caroti d arteries demonstrate normal calibers and courses. Posterior circulation: The origins of the vertebral arteries both appear widely patent. The more ledezma perior extracranial portions of both vertebral arteries also demonstrate normal courses and calibers. They join to form a normal appearing basilar artery. Soft tissues: Visualized neck soft tissues demonstrate no suspicious abnormalities. Mild aortic ane urysm measuring 4.6 cm. Prominent mediastinal lymph nodes. Bones: No suspicious bony lesions. Visualized cervical spine appears normally aligned. IMPRESSION: Suboptimal evaluation due to motion artifact. No large vessel occlusion. Mild aortic aneurysm measuring 4.6 cm. Prominent mediastinal lymph nodes of uncertain etiology. The estimate of stenosis included in the report of the imaging study was calculated using the NASCET method Reviewed by: Filiberto Moreira MD on 10/07/2023 2:11 PM PDT Approved by: Filiberto Moreira MD on 10/07/2023 2:11 PM PDT Station ID: [id number]
[2023-10-07 14:14] LABS: CLARITY,URINE CLEAR (CLEAR)
--- NOTE | 2023-10-07 14:30 | XRAY Report ---
PROCEDURE: Chest 1V INDICATIONS: sob TECHNIQUE: One view of the chest was acquired. COMPARISON: 10/01/2023 FINDINGS: Surgical changes and devices: None. Lungs and pleura: Low lung volumes. Diffuse interstitial opacities. Peribronchial cuffing. Patchy le ft basilar opacity. Elevation of the left hemidiaphragm. Mediastinum: Mediastinal contours appear normal. Heart size is normal. Bones and chest wall: No suspicious bony lesions. Overlying soft tissues appear unremarkable. IMPRESSION: Moderate pulmonary edema. Patchy left basilar opacity. Superimposed pneumonia or aspiration is not excluded. Reviewed by: Filiberto Moreira MD on 10/07/2023 2:29 PM PDT Approved by: Filiberto Moreira MD on 10/07/2023 2:29 PM PDT Station ID: [id number]
[2023-10-07] MEDS: SODIUM CHLORIDE 0.9% 1,000 ML IV STA (14:55)
[2023-10-07] MEDS: CEFEPIME 1 GM in SODIUM CHLORIDE 0.9% MINIBAG 100 ML IV STA (15:21)
[2023-10-07] MEDS: iohexoL-300 100 ML VIAL IVP ONE (15:23)
[2023-10-07] MEDS: VANCOMYCIN INJ 1.75 GM in SODIUM CHLORIDE 0.9% 500 ML IV ONE (15:46)
[2023-10-07] MEDS ORDERED: ONDANSETRON 4 MG/2 ML VIAL IVP PRN (16:54)
[2023-10-07] MEDS ORDERED: ONDANSETRON ODT 4 MG TABLET TL PRN (16:54)
[2023-10-07] MEDS ORDERED: IPRATROPIUM/ALBUTEROL 3 ML NEB INH PRN (16:58)
--- NOTE | 2023-10-07 17:33 | PHARMACY PROGRESS NOTE ---
- Therapy Status Therapy status: Awaiting steady state Basis for treatment: Empirical Treatment indication: Pneumonia Trough goal: AUC 400-600 Concurrent antibiotics: Cefepime 2 g q8h - GAURANG Risk Risk level for Acute Kidney Injury: Moderate Acute Kidney Injury risk factors: Goal trough >15, Admission to ICU - Monitoring and Recommendation Clinical response to treatment: I&O Previous 24 hours 10/05/23 10/06/23 10/07/23 23:59 23:59 23:59 Intake Total 1100 Balance 1100 Lab Results 10/07/23 13:03 BUN 18 Creatinine 1.0 Estimated GFR (MDRD) 71 L Monitoring plan: Daily serum creatinine Areas for additional monitoring: IV to PO when appropriate, Therapy de- escalation based on culture results Pharmacy recommendation: Continue current regime (Vancomycin loading dose of 1750 mg given 10/06 @ 1600. Initiate maintenance dose of 1500 mg IV q24h for estimated AUC of ~560)
--- NOTE | 2023-10-07 17:39 | HISTORY & PHYSICAL EXAMINATION ---
Chief Complaint - Chief Complaint Chief Complaint: AMS History of Present Illness - Admitted From Admitted From:: ED - History of Present Illness HPI Comment/Other: 82 year old male who, based on previous records, moved to [place] from [place] in 2019 and has been a permanent resident of a [facility] facility since 2020. He has a lengthy medical history that includes rate controlled a-fib (on ASA but no AC), type 2 diabetes, CHF, HTN, HLD, chronic DVTs, schizophrenia, and dementia. Per prior notes, he was previously on Xarelto but was discontinued 05/2020 after a GI bleed. He was seen in the ED on 10/01/23 for lethargy where he was evaluated and diagnosed with AMS secondary to newly added hydroxyzine as well as a UTI; he was discharged back to the SNF. Today, he presents to the ED via EMS after staff discovered him unresponsive sitting in a chair. While in the ambulance, EMS reported a unilaterally dilated pupil. Upon arrival to the ED, he was satting 90% on RA with GCS 5; ED physician noted PERRLA with inability to follow commands or answer questions. While in the ED, his saturation improved from 90% on room air to 98 on 2L nasal cannula. POC glucose was 122. CTA/CT head done from the ED was negative for acute intracranial bleed. CXR shows moderate pulmonary edema and patchy left basilar opacity. Labs done in ED show no leukocytosis, however patient was recently started on Ciprofloxacin for a UTI. The ER provider called me to discuss the case. This appears to be AMS with possible etiology being PNA. CTA/CT head imaging was negative so I will be obtaining a Head MRI to definitively r/o stroke. History - Past Medical History Cardiovascular: reports: High cholesterol, Atrial fibrillation, Congestive heart failure, Hypertension Respiratory: reports: None Neuro: reports: Dementia Endocrine/Autoimmune: reports: Type 2 diabetes GI: reports: GI bleed (Hx of GI bleed in 05/2020) : reports: Benign prostate hypertrophy, Incontinence HEENT: reports: None Psych: reports: Schizophrenia Musculoskeletal: reports: None Derm: reports: None MRSA Hx?: No - Family & Social History Family History: Mother: , Father: Family History Comment/Other: Patient reported his father had alcohol issue and at age 81. He report his mother from diabetic complication at later age of 80 Living arrangement: Other (SNF) Social History Notes: He lived with at [place] and moved to the [facility]. He had 3 children. now pt is living at [facility] POL Patient has POLST: No POLST Status: Full Code Meds/Allgy - Home Medications Home Medications: Ambulatory Orders Medication Instructions Recorded Confirmed Furosemide 10 mg PO DAILY 12/12/18 10/07/23 Gabapentin 300 mg PO TID 12/12/18 10/07/23 Acetaminophen [Aphen] 650 mg PO Q4H PRN 06/06/20 10/07/23 Calcium Carbonate [Tums (Calcium 500 mg PO BID 06/06/20 10/07/23 Carbonate 500mg)] Docusate Sodium [Dok] 100 mg PO DAILY 06/06/20 10/07/23 Loperamide [Imodium] 2 mg PO Q15M PRN MDD 12 MG 06/06/20 10/07/23 Tamsulosin HCl [Flomax] 0.4 mg PO DAILY 06/06/20 10/07/23 carvediloL [Coreg] 3.125 mg PO BID 06/06/20 10/07/23 metFORMIN [Glucophage] 500 mg PO BIDWM 06/06/20 10/07/23 risperiDONE [RisperDAL] 1 mg PO HS 06/06/20 10/07/23 Aspirin EC [Ecotrin] 81 mg PO DAILY 02/28/23 10/07/23 Albuterol Sulf [Ventolin Hfa 2 puffs INH Q4H PRN 10/07/23 10/07/23 Inhaler] Bisacodyl Supp [Dulcolax Supp] 10 mg IN PRN PRN 10/07/23 10/07/23 Carbamide Peroxide Otic Drop 10 drops EACHEAR .[id number] 10/07/23 10/07/23 [Debrox Otic Drops] Carboxymethylcellulose Sodium 2 drops EACHEYE TID PRN 10/07/23 10/07/23 [Artificial Tears] Dextran 70/Hypromellose [Genteal 1 drops EACHEYE Q4H PRN 10/07/23 10/07/23 Tears 0.1%-0.3% Drop] Diclofenac Sodium 1% Gel [Voltaren 1 applic TOP Q6H PRN 10/07/23 10/07/23 Gel] Eyelid Cleanser Combination 8 1 pad TOP DAILY 10/07/23 10/07/23 [Cleansing Eyelid Wipes] Ferrous Sulfate [Feosol] 325 mg PO DAILY 10/07/23 10/07/23 Lisinopril [Zestril] 10 mg PO DAILY 10/07/23 10/07/23 Melatonin 5 mg PO QPM 10/07/23 10/07/23 Mineral Oil [Mineral Oil Enema] 1 unit IN PRN PRN 10/07/23 10/07/23 Multivitamin [Theragran] 1 tab PO DAILY 10/07/23 10/07/23 Oxycodone HCl 5 mg PO Q6HR PRN 10/07/23 10/07/23 Pantoprazole Sodium [Protonix] 20 mg PO QDAC 10/07/23 10/07/23 Senna [Senokot] 17.2 mg PO PRN PRN 10/07/23 10/07/23 Sertraline [Zoloft] 37.5 mg PO DAILY 10/07/23 10/07/23 polyethylene glycoL 3350 [Miralax] 17 gm PO PRN PRN 10/07/23 10/07/23 - Allergies Allergies/Adverse Reactions: Allergies Allergy/AdvReac Type Severity Reaction Status Date / Time No Known Drug Allergies Allergy Verified 10/07/23 13:16 Review of Systems - Other Findings Other Findings: Unable to assess due to patient A&O x0 Exam - Vital Signs Reviewed Vital Signs: Yes Vital Signs: Vital Signs x48h Temp Pulse Resp BP Pulse Ox O2 Flow Rate 10/07/23 17:00 64 15 144/83 H 99 2 10/07/23 16:05 67 14 158/87 H 100 2 10/07/23 15:30 35.9 C L 10/07/23 15:00 83 14 160/76 H 98 2 10/07/23 14:59 66 16 97 2 10/07/23 14:34 71 15 157/66 H 100 5 10/07/23 13:46 75 14 156/69 H 99 2 10/07/23 13:22 59 L 15 156/66 H 100 2 10/07/23 13:16 87 17 156/69 H 96 2 10/07/23 13:05 36.3 C L 61 16 164/70 H 99 - Physical Exam General Appearance: positive: Mild distress, Lethargic, Other (Elderly disheveled gentleman who responds to commands 50% of the time) Eyes Bilateral: positive: PERRL, Other (Intermittent medial deviation of L eye) ENT: positive: Other (Poor dentition, dry oral mucosa) Respiratory: positive: Chest non-tender, Breath sounds nml (CTAB), Other (Apneic pauses noted) Cardiovascular: positive: Irregularly irregular (normal rate). negative: Tachycardia Abdomen: positive: Non-tender, No organomegaly, Other (Hypoactive bowel sounds). negative: Guarding Skin: positive: No rash Extremities: positive: No pedal edema Neurologic/Psychiatric: positive: Disoriented to person, Disoriented to place, Disoriented to time, Weakness (Generalized), Other (L eye with intermittent medial deviation. PERRL, marzipan maker strength equal bilaterally. LLE not moving with noxious stimuli. Follows commands 50% of the time). negative: Facial droop Comments/Other: Patient intermittently follows directions Conclusion/Plan - Problem List (1) Altered mental status Conclusion/Plan: * CTA/CT head imaging negative for acute intracranial bleed. Patient has several risk factors for ischemic stroke so I will order MRI for further evaluation. * I will admit him to med-surg with NPO status and telemetry monitoring. In the mean time, his CXR findings and initial presentation are suggestive as PNA as an etiology of his AMS. Because he is a resident of a nursing facility with recent antibiotic usage, I will start him on IV vancomycin and cefepime. Qualifiers: Altered mental status type: unspecified Qualified Code(s): R41.82 - Altered mental status, unspecified (2) Left lower lobe pneumonia Conclusion/Plan: * See discussion for AMS. No leukocytosis or fever in the ED but patient recently finished a course of Ciprofloxacin. I will start him on IV Vancomycin and Cefepime for staph and pseudomonas coverage. Qualifiers: Pneumonia type: due to unspecified organism Qualified Code(s): J18.9 - Pneumonia, unspecified organism (3) Congestive heart failure Conclusion/Plan: * Plan to hydrate patient with IV NS today and start IV Lasix tomorrow. Will monitor for signs of fluid overload. Qualifiers: Heart failure type: unspecified Heart failure chronicity: chronic (4) Chronic atrial fibrillation Conclusion/Plan: * Rate controlled at home with Arlene shepard d/c'eve in 2020 d/t GI bleed. I will restart carvedilol. * Start Lovenox for stroke prevention and DVT prophylaxis (5) HTN (hypertension) Conclusion/Plan: * BP stable at 160/76, I will restart Lisinopril to keep his BP <185. Qualifiers: Hypertension type: primary hypertension Qualified Code(s): I10 - Essential (primary) hypertension (6) Diabetes Conclusion/Plan: * Patient on Metformin 500mg BID, I will start him on sliding scale insulin to control his BG. Qualifiers: Diabetes mellitus type: type 2 Diabetes mellitus intermodal dispatcher insulin use: unspecified intermodal dispatcher insulin use status Diabetes mellitus complication status: without complication Qualified Code(s): E11.9 - Type 2 diabetes mellitus without complications (7) Benign prostatic hyperplasia Conclusion/Plan: * [place] catheter placed. I will hold his home Flomax Qualifiers: Lower urinary tract symptom presence: unspecified whether lower urinary tract symptoms present Qualified Code(s): N40.0 - Benign prostatic hyperplasia without lower urinary tract symptoms - Lab Results Lab results reviewed: Yes Fish Bones: 10/08/23 04:52 10/08/23 04:52 - Diagnostic Imaging Results Diagnostic Imaging Results: positive: Final report reviewed Diagnostic Imaging Results Comments: CTA/CT Head negative for acute intracranial bleed CXR showed pulmonary edema and patchy left basilar opacity - EKG Results EKG Interpreted Independently: Yes Core Measures - Anticipated LOS I expect patient to be DC'd or transferred within 96 hours.: Yes - DVT/VTE - Prophylaxis VTE/DVT Prophylaxis med ordered at admit?: Yes
[2023-10-07] MEDS: SODIUM CHLORIDE FLUSH 0.9% 10 ML SYRINGE IVP SCH (18:02)
[2023-10-07] MEDS: SODIUM CHLORIDE 0.9% 1,000 ML IV SCH (18:03)
--- NOTE | 2023-10-07 18:12 | PHARMACY PROGRESS NOTE ---
- Best Possible Medication History Admit Date and Time: 10/07/23 2623 Processed by: Pharmacy Medications reviewed in ED?: Yes Medication History completed: Yes Secondary Source(s): Insurance records, Facility MAR as ONLY source As the person ultimately responsible for medication therapy, providers are able to order a medication from an existing home medication list in [facility] via the "Reconcile Routine" prior to Confirmation of that medication by technical support manager. Such practice is discouraged except when the physician, in their clinical judgment, deems that a medical need exists for a medication without regard to previous use.
[2023-10-07] MEDS: CHLORHEXIDINE GLUCONATE 15 ML UDC PO SCH (20:36)
[2023-10-07 20:55] LABS: ABG BASE EXCESS 0.5 mmol/L (-2.0-3.0); ABG HCO3 24.7 mmol/L (22.0-26.0); ABG OXYGEN SATURATION 98 % (94-98); ABG PCO2 38 mmHg (34-45); ABG PH 7.43 (7.35-7.45); ABG PO2 107 mmHg (80-100); ABG TCO2 25.8 MMOL/L (21.0-29.0); ALLEN TEST POSITIVE
[2023-10-07] MEDS: CEFEPIME 2 GM in SODIUM CHLORIDE 0.9% MINIBAG 100 ML IV SCH (22:39)
[2023-10-08] MEDS: ACETAMINOPHEN 1,000 MG/100 ML 1,000 MG/100 ML BAG IV PRN (03:22)
[2023-10-08 05:05] LABS: BASOPHILS # (AUTO) 0.1 10^3/uL (0.0-0.1); BASOPHILS % (AUTO) 0.7 %; EOSINOPHILS # (AUTO) 0.4 10^3/uL (0.0-0.7); EOSINOPHILS % (AUTO) 6.2 %; HCT - HEMATOCRIT 37.2 % (42.0-52.0); HGB - HEMOGLOBIN 11.5 g/dL (14.0-18.0); LYMPHOCYTES # (AUTO) 1.3 10^3/uL (1.5-3.5); LYMPHOCYTES % (AUTO) 17.9 %; MEAN CORPUSCULAR HEMOGLOBIN 29.9 pg (27.0-31.0); MEAN CORPUSCULAR HGB CONC 30.9 g/dL (32.0-36.0); MEAN CORPUSCULAR VOLUME 96.9 fL (80.0-94.0); MEAN PLATELET VOLUME 11.2 fL (7.4-11.4); MONOCYTES # (AUTO) 0.6 10^3/uL (0.0-1.0); MONOCYTES % (AUTO) 8.3 %; NEUTROPHILS # (AUTO) 4.7 10^3/uL (1.5-6.6); NEUTROPHILS % (AUTO) 66.8 %; PLT - PLATELET COUNT 167 10^3/uL (130-450); RED BLOOD COUNT 3.84 10^6/uL (4.70-6.10); RED CELL DISTRIBUTION WIDTH 14.8 % (12.0-15.0)
[2023-10-08 05:10] LABS: CALCIUM, IONIZED 1.14 mmol/L (1.15-1.33); VBG PH 7.337 (7.31-7.41)
[2023-10-08 05:19] LABS: MAGNESIUM 1.6 mg/dL (1.7-2.3)
[2023-10-08 05:23] LABS: CREATININE 0.9 mg/dL (0.6-1.3); POTASSIUM 4.6 mmol/L (3.5-4.5)
[2023-10-08 05:24] LABS: PHOSPHORUS 3.4 mg/dL (2.5-5.0)
[2023-10-08] MEDS: MAGNESIUM SULFATE 2 GRAM 2 GM/50 ML BAG IV ONE (05:45)
[2023-10-08] MEDS: ENOXAPARIN 40 MG/0.4 ML SYRINGE SUBQ SCH (08:10)
[2023-10-08] MEDS: polyethylene glycoL 3350 17 GM PACKET PO SCH (12:10)
[2023-10-08] MEDS ORDERED: HYPROMELLOSE EACHEYE PRN (12:42)
[2023-10-08] MEDS ORDERED: LOPERAMIDE 2 MG CAPSULE PO PRN (12:42)
[2023-10-08] MEDS ORDERED: DEXTRAN EACHEYE PRN (12:42)
[2023-10-08] MEDS ORDERED: DICLOFENAC SODIUM 1% GEL 50 GM TUBE TOP PRN (12:42)
[2023-10-08] MEDS ORDERED: CARBOXYMETHYLCELLULOSE OPHTH DROPS EACHEYE PRN (13:21)
--- NOTE | 2023-10-08 13:58 | PROVIDER PROGRESS NOTE ---
Subjective - Prog Note Date Prog Note Date: 10/08/23 Prog Note Time: 08:00 (Saw him again 11:00) - Subjective Pt reports feeling: Improved Subjective: He was moved to ICU last night due to apneic pauses and cyanosis of the lips obs erved by nursing. He is much more responsive and communicative this morning. Per nursing, he no longer has apneic pauses/cyanosis. Upon entry to the room he was seated up right and feeding himself breakfast (eggs). He directed his attention to me after I called his name, to which he requested I call him Sanchez. I observed him coughing quite frequently while eating. He does not recall meeting me yesterday however we had a very pleasant conversation today, he is originally from [place], [place]. We had another conversation after he finished eating, he is feeling well but feels weak. He is able to make it to the bedside commode but requires much assistance. He denies any headaches, chest pain, or abdominal pain however he feels constipated. Objective - Vital Signs/Intake & Output Reviewed Vital Signs: Yes Vital Signs: Vital Signs x48h Temp Pulse Resp BP Pulse Ox O2 Flow Rate 10/08/23 13:00 105 H 24 148/92 H 99 10/08/23 12:00 100 18 165/93 H 100 10/08/23 11:00 102 H 19 172/89 H 100 10/08/23 10:00 103 H 24 163/88 H 100 10/08/23 09:00 92 11 L 165/92 H 98 10/08/23 08:00 36.4 C L 94 94 H 166/85 H 19 L 10/08/23 07:00 96 24 170/70 H 98 10/08/23 06:00 92 20 156/98 H 96 2 Intake & Output: Intake & Output 10/05/23 10/06/23 10/07/23 10/08/23 23:59 23:59 23:59 23:59 Intake Total 1600 2795 Output Total 1155 1305 Balance 445 1490 - Objective General Appearance: positive: No acute distress, Other (Pleasant elderly man with hair combed back, in a good mood. Telling jokes) Eyes Bilateral: positive: Normal inspection, PERRL, EOMI ENT: positive: No signs of dehydration, Other (Poor dentition, moist oral mucosa) Respiratory: positive: Chest non-tender, No respiratory distress, Other (Crackles bilaterally) Cardiovascular: positive: Irregularly irregular, Tachycardia Peripheral Pulses: 2+ Radial (R), 2+ Radial (L) Abdomen: positive: Non-tender, No organomegaly, No distention. negative: Guarding, Rebound Extremities: positive: No pedal edema Neurologic/Psychiatric: positive: Oriented x3, CN's nml (2-12), Motor nml, Sensation nml, Mood/affect nml, Other (5/5 behavioral assistant strength (4th and 5th fingers of his L hand remain in a flexed position), 5/5 arm strength, 5/5 leg strength.). negative: Facial droop, Slurred/abnml speech, Depressed mood/affect - Lab Results Fish Bones: 10/08/23 04:52 10/08/23 04:52 Other Labs: Lab Results x24hrs 10/08/23 10/08/23 10/08/23 Range/Units 04:52 04:52 04:52 WBC (4.8-10.8) x10^3/uL RBC (4.70-6.10) 10^6/uL Hgb (14.0-18.0) g/dL Hct (42.0-52.0) % MCV (80.0-94.0) fL MCH (27.0-31.0) pg MCHC (32.0-36.0) g/dL RDW (12.0-15.0) % Plt Count (130-450) 10^3/uL MPV (7.4-11.4) fL Neut # (Auto) (1.5-6.6) 10^3/uL Lymph # (Auto) (1.5-3.5) 10^3/uL [place] # (Auto) (0.0-1.0) 10^3/uL Eos # (Auto) (0.0-0.7) 10^3/uL Baso # (Auto) (0.0-0.1) 10^3/uL Absolute Nucleated RBC x10^3/uL Nucleated RBC % /100WBC Bld Gas Analysis Time Sample Site ABG pH (7.35-7.45) ABG pCO2 (34-45) mmHg ABG pO2 (80-100) mmHg ABG HCO3 (22.0-26.0) mmol/L ABG Total CO2 (21.0-29.0) MMOL/L ABG O2 Saturation (94-98) % ABG Base Excess (-2.0-3.0) mmol/L Elbert Test VBG pH 7.337 (7.31-7.41) VBG pCO2 (41-51) mmHg VBG pO2 (25-47) mmHg VBG HCO3 (23-28) mmol/L VBG Total CO2 (24-29) mmol/L VBG O2 Saturation (60-80) % VBG Base Excess (-2 - +2) mmol/L Ionized Calcium 1.14 L (1.15-1.33) mmol/L O2 Delivery Device O2 Liters/Min LPM FiO2 Sodium 141 (135-145) mmol/L Potassium 4.6 H (3.5-4.5) mmol/L Chloride 107 (101-111) mmol/L Carbon Dioxide 29 (21-32) mmol/L Anion Gap 5.0 L (6-13) BUN 15 (6-20) mg/dL Creatinine 0.9 (0.6-1.3) mg/dL Estimated GFR (MDRD) 81 L (>89) Glucose 79 (74-104) mg/dL Lactic Acid (0.5-2.2) mmol/L Calcium 9.0 (8.5-10.3) mg/dL Phosphorus 3.4 (2.5-5.0) mg/dL Magnesium 1.6 L (1.7-2.3) mg/dL B-Natriuretic Peptide (5-100) pg/mL Urine Color Urine Clarity (CLEAR) Urine pH (5.0-7.5) PH Ur Specific [place] (1.002-1.030) Urine Protein (NEGATIVE) mg/dL Urine Glucose (UA) (NEGATIVE) mg/dL Urine Ketones (NEGATIVE) mg/dL Urine Occult Blood (NEGATIVE) Urine Nitrite (NEGATIVE) Urine Bilirubin (NEGATIVE) Urine Urobilinogen (NORMAL) E.U./dL Ur Leukocyte Esterase (NEGATIVE) Ur Microscopic Review Urine Culture Comments Nasal Screen MRSA (PCR) (NEGATIVE) SARS-CoV-2 (PCR) 10/08/23 10/07/23 10/07/23 Range/Units 04:52 20:40 19:50 WBC 7.0 (4.8-10.8) x10^3/uL RBC 3.84 L (4.70-6.10) 10^6/uL Hgb 11.5 L (14.0-18.0) g/dL Hct 37.2 L (42.0-52.0) % MCV 96.9 H (80.0-94.0) fL MCH 29.9 (27.0-31.0) pg MCHC 30.9 L (32.0-36.0) g/dL RDW 14.8 (12.0-15.0) % Plt Count 167 (130-450) 10^3/uL MPV 11.2 (7.4-11.4) fL Neut # (Auto) 4.7 (1.5-6.6) 10^3/uL Lymph # (Auto) 1.3 L (1.5-3.5) 10^3/uL [place] # (Auto) 0.6 (0.0-1.0) 10^3/uL Eos # (Auto) 0.4 (0.0-0.7) 10^3/uL Baso # (Auto) 0.1 (0.0-0.1) 10^3/uL Absolute Nucleated RBC 0.00 x10^3/uL Nucleated RBC % 0.0 /100WBC Bld Gas Analysis Time 2047 Sample Site RIGHT RADIAL ABG pH 7.43 (7.35-7.45) ABG pCO2 38 (34-45) mmHg ABG pO2 107 H (80-100) mmHg ABG HCO3 24.7 (22.0-26.0) mmol/L ABG Total CO2 25.8 (21.0-29.0) MMOL/L ABG O2 Saturation 98 (94-98) % ABG Base Excess 0.5 (-2.0-3.0) mmol/L Elbert Test POSITIVE VBG pH (7.31-7.41) VBG pCO2 (41-51) mmHg VBG pO2 (25-47) mmHg VBG HCO3 (23-28) mmol/L VBG Total CO2 (24-29) mmol/L VBG O2 Saturation (60-80) % VBG Base Excess (-2 - +2) mmol/L Ionized Calcium (1.15-1.33) mmol/L O2 Delivery Device NASAL CANNULA O2 Liters/Min 2.00 LPM FiO2 28.00 Sodium (135-145) mmol/L Potassium (3.5-4.5) mmol/L Chloride (101-111) mmol/L Carbon Dioxide (21-32) mmol/L Anion Gap (6-13) BUN (6-20) mg/dL Creatinine (0.6-1.3) mg/dL Estimated GFR (MDRD) (>89) Glucose (74-104) mg/dL Lactic Acid (0.5-2.2) mmol/L Calcium (8.5-10.3) mg/dL Phosphorus (2.5-5.0) mg/dL Magnesium (1.7-2.3) mg/dL B-Natriuretic Peptide (5-100) pg/mL Urine Color Urine Clarity (CLEAR) Urine pH (5.0-7.5) PH Ur Specific [place] (1.002-1.030) Urine Protein (NEGATIVE) mg/dL Urine Glucose (UA) (NEGATIVE) mg/dL Urine Ketones (NEGATIVE) mg/dL Urine Occult Blood (NEGATIVE) Urine Nitrite (NEGATIVE) Urine Bilirubin (NEGATIVE) Urine Urobilinogen (NORMAL) E.U./dL Ur Leukocyte Esterase (NEGATIVE) Ur Microscopic Review Urine Culture Comments Nasal Screen MRSA (PCR) (NEGATIVE) SARS-CoV-2 (PCR) NOT DETECTED 10/07/23 10/07/23 10/07/23 Range/Units 19:30 14:07 13:52 WBC (4.8-10.8) x10^3/uL RBC (4.70-6.10) 10^6/uL Hgb (14.0-18.0) g/dL Hct (42.0-52.0) % MCV (80.0-94.0) fL MCH (27.0-31.0) pg MCHC (32.0-36.0) g/dL RDW (12.0-15.0) % Plt Count (130-450) 10^3/uL MPV (7.4-11.4) fL Neut # (Auto) (1.5-6.6) 10^3/uL Lymph # (Auto) (1.5-3.5) 10^3/uL [place] # (Auto) (0.0-1.0) 10^3/uL Eos # (Auto) (0.0-0.7) 10^3/uL Baso # (Auto) (0.0-0.1) 10^3/uL Absolute Nucleated RBC x10^3/uL Nucleated RBC % /100WBC Bld Gas Analysis Time Sample Site ABG pH (7.35-7.45) ABG pCO2 (34-45) mmHg ABG pO2 (80-100) mmHg ABG HCO3 (22.0-26.0) mmol/L ABG Total CO2 (21.0-29.0) MMOL/L ABG O2 Saturation (94-98) % ABG Base Excess (-2.0-3.0) mmol/L Elbert Test VBG pH 7.361 (7.31-7.41) VBG pCO2 47.7 (41-51) mmHg VBG pO2 30.3 (25-47) mmHg VBG HCO3 26.4 (23-28) mmol/L VBG Total CO2 27.9 (24-29) mmol/L VBG O2 Saturation 55.7 L (60-80) % VBG Base Excess 0.5 (-2 - +2) mmol/L Ionized Calcium (1.15-1.33) mmol/L O2 Delivery Device O2 Liters/Min LPM FiO2 Sodium (135-145) mmol/L Potassium (3.5-4.5) mmol/L Chloride (101-111) mmol/L Carbon Dioxide (21-32) mmol/L Anion Gap (6-13) BUN (6-20) mg/dL Creatinine (0.6-1.3) mg/dL Estimated GFR (MDRD) (>89) Glucose (74-104) mg/dL Lactic Acid (0.5-2.2) mmol/L Calcium (8.5-10.3) mg/dL Phosphorus (2.5-5.0) mg/dL Magnesium (1.7-2.3) mg/dL B-Natriuretic Peptide (5-100) pg/mL Urine Color YELLOW Urine Clarity CLEAR (CLEAR) Urine pH 6.0 (5.0-7.5) PH Ur Specific [place] 1.020 (1.002-1.030) Urine Protein NEGATIVE (NEGATIVE) mg/dL Urine Glucose (UA) NEGATIVE (NEGATIVE) mg/dL Urine Ketones NEGATIVE (NEGATIVE) mg/dL Urine Occult Blood NEGATIVE (NEGATIVE) Urine Nitrite NEGATIVE (NEGATIVE) Urine Bilirubin NEGATIVE (NEGATIVE) Urine Urobilinogen 0.2 (NORMAL) (NORMAL) E.U./dL Ur Leukocyte Esterase NEGATIVE (NEGATIVE) Ur Microscopic Review NOT INDICATED Urine Culture Comments NOT INDICATED Nasal Screen MRSA (PCR) NEGATIVE (NEGATIVE) SARS-CoV-2 (PCR) 10/07/23 10/07/23 Range/Units 13:52 13:03 WBC (4.8-10.8) x10^3/uL RBC (4.70-6.10) 10^6/uL Hgb (14.0-18.0) g/dL Hct (42.0-52.0) % MCV (80.0-94.0) fL MCH (27.0-31.0) pg MCHC (32.0-36.0) g/dL RDW (12.0-15.0) % Plt Count (130-450) 10^3/uL MPV (7.4-11.4) fL Neut # (Auto) (1.5-6.6) 10^3/uL Lymph # (Auto) (1.5-3.5) 10^3/uL [place] # (Auto) (0.0-1.0) 10^3/uL Eos # (Auto) (0.0-0.7) 10^3/uL Baso # (Auto) (0.0-0.1) 10^3/uL Absolute Nucleated RBC x10^3/uL Nucleated RBC % /100WBC Bld Gas Analysis Time Sample Site ABG pH (7.35-7.45) ABG pCO2 (34-45) mmHg ABG pO2 (80-100) mmHg ABG HCO3 (22.0-26.0) mmol/L ABG Total CO2 (21.0-29.0) MMOL/L ABG O2 Saturation (94-98) % ABG Base Excess (-2.0-3.0) mmol/L Elbert Test VBG pH (7.31-7.41) VBG pCO2 (41-51) mmHg VBG pO2 (25-47) mmHg VBG HCO3 (23-28) mmol/L VBG Total CO2 (24-29) mmol/L VBG O2 Saturation (60-80) % VBG Base Excess (-2 - +2) mmol/L Ionized Calcium (1.15-1.33) mmol/L O2 Delivery Device O2 Liters/Min LPM FiO2 Sodium (135-145) mmol/L Potassium (3.5-4.5) mmol/L Chloride (101-111) mmol/L Carbon Dioxide (21-32) mmol/L Anion Gap (6-13) BUN (6-20) mg/dL Creatinine (0.6-1.3) mg/dL Estimated GFR (MDRD) (>89) Glucose (74-104) mg/dL Lactic Acid 1.3 (0.5-2.2) mmol/L Calcium (8.5-10.3) mg/dL Phosphorus (2.5-5.0) mg/dL Magnesium (1.7-2.3) mg/dL B-Natriuretic Peptide 744 H (5-100) pg/mL Urine Color Urine Clarity (CLEAR) Urine pH (5.0-7.5) PH Ur Specific [place] (1.002-1.030) Urine Protein (NEGATIVE) mg/dL Urine Glucose (UA) (NEGATIVE) mg/dL Urine Ketones (NEGATIVE) mg/dL Urine Occult Blood (NEGATIVE) Urine Nitrite (NEGATIVE) Urine Bilirubin (NEGATIVE) Urine Urobilinogen (NORMAL) E.U./dL Ur Leukocyte Esterase (NEGATIVE) Ur Microscopic Review Urine Culture Comments Nasal Screen MRSA (PCR) (NEGATIVE) SARS-CoV-2 (PCR) ABX Reporting Has patient been on IV antibiotics over the past 48 hours?: Yes Assessment/Plan - Problem List (1) Altered mental status Impression: * He is much improved and more alert today, nursing staff have not noted any more episodes of apneic breathing or cyanosis. I plan to move him back to med- surg unit today. * I observed him while he ate breakfast and he had a fair amount of choking. I will switch him to a pureed diet to avoid aspiration. He feels most weak when walking to the commode * MRI Brain today to determine if there was a neurological cause for his presentation yesterday. * Continue telemetry monitoring Qualifiers: Altered mental status type: unspecified Qualified Code(s): R41.82 - Altered mental status, unspecified (2) Left lower lobe pneumonia Impression: * Crackles heard bilaterally on physical exam however this could be secondary to CHF. He is afebrile with no leukocytosis. I will continue IV Cefepime and discontinue the Vancomycin. * Blood cultures x2 collected and sent out Qualifiers: Pneumonia type: due to unspecified organism Qualified Code(s): J18.9 - Pneumonia, unspecified organism (3) Witnessed apneic spells Impression: Associated with cyanosis. Observed yesterday by nursing staff however this has resolved and was not seen during today's physical exam. (4) Congestive heart failure Impression: * Crackles bilaterally on auscultation. I will discontinue IV NS and start Lasix. This will also help decrease his K as he is trending towards hyperkalemia. Qualifiers: Heart failure type: unspecified Heart failure chronicity: unspecified Qualified Code(s): I50.9 - Heart failure, unspecified (5) Chronic atrial fibrillation Impression: * Typically rate controlled with coreg, his HR was in the 60s yesteday. He is now experiencing RVR with HR of 100+, I will start IV carvedilol today. * Continue Lovenox for stroke prevention (6) HTN (hypertension) Impression: * BP controlled at home with lisinopril. I will start IV lisinopril today to keep BPs at baseline. Qualifiers: Hypertension type: primary hypertension Qualified Code(s): I10 - Essential (primary) hypertension (7) Diabetes Impression: * BG controlled at home with Metformin. Per nursing, POC BG elevated, Will start sliding scale insulin. 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 Pt requested starting Flomax Qualifiers: Lower urinary tract symptom presence: unspecified whether lower urinary tract symptoms present Qualified Code(s): N40.0 - Benign prostatic hyperplasia without lower urinary tract symptoms (9) Hx of schizophrenia Impression: Will start home psychiatric medications (Sertraline and Risperadone)
[2023-10-08] MEDS: TAMSULOSIN 0.4 MG CAPSULE PO SCH (14:32)
[2023-10-08] MEDS: SERTRALINE 25 MG TABLET PO SCH (14:32)
[2023-10-08] MEDS: FUROSEMIDE 20 MG TABLET PO SCH (14:33)
[2023-10-08] MEDS: carvediloL 3.125 MG TABLET PO SCH (14:33)
[2023-10-08] MEDS: GABAPENTIN 300 MG CAPSULE PO SCH (14:33)
[2023-10-08] MEDS ORDERED: VANCOMYCIN INJ 1 GM, VANCOMYCIN INJ 500 MG in SODIUM CHLORIDE 0.9% 500 ML IV SCH (16:00)
[2023-10-08] MEDS: LORazepam 2 MG/ML VIAL IVP PRN ×2 (16:15→18:00)
[2023-10-08] MEDS: INSULIN LISPRO 300 UNIT/3 ML PEN SUBQ SCH (17:37)
[2023-10-08] MEDS: MELATONIN 3 MG TABLET PO SCH (20:08)
[2023-10-08] MEDS: risperiDONE 1 MG TABLET PO SCH (20:08)
[2023-10-08] MEDS: CALCIUM CARBONATE CHEW 500 MG TABLET PO SCH (20:09)
[2023-10-08] MEDS: HALOPERIDOL 5 MG/ML VIAL IVP ONE (20:15)
[2023-10-09] MEDS: SODIUM CHLORIDE FLUSH 0.9% 10 ML SYRINGE IVP PRN (00:01)
[2023-10-09 05:37] LABS: BASOPHILS # (AUTO) 0.1 10^3/uL (0.0-0.1); BASOPHILS % (AUTO) 0.7 %; EOSINOPHILS # (AUTO) 0.3 10^3/uL (0.0-0.7); EOSINOPHILS % (AUTO) 3.5 %; HCT - HEMATOCRIT 35.2 % (42.0-52.0); HGB - HEMOGLOBIN 11.5 g/dL (14.0-18.0); LYMPHOCYTES # (AUTO) 1.4 10^3/uL (1.5-3.5); MEAN CORPUSCULAR HEMOGLOBIN 30.4 pg (27.0-31.0); MEAN CORPUSCULAR HGB CONC 32.7 g/dL (32.0-36.0); MEAN CORPUSCULAR VOLUME 93.1 fL (80.0-94.0); MEAN PLATELET VOLUME 11.3 fL (7.4-11.4); MONOCYTES # (AUTO) 0.8 10^3/uL (0.0-1.0); MONOCYTES % (AUTO) 8.4 %; NEUTROPHILS # (AUTO) 6.6 10^3/uL (1.5-6.6); NEUTROPHILS % (AUTO) 72.1 %; PLT - PLATELET COUNT 175 10^3/uL (130-450); RED BLOOD COUNT 3.78 10^6/uL (4.70-6.10); RED CELL DISTRIBUTION WIDTH 14.7 % (12.0-15.0); WHITE BLOOD COUNT 9.2 x10^3/uL (4.8-10.8)
[2023-10-09 05:48] LABS: CALCIUM 8.9 mg/dL (8.5-10.3); POTASSIUM 4.1 mmol/L (3.5-4.5)
[2023-10-09] MEDS: PANTOPRAZOLE 40 MG TABLET PO SCH (06:09)
[2023-10-09] MEDS: MULTIVITAMIN TABLET PO SCH (08:19)
[2023-10-09] MEDS: ASPIRIN EC 81 MG TABLET PO SCH (08:20)
[2023-10-09] MEDS: lisinopriL 20 MG TABLET PO SCH (08:21)
[2023-10-09] MEDS: FERROUS SULFATE 325 MG TABLET PO SCH (08:21)
[2023-10-09 12:31] VITALS: O2SAT 99
--- NOTE | 2023-10-09 12:50 | PROVIDER PROGRESS NOTE ---
Subjective - Prog Note Date Prog Note Date: 10/09/23 Prog Note Time: 08:10 - Subjective Pt reports feeling: Worse Subjective: Per the addendum to the progress note from 10/08/23, Mr. Zee became quite agitated with nursing staff after being assisted with moving from the bed to the chair. He stated that he wanted to go home, that we were "keeping him here" and threw his drink at a nurse. He also seemed to be hallucinating and having paranoid delusions stating "he will deal with you" and "you will go to hell where you belong". I was able to speak with him and help him calm down so that telemetry leads could be removed but then he attempted to rip his IV out. Per nursing, he was quiet for a few hours but then became agitated again requiring an IV push of 0.5mg Ativan. A few hours later he grabbed the clothing of staff a nd repeatedly attempted to leave the chair despite having an unsteady gait, an IV push of Haldol was administered to help him get back into bed. Per nursing, overnight his oxygen sat dropped and he required 2L on nasal cannula. He was taken off oxygen at some point during the night as his saturatio n improved. He also managed to pull out his stauffer catheter. He has not had any further episodes of agitation, hallucinations, or delusions. This morning, he is sluggish but easily aroused. He can answer yes or no questions but seems unable to speak. He was having difficulty breathing due to congestion and attempted to clear this by coughing but was unable, to which nursing assisted his efforts wit h suction. Per Mr. Zee, he does not have any headaches or abdominal pain. When I asked him if he was having chest pain he nodded his head up and down. I asked him if it was because he was having difficulty breathing and he stuck two fingers into his nostrils. I then asked if that meant he would like oxygen and he repeated this motion so I placed him back on 2L oxygen via [place]. Objective - Vital Signs/Intake & Output Reviewed Vital Signs: Yes Vital Signs: Vital Signs x48h Temp Pulse Resp BP BP Pulse Ox O2 Flow Rate 10/09/23 12:14 36.1 C L 84 24 143/79 H 99 3.5 10/09/23 07:27 36.6 C 127 H 24 163/104 H 92 10/09/23 05:29 95 C H 20 102 H 2 10/09/23 04:48 36.5 C 84 18 100/78 98 2 Intake & Output: Intake & Output 10/06/23 10/07/23 10/08/23 10/09/23 23:59 23:59 23:59 23:59 Intake Total 1600 3975 300 Output Total 1155 1975 1825 Balance 445 1999 -1525 - Objective General Appearance: positive: Mild distress, Other (Quiet, calm, drowsy elderly man who does not speak but is able to follow commands and answer yes or no questions.) Eyes Bilateral: positive: PERRL ENT: positive: No signs of dehydration, Other (Poor dentition) Respiratory: positive: Chest non-tender, [place] (Crackles bilaterally), Rhonchi (Improved with suction and patient coughing), Other (alternating periods of apnea/no chest rise followed by hyperventilation, observed while pt sleeping)) Cardiovascular: positive: Irregularly irregular, Tachycardia Abdomen: positive: Non-tender, No organomegaly. negative: Guarding, Mass Skin: positive: Color nml, No rash Extremities: positive: Non-tender, No pedal edema Neurologic/Psychiatric: positive: Motor nml, Sensation nml, Disoriented to p lace, Disoriented to time, Other (Follows commands but cannot communicate verbally. R hand noted to have pill-rolling tremor. Mask-like facies) - Lab Results Fish Bones: 10/09/23 05:20 10/09/23 05:20 Other Labs: Lab Results x24hrs 10/09/23 10/09/23 10/09/23 Range/Units 11:05 07:24 05:20 WBC (4.8-10.8) x10^3/uL RBC (4.70-6.10) 10^6/uL Hgb (14.0-18.0) g/dL Hct (42.0-52.0) % MCV (80.0-94.0) fL MCH (27.0-31.0) pg MCHC (32.0-36.0) g/dL RDW (12.0-15.0) % Plt Count (130-450) 10^3/uL MPV (7.4-11.4) fL Neut # (Auto) (1.5-6.6) 10^3/uL Lymph # (Auto) (1.5-3.5) 10^3/uL [place] # (Auto) (0.0-1.0) 10^3/uL Eos # (Auto) (0.0-0.7) 10^3/uL Baso # (Auto) (0.0-0.1) 10^3/uL Absolute Nucleated RBC x10^3/uL Nucleated RBC % /100WBC Sodium 136 (135-145) mmol/L Potassium 4.1 (3.5-4.5) mmol/L Chloride 106 (101-111) mmol/L Carbon Dioxide 25 (21-32) mmol/L Anion Gap 5.0 L (6-13) BUN 19 (6-20) mg/dL Creatinine 1.0 (0.6-1.3) mg/dL Estimated GFR (MDRD) 71 L (>89) Glucose 123 H (74-104) mg/dL POC Whole Bld Glucose 134 H 161 H (70 - 100) mg/dL Calcium 8.9 (8.5-10.3) mg/dL 10/09/23 10/08/23 10/08/23 Range/Units 05:20 20:17 16:52 WBC 9.2 (4.8-10.8) x10^3/uL RBC 3.78 L (4.70-6.10) 10^6/uL Hgb 11.5 L (14.0-18.0) g/dL Hct 35.2 L (42.0-52.0) % MCV 93.1 (80.0-94.0) fL MCH 30.4 (27.0-31.0) pg MCHC 32.7 (32.0-36.0) g/dL RDW 14.7 (12.0-15.0) % Plt Count 175 (130-450) 10^3/uL MPV 11.3 (7.4-11.4) fL Neut # (Auto) 6.6 (1.5-6.6) 10^3/uL Lymph # (Auto) 1.4 L (1.5-3.5) 10^3/uL [place] # (Auto) 0.8 (0.0-1.0) 10^3/uL Eos # (Auto) 0.3 (0.0-0.7) 10^3/uL Baso # (Auto) 0.1 (0.0-0.1) 10^3/uL Absolute Nucleated RBC 0.00 x10^3/uL Nucleated RBC % 0.0 /100WBC Sodium (135-145) mmol/L Potassium (3.5-4.5) mmol/L Chloride (101-111) mmol/L Carbon Dioxide (21-32) mmol/L Anion Gap (6-13) BUN (6-20) mg/dL Creatinine (0.6-1.3) mg/dL Estimated GFR (MDRD) (>89) Glucose (74-104) mg/dL POC Whole Bld Glucose 132 H 146 H (70 - 100) mg/dL Calcium (8.5-10.3) mg/dL 10/08/23 10/08/23 Range/Units 12:07 08:06 WBC (4.8-10.8) x10^3/uL RBC (4.70-6.10) 10^6/uL Hgb (14.0-18.0) g/dL Hct (42.0-52.0) % MCV (80.0-94.0) fL MCH (27.0-31.0) pg MCHC (32.0-36.0) g/dL RDW (12.0-15.0) % Plt Count (130-450) 10^3/uL MPV (7.4-11.4) fL Neut # (Auto) (1.5-6.6) 10^3/uL Lymph # (Auto) (1.5-3.5) 10^3/uL [place] # (Auto) (0.0-1.0) 10^3/uL Eos # (Auto) (0.0-0.7) 10^3/uL Baso # (Auto) (0.0-0.1) 10^3/uL Absolute Nucleated RBC x10^3/uL Nucleated RBC % /100WBC Sodium (135-145) mmol/L Potassium (3.5-4.5) mmol/L Chloride (101-111) mmol/L Carbon Dioxide (21-32) mmol/L Anion Gap (6-13) BUN (6-20) mg/dL Creatinine (0.6-1.3) mg/dL Estimated GFR (MDRD) (>89) Glucose (74-104) mg/dL POC Whole Bld Glucose 108 H 94 (70 - 100) mg/dL Calcium (8.5-10.3) mg/dL ABX Reporting Has patient been on IV antibiotics over the past 48 hours?: Yes Assessment/Plan - Problem List (1) Altered mental status Impression: * Compared to yesterday AM, his functional status has declined but not to the level of his initial presentation. He is able to follow commands and answer close-ended questions. His motor, strength, and sensory functions have not declined. He was able to communicate to me that he was having issues breathing. * I have been unable to contact relatives for MRI clearance, so we have been unable to proceed with brain MRI. * I will call the SNF to find out his baseline functioning status. Qualifiers: Altered mental status type: unspecified Qualified Code(s): R41.82 - Altered mental status, unspecified (2) Left lower lobe pneumonia Impression: * He is currently on IV cefepime. He continues to be afebrile with no leukocytosis. * Rhonchi and crackles heard on auscultation. He is having difficulty coughing but is able to clear the congestion after suction. I have ordered duoneb prn * He was able to communicate that he wanted the nasal cannula restarted, so I put him on 2L O2. * Recommend patient have a swallow test performed upon return to SNF Qualifiers: Pneumonia type: due to unspecified organism Qualified Code(s): J18.9 - Pneumonia, unspecified organism (3) Witnessed apneic spells Impression: He continues to have 15-20 seconds of apnea however he does not desat or become cyanotic (4) Congestive heart failure Impression: * Fluids were discontinued and Lasix was started yesterday. His net total is -1. 5L however he continues to have crackles bilaterally. So I will increase his Lasix dose to 20mg qday (5) Chronic atrial fibrillation Impression: He continues to be in RVR despite his home dose of Coreg, so I will increase to 6.25mg bid (6) HTN (hypertension) Impression: His BP remains elevated despite restarting his home dose of Lisinopril. I have increased his dose of Lasix and Coreg so his BP should improve, if it remains elevated I will increase his dose of Lisinopril. Qualifiers: Hypertension type: primary hypertension Qualified Code(s): I10 - Essential (primary) hypertension (7) Diabetes Impression: BG has increased from 94 to 161. In addition to sliding scale, I will add 5u lantus qpm to better control BG. Qualifiers: Diabetes mellitus type: type 2 Diabetes mellitus custodial insulin use: unspecified custodial insulin use status Diabetes mellitus complication status: without complication Qualified Code(s): E11.9 - Type 2 diabetes mellitus without complications (8) Hx of schizophrenia Impression: * Administered one dose of Haldol due to increasing agitation despite home psych meds and Ativan. * Continue home dose of Risperidone and Sertraline (9) Benign prostatic hyperplasia Impression: Stauffer catheter in place, continue Flomax per patient request Qualifiers: Lower urinary tract symptom presence: unspecified whether lower urinary tract symptoms present Qualified Code(s): N40.0 - Benign prostatic hyperplasia without lower urinary tract symptoms
[2023-10-09 14:54] LABS: ESTIMATED AVERAGE GLUCOSE 114 mg/dL (70-100); HEMOGLOBIN A1c% 5.6 % (4.27-6.07)
[2023-10-09] MEDS: FUROSEMIDE 20 MG/2 ML VIAL IVP STA (16:07)
[2023-10-09] MEDS: FUROSEMIDE 20 MG TABLET PO SCH (16:11)
[2023-10-09] MEDS: carvediloL 3.125 MG TABLET PO SCH (20:33)
[2023-10-09] MEDS: INSULIN GLARGINE-YFGN 300 UNIT/3 ML PEN SUBQ SCH (20:53)
[2023-10-10 05:36] LABS: BASOPHILS # (AUTO) 0.1 10^3/uL (0.0-0.1); BASOPHILS % (AUTO) 0.9 %; EOSINOPHILS # (AUTO) 0.6 10^3/uL (0.0-0.7); HCT - HEMATOCRIT 35.7 % (42.0-52.0); HGB - HEMOGLOBIN 11.6 g/dL (14.0-18.0); LYMPHOCYTES # (AUTO) 1.2 10^3/uL (1.5-3.5); LYMPHOCYTES % (AUTO) 14.3 %; MEAN CORPUSCULAR HEMOGLOBIN 30.7 pg (27.0-31.0); MEAN CORPUSCULAR HGB CONC 32.5 g/dL (32.0-36.0); MEAN CORPUSCULAR VOLUME 94.4 fL (80.0-94.0); MEAN PLATELET VOLUME 11.3 fL (7.4-11.4); MONOCYTES # (AUTO) 1.1 10^3/uL (0.0-1.0); MONOCYTES % (AUTO) 12.4 %; NEUTROPHILS # (AUTO) 5.6 10^3/uL (1.5-6.6); NEUTROPHILS % (AUTO) 65.2 %; PLT - PLATELET COUNT 171 10^3/uL (130-450); RED BLOOD COUNT 3.78 10^6/uL (4.70-6.10); RED CELL DISTRIBUTION WIDTH 14.8 % (12.0-15.0); WHITE BLOOD COUNT 8.6 x10^3/uL (4.8-10.8)
[2023-10-10] MEDS: ZINC OXIDE 20% OINT 30 GM TUBE TOP PRN (05:43)
[2023-10-10 05:53] LABS: CALCIUM 8.8 mg/dL (8.5-10.3); CREATININE 1.2 mg/dL (0.6-1.3); POTASSIUM 4.1 mmol/L (3.5-4.5)
--- NOTE | 2023-10-10 12:34 | Discharge Plan ---
"Discharge Plan for SNF / [facility] - Discharge Plan And Transition Orders Problem Reviewed?: Yes Disposition: 03 SNF DC/Xfer Condition: Fair Allergies and Adverse Reactions: Allergies Allergy/AdvReac Type Severity Reaction Status Date / Time No Known Drug Allergies Allergy Verified 10/07/23 13:16 Health Concerns: This is an elderly demented gentleman has been living in a [facility] since 2019. 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 He gradual became more more disabled until the Department of Health and Adult Protective Services intervened. He was initially placed in [facility] half-way facility. From [facility] he has come to [facility] approximately 2020. He has a lengthy medical history that includes rate controlled a-fib (on ASA but no AC), type 2 diabetes, CHF, HTN, HLD, chronic DVTs, schizophrenia, and dementia. Per prior notes, he was previously on Xarelto but was discontinued 05/2020 after a GI bleed. I did call his half-way facility to more understand his baseline status. With his ambulation? What is his baseline mental status? And unfortunately we were not able to communicate with 1 another so I still do not know his baseline status. He was seen in the ED on 10/01/23 for lethargy where he was evaluated and diagnosed with AMS secondary to newly added hydroxyzine as well as a UTI; he was discharged back to the SNF. Today, he presents to the ED via EMS after staff discovered him unresponsive sitting in a chair. While in the ambulance, EMS reported a unilaterally dilated pupil. Upon arrival to the ED, he was satting 90% on RA with GCS 5; ED physician noted PERRLA with inability to follow commands or answer questions. While in the ED, his saturation improved from 90% on room air to 98 on 2L nasal cannula. POC glucose was 122. CTA/CT head done from the ED was negative for acute intracranial bleed. CXR shows moderate pulmonary edema and patchy left basilar opacity. Labs done in ED show no leukocytosis, however patient was recently started on Ciprofloxacin for a UTI. This appears to be AMS with possible etiology being PNA. CTA/CT head imaging was negative. Did try and obtain an MRI on this gentleman. However we were unable to complete the 3 MRI questionnaire about foreign bodies. There is no DURABLE POWER OF ADMISSIONS RN. The custodial was unable to provide us with any infor mation that could help. The patient himself is too demented to answer the questions. So we were unable to do an MRI according to the public address technician with regards to risk. He was treated as pneumonia. Need a few more days of antibiotics. He did have behavioral issues while here. Again unclear if these issues are new or chronic for him. But we note on his medication list that he is on Zoloft and Risperdal. He did receive 1 dose of Haldol but the patient was really sleepy and sedated the next morning. He is now being returned to a half-way facility. He will most likely need acute rehab with regards to mobility and strengthening again. Plan of Treatment: 1. Return to half-way facility under half-way benefit with regards to PT and OT. 2. Complete antibiotic therapy for 2 more days. 3. I spent time trying to track down who this patient's DURABLE POWER OF ADMISSIONS RN was. This patient is a full code and I strongly recommend that his CO DE STATUS be changed to DO NOT RESUSCITATE. However there is no advocate they can speak for him. The patient is unable to make his own decisions. I did speak to his neighbor and friend who he lives next-door to since 2005. That friend said that he does not have any legal authority. He does note that the patient would never have wanted this. But again, he has no legal authority to change this patient's CODE STATUS. I also tried to get a hold of his son. His neighbor tells me that he has been estranged from his son for many years. They live in [facility]. It is a [id number]'s name that is on the POLST form. That is from 2019. I did call that number but there is been no answer. Care Goals: At this time care goals are for the patient to return to baseline status of mobility and endurance. To get temporary rehab and then return to permanent living situation at a half-way facility. Assessment: Patient is unable to participate in care planning - SNF / [facility] Transition Orders Admit to (Facility): [facility] Discharge Diagnosis: 1. Altered mental status due to pneumonia 2. Left lower lobe pneumonia 3. Probable obstructive sleep apnea with apnea occurring 15 to 20 seconds. Temporary placement in ICU to observe the apnea and make sure he did not need BiPAP. He never did. 4. Chronic congestive heart failure 5. Chronic atrial fibrillation 6. Hypertension 7. Type 2 diabetes mellitus, without complication, without long-term use of insulin 8. History of schizophrenia 10. Benign prostatic hypertrophy with Langford placed. He will need the Langford removed in the next week or 2 after bladder training. Medicare Certification Statement: I certify [facility] is medically necessary on a continuing basis for any of the conditions for which she/he is receiving care [facility]. Notify PCP of admission and forward orders to primary provider for signature. Weight on admission and: Monthly Other Notification Orders: Call PCP immediately if patient develops dyspnea, chest pain/tightness or edema. House Bowel Program: Yes Additional Bowel Program Orders: If no BM after 2 days, nurse may give M.O.M. 30ml PO PRN and/or ducolax Supp 1 RI and/or MCKENNA 250mg P.O., and/or senna 1-2 tabs PO. On day 3 nurse may give repeat above order until residents constipation is resolved. Annual Influenza Vaccine (between Nov 08 and June 07): Yes Two-step PPD per [facility] [phone] or approved exception documents: No Medication Orders: PLEASE REFER TO THE DISCHARGE MEDICATION LIST. Insulin Orders?: No - Medications New Prescriptions: Oxycodone HCl 5 mg PO Q6HR PRN #30 cap PRN Reason: Pain 5-7 Cefpodoxime Proxetil [Vantin] 200 mg PO BID #4 tablet - Diet Type: Geriatric Texture: Puree Liquids: Thin May have monthly special meal: Yes - Therapies | Activity Therapy: Evaluation | Treat if indicated: PT, OT Rehabilitation Potential: Maximize functional status Activity: Activity as Tolerated Weight Bearing: Full Weight Assistance Devices: Walker"
[2023-10-10 12:36] VITALS: BP 130/76
--- NOTE | 2023-10-11 07:22 | DISCHARGE SUMMARY ---
"Discharge Summary Admit Date: 10/07/23 Discharge Date: 10/10/23 Discharging Provider: Susana Morel MD Primary Care Provider: Krishna Alaniz MD ([facility]) Code Status: Attempt Resuscitation Condition at Discharge: Fair Discharge Disposition: 03 [facility] DC/Xfer - DIAGNOSES Discharge Diagnoses with Status of Each Condition: 1. Altered mental status due to pneumonia 2. Left lower lobe pneumonia 3. Probable obstructive sleep apnea with apnea occurring 15 to 20 seconds. Temporary placement in ICU to observe the apnea and make sure he did not need BiPAP. He never did. 4. Chronic congestive heart failure 5. Chronic atrial fibrillation 6. Hypertension 7. Type 2 diabetes mellitus, without complication, without long-term use of insulin 8. History of schizophrenia 10. Benign prostatic hypertrophy with Langford placed. He will need the Langford removed in the next week or 2 after bladder training. - HPI History of Present Illness: 82 year old male who, based on previous records, moved to [place] from [place] in 2018 and has [facility] a [facility] since [facility]. He has a lengthy medical history that includes rate controlled a-fib (on ASA but no AC), type 2 diabetes, CHF, HTN, HLD, chronic DVTs, schizophrenia, and dementia. Per prior notes, he was previously on Xarelto but was discontinued 05/2020 after a GI bleed. He was seen in the ED on 10/01/23 for lethargy where he was evaluated and diagnosed with AMS secondary to newly added hydroxyzine as well as a UTI; he was discharged back to the SNF. Today, he presents to the ED via EMS after staff discovered him unresponsive sitting in a chair. While in the ambulance, EMS reported a unilaterally dilated pupil. Upon arrival to the ED, he was satting 90% on RA with GCS 5; ED physician noted PERRLA with inability to follow commands or answer questions. While in the ED, his saturation improved from 90% on room air to 98 on 2L nasal cannula. POC glucose was 122. CTA/CT head done from the ED was negative for acute intracranial bleed. CXR shows moderate pulmonary edema and patchy left basilar opacity. Labs done in ED show no leukocytosis, however patient was recently started on Ciprofloxacin for a UTI. The ER provider called me to discuss the case. This appears to be AMS with possible etiology being PNA. CTA/CT head imaging was negative so I will be obtaining a Head MRI to definitively r/o stroke. History - Past Medical History Cardiovascular: reports: High cholesterol, Atrial fibrillation, Congestive heart failure, Hypertension Respiratory: reports: None Neuro: reports: Dementia Endocrine/Autoimmune: reports: Type 2 diabetes GI: reports: GI bleed (Hx of GI bleed in 05/2020) : reports: Benign prostate hypertrophy, Incontinence HEENT: reports: None Psych: reports: Schizophrenia Musculoskeletal: reports: None Derm: reports: None MRSA Hx?: No - CONSULTS | PROCEDURES Procedures: Head CT without acute intracranial process. He has chronic small vessel ischemic changes. Angiography CT of the head was suboptimal evaluation due to motion artifact. No large vessel occlusion. Mild aortic aneurysm measuring 4.6 cm. Prominent mediastinal lymph nodes of uncertain etiology. Chest x-ray with moderate pulmonary edema. Patchy left basilar opacity. Blood cultures without growth after 2 days - HOSPITAL COURSE Hospital Course: (1) Altered mental status Impression: * Compared to yesterday AM, his functional status has declined but not to the l evel of his initial presentation. He is able to follow commands and answer close-ended questions. His motor, strength, and sensory functions have not declined. He was able to communicate to me that he was having issues breathing. At discharge he was back to his baseline status where he was resisting care. The Langford was left in place to be discontinued at the assisted. he almost needs a one-to-one because he is impulsive and will rip things off. * I have been unable to contact relatives for MRI clearance, so we have been unable to proceed with brain MRI. * I did call the SNF to find out his baseline functioning status but no return phone call. Qualifiers: Altered mental status type: unspecified Qualified Code(s): R41.82 - Altered mental status, unspecified (2) Left lower lobe pneumonia Impression: * He is currently on IV cefepime. He continues to be afebrile with no leukocytosis. Changed to oral abx at discharge. Will need to complete 2 more days. * Rhonchi and crackles heard on auscultation. He is having difficulty coughing but is able to clear the congestion after suction. I have ordered duoneb prn * He was able to communicate that he wanted the nasal cannula restarted, so I put him on 2L O2. * Recommend patient have a swallow test performed upon return to SNF but we have no speech today and will need speech eval in the SNF Qualifiers: Pneumonia type: due to unspecified organism Qualified Code(s): J18.9 - Pneumonia, unspecified organism (3) Witnessed apneic spells Impression: He continues to have 15-20 seconds of apnea however he does not desat or become cyanotic (4) Congestive heart failure Impression: * Fluids were discontinued and Lasix was started yesterday. His net total is - 1.5L however he continues to have crackles bilaterally. So I will increase his Lasix dose to 20mg qday (5) Chronic atrial fibrillation Impression: He continues to be in RVR despite his home dose of Coreg, so I will increase to 6.25mg bid (6) HTN (hypertension) Impression: His BP remains elevated despite restarting his home dose of Lisinopril. I have increased his dose of Lasix and Coreg so his BP should improve, if it remains elevated I would recommend increasing his dose of Lisinopril. Qualifiers: Hypertension type: primary hypertension Qualified Code(s): I10 - Essential (primary) hypertension (7) Diabetes Impression: BG has increased from 94 to 161. I used 5u lantus qpm to better control BG. Home meds will be resumed at discharge. 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 * Continue home dose of Risperidone and Sertraline (9) Benign prostatic hyperplasia Impression: Langford catheter in place, continue Flomax per patient request Qualifiers: Lower urinary tract symptom presence: unspecified whether lower urinary tract symptoms present Qualified Code(s): N40.0 - Benign prostatic hyperplasia without lower urinary tract symptoms . - ALLERGIES Allergies/Adverse Reactions: Allergies Allergy/AdvReac Type Severity Reaction Status Date / Time No Known Drug Allergies Allergy Verified 10/07/23 13:16 - MEDICATIONS Home Medications: Ambulatory Orders Medication Instructions Recorded Confirmed Furosemide 10 mg PO DAILY 12/12/18 10/07/23 Gabapentin 300 mg PO TID 12/12/18 10/07/23 Acetaminophen [Aphen] 650 mg PO Q4H PRN 06/06/20 10/07/23 Calcium Carbonate [Tums (Calcium 500 mg PO BID 06/06/20 10/07/23 Carbonate 500mg)] Docusate Sodium [Dok] 100 mg PO DAILY 06/06/20 10/07/23 Loperamide [Imodium] 2 mg PO Q15M PRN MDD 12 MG 06/06/20 10/07/23 Tamsulosin HCl [Flomax] 0.4 mg PO DAILY 06/06/20 10/07/23 carvediloL [Coreg] 3.125 mg PO BID 06/06/20 10/07/23 metFORMIN [Glucophage] 500 mg PO BIDWM 06/06/20 10/07/23 risperiDONE [RisperDAL] 1 mg PO HS 06/06/20 10/07/23 Aspirin EC [Ecotrin] 81 mg PO DAILY 02/28/23 10/07/23 Albuterol Sulf [Ventolin Hfa 2 puffs INH Q4H PRN 10/07/23 10/07/23 Inhaler] Bisacodyl Supp [Dulcolax Supp] 10 mg AL PRN PRN 10/07/23 10/07/23 Carbamide Peroxide Otic Drop 10 drops EACHEAR .[id number] 10/07/23 10/07/23 [Debrox Otic Drops] Carboxymethylcellulose Sodium 2 drops EACHEYE TID PRN 10/07/23 10/07/23 [Artificial Tears] Dextran 70/Hypromellose [Genteal 1 drops EACHEYE Q4H PRN 10/07/23 10/07/23 Tears 0.1%-0.3% Drop] Diclofenac Sodium 1% Gel [Voltaren 1 applic TOP Q6H PRN 10/07/23 10/07/23 Gel] Eyelid Cleanser Combination 8 1 pad TOP DAILY 10/07/23 10/07/23 [Cleansing Eyelid Wipes] Ferrous Sulfate [Feosol] 325 mg PO DAILY 10/07/23 10/07/23 Lisinopril [Zestril] 10 mg PO DAILY 10/07/23 10/07/23 Melatonin 5 mg PO QPM 10/07/23 10/07/23 Mineral Oil [Mineral Oil Enema] 1 unit AL PRN PRN 10/07/23 10/07/23 Multivitamin [Theragran] 1 tab PO DAILY 10/07/23 10/07/23 Pantoprazole Sodium [Protonix] 20 mg PO QDAC 10/07/23 10/07/23 Senna [Senokot] 17.2 mg PO PRN PRN 10/07/23 10/07/23 Sertraline [Zoloft] 37.5 mg PO DAILY 10/07/23 10/07/23 polyethylene glycoL 3350 [Miralax] 17 gm PO PRN PRN 10/07/23 10/07/23 Cefpodoxime Proxetil [Vantin] 200 mg PO BID #4 tablet 10/10/23 Oxycodone HCl 5 mg PO Q6HR PRN #30 cap 10/10/23 - PHYSICAL EXAM AT DISCHARGE General Appearance: positive: No acute distress, Alert, Other ( Demented elderly gentleman with no insight, occasionally agitated with combativeness) Eyes Bilateral: positive: PERRL ENT: positive: Other ( poor oral dentition. He resist having his teeth cleaned) Neck: positive: No JVD. negative: Stiff neck Respiratory: positive: No respiratory distress. negative: Wheezes, Rales, Rhonchi Cardiovascular: positive: Regular rate & rhythm, Systolic murmur Abdomen: positive: Non-tender, No organomegaly, Nml bowel sounds, No distention Extremities: positive: Full ROM, No pedal edema Neurologic/Psychiatric: positive: CN's nml (2-12), Motor nml, Disoriented to person, Disoriented to place, Disoriented to time - LABS Result Diagrams: 10/10/23 05:19 10/10/23 05:19"
== END 2023-10-10 13:30 | DRG 194 ==
LOC: EDBD → EDUNIT# → ED 13:02 → MS3 16:54 → ICU 19:24 → MS2 10-08 21:01
PROVIDERS: ADMIT Specialist; ATTEND Specialist
DX: J18.9 Pneumonia, unspecified organism (principal); I48.91 Unspecified atrial fibrillation; I48.20 Chronic atrial fibrillation, unspecified; Z20.822 Contact with and (suspected) exposure to COVID-19; I82.509 Chronic embolism and thrombosis of unspecified deep veins of unspecified lower extremity; G47.33 Obstructive sleep apnea (adult) (pediatric); I50.9 Heart failure, unspecified; I11.0 Hypertensive heart disease with heart failure; E11.9 Type 2 diabetes mellitus without complications; E78.00 Pure hypercholesterolemia, unspecified; F03.90 Unspecified dementia, unspecified severity, without behavioral disturbance, psychotic disturbance, mood disturbance, and anxiety; N40.1 Benign prostatic hyperplasia with lower urinary tract symptoms; N39.498 Other specified urinary incontinence; F20.9 Schizophrenia, unspecified; Z79.82 Long term (current) use of aspirin; Z79.84 Long term (current) use of oral hypoglycemic drugs; Z79.899 Other long term (current) drug therapy
CPT/HCPCS: 36415; 36600; 70450; 70496; 70498; 71045; 80048; 80053; 81003; 82330; 82803; 83036; 83605; 83735; 83880; 84100; 84484; 85025; 85610; 87040; 87150; 87635; 93005; 96365; 99285; A9270; G0480; J0131; J1650; J1815; J2060; J3370; J3590; Q9967; 81001; 82077; 87086

== ENCOUNTER 2023-10-10 13:33 | Outpatient (CLI) | payer MEDICARE, MEDICAID | END 2023-10-10 13:34 | disposition home or self-care (01) | LOC: EMS 13:33 | PROVIDERS: ATTEND Specialist | DX: R41.0 Disorientation, unspecified (principal) | CPT/HCPCS: A0425; A0428 ==

== ENCOUNTER 2023-10-14 14:42 | Outpatient (CLI) | payer MEDICARE, MEDICAID | END 2023-10-14 14:43 | disposition critical access hospital (66) | LOC: EMS 14:42 | DX: R40.20 Unspecified coma (principal); R09.89 Other specified symptoms and signs involving the circulatory and respiratory systems | CPT/HCPCS: A0425; A0429 ==

== ENCOUNTER 2023-10-14 14:48 | Inpatient (IN) | payer MEDICARE, MEDICAID ==
[2023-10-14] MEDS ORDERED: NALOXONE 0.4 MG/ML VIAL ONE (14:53)
--- NOTE | 2023-10-14 15:00 | ED Physician Documentation ---
History of Present Illness - Stated complaint Stated Complaint: AMS - Chief complaint Chief Complaint: Neuro - Additonal information Additional information: History obtained from EMS and from [facility]dc notes. There is an elderly gentleman with dementia and schizoaffective disorder atrial fibrillation who lives at [facility]. He was discharged there after a 3-day hospitalization for left lower lobe pneumonia. By report of the fdc he has been less responsive today. Blood glucose was in the 120s prehospital. He has noted to have coarse rhonchi and gurgling respirations. He did not require oxygen at the [facility]dc. He is unable participate meaningfully in giving any history whatsoever due to his mental status. Reviewed his recent hospitalization: Admit Date: 10/07/23 Discharge Date: 10/10/23 Discharging Provider: Susana Morel MD - DIAGNOSES Discharge Diagnoses with Status of Each Condition: 1. Altered mental status due to pneumonia 2. Left lower lobe pneumonia 3. Probable obstructive sleep apnea with apnea occurring 15 to 20 seconds. Temporary placement in ICU to observe the apnea and make sure he did not need BiPAP. He never did. 4. Chronic congestive heart failure 5. Chronic atrial fibrillation 6. Hypertension 7. Type 2 diabetes mellitus, without complication, without long-term use of insulin 8. History of schizophrenia 10. Benign prostatic hypertrophy with Langford placed. He will need the Langford removed in the next week or 2 after bladder training. Review of Systems Unable to obtain: Unresponsive Constitutional: reports: Fever PD PAST MEDICAL HISTORY - Past Medical History Cardiovascular: High cholesterol, Atrial fibrillation, Congestive heart failure, Hypertension Respiratory: None Neuro: Dementia Endocrine/Autoimmune: Type 2 diabetes GI: GI bleed : Benign prostate hypertrophy, Incontinence HEENT: None Psych: Schizophrenia Musculoskeletal: None Derm: None - Past Surgical History Past Surgical History: Yes General: Colonoscopy Ortho: Other - Present Medications Home Medications: Ambulatory Orders Medication Instructions Recorded Confirmed Furosemide 10 mg PO DAILY 12/12/18 10/07/23 Gabapentin 300 mg PO TID 12/12/18 10/07/23 Acetaminophen [Aphen] 650 mg PO Q4H PRN 06/06/20 10/07/23 Calcium Carbonate [Tums (Calcium 500 mg PO BID 06/06/20 10/07/23 Carbonate 500mg)] Docusate Sodium [Dok] 100 mg PO DAILY 06/06/20 10/07/23 Loperamide [Imodium] 2 mg PO Q15M PRN MDD 12 MG 06/06/20 10/07/23 Tamsulosin HCl [Flomax] 0.4 mg PO DAILY 06/06/20 10/07/23 carvediloL [Coreg] 3.125 mg PO BID 06/06/20 10/07/23 metFORMIN [Glucophage] 500 mg PO BIDWM 06/06/20 10/07/23 risperiDONE [RisperDAL] 1 mg PO HS 06/06/20 10/07/23 Aspirin EC [Ecotrin] 81 mg PO DAILY 02/28/23 10/07/23 Albuterol Sulf [Ventolin Hfa 2 puffs INH Q4H PRN 10/07/23 10/07/23 Inhaler] Bisacodyl Supp [Dulcolax Supp] 10 mg ME PRN PRN 10/07/23 10/07/23 Carbamide Peroxide Otic Drop 10 drops EACHEAR .[id number] 10/07/23 10/07/23 [Debrox Otic Drops] Carboxymethylcellulose Sodium 2 drops EACHEYE TID PRN 10/07/23 10/07/23 [Artificial Tears] Dextran 70/Hypromellose [Genteal 1 drops EACHEYE Q4H PRN 10/07/23 10/07/23 Tears 0.1%-0.3% Drop] Diclofenac Sodium 1% Gel [Voltaren 1 applic TOP Q6H PRN 10/07/23 10/07/23 Gel] Eyelid Cleanser Combination 8 1 pad TOP DAILY 10/07/23 10/07/23 [Cleansing Eyelid Wipes] Ferrous Sulfate [Feosol] 325 mg PO DAILY 10/07/23 10/07/23 Lisinopril [Zestril] 10 mg PO DAILY 10/07/23 10/07/23 Melatonin 5 mg PO QPM 10/07/23 10/07/23 Mineral Oil [Mineral Oil Enema] 1 unit ME PRN PRN 10/07/23 10/07/23 Multivitamin [Theragran] 1 tab PO DAILY 10/07/23 10/07/23 Pantoprazole Sodium [Protonix] 20 mg PO QDAC 10/07/23 10/07/23 Senna [Senokot] 17.2 mg PO PRN PRN 10/07/23 10/07/23 Sertraline [Zoloft] 37.5 mg PO DAILY 10/07/23 10/07/23 polyethylene glycoL 3350 [Miralax] 17 gm PO PRN PRN 10/07/23 10/07/23 Oxycodone HCl 5 mg PO Q6HR PRN #30 cap 10/10/23 - Allergies Allergies/Adverse Reactions: Allergies Allergy/AdvReac Type Severity Reaction Status Date / Time hydroxyzine Allergy Unknown Verified 10/14/23 14:54 - Social History Does the pt smoke?: Yes Smoking Status: Current every day smoker Does the pt drink ETOH?: No Does the pt have substance abuse?: No - POLST Patient has POLST: No POLST Status: Full Code PD ED PE NORMAL - General General: Other (Elderly, responds to sternal rub and noxious stimuli such as getting his COVID swab. Moves all extremities) - HEENT HEENT: Atraumatic - Neck Neck: Supple, no meningeal sign - Cardiac Cardiac: Other (Irregular) - Respiratory Respiratory: Other (Coarse moist rhonchi throughout) - Abdomen Abdomen: Normal bowel sounds - Extremities Extremities: Other (He has bruising of his left forearm. Possible deformity. No pain with range of motion.) - Neuro Eye Opening: To Pain Motor: Withdraws to Pain Verbal: None GCS Score: 7 Results - Vitals Vitals: Vital Signs - 24 hr 10/14/23 10/14/23 10/14/23 14:48 14:54 15:24 Temperature 35.8 C L Heart Rate 90 92 91 Respiratory 21 20 22 Rate Blood Pressure 138/69 H 132/83 H 135/86 H O2 Saturation 99 100 100 If not protocol 4 2 : Oxygen Flow, liters/minute 10/14/23 10/14/23 10/14/23 15:30 16:00 16:30 Temperature Heart Rate 89 73 83 Respiratory 18 22 18 Rate Blood Pressure 136/84 H 138/56 H 136/58 H O2 Saturation 100 100 100 If not protocol 2 2 : Oxygen Flow, liters/minute Oxygen O2 Source Nasal cannula Oxygen Flow Rate 2 - EKG (time done) 1501 EKG releavant findings:: EKG personally interpreted by author of this note. Relevant findings are: Atrial fibrillation with a rate of 90. Borderline intraventricular conduction delay. T wave inversion V4 through V6 - Labs Labs: Laboratory Tests 10/14/23 10/14/23 10/14/23 15:00 15:09 15:09 WBC 14.7 H RBC 4.56 L Hgb 13.9 L Hct 44.5 MCV 97.6 H MCH 30.5 MCHC 31.2 L RDW 15.3 H Plt Count 281 MPV 11.3 Neut # (Auto) 11.8 H Lymph # (Auto) 1.4 L [place] # (Auto) 1.1 H Eos # (Auto) 0.2 Baso # (Auto) 0.1 Absolute Nucleated RBC 0.00 Nucleated RBC % 0.0 VBG pH VBG pCO2 VBG pO2 VBG HCO3 VBG Total CO2 VBG O2 Saturation VBG Base Excess Sodium 155 H* Potassium 3.9 Chloride 115 H Carbon Dioxide 32 Anion Gap 8.0 BUN 49 H Creatinine 1.3 Estimated GFR (MDRD) 53 L Glucose 129 H Calcium 9.7 Total Bilirubin 1.8 H AST 43 H ALT 27 Alkaline Phosphatase 57 B-Natriuretic Peptide Total Protein 7.0 Albumin 3.9 Globulin 3.1 Albumin/Globulin Ratio 1.3 Urine Color Urine Clarity Urine pH Ur Specific [place] Urine Protein Urine Glucose (UA) Urine Ketones Urine Occult Blood Urine Nitrite Urine Bilirubin Urine Urobilinogen Ur Leukocyte Esterase Urine RBC Urine WBC Ur Squamous Epith Cells Urine Bacteria Urine Casts Ur Microscopic Review Urine Culture Comments Nasal Adenovirus (PCR) NOT DETECTED Nasal B. parapertussis DNA (PCR) NOT DETECTED Nasal Coronavir 229E PCR NOT DETECTED Nasal Coronavir HKU1 PCR NOT DETECTED Nasal Coronavir NL63 PCR NOT DETECTED Nasal Coronavir OC43 PCR NOT DETECTED Nasal Enterovir/Rhinovir PCR NOT DETECTED Nasal Influenza B PCR NOT DETECTED Nasal Influenza A PCR NOT DETECTED Nasal Parainfluen 1 PCR NOT DETECTED Nasal Parainfluen 2 PCR NOT DETECTED Nasal Parainfluen 3 PCR NOT DETECTED Nasal Parainfluen 4 PCR NOT DETECTED Nasal RSV (PCR) NOT DETECTED Nasal B.pertussis DNA PCR NOT DETECTED Nasal C.pneumoniae (PCR) NOT DETECTED Shine Human Metapneumo PCR NOT DETECTED Nasal M.pneumoniae (PCR) NOT DETECTED Nasal SARS-CoV-2 (PCR) NOT DETECTED Urine Opiates Screen Ur Buprenorphine Scrn Ur Oxycodone Screen Urine Methadone Screen Ur Barbiturates Screen Ur Tricyclics Screen Ur Phencyclidine Scrn Ur Amphetamine Screen U Methamphetamines Scrn U Benzodiazepines Scrn Urine Cocaine Screen U Cannabinoids Screen Ur Drug Screen Comment 10/14/23 10/14/23 10/14/23 15:09 15:17 15:20 WBC RBC Hgb Hct MCV MCH MCHC RDW Plt Count MPV Neut # (Auto) Lymph # (Auto) [place] # (Auto) Eos # (Auto) Baso # (Auto) Absolute Nucleated RBC Nucleated RBC % VBG pH 7.446 H VBG pCO2 43.5 VBG pO2 49.8 H VBG HCO3 29.3 H VBG Total CO2 30.6 H VBG O2 Saturation 85.0 H VBG Base Excess 4.6 H Sodium Potassium Chloride Carbon Dioxide Anion Gap BUN Creatinine Estimated GFR (MDRD) Glucose Calcium Total Bilirubin AST ALT Alkaline Phosphatase B-Natriuretic Peptide 1648 H Total Protein Albumin Globulin Albumin/Globulin Ratio Urine Color YELLOW Urine Clarity CLOUDY Urine pH 5.5 Ur Specific [place] >=1.030 H Urine Protein >=300 H Urine Glucose (UA) NEGATIVE Urine Ketones TRACE Urine Occult Blood LARGE H Urine Nitrite NEGATIVE Urine Bilirubin SMALL H Urine Urobilinogen 0.2 (NORMAL) Ur Leukocyte Esterase NEGATIVE Urine RBC 6-10 H Urine WBC 0-3 Ur Squamous Epith Cells MOD Squamous H Urine Bacteria None Seen Urine Casts 3-5 Hyaline Casts Ur Microscopic Review INDICATED Urine Culture Comments NOT INDICATED Nasal Adenovirus (PCR) Nasal B. parapertussis DNA (PCR) Nasal Coronavir 229E PCR Nasal Coronavir HKU1 PCR Nasal Coronavir NL63 PCR Nasal Coronavir OC43 PCR Nasal Enterovir/Rhinovir PCR Nasal Influenza B PCR Nasal Influenza A PCR Nasal Parainfluen 1 PCR Nasal Parainfluen 2 PCR Nasal Parainfluen 3 PCR Nasal Parainfluen 4 PCR Nasal RSV (PCR) Nasal B.pertussis DNA PCR Nasal C.pneumoniae (PCR) Shine Human Metapneumo PCR Nasal M.pneumoniae (PCR) Nasal SARS-CoV-2 (PCR) Urine Opiates Screen NEGATIVE Ur Buprenorphine Scrn NEGATIVE Ur Oxycodone Screen NEGATIVE Urine Methadone Screen NEGATIVE Ur Barbiturates Screen NEGATIVE Ur Tricyclics Screen NEGATIVE Ur Phencyclidine Scrn NEGATIVE Ur Amphetamine Screen NEGATIVE U Methamphetamines Scrn NEGATIVE U Benzodiazepines Scrn NEGATIVE Urine Cocaine Screen NEGATIVE U Cannabinoids Screen NEGATIVE Ur Drug Screen Comment CUTOFF CONC BELOW: - Rads (name of study) CT head Relevant Findings:: EMP independent interpretation of test (no ICH, senescent changes. await final rads read) PD Medical Decision Making - ED course Complexity details: reviewed old records, reviewed results, re-evaluated bunny childers, d/w lending consultant ED course: Patient with dementia and schizoaffective and recent hospitalization for pneumonia and with altered mental status. He does have pinpoint pupils as no response to Narcan. He has a decent O2 saturation. RT is at the bedside and suctioned out a lot of thick secretions and is given trouble he is having trouble clearing. VBG shows no acute CO2 retention. Lab work reveals leukocytosis. He also has fairly significant hypernatremia with a sodium of 155. Brain CT without large ICH per my interpretation Will begin gently correcting his hypernatremia with D5 half-normal saline. Discussed with admitting hospital medicine doc Dr. Plummer who is in agreement. Patient is protecting his airway and maintaining good oxygen saturations on any r espiratory distress. Will admit for treatment of his hyper natremia and encephalopathy. Departure - Departure Disposition: 66 [facility] DC/Xfer Clinical Impression: Hypernatremia Encephalopathy Qualifiers: Encephalopathy type: metabolic Qualified Code(s): G93.41 - Metabolic encephalopathy Forms: PCP List
[2023-10-14] MEDS: NALOXONE 0.4 MG/ML VIAL IVP STA (15:07)
[2023-10-14 15:26] LABS: BASOPHILS # (AUTO) 0.1 10^3/uL (0.0-0.1); BASOPHILS % (AUTO) 0.6 %; EOSINOPHILS # (AUTO) 0.2 10^3/uL (0.0-0.7); EOSINOPHILS % (AUTO) 1.4 %; HCT - HEMATOCRIT 44.5 % (42.0-52.0); HGB - HEMOGLOBIN 13.9 g/dL (14.0-18.0); LYMPHOCYTES # (AUTO) 1.4 10^3/uL (1.5-3.5); LYMPHOCYTES % (AUTO) 9.7 %; MEAN CORPUSCULAR HEMOGLOBIN 30.5 pg (27.0-31.0); MEAN CORPUSCULAR HGB CONC 31.2 g/dL (32.0-36.0); MEAN CORPUSCULAR VOLUME 97.6 fL (80.0-94.0); MEAN PLATELET VOLUME 11.3 fL (7.4-11.4); MONOCYTES # (AUTO) 1.1 10^3/uL (0.0-1.0); MONOCYTES % (AUTO) 7.6 %; NEUTROPHILS # (AUTO) 11.8 10^3/uL (1.5-6.6); NEUTROPHILS % (AUTO) 80.3 %; PLT - PLATELET COUNT 281 10^3/uL (130-450); RED BLOOD COUNT 4.56 10^6/uL (4.70-6.10); RED CELL DISTRIBUTION WIDTH 15.3 % (12.0-15.0); WHITE BLOOD COUNT 14.7 x10^3/uL (4.8-10.8)
[2023-10-14 15:33] LABS: VBG PH 7.446 (7.31-7.41)
[2023-10-14 15:34] LABS: VBG BASE EXCESS 4.6 mmol/L (-2 - +2); VBG HCO3 29.3 mmol/L (23-28); VBG PCO2 43.5 mmHg (41-51); VBG PO2 49.8 mmHg (25-47); VBG TOTAL CO2 30.6 mmol/L (24-29)
[2023-10-14 15:37] LABS: BILIRUBIN,URINE SMALL (NEGATIVE); GLUCOSE, URINE (UA) NEGATIVE (NEGATIVE); KETONES,URINE (UA) TRACE mg/dL (NEGATIVE); LEUKOCYTE ESTERASE, URINE NEGATIVE (NEGATIVE); NITRITE,URINE NEGATIVE (NEGATIVE); OCCULT BLOOD,URINE LARGE (NEGATIVE); PH,URINE 5.5 PH (5.0-7.5); PROTEIN,URINE >=300 mg/dL (NEGATIVE); UROBILINOGEN,URINE 0.2 (NORMAL) E.U./dL (NORMAL)
--- NOTE | 2023-10-14 15:37 | XRAY Report ---
PROCEDURE: Forearm LT INDICATIONS: Fall TECHNIQUE: 2 views of the forearm were acquired. COMPARISON: None. FINDINGS: Bones: No fractures or dislocations. No suspicious bony lesions. Soft tissues: No suspicious soft tissue calcifications or masses. Atherosclerotic vascular calcifica tions. IMPRESSION: No acute bony abnormality. Reviewed by: Joe Matos MD on 10/14/2023 3:36 PM PDT Approved by: Joe Matos MD on 10/14/2023 3:36 PM PDT Station ID: [id number]
[2023-10-14 15:43] LABS: CALCIUM 9.7 mg/dL (8.5-10.3)
[2023-10-14 15:53] LABS: ALBUMIN 3.9 g/dL (3.2-5.5); ALBUMIN/GLOBULIN RATIO 1.3 (1.0-2.2); BILIRUBIN,TOTAL 1.8 mg/dL (0.2-1.0); CREATININE 1.3 mg/dL (0.6-1.3); POTASSIUM 3.9 mmol/L (3.5-4.5)
[2023-10-14 15:55] LABS: CLARITY,URINE CLOUDY (CLEAR)
[2023-10-14 15:56] LABS: BACTERIA,URINE None Seen /HPF (None Seen); CASTS, URINE 3-5 Hyaline Casts /LPF; SQUAMOUS EPITHELIAL CELL,UR MOD Squamous (<= Few); WBC,URINE 0-3 /HPF (0-3)
[2023-10-14 15:57] LABS: AMPHETAMINE SCREEN,URINE NEGATIVE (NEGATIVE); BARBITURATE SCREEN,UR NEGATIVE (NEGATIVE); BENZODIAZEPINES SCREEN, URINE NEGATIVE (NEGATIVE); BUPRENORPHINE SCREEN, URINE NEGATIVE (NEGATIVE); COCAINE SCREEN URINE NEGATIVE (NEGATIVE); METHADONE SCREEN, URINE NEGATIVE (NEGATIVE); METHAMPHETAMINES SCREEN, URINE NEGATIVE (NEGATIVE); OPIATE SCREEN, URINE NEGATIVE (NEGATIVE); OXYCODONE SCREEN, URINE NEGATIVE (NEGATIVE); THC CANNABINOID SCREEN, URINE NEGATIVE (NEGATIVE); TRICYCLIC ANTIDEPRESSANT,URINE NEGATIVE (NEGATIVE)
--- NOTE | 2023-10-14 16:04 | XRAY Report ---
PROCEDURE: Chest 1V INDICATIONS: COUGH TECHNIQUE: One view of the chest was acquired. COMPARISON: 10/07/2023. FINDINGS: Surgical changes and devices: None. Lungs and pleura: No pleural effusions or pneumothorax. Prominent interstitial markings. Elevation o f the left hemidiaphragm. Left basilar opacity versus atelectasis. Mediastinum: Mediastinal contours appear normal. Heart size is enlarged. Bones and chest wall: No suspicious bony lesions. Overlying soft tissues appear unremarkable. IMPRESSION: Prominent interstitial markings are improved compared to prior, may represent mild pulmonary edema. E levation of left hemidiaphragm with left basilar atelectasis versus opacity. Reviewed by: Joe Matos MD on 10/14/2023 4:02 PM PDT Approved by: Joe Matos MD on 10/14/2023 4:02 PM PDT Station ID: [id number]
[2023-10-14 16:19] LABS: B. PARAPERTUSSIS- RESP PCR PAN NOT DETECTED; B. PERTUSSIS- RESP PCR PANEL NOT DETECTED; C. PNEUMONIAE- RESP PCR PANEL NOT DETECTED; CORONAVIRUS 229E-RESP PCR NOT DETECTED; CORONAVIRUS HKU1-RESP PCR NOT DETECTED; CORONAVIRUS NL63-RESP PCR NOT DETECTED; CORONAVIRUS OC43-RESP PCR NOT DETECTED; HUMAN METAPNEUMOVIRUS NOT DETECTED; INFLUENZA A- RESP PCR PANEL NOT DETECTED; INFLUENZA B - RESP PCR PANEL NOT DETECTED; M. PNEUMONIAE- RESP PCR PANEL NOT DETECTED; PARAINFLUENZA VIRUS 1 NOT DETECTED; PARAINFLUENZA VIRUS 2 NOT DETECTED; PARAINFLUENZA VIRUS 3 NOT DETECTED; PARAINFLUENZA VIRUS 4 NOT DETECTED; RHINOVIRUS/ENTEROVIRUS NOT DETECTED; RSV- RESP PCR PANEL NOT DETECTED; SARS-CoV-2 -RESP PCR PANEL NOT DETECTED
[2023-10-14] MEDS: DEXTROSE 5%-0.45% NACL 500 ML IV STA (16:26)
[2023-10-14] MEDS ORDERED: ONDANSETRON 4 MG/2 ML VIAL IVP PRN (17:12)
[2023-10-14] MEDS ORDERED: ACETAMINOPHEN 325 MG TABLET PO PRN (17:12)
[2023-10-14] MEDS ORDERED: SODIUM CHLORIDE FLUSH 0.9% 10 ML SYRINGE IVP PRN (17:12)
--- NOTE | 2023-10-14 17:13 | CT Report ---
PROCEDURE: Head WO INDICATIONS: AMS TECHNIQUE: Noncontrast 4.5 mm thick angled axial sections acquired from the foramen magnum to the vertex. For r adiation dose reduction, the following was used: automated exposure control, adjustment of mA and/or kV according to patient size. COMPARISON: 10/07/2023. FINDINGS: Image quality: Excellent. CSF spaces: Basal cisterns are patent. No extra-axial fluid collections. Ventricles are normal in size and shape. Brain: No midline shift. No intracranial masses or hemorrhage. Age-related global volume loss and c hronic microvascular ischemic changes. Intracranial atherosclerotic vascular calcifications. Ortez-wh ite matter interface is normal. Skull and face: Calvarium and visualized facial bones are intact, without suspicious lesions. Sinuses: Visualized sinuses and mastoids are clear. IMPRESSION: No acute intracranial pathology. Reviewed by: Joe Matos MD on 10/14/2023 5:11 PM PDT Approved by: Joe Matos MD on 10/14/2023 5:11 PM PDT Station ID: [id number]
--- NOTE | 2023-10-14 17:38 | HISTORY & PHYSICAL EXAMINATION ---
Chief Complaint - Chief Complaint Chief Complaint: Confusion History of Present Illness - Admitted From Admitted From:: [facility] Emergency Department - History Obtained From History obtained from: ED staff and records Exam Limitations: Patient is confused/lethargic, unable to provide any history or ROS - History of Present Illness HPI Comment/Other: Mr. Zee is an 82-year-old male with a history of rate controlled atrial fibrillation on aspirin (off Xarelto since a GI bleed in 05/2020), type 2 diabetes, CHF, hypertension, hyperlipidemia, chronic DVTs, schizophrenia and dementia who presents from his permanent correction facility for altered mental status. The patient is a permanent resident of [facility] who has been seen in our facility for altered mental status several times recently. On 10/01/2023 the patient was seen in the emergency department for lethargy and confusion where he was found to have a urinary tract infection and also felt to have altered mental status secondary to newly added hydroxyzine. He was ultimately discharged back to his SNF. He came back to the hospital on 10/07/2023 after SNF staff found him unresponsive while sitting in a chair. His vitals were relatively unremarkable at that time aside from a oxygen saturation of 90% on room air but his GCS was noted to be 5. A CT and CTA head and neck was negative for any acute pathology. His chest x-ray at that time showed pulmonary edema and left basilar opacity. He was admitted to the hospital at that time for further workup of his altered mental status and treatment of left- sided pneumonia. During this hospitalization his mental status did improve however it was felt that at baseline he has significant disorientation and is frequently resisting care. He was impulsive and tended to rip things off, frequently requiring a one-to-one care due to his behaviors. Attempts were made to obtain a brain MRI to further evaluate his mental status however the patient was unable to clear himself for MRI due to his mentation and multiple attempts were made at contacting family members to no avail. Ultimately it was felt that his mental status was likely secondary to pneumonia, though it is possible that his mental status was due to ciprofloxacin that has been previously prescribed for his UTI. He was discharged back to his SNF on 10/10/2023. For his current presentation apparently the nursing facility staff noticed that he was lethargic and minimally responsive again today however they deny any recent falls or traumatic injury. He was brought to the emergency department where his vital signs were relatively unremarkable and his labs showed a WBC of 14.7 with a sodium of 155 and chloride of 115 and creatinine of 1.3/BUN 49. His BNP was elevated to 1648 however he had no clinical evidence of CHF. Urinalysis was negative for infection but was significantly concentrated with a specific gravity greater than 1.03. He VBG showed a pH of 7.45 with pCO2 43.5. A respiratory viral panel was negative for all viral pathogens and a urine toxicology screen was unremarkable. His chest x-ray showed overall improvement from prior with mild left basilar atelectasis versus opacity along with prominent interstitial markings. It was felt that his altered mental status was secondary to hyponatremia and he was placed on D5 IV fluids and admitted for further care. History - Past Medical History Cardiovascular: reports: High cholesterol, Atrial fibrillation, Congestive heart failure, Hypertension Respiratory: reports: None Neuro: reports: Dementia Endocrine/Autoimmune: reports: Type 2 diabetes GI: reports: GI bleed : reports: Benign prostate hypertrophy, Incontinence HEENT: reports: None Psych: reports: Schizophrenia Musculoskeletal: reports: None Derm: reports: None MRSA Hx?: No - Past Surgical History General: reports: Colonoscopy Ortho: reports: Other - Family & Social History Family History: Mother: , Father: Family History Comment/Other: Patient reported his father had alcohol issue and at age 81. He report his mother from diabetic complication at later age of 80 Social History Notes: He lived with at [place] and moved to the [facility]. He had 3 children. now pt is living at [facility] Patient has POLST: No POLST Status: Full Code Meds/Allgy - Home Medications Home Medications: Ambulatory Orders Medication Instructions Recorded Confirmed Furosemide 10 mg PO DAILY 12/12/18 10/14/23 Gabapentin 300 mg PO TID 12/12/18 10/14/23 Acetaminophen [Aphen] 650 mg PO Q4H PRN 06/06/20 10/14/23 Calcium Carbonate [Tums (Calcium 500 mg PO BID 06/06/20 10/14/23 Carbonate 500mg)] Docusate Sodium [Dok] 100 mg PO DAILY 06/06/20 10/14/23 Loperamide [Imodium] 2 mg PO Q15M PRN MDD 12 MG 06/06/20 10/14/23 Tamsulosin HCl [Flomax] 0.4 mg PO DAILY 06/06/20 10/14/23 carvediloL [Coreg] 3.125 mg PO BID 06/06/20 10/14/23 metFORMIN [Glucophage] 500 mg PO BIDWM 06/06/20 10/14/23 risperiDONE [RisperDAL] 1 mg PO HS 06/06/20 10/14/23 Aspirin EC [Ecotrin] 81 mg PO DAILY 02/28/23 10/14/23 Albuterol Sulf [Ventolin Hfa 2 puffs INH Q4H PRN 10/07/23 10/14/23 Inhaler] Bisacodyl Supp [Dulcolax Supp] 10 mg KS PRN PRN 10/07/23 10/14/23 Carbamide Peroxide Otic Drop 10 drops EACHEAR .[id number] 10/07/23 10/14/23 [Debrox Otic Drops] Carboxymethylcellulose Sodium 2 drops EACHEYE TID PRN 10/07/23 10/14/23 [Artificial Tears] Dextran 70/Hypromellose [Genteal 1 drops EACHEYE Q4H PRN 10/07/23 10/14/23 Tears 0.1%-0.3% Drop] Diclofenac Sodium 1% Gel [Voltaren 1 applic TOP Q6H PRN 10/07/23 10/14/23 Gel] Eyelid Cleanser Combination 8 1 pad TOP DAILY 10/07/23 10/14/23 [Cleansing Eyelid Wipes] Ferrous Sulfate [Feosol] 325 mg PO DAILY 10/07/23 10/14/23 Lisinopril [Zestril] 10 mg PO DAILY 10/07/23 10/14/23 Melatonin 5 mg PO QPM 10/07/23 10/14/23 Mineral Oil [Mineral Oil Enema] 1 unit KS PRN PRN 10/07/23 10/14/23 Multivitamin [Theragran] 1 tab PO DAILY 10/07/23 10/14/23 Pantoprazole Sodium [Protonix] 20 mg PO QDAC 10/07/23 10/14/23 Senna [Senokot] 17.2 mg PO PRN PRN 10/07/23 10/14/23 Sertraline [Zoloft] 37.5 mg PO DAILY 10/07/23 10/14/23 polyethylene glycoL 3350 [Miralax] 17 gm PO PRN PRN 10/07/23 10/14/23 Oxycodone HCl 5 mg PO Q6HR PRN #30 cap 10/10/23 10/14/23 - Allergies Allergies/Adverse Reactions: Allergies Allergy/AdvReac Type Severity Reaction Status Date / Time hydroxyzine Allergy Unknown Verified 10/14/23 14:54 Review of Systems - Constitutional Constitutional: reports: Other (Unable to determine due to his obtunded mental status) - Eyes Eyes: reports: Other (Unable to determine due to his obtunded mental status) - Ears, Nose & Throat Ears, Nose & Throat: reports: Other (Unable to determine due to his obtunded mental status) - Cardiovascular Cariovascular: reports: Other (Unable to determine due to his obtunded mental status) - Respiratory Respiratory: reports: Other (Unable to determine due to his obtunded mental status) - Gastrointestinal Gastrointestinal: reports: Other (Unable to determine due to his obtunded mental status) - Genitourinary Genitourinary: reports: Other (Unable to determine due to his obtunded mental status) - Musculoskeletal Musculoskeletal: reports: Other (Unable to determine due to his obtunded mental status) - Integumentary Integumentary: reports: Other (Unable to determine due to his obtunded mental status) - Neurological Neurological: reports: Other (Unable to determine due to his obtunded mental status) - Psychiatric Psychiatric: reports: Other (Unable to determine due to his obtunded mental status) - Endocrine Endocrine: reports: Other (Unable to determine due to his obtunded mental status) - Hematologic/Lymphatic Hematologic/Lymphatic: reports: Other (Unable to determine due to his obtunded mental status) - All Other Systems All Other Systems: reports: Other (Unable to determine due to his obtunded mental status) Exam - Vital Signs Reviewed Vital Signs: Yes Vital Signs: Vital Signs x48h Temp Pulse Resp BP Pulse Ox O2 Flow Rate 10/14/23 16:30 83 18 136/58 H 100 2 10/14/23 16:00 73 22 138/56 H 100 2 10/14/23 15:30 89 18 136/84 H 100 08/06/24 15:24 91 22 135/86 H 100 2 10/14/23 14:54 92 20 132/83 H 100 4 10/14/23 14:48 35.8 C L 90 21 138/69 H 99 - Physical Exam General Appearance: positive: Other (Appears acutely and chronically ill, looks older than stated age. Appears disheveled. Obtunded, responds only to significant noxious stimulus (deep sternal rub ilicits moaning, painful nail pinching moves all extremities).) Eyes Bilateral: positive: Normal inspection, PERRL (Pupils 2-3 mm and minimally reactive bilaterally.) ENT: positive: Dry mucous membranes Neck: positive: Nml inspection, Thyroid nml, No JVD Respiratory: positive: Chest non-tender, No respiratory distress, Rhonchi. negative: Wheezes, Rales Cardiovascular: positive: No murmur, No gallop, Irregularly irregular Peripheral Pulses: positive: 1+ Abdomen: positive: Non-tender, No organomegaly, Nml bowel sounds, No distention Back: positive: Nml inspection Skin: positive: Color nml, No rash, Warm, Dry Extremities: positive: Non-tender, Nml appearance, No pedal edema Neurologic/Psychiatric: positive: Other (Obtunded. Moves all extremities to significant painful stimuli. Actively resists movements of all extremities. Reflexes 1+ throughout. Down-going babinski bilaterally. Face is symmetric.) Conclusion/Plan - Problem List (1) Hypernatremia Conclusion/Plan: His hypernatremia is likely secondary to dehydration and poor oral intake, h owever I have been unable to verify his recent condition from SNF staff after his recent discharge from our hospital. -His total body water deficit is approximately 5.34 L -Will place on D5 IV fluids at 75 cc/hr, which will correct his water deficit over approximatley 72 hours. -Repeat sodium level later tonight and in the morning. Goal of correct should not exceed 8-10 meq in a 24 hour period. -Daily BMP panel and check TSH. (2) Acute metabolic encephalopathy Conclusion/Plan: His acute on chronic metabolic encephalopathy is likely secondary to his current hypernatremia. It is less likely that he has an ongoing infection despite his leukocytosis. His leukocytosis is likely reactional to his acute issue as he had been treated appropriately for pneumonia with this chest x-ray overall improved from last admission. His urinalysis at this time is unremarkable and his abdominal exam is benign. 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 -Treat his hyponatremia as noted above. -He was given 2 separate doses of Narcan in the emergency department without any significant effect. -Hold home Risperdal and gabapentin for the time being to minimize neurologic medications. -Hold on initiating antibiotics at this time unless he becomes febrile. Blood cultures are pending. -Can consider brain MRI if he does not clinically improve however we will have to contact family to clear him for MRI, which was an issue that was unresolved last admission. -Check TSH, RPR, B12, Folate. (3) Leukocytosis Conclusion/Plan: Most likely this is a stress-induced leukocytosis. He was recently treated with antibiotics for a left lower lobe pneumonia, with his chest x-ray showing resid ual left lower lobe opacity though overall improved. This may represent radiographic fluid rather than true pathologic pneumonia as he has no other infectious issues/symptoms at this time. -Blood cultures pending from the emergency department. -Daily CBC. -Hold on starting IV antibiotics at this time unless he develops a fever or clinically develops sepsis. (4) Chronic congestive heart failure Conclusion/Plan: He has reported history of chronic CHF however I am unclear what type he has a history of no echocardiogram in our system. Despite a BNP of over 1600, he does not appear volume overloaded at this time and rather it appears volume depleted. -Holding home Lasix at this time while we fluid resuscitate with D5 IV fluids. -Would likely need Lasix reinitiated prior to discharge. -If he develops hypoxia or signs of fluid overload may need to initiate IV Lasix sooner rather than later. -If he develops clinical CHF this hospitalization, can obtain echocardiogram for further evaluation. Qualifiers: Heart failure type: unspecified Qualified Code(s): I50.9 - Heart failure, unspecified (5) Chronic atrial fibrillation Conclusion/Plan: He has a history of being on Xarelto in the past however did have a GI bleed in 2020 resulting in the discontinuation of anticoagulation going forward. He currently only takes aspirin 81 mg. -Holding oral medications for the time being given his poor mentation. -Monitor on telemetry. If he develops RVR, can give as needed IV metoprolol versus starting an infusion if needed. (6) Type II diabetes mellitus Conclusion/Plan: Typically only takes metformin at home. -Placed on sliding scale insulin every 6 hours while NPO and on D5 IV fluids. -May need Lantus if glucose is uncontrolled. 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 At baseline apparently he is disoriented due to his dementia and frequently pulls at items and rips off items as well. -Holding home Risperdal and sertraline for the time being as noted above. (8) HTN (hypertension) Conclusion/Plan: Currently normotensive. -Holding oral Coreg and Lisinopril while n.p.o. due to his poor mentation. Qualifiers: Hypertension type: primary hypertension Qualified Code(s): I10 - Essential (primary) hypertension - Lab Results Fish Bones: 10/14/23 15:09 10/14/23 15:09 - Diagnostic Imaging Results Diagnostic Imaging Results: positive: Final report reviewed Diagnostic Imaging Results Comments: CXR: Prominent interstitial markings are improved compared to prior, may represent mild pulmonary edema. Elevation of left hemidiaphragm with left basilar atelectasis versus opacity. CT Head: No acute intracranial pathology. - EKG Results EKG Interpreted Independently: Yes EKG Findings: Per my read - atrial fibrillation, HR 90, normal axis and intervals, no pathologic Q-waves, non-specific ST-TW changes. Core Measures - Anticipated LOS I expect patient to be DC'd or transferred within 96 hours.: Yes - DVT/VTE - Prophylaxis VTE/DVT Prophylaxis med ordered at admit?: Yes
--- NOTE | 2023-10-14 17:55 | PHARMACY PROGRESS NOTE ---
- Best Possible Medication History Admit Date and Time: 10/14/23 1712 Processed by: Pharmacy Medications reviewed in ED?: No Medication History completed: Yes Patient Interview: Pt unable to participate Secondary Source(s): Insurance records, Facility MAR as ONLY source As the person ultimately responsible for medication therapy, providers are able to order a medication from an existing home medication list in [facility] via the "Reconcile Routine" prior to Confirmation of that medication by support services coordinator. Such practice is discouraged except when the physician, in their clinical judgment, deems that a medical need exists for a medication without regard to previous use.
[2023-10-14] MEDS: DEXTROSE 5% 1,000 ML IV SCH (18:13)
[2023-10-14] MEDS ORDERED: METOPROLOL 5 MG/5 ML VIAL IVP PRN (18:20)
[2023-10-14] MEDS: INSULIN REGULAR, HUMAN 300 UNIT/3 ML PEN SUBQ SCH (19:07)
[2023-10-15] MEDS: SODIUM CHLORIDE FLUSH 0.9% 10 ML SYRINGE IVP SCH (00:51)
[2023-10-15 05:46] LABS: BASOPHILS # (AUTO) 0.1 10^3/uL (0.0-0.1); BASOPHILS % (AUTO) 0.6 %; EOSINOPHILS # (AUTO) 0.4 10^3/uL (0.0-0.7); EOSINOPHILS % (AUTO) 2.7 %; HGB - HEMOGLOBIN 13.6 g/dL (14.0-18.0); LYMPHOCYTES # (AUTO) 1.2 10^3/uL (1.5-3.5); LYMPHOCYTES % (AUTO) 8.2 %; MEAN CORPUSCULAR HEMOGLOBIN 31.1 pg (27.0-31.0); MEAN CORPUSCULAR HGB CONC 31.6 g/dL (32.0-36.0); MEAN CORPUSCULAR VOLUME 98.2 fL (80.0-94.0); MEAN PLATELET VOLUME 11.3 fL (7.4-11.4); MONOCYTES # (AUTO) 1.1 10^3/uL (0.0-1.0); MONOCYTES % (AUTO) 7.7 %; NEUTROPHILS # (AUTO) 11.5 10^3/uL (1.5-6.6); NEUTROPHILS % (AUTO) 80.5 %; PLT - PLATELET COUNT 244 10^3/uL (130-450); RED BLOOD COUNT 4.38 10^6/uL (4.70-6.10); RED CELL DISTRIBUTION WIDTH 15.4 % (12.0-15.0); WHITE BLOOD COUNT 14.2 x10^3/uL (4.8-10.8)
[2023-10-15 06:02] LABS: BUN - BLOOD UREA NITROGEN 43 mg/dL (6-20); CALCIUM 9.4 mg/dL (8.5-10.3); CARBON DIOXIDE - CO2 31 mmol/L (21-32); CHLORIDE 113 mmol/L (101-111); CREATININE 1.1 mg/dL (0.6-1.3); GFR - MDRD 64 (>89); GLUCOSE 148 mg/dL (74-104); POTASSIUM 3.8 mmol/L (3.5-4.5); SODIUM 150 mmol/L (135-145)
--- NOTE | 2023-10-15 08:44 | PROVIDER PROGRESS NOTE ---
Subjective - Prog Note Date Prog Note Date: 10/15/23 Prog Note Time: 08:42 - Subjective Pt reports feeling: Improved Subjective: No acute events since admission. He remains lethargic and does not respond to voice however he is moving more spontaneously and withdraws his extremities to light tactile stimulation today, which is overall improved compared to admission where painful/noxious stimuli was required for minimal movement. His sodium has improved to 150 this morning as well. Objective - Vital Signs/Intake & Output Reviewed Vital Signs: Yes Vital Signs: Vital Signs x48h Temp Pulse Resp BP Pulse Ox O2 Flow Rate 10/15/23 07:44 2 10/15/23 07:36 36.3 C L 102 H 20 128/70 98 2 10/15/23 05:40 36.5 C 78 24 151/88 H 94 2 Intake & Output: Intake & Output 10/12/23 10/13/23 10/14/23 10/15/23 23:59 23:59 23:59 23:59 Intake Total 70 1000 Output Total 100 Balance -30 1000 - Objective General Appearance: positive: Other (Appears acutely and chronically ill, looks older than stated age. Appears disheveled. Lethargic but moving spontaneously today which is improved from admission.) Eyes Bilateral: positive: Normal inspection, PERRL (Pupils are approximately 3 mm bilaterally and more reactive today though still sluggish), EOMI ENT: positive: ENT inspection nml, Pharynx nml, Dry mucous membranes Neck: positive: Nml inspection, Thyroid nml, No JVD, Trachea midline Respiratory: positive: Chest non-tender, No respiratory distress, Breath sounds nml. negative: Wheezes, Rales, Rhonchi Cardiovascular: positive: No murmur, No gallop, Irregularly irregular. negative: Tachycardia, Bradycardia, JVD present Peripheral Pulses: 2+ Dorsalis pedis (R), 2+ Dorsalis pedis (L) Abdomen: positive: Non-tender, No organomegaly, No distention, Other (Hypoactive bowel sounds) Skin: positive: Color nml, No rash, Warm, Dry Extremities: positive: Nml appearance, No pedal edema Neurologic/Psychiatric: positive: Other (Lethargic, unable to answer orientation questions. Moves all 4 extremities spontaneously and withdraws all 4 extremities to light tactile stimulation. Does not follow commands. No obvious focal neurologic deficit. Face is symmetric.) Babinski Reflex: Right: Down, Left: Down - Lab Results Fish Bones: 10/15/23 05:31 10/15/23 05:31 Other Labs: Lab Results x24hrs 10/15/23 10/15/23 10/15/23 Range/Units 05:31 05:31 05:31 WBC (4.8-10.8) x10^3/uL RBC (4.70-6.10) 10^6/uL Hgb (14.0-18.0) g/dL Hct (42.0-52.0) % MCV (80.0-94.0) fL MCH (27.0-31.0) pg MCHC (32.0-36.0) g/dL RDW (12.0-15.0) % Plt Count (130-450) 10^3/uL MPV (7.4-11.4) fL Neut # (Auto) (1.5-6.6) 10^3/uL Lymph # (Auto) (1.5-3.5) 10^3/uL [place] # (Auto) (0.0-1.0) 10^3/uL Eos # (Auto) (0.0-0.7) 10^3/uL Baso # (Auto) (0.0-0.1) 10^3/uL Absolute Nucleated RBC x10^3/uL Nucleated RBC % /100WBC VBG pH (7.31-7.41) VBG pCO2 (41-51) mmHg VBG pO2 (25-47) mmHg VBG HCO3 (23-28) mmol/L VBG Total CO2 (24-29) mmol/L VBG O2 Saturation (60-80) % VBG Base Excess (-2 - +2) mmol/L Sodium 150 H (135-145) mmol/L Potassium 3.8 (3.5-4.5) mmol/L Chloride 113 H (101-111) mmol/L Carbon Dioxide 31 (21-32) mmol/L Anion Gap 6.0 (6-13) BUN 43 H (6-20) mg/dL Creatinine 1.1 (0.6-1.3) mg/dL Estimated GFR (MDRD) 64 L (>89) Glucose 148 H (74-104) mg/dL POC Whole Bld Glucose (70 - 100) mg/dL Calcium 9.4 (8.5-10.3) mg/dL Total Bilirubin (0.2-1.0) mg/dL AST (10-42) IU/L ALT (10-60) IU/L Alkaline Phosphatase (42-121) IU/L B-Natriuretic Peptide (5-100) pg/mL Total Protein (6.4-8.9) g/dL Albumin (3.2-5.5) g/dL Globulin (2.1-4.2) g/dL Albumin/Globulin Ratio (1.0-2.2) Vitamin B12 505 (180-914) pg/mL Folate > 44.6 (5.90 - >24.8) ng/mL Procalcitonin Immunoas 0.07 (<0.5) ng/mL TSH 3.15 (0.34-5.60) uIU/mL Urine Color Urine Clarity (CLEAR) Urine pH (5.0-7.5) PH Ur Specific [place] (1.002-1.030) Urine Protein (NEGATIVE) mg/dL Urine Glucose (UA) (NEGATIVE) mg/dL Urine Ketones (NEGATIVE) mg/dL Urine Occult Blood (NEGATIVE) Urine Nitrite (NEGATIVE) Urine Bilirubin (NEGATIVE) Urine Urobilinogen (NORMAL) E.U./dL Ur Leukocyte Esterase (NEGATIVE) Urine RBC (0-5) /HPF Urine WBC (0-3) /HPF Ur Squamous Epith Cells (<= Few) Urine Bacteria (None Seen) /HPF Urine Casts /LPF Ur Microscopic Review Urine Culture Comments Nasal Adenovirus (PCR) Nasal B. parapertussis DNA (PCR) Nasal Coronavir 229E PCR Nasal Coronavir HKU1 PCR Nasal Coronavir NL63 PCR Nasal Coronavir OC43 PCR Nasal Enterovir/Rhinovir PCR Nasal Influenza B PCR Nasal Influenza A PCR Nasal Parainfluen 1 PCR Nasal Parainfluen 2 PCR Nasal Parainfluen 3 PCR Nasal Parainfluen 4 PCR Nasal RSV (PCR) Nasal B.pertussis DNA PCR Nasal C.pneumoniae (PCR) Shine Human Metapneumo PCR Nasal M.pneumoniae (PCR) Nasal SARS-CoV-2 (PCR) Urine Opiates Screen (NEGATIVE) Ur Buprenorphine Scrn (NEGATIVE) Ur Oxycodone Screen (NEGATIVE) Urine Methadone Screen (NEGATIVE) Ur Barbiturates Screen (NEGATIVE) Ur Tricyclics Screen (NEGATIVE) Ur Phencyclidine Scrn (NEGATIVE) Ur Amphetamine Screen (NEGATIVE) U Methamphetamines Scrn (NEGATIVE) U Benzodiazepines Scrn (NEGATIVE) Urine Cocaine Screen (NEGATIVE) U Cannabinoids Screen (NEGATIVE) Ur Drug Screen Comment 10/15/23 10/15/23 10/15/23 Range/Units 05:31 05:20 00:01 WBC 14.2 H (4.8-10.8) x10^3/uL RBC 4.38 L (4.70-6.10) 10^6/uL Hgb 13.6 L (14.0-18.0) g/dL Hct 43.0 (42.0-52.0) % MCV 98.2 H (80.0-94.0) fL MCH 31.1 H (27.0-31.0) pg MCHC 31.6 L (32.0-36.0) g/dL RDW 15.4 H (12.0-15.0) % Plt Count 244 (130-450) 10^3/uL MPV 11.3 (7.4-11.4) fL Neut # (Auto) 11.5 H (1.5-6.6) 10^3/uL Lymph # (Auto) 1.2 L (1.5-3.5) 10^3/uL [place] # (Auto) 1.1 H (0.0-1.0) 10^3/uL Eos # (Auto) 0.4 (0.0-0.7) 10^3/uL Baso # (Auto) 0.1 (0.0-0.1) 10^3/uL Absolute Nucleated RBC 0.00 x10^3/uL Nucleated RBC % 0.0 /100WBC VBG pH (7.31-7.41) VBG pCO2 (41-51) mmHg VBG pO2 (25-47) mmHg VBG HCO3 (23-28) mmol/L VBG Total CO2 (24-29) mmol/L VBG O2 Saturation (60-80) % VBG Base Excess (-2 - +2) mmol/L Sodium (135-145) mmol/L Potassium (3.5-4.5) mmol/L Chloride (101-111) mmol/L Carbon Dioxide (21-32) mmol/L Anion Gap (6-13) BUN (6-20) mg/dL Creatinine (0.6-1.3) mg/dL Estimated GFR (MDRD) (>89) Glucose (74-104) mg/dL POC Whole Bld Glucose 123 H 158 H (70 - 100) mg/dL Calcium (8.5-10.3) mg/dL Total Bilirubin (0.2-1.0) mg/dL AST (10-42) IU/L ALT (10-60) IU/L Alkaline Phosphatase (42-121) IU/L B-Natriuretic Peptide (5-100) pg/mL Total Protein (6.4-8.9) g/dL Albumin (3.2-5.5) g/dL Globulin (2.1-4.2) g/dL Albumin/Globulin Ratio (1.0-2.2) Vitamin B12 (180-914) pg/mL Folate (5.90 - >24.8) ng/mL Procalcitonin Immunoas (<0.5) ng/mL TSH (0.34-5.60) uIU/mL Urine Color Urine Clarity (CLEAR) Urine pH (5.0-7.5) PH Ur Specific [place] (1.002-1.030) Urine Protein (NEGATIVE) mg/dL Urine Glucose (UA) (NEGATIVE) mg/dL Urine Ketones (NEGATIVE) mg/dL Urine Occult Blood (NEGATIVE) Urine Nitrite (NEGATIVE) Urine Bilirubin (NEGATIVE) Urine Urobilinogen (NORMAL) E.U./dL Ur Leukocyte Esterase (NEGATIVE) Urine RBC (0-5) /HPF Urine WBC (0-3) /HPF Ur Squamous Epith Cells (<= Few) Urine Bacteria (None Seen) /HPF Urine Casts /LPF Ur Microscopic Review Urine Culture Comments Nasal Adenovirus (PCR) Nasal B. parapertussis DNA (PCR) Nasal Coronavir 229E PCR Nasal Coronavir HKU1 PCR Nasal Coronavir NL63 PCR Nasal Coronavir OC43 PCR Nasal Enterovir/Rhinovir PCR Nasal Influenza B PCR Nasal Influenza A PCR Nasal Parainfluen 1 PCR Nasal Parainfluen 2 PCR Nasal Parainfluen 3 PCR Nasal Parainfluen 4 PCR Nasal RSV (PCR) Nasal B.pertussis DNA PCR Nasal C.pneumoniae (PCR) Shine Human Metapneumo PCR Nasal M.pneumoniae (PCR) Nasal SARS-CoV-2 (PCR) Urine Opiates Screen (NEGATIVE) Ur Buprenorphine Scrn (NEGATIVE) Ur Oxycodone Screen (NEGATIVE) Urine Methadone Screen (NEGATIVE) Ur Barbiturates Screen (NEGATIVE) Ur Tricyclics Screen (NEGATIVE) Ur Phencyclidine Scrn (NEGATIVE) Ur Amphetamine Screen (NEGATIVE) U Methamphetamines Scrn (NEGATIVE) U Benzodiazepines Scrn (NEGATIVE) Urine Cocaine Screen (NEGATIVE) U Cannabinoids Screen (NEGATIVE) Ur Drug Screen Comment 10/14/23 10/14/23 10/14/23 Range/Units 21:12 19:01 15:20 WBC (4.8-10.8) x10^3/uL RBC (4.70-6.10) 10^6/uL Hgb (14.0-18.0) g/dL Hct (42.0-52.0) % MCV (80.0-94.0) fL MCH (27.0-31.0) pg MCHC (32.0-36.0) g/dL RDW (12.0-15.0) % Plt Count (130-450) 10^3/uL MPV (7.4-11.4) fL Neut # (Auto) (1.5-6.6) 10^3/uL Lymph # (Auto) (1.5-3.5) 10^3/uL [place] # (Auto) (0.0-1.0) 10^3/uL Eos # (Auto) (0.0-0.7) 10^3/uL Baso # (Auto) (0.0-0.1) 10^3/uL Absolute Nucleated RBC x10^3/uL Nucleated RBC % /100WBC VBG pH (7.31-7.41) VBG pCO2 (41-51) mmHg VBG pO2 (25-47) mmHg VBG HCO3 (23-28) mmol/L VBG Total CO2 (24-29) mmol/L VBG O2 Saturation (60-80) % VBG Base Excess (-2 - +2) mmol/L Sodium 151 H (135-145) mmol/L Potassium (3.5-4.5) mmol/L Chloride (101-111) mmol/L Carbon Dioxide (21-32) mmol/L Anion Gap (6-13) BUN (6-20) mg/dL Creatinine (0.6-1.3) mg/dL Estimated GFR (MDRD) (>89) Glucose (74-104) mg/dL POC Whole Bld Glucose 157 H (70 - 100) mg/dL Calcium (8.5-10.3) mg/dL Total Bilirubin (0.2-1.0) mg/dL AST (10-42) IU/L ALT (10-60) IU/L Alkaline Phosphatase (42-121) IU/L B-Natriuretic Peptide (5-100) pg/mL Total Protein (6.4-8.9) g/dL Albumin (3.2-5.5) g/dL Globulin (2.1-4.2) g/dL Albumin/Globulin Ratio (1.0-2.2) Vitamin B12 (180-914) pg/mL Folate (5.90 - >24.8) ng/mL Procalcitonin Immunoas (<0.5) ng/mL TSH (0.34-5.60) uIU/mL Urine Color YELLOW Urine Clarity CLOUDY (CLEAR) Urine pH 5.5 (5.0-7.5) PH Ur Specific [place] >=1.030 H (1.002-1.030) Urine Protein >=300 H (NEGATIVE) mg/dL Urine Glucose (UA) NEGATIVE (NEGATIVE) mg/dL Urine Ketones TRACE (NEGATIVE) mg/dL Urine Occult Blood LARGE H (NEGATIVE) Urine Nitrite NEGATIVE (NEGATIVE) Urine Bilirubin SMALL H (NEGATIVE) Urine Urobilinogen 0.2 (NORMAL) (NORMAL) E.U./dL Ur Leukocyte Esterase NEGATIVE (NEGATIVE) Urine RBC 6-10 H (0-5) /HPF Urine WBC 0-3 (0-3) /HPF Ur Squamous Epith Cells MOD Squamous H (<= Few) Urine Bacteria None Seen (None Seen) /HPF Urine Casts 3-5 Hyaline Casts /LPF Ur Microscopic Review INDICATED Urine Culture Comments NOT INDICATED Nasal Adenovirus (PCR) Nasal B. parapertussis DNA (PCR) Nasal Coronavir 229E PCR Nasal Coronavir HKU1 PCR Nasal Coronavir NL63 PCR Nasal Coronavir OC43 PCR Nasal Enterovir/Rhinovir PCR Nasal Influenza B PCR Nasal Influenza A PCR Nasal Parainfluen 1 PCR Nasal Parainfluen 2 PCR Nasal Parainfluen 3 PCR Nasal Parainfluen 4 PCR Nasal RSV (PCR) Nasal B.pertussis DNA PCR Nasal C.pneumoniae (PCR) Shine Human Metapneumo PCR Nasal M.pneumoniae (PCR) Nasal SARS-CoV-2 (PCR) Urine Opiates Screen NEGATIVE (NEGATIVE) Ur Buprenorphine Scrn NEGATIVE (NEGATIVE) Ur Oxycodone Screen NEGATIVE (NEGATIVE) Urine Methadone Screen NEGATIVE (NEGATIVE) Ur Barbiturates Screen NEGATIVE (NEGATIVE) Ur Tricyclics Screen NEGATIVE (NEGATIVE) Ur Phencyclidine Scrn NEGATIVE (NEGATIVE) Ur Amphetamine Screen NEGATIVE (NEGATIVE) U Methamphetamines Scrn NEGATIVE (NEGATIVE) U Benzodiazepines Scrn NEGATIVE (NEGATIVE) Urine Cocaine Screen NEGATIVE (NEGATIVE) U Cannabinoids Screen NEGATIVE (NEGATIVE) Ur Drug Screen Comment CUTOFF CONC BELOW: 10/14/23 10/14/23 10/14/23 Range/Units 15:17 15:09 15:09 WBC (4.8-10.8) x10^3/uL RBC (4.70-6.10) 10^6/uL Hgb (14.0-18.0) g/dL Hct (42.0-52.0) % MCV (80.0-94.0) fL MCH (27.0-31.0) pg MCHC (32.0-36.0) g/dL RDW (12.0-15.0) % Plt Count (130-450) 10^3/uL MPV (7.4-11.4) fL Neut # (Auto) (1.5-6.6) 10^3/uL Lymph # (Auto) (1.5-3.5) 10^3/uL [place] # (Auto) (0.0-1.0) 10^3/uL Eos # (Auto) (0.0-0.7) 10^3/uL Baso # (Auto) (0.0-0.1) 10^3/uL Absolute Nucleated RBC x10^3/uL Nucleated RBC % /100WBC VBG pH 7.446 H (7.31-7.41) VBG pCO2 43.5 (41-51) mmHg VBG pO2 49.8 H (25-47) mmHg VBG HCO3 29.3 H (23-28) mmol/L VBG Total CO2 30.6 H (24-29) mmol/L VBG O2 Saturation 85.0 H (60-80) % VBG Base Excess 4.6 H (-2 - +2) mmol/L Sodium 155 H* (135-145) mmol/L Potassium 3.9 (3.5-4.5) mmol/L Chloride 115 H (101-111) mmol/L Carbon Dioxide 32 (21-32) mmol/L Anion Gap 8.0 (6-13) BUN 49 H (6-20) mg/dL Creatinine 1.3 (0.6-1.3) mg/dL Estimated GFR (MDRD) 53 L (>89) Glucose 129 H (74-104) mg/dL POC Whole Bld Glucose (70 - 100) mg/dL Calcium 9.7 (8.5-10.3) mg/dL Total Bilirubin 1.8 H (0.2-1.0) mg/dL AST 43 H (10-42) IU/L ALT 27 (10-60) IU/L Alkaline Phosphatase 57 (42-121) IU/L B-Natriuretic Peptide 1648 H (5-100) pg/mL Total Protein 7.0 (6.4-8.9) g/dL Albumin 3.9 (3.2-5.5) g/dL Globulin 3.1 (2.1-4.2) g/dL Albumin/Globulin Ratio 1.3 (1.0-2.2) Vitamin B12 (180-914) pg/mL Folate (5.90 - >24.8) ng/mL Procalcitonin Immunoas (<0.5) ng/mL TSH (0.34-5.60) uIU/mL Urine Color Urine Clarity (CLEAR) Urine pH (5.0-7.5) PH Ur Specific [place] (1.002-1.030) Urine Protein (NEGATIVE) mg/dL Urine Glucose (UA) (NEGATIVE) mg/dL Urine Ketones (NEGATIVE) mg/dL Urine Occult Blood (NEGATIVE) Urine Nitrite (NEGATIVE) Urine Bilirubin (NEGATIVE) Urine Urobilinogen (NORMAL) E.U./dL Ur Leukocyte Esterase (NEGATIVE) Urine RBC (0-5) /HPF Urine WBC (0-3) /HPF Ur Squamous Epith Cells (<= Few) Urine Bacteria (None Seen) /HPF Urine Casts /LPF Ur Microscopic Review Urine Culture Comments Nasal Adenovirus (PCR) Nasal B. parapertussis DNA (PCR) Nasal Coronavir 229E PCR Nasal Coronavir HKU1 PCR Nasal Coronavir NL63 PCR Nasal Coronavir OC43 PCR Nasal Enterovir/Rhinovir PCR Nasal Influenza B PCR Nasal Influenza A PCR Nasal Parainfluen 1 PCR Nasal Parainfluen 2 PCR Nasal Parainfluen 3 PCR Nasal Parainfluen 4 PCR Nasal RSV (PCR) Nasal B.pertussis DNA PCR Nasal C.pneumoniae (PCR) Shine Human Metapneumo PCR Nasal M.pneumoniae (PCR) Nasal SARS-CoV-2 (PCR) Urine Opiates Screen (NEGATIVE) Ur Buprenorphine Scrn (NEGATIVE) Ur Oxycodone Screen (NEGATIVE) Urine Methadone Screen (NEGATIVE) Ur Barbiturates Screen (NEGATIVE) Ur Tricyclics Screen (NEGATIVE) Ur Phencyclidine Scrn (NEGATIVE) Ur Amphetamine Screen (NEGATIVE) U Methamphetamines Scrn (NEGATIVE) U Benzodiazepines Scrn (NEGATIVE) Urine Cocaine Screen (NEGATIVE) U Cannabinoids Screen (NEGATIVE) Ur Drug Screen Comment 10/14/23 10/14/23 Range/Units 15:09 15:00 WBC 14.7 H (4.8-10.8) x10^3/uL RBC 4.56 L (4.70-6.10) 10^6/uL Hgb 13.9 L (14.0-18.0) g/dL Hct 44.5 (42.0-52.0) % MCV 97.6 H (80.0-94.0) fL MCH 30.5 (27.0-31.0) pg MCHC 31.2 L (32.0-36.0) g/dL RDW 15.3 H (12.0-15.0) % Plt Count 281 (130-450) 10^3/uL MPV 11.3 (7.4-11.4) fL Neut # (Auto) 11.8 H (1.5-6.6) 10^3/uL Lymph # (Auto) 1.4 L (1.5-3.5) 10^3/uL [place] # (Auto) 1.1 H (0.0-1.0) 10^3/uL Eos # (Auto) 0.2 (0.0-0.7) 10^3/uL Baso # (Auto) 0.1 (0.0-0.1) 10^3/uL Absolute Nucleated RBC 0.00 x10^3/uL Nucleated RBC % 0.0 /100WBC VBG pH (7.31-7.41) VBG pCO2 (41-51) mmHg VBG pO2 (25-47) mmHg VBG HCO3 (23-28) mmol/L VBG Total CO2 (24-29) mmol/L VBG O2 Saturation (60-80) % VBG Base Excess (-2 - +2) mmol/L Sodium (135-145) mmol/L Potassium (3.5-4.5) mmol/L Chloride (101-111) mmol/L Carbon Dioxide (21-32) mmol/L Anion Gap (6-13) BUN (6-20) mg/dL Creatinine (0.6-1.3) mg/dL Estimated GFR (MDRD) (>89) Glucose (74-104) mg/dL POC Whole Bld Glucose (70 - 100) mg/dL Calcium (8.5-10.3) mg/dL Total Bilirubin (0.2-1.0) mg/dL AST (10-42) IU/L ALT (10-60) IU/L Alkaline Phosphatase (42-121) IU/L B-Natriuretic Peptide (5-100) pg/mL Total Protein (6.4-8.9) g/dL Albumin (3.2-5.5) g/dL Globulin (2.1-4.2) g/dL Albumin/Globulin Ratio (1.0-2.2) Vitamin B12 (180-914) pg/mL Folate (5.90 - >24.8) ng/mL Procalcitonin Immunoas (<0.5) ng/mL TSH (0.34-5.60) uIU/mL Urine Color Urine Clarity (CLEAR) Urine pH (5.0-7.5) PH Ur Specific [place] (1.002-1.030) Urine Protein (NEGATIVE) mg/dL Urine Glucose (UA) (NEGATIVE) mg/dL Urine Ketones (NEGATIVE) mg/dL Urine Occult Blood (NEGATIVE) Urine Nitrite (NEGATIVE) Urine Bilirubin (NEGATIVE) Urine Urobilinogen (NORMAL) E.U./dL Ur Leukocyte Esterase (NEGATIVE) Urine RBC (0-5) /HPF Urine WBC (0-3) /HPF Ur Squamous Epith Cells (<= Few) Urine Bacteria (None Seen) /HPF Urine Casts /LPF Ur Microscopic Review Urine Culture Comments Nasal Adenovirus (PCR) NOT DETECTED Nasal B. parapertussis DNA (PCR) NOT DETECTED Nasal Coronavir 229E PCR NOT DETECTED Nasal Coronavir HKU1 PCR NOT DETECTED Nasal Coronavir NL63 PCR NOT DETECTED Nasal Coronavir OC43 PCR NOT DETECTED Nasal Enterovir/Rhinovir PCR NOT DETECTED Nasal Influenza B PCR NOT DETECTED Nasal Influenza A PCR NOT DETECTED Nasal Parainfluen 1 PCR NOT DETECTED Nasal Parainfluen 2 PCR NOT DETECTED Nasal Parainfluen 3 PCR NOT DETECTED Nasal Parainfluen 4 PCR NOT DETECTED Nasal RSV (PCR) NOT DETECTED Nasal B.pertussis DNA PCR NOT DETECTED Nasal C.pneumoniae (PCR) NOT DETECTED Shine Human Metapneumo PCR NOT DETECTED Nasal M.pneumoniae (PCR) NOT DETECTED Nasal SARS-CoV-2 (PCR) NOT DETECTED Urine Opiates Screen (NEGATIVE) Ur Buprenorphine Scrn (NEGATIVE) Ur Oxycodone Screen (NEGATIVE) Urine Methadone Screen (NEGATIVE) Ur Barbiturates Screen (NEGATIVE) Ur Tricyclics Screen (NEGATIVE) Ur Phencyclidine Scrn (NEGATIVE) Ur Amphetamine Screen (NEGATIVE) U Methamphetamines Scrn (NEGATIVE) U Benzodiazepines Scrn (NEGATIVE) Urine Cocaine Screen (NEGATIVE) U Cannabinoids Screen (NEGATIVE) Ur Drug Screen Comment - Diagnostic Imaging Diagnostic Imaging Results: positive: Final report reviewed (CT head: No acute intracranial pathology CXR: Prominent interstitial markings are improved compared to prior, may represent mild pulmonary edema. Elevation of left hemidiaphragm with left basilar atelectasis versus opacity.) Assessment/Plan - Problem List (1) Hypernatremia Impression: His hypernatremia is likely secondary to dehydration and poor oral intake, however I have been unable to verify his recent condition from SNF staff after his discharge from our hospital on 10/10/23. -His total body water deficit was approximately 5.34 L -Will continue D5 IV fluids at 75 cc/hr, which will correct his water deficit over approximately 72 hours. -Goal of correct should not exceed 8-10 meq in a 24 hour period. Currently he is dropping at an appropriate rate. -Daily BMP panel. TSH normal. (2) Acute metabolic encephalopathy Impression: His acute on chronic metabolic encephalopathy is likely secondary to his current hypernatremia. His leukocytosis is likely reactional to his acute issue as he had been treated appropriately for pneumonia with this chest x-ray overall improved from last admission. His urinalysis is unremarkable and his abdominal exam is benign. 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 -Treat his hypernatremia as noted above. -He was given 2 separate doses of Narcan in the emergency department without any significant effect. -Hold home Risperdal and gabapentin for the time being to minimize neurologic medications. -Work up infectious issues as noted below. -Can consider brain MRI if he does not clinically improve however we will have to contact family to clear him for MRI, which was an issue that was unresolved last admission. -TSH, B12, Folate normal. RPR pending. (3) Leukocytosis Impression: Most likely this is a stress-induced leukocytosis. He was recently treated with antibiotics for a left lower lobe pneumonia, with his current chest x-ray showing residual left lower lobe opacity though overall improved compared to prior. This may represent radiographic delay in resolution rather than true pathologic pneumonia as he has no other infectious issues/symptoms at this time. -Blood cultures pending from the emergency department. Check procalcitonin today. -Daily CBC. Has remained afebrile thus far. -Hold on starting IV antibiotics at this time unless he develops a fever or clinically develops sepsis. (4) Chronic congestive heart failure Impression: He has a reported history of chronic CHF however I am unclear what type he has as there is no echocardiogram in our system. Despite a BNP of over 1600, he does not appear volume overloaded at this time and rather it appears volume depleted. -Holding home Lasix at this time while we fluid resuscitate with D5 IV fluids. -Would likely need Lasix reinitiated prior to discharge. Continue to hold for now. -If he develops hypoxia or signs of fluid overload may need to initiate IV Lasix sooner rather than later. -If he develops clinical CHF this hospitalization, can obtain echocardiogram for further evaluation. Qualifiers: Heart failure type: unspecified Qualified Code(s): I50.9 - Heart failure, unspecified (5) Chronic atrial fibrillation Impression: He has a history of being on Xarelto in the past however did have a GI bleed in 2020 resulting in the discontinuation of anticoagulation going forward. He currently only takes aspirin 81 mg. -Holding oral medications for the time being given his poor mentation. -Monitor on telemetry. If he develops RVR, can give as needed IV metoprolol versus starting an infusion if needed. (6) Type II diabetes mellitus Impression: Typically only takes metformin at home. -Placed on sliding scale insulin every 6 hours while NPO and on D5 IV fluids. -May need Lantus if glucose is uncontrolled. 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 At baseline apparently he is disoriented due to his dementia and frequently pulls at items and rips off items as well. -Holding home Risperdal and sertraline for the time being as noted above. (8) HTN (hypertension) Impression: Currently normotensive to mildly hypertensive. -Holding oral Coreg and Lisinopril while n.p.o. due to his poor mentation. -If BP increases > 180, can have PRN medications. Qualifiers: Hypertension type: primary hypertension Qualified Code(s): I10 - Essential (primary) hypertension
[2023-10-15] MEDS ORDERED: LABETALOL 20 MG/4 ML SYRINGE IVP PRN (09:00)
[2023-10-15] MEDS: ENOXAPARIN 40 MG/0.4 ML SYRINGE SUBQ SCH (09:45)
[2023-10-16 06:09] LABS: BASOPHILS # (AUTO) 0.1 10^3/uL (0.0-0.1); BASOPHILS % (AUTO) 0.6 %; EOSINOPHILS # (AUTO) 0.3 10^3/uL (0.0-0.7); EOSINOPHILS % (AUTO) 2.2 %; HCT - HEMATOCRIT 44.2 % (42.0-52.0); HGB - HEMOGLOBIN 13.5 g/dL (14.0-18.0); LYMPHOCYTES # (AUTO) 1.3 10^3/uL (1.5-3.5); LYMPHOCYTES % (AUTO) 9.3 %; MEAN CORPUSCULAR HEMOGLOBIN 30.1 pg (27.0-31.0); MEAN CORPUSCULAR HGB CONC 30.5 g/dL (32.0-36.0); MEAN CORPUSCULAR VOLUME 98.7 fL (80.0-94.0); MEAN PLATELET VOLUME 11.7 fL (7.4-11.4); MONOCYTES # (AUTO) 1.2 10^3/uL (0.0-1.0); MONOCYTES % (AUTO) 8.7 %; NEUTROPHILS # (AUTO) 10.8 10^3/uL (1.5-6.6); NEUTROPHILS % (AUTO) 78.8 %; PLT - PLATELET COUNT 232 10^3/uL (130-450); RED BLOOD COUNT 4.48 10^6/uL (4.70-6.10); RED CELL DISTRIBUTION WIDTH 14.9 % (12.0-15.0); WHITE BLOOD COUNT 13.7 x10^3/uL (4.8-10.8)
[2023-10-16 06:27] LABS: CALCIUM 9.3 mg/dL (8.5-10.3); POTASSIUM 3.7 mmol/L (3.5-4.5)
[2023-10-16 08:10] LABS: RPR Non Reactive (Non Reactive)
--- NOTE | 2023-10-16 08:27 | PROVIDER PROGRESS NOTE ---
Subjective - Prog Note Date Prog Note Date: 10/16/23 Prog Note Time: 08:23 - Subjective Pt reports feeling: Improved Subjective: No acute events overnight. He has been improving and is more alert, at times able to follow simple commands and verbalize his name and a few other words per nursing. On my evaluation he wakes up and has some interaction with me, but does not follow commands or verbalize. Overall much better than admission, but not to his previous baseline (prior to last hospitalization, he was ambulatory and more interactive, but since his recent hospitalization he has been withdrawn and immobile). Objective - Vital Signs/Intake & Output Reviewed Vital Signs: Yes Vital Signs: Vital Signs x48h Temp Pulse Resp BP Pulse Ox 10/16/23 07:34 36.4 C L 102 H 18 147/77 H 95 10/16/23 06:15 36.4 C L 96 20 144/83 H 96 10/16/23 00:54 36.4 C L 72 24 150/81 H 96 Intake & Output: Intake & Output 10/13/23 10/14/23 10/15/23 10/16/23 23:59 23:59 23:59 23:59 Intake Total 70 1941.25 Output Total 100 Balance -30 1941.25 - Objective General Appearance: positive: Other (Appears chronically ill and older than stated age. Looks overall improved compared to yesterday and much improved from admission. More alert and responds to voice.) Eyes Bilateral: positive: Normal inspection, PERRL, EOMI ENT: positive: ENT inspection nml, Pharynx nml, Dry mucous membranes (Mucous membranes still dry but much better than admission) Neck: positive: Nml inspection, Thyroid nml, No JVD, Trachea midline Respiratory: positive: Chest non-tender, No respiratory distress, Breath sounds nml. negative: Wheezes, Rales, Rhonchi Cardiovascular: positive: Regular rate & rhythm, No murmur, No gallop Peripheral Pulses: 2+ Dorsalis pedis (R), 2+ Dorsalis pedis (L) Abdomen: positive: Non-tender, No organomegaly, Nml bowel sounds, No distention Skin: positive: Color nml, No rash, Warm, Dry Extremities: positive: Non-tender, Nml appearance, No pedal edema Neurologic/Psychiatric: positive: Other (Alert and interactive. Disoriented, does not follow commands for me. Moves all extremities spontaneously. No focal neuro deficit. CN II-XII appear grossly intact.) - Lab Results Fish Bones: 10/16/23 05:44 10/16/23 05:44 Other Labs: Lab Results x24hrs 10/16/23 10/16/23 10/16/23 Range/Units 06:27 05:44 05:44 WBC 13.7 H (4.8-10.8) x10^3/uL RBC 4.48 L (4.70-6.10) 10^6/uL Hgb 13.5 L (14.0-18.0) g/dL Hct 44.2 (42.0-52.0) % MCV 98.7 H (80.0-94.0) fL MCH 30.1 (27.0-31.0) pg MCHC 30.5 L (32.0-36.0) g/dL RDW 14.9 (12.0-15.0) % Plt Count 232 (130-450) 10^3/uL MPV 11.7 H (7.4-11.4) fL Neut # (Auto) 10.8 H (1.5-6.6) 10^3/uL Lymph # (Auto) 1.3 L (1.5-3.5) 10^3/uL [place] # (Auto) 1.2 H (0.0-1.0) 10^3/uL Eos # (Auto) 0.3 (0.0-0.7) 10^3/uL Baso # (Auto) 0.1 (0.0-0.1) 10^3/uL Absolute Nucleated RBC 0.00 x10^3/uL Nucleated RBC % 0.0 /100WBC Sodium 147 H (135-145) mmol/L Potassium 3.7 (3.5-4.5) mmol/L Chloride 111 (101-111) mmol/L Carbon Dioxide 29 (21-32) mmol/L Anion Gap 7.0 (6-13) BUN 32 H (6-20) mg/dL Creatinine 1.0 (0.6-1.3) mg/dL Estimated GFR (MDRD) 71 L (>89) Glucose 156 H (74-104) mg/dL POC Whole Bld Glucose 156 H (70 - 100) mg/dL Calcium 9.3 (8.5-10.3) mg/dL RPR (Non Reactive) 10/16/23 10/15/23 10/15/23 Range/Units 00:05 17:34 11:15 WBC (4.8-10.8) x10^3/uL RBC (4.70-6.10) 10^6/uL Hgb (14.0-18.0) g/dL Hct (42.0-52.0) % MCV (80.0-94.0) fL MCH (27.0-31.0) pg MCHC (32.0-36.0) g/dL RDW (12.0-15.0) % Plt Count (130-450) 10^3/uL MPV (7.4-11.4) fL Neut # (Auto) (1.5-6.6) 10^3/uL Lymph # (Auto) (1.5-3.5) 10^3/uL [place] # (Auto) (0.0-1.0) 10^3/uL Eos # (Auto) (0.0-0.7) 10^3/uL Baso # (Auto) (0.0-0.1) 10^3/uL Absolute Nucleated RBC x10^3/uL Nucleated RBC % /100WBC Sodium (135-145) mmol/L Potassium (3.5-4.5) mmol/L Chloride (101-111) mmol/L Carbon Dioxide (21-32) mmol/L Anion Gap (6-13) BUN (6-20) mg/dL Creatinine (0.6-1.3) mg/dL Estimated GFR (MDRD) (>89) Glucose (74-104) mg/dL POC Whole Bld Glucose 142 H 155 H 153 H (70 - 100) mg/dL Calcium (8.5-10.3) mg/dL RPR (Non Reactive) 10/15/23 Range/Units 05:31 WBC (4.8-10.8) x10^3/uL RBC (4.70-6.10) 10^6/uL Hgb (14.0-18.0) g/dL Hct (42.0-52.0) % MCV (80.0-94.0) fL MCH (27.0-31.0) pg MCHC (32.0-36.0) g/dL RDW (12.0-15.0) % Plt Count (130-450) 10^3/uL MPV (7.4-11.4) fL Neut # (Auto) (1.5-6.6) 10^3/uL Lymph # (Auto) (1.5-3.5) 10^3/uL [place] # (Auto) (0.0-1.0) 10^3/uL Eos # (Auto) (0.0-0.7) 10^3/uL Baso # (Auto) (0.0-0.1) 10^3/uL Absolute Nucleated RBC x10^3/uL Nucleated RBC % /100WBC Sodium (135-145) mmol/L Potassium (3.5-4.5) mmol/L Chloride (101-111) mmol/L Carbon Dioxide (21-32) mmol/L Anion Gap (6-13) BUN (6-20) mg/dL Creatinine (0.6-1.3) mg/dL Estimated GFR (MDRD) (>89) Glucose (74-104) mg/dL POC Whole Bld Glucose (70 - 100) mg/dL Calcium (8.5-10.3) mg/dL RPR Non Reactive (Non Reactive) Sepsis Event Note (H) - Evaluation Current Stage of Sepsis: Ruled out Assessment/Plan - Problem List (1) Hypernatremia Impression: His hypernatremia is likely secondary to dehydration and poor oral intake. Speaking with staff at [facility], he had not been eating or drinking since his recent discharge on 10/10/23. -His total body water deficit was approximately 5.34 L at the time of admission. -Was placed on D5 IV fluids at 75 cc/hr at admission, with goal to correct free water deficit over 72 hours. Still have at least 24 hours left to give fluids. -Sodium is 147 today; he is improving, though slightly slower than anticipated. Will increase IV fluids to 100 cc/hr. -Goal of correct should not exceed 8-10 meq in a 24 hour period. -Daily BMP panel. TSH normal. (2) Acute metabolic encephalopathy Impression: His acute on chronic metabolic encephalopathy is likely secondary to his hypern atremia. His leukocytosis is likely reactional to his acute issue as he had been treated appropriately for pneumonia with this chest x-ray overall improved from last admission. His urinalysis is unremarkable and his abdominal exam is benign. Primary JAVA GROOVY DEVELOPER infection is unlikely as he is afebrile and has no neck stiffness. -Treat his hypernatremia as noted above. -He was given 2 separate doses of Narcan in the emergency department without any significant effect. -Holding home Risperdal and gabapentin for the time being to minimize neurologic medications. -TSH, B12, Folate normal. RPR non-reactive. -Mentation is improving with treatment of his hypernatremia. (3) Leukocytosis Impression: Most likely this is a stress-induced leukocytosis. He was recently treated with antibiotics for a left lower lobe pneumonia, with his current chest x-ray showing residual left lower lobe opacity though overall improved compared to prior. This may represent radiographic delay in resolution rather than true pathologic pneumonia as he has no other infectious issues/symptoms at this time. -Blood cultures NGTD. Procalcitonin normal. -Daily CBC. Has remained afebrile thus far. -Hold on starting IV antibiotics at this time unless he develops a fever or clinically develops sepsis. -Given ongoing leukocytosis, will repeat chest x-ray to evaluate for radiographic changes. (4) Chronic congestive heart failure Impression: He has a reported history of chronic CHF however I am unclear what type he has as there is no echocardiogram in our system. Despite a BNP of over 1600 on admission, he did not appear volume overloaded on presentation (was significantly dehydrated). -Holding home Lasix at this time while we fluid resuscitate with D5 IV fluids. -Would likely need Lasix reinitiated prior to discharge. Continue to hold for now, possibly resume in next 1-2 days. -If he develops hypoxia or signs of fluid overload may need to initiate IV Lasix. -If he develops clinical CHF this hospitalization, can obtain echocardiogram for further evaluation. Qualifiers: Heart failure type: unspecified Qualified Code(s): I50.9 - Heart failure, unspecified (5) Type II diabetes mellitus Impression: Typically only takes metformin at home. -Continue sliding scale insulin every 6 hours while NPO and on D5 IV fluids. -Start Lantus 5 units daily for now. Qualifiers: Diabetes mellitus retirement insulin use: without truck terminal manager use Diabetes mellitus complication status: without complication Qualified Code(s): E11.9 - Type 2 diabetes mellitus without complications (6) Chronic atrial fibrillation Impression: He has a history of being on Xarelto in the past however did have a GI bleed in 2020 resulting in the discontinuation of anticoagulation going forward. He currently only takes aspirin 81 mg. -Holding oral medications for the time being given his poor mentation. Bedside nursing swallow still unsafe to swallow. -Monitor on telemetry. If he develops RVR, can give as needed IV metoprolol versus starting an infusion if needed. (7) Hx of schizophrenia Impression: Currently is a long-term resident of [facility]. At baseline apparently he is disoriented due to his dementia and frequently pulls at items and rips off items as well. Per social work and hospital staff, the patient's family lives in [place] and the son is essentially estranged. He does not participate in the care for his father and none of the family members under the demographics section are interested in discussing goals of care, future plans, etc.. -Holding home Risperdal and sertraline for the time being as noted above. (8) HTN (hypertension) Impression: Currently normotensive to mildly hypertensive. -Holding oral Coreg and Lisinopril while n.p.o. due to his poor mentation. -If BP increases > 180, can have PRN medications. Qualifiers: Hypertension type: primary hypertension Qualified Code(s): I10 - Essential (primary) hypertension
[2023-10-16] MEDS: DEXTROSE 5% 1,000 ML IV SCH (08:52)
--- NOTE | 2023-10-16 09:42 | XRAY Report ---
PROCEDURE: Chest 1V INDICATIONS: Evaluate for interval Pneumonia development TECHNIQUE: One view of the chest was acquired. COMPARISON: 10/14/2023 FINDINGS: Surgical changes and devices: None. Lungs and pleura: Elevated left hemidiaphragm. Stable left basilar opacity. Decreased interstitial o pacities. Mediastinum: Mediastinal contours appear normal. Heart size is normal. Bones and chest wall: No suspicious bony lesions. Overlying soft tissues appear unremarkable. IMPRESSION: Stable left basilar opacity, probably atelectasis in the setting of left hemidiaphragm elevation. Reviewed by: Filiberto Moreira MD on 10/16/2023 9:41 AM PDT Approved by: Filiberto Moreira MD on 10/16/2023 9:41 AM PDT Station ID: [id number]
[2023-10-16] MEDS: INSULIN GLARGINE-YFGN 300 UNIT/3 ML PEN SUBQ SCH (11:10)
[2023-10-17 06:00] LABS: BASOPHILS # (AUTO) 0.1 10^3/uL (0.0-0.1); BASOPHILS % (AUTO) 0.6 %; EOSINOPHILS # (AUTO) 0.5 10^3/uL (0.0-0.7); EOSINOPHILS % (AUTO) 4.4 %; HCT - HEMATOCRIT 42.1 % (42.0-52.0); HGB - HEMOGLOBIN 13.6 g/dL (14.0-18.0); LYMPHOCYTES # (AUTO) 1.4 10^3/uL (1.5-3.5); LYMPHOCYTES % (AUTO) 12.6 %; MEAN CORPUSCULAR HEMOGLOBIN 31.3 pg (27.0-31.0); MEAN CORPUSCULAR HGB CONC 32.3 g/dL (32.0-36.0); MEAN PLATELET VOLUME 11.4 fL (7.4-11.4); MONOCYTES # (AUTO) 0.8 10^3/uL (0.0-1.0); MONOCYTES % (AUTO) 7.6 %; NEUTROPHILS # (AUTO) 8.1 10^3/uL (1.5-6.6); NEUTROPHILS % (AUTO) 74.5 %; PLT - PLATELET COUNT 212 10^3/uL (130-450); RED BLOOD COUNT 4.34 10^6/uL (4.70-6.10); RED CELL DISTRIBUTION WIDTH 14.6 % (12.0-15.0); WHITE BLOOD COUNT 10.8 x10^3/uL (4.8-10.8)
[2023-10-17 06:23] LABS: CREATININE 0.9 mg/dL (0.6-1.3); POTASSIUM 3.4 mmol/L (3.5-4.5)
[2023-10-17 10:55] LABS: MAGNESIUM 1.9 mg/dL (1.7-2.3); PHOSPHORUS 2.8 mg/dL (2.5-5.0)
[2023-10-17] MEDS: D5.45NS W/20 MEQ KCL 1,000 ML IV STA (10:59)
[2023-10-17] MEDS: POTASSIUM CHLOR 10 MEQ/100 ML 10 MEQ/100 ML BAG IV SCH (11:06)
--- NOTE | 2023-10-17 11:31 | PROVIDER PROGRESS NOTE ---
Subjective - Prog Note Date Prog Note Date: 10/17/23 Prog Note Time: 11:26 - Subjective Pt reports feeling: Improved Subjective: No acute events overnight. His sodium improved to 140 today and he is more alert/interactive today. He is more conversant with me today, but does not really answer too many questions. Moves all extremities spontaneously. Failed his nursing bedside swallow today. Spoke to his [id number] today (Heidy), regarding ongoing care. Advised that we should have a formal DPOA assigned, but also talked about the likelihood of him potentially needing a PEG tube this hospitalization, or even in the near future. Also noted he may pull at the PEG if one is placed. Briefly discussed goals of care, such as transitioning to DNR or possibly even transitioning as far as comfort measures. Heidy indicates she will talk to her (Basilio; patients son) today. She would like a care meeting set up tomorrow to discuss ongoing care, and she will talk about the issues noted above with Basilio today. Also mentioned that we may try to perform a brain MRI to rule out CVA. Objective - Vital Signs/Intake & Output Reviewed Vital Signs: Yes Vital Signs: Vital Signs x48h Temp Pulse Resp BP Pulse Ox 10/17/23 08:17 36.4 C L 91 20 155/85 H 91 L Intake & Output: Intake & Output 10/14/23 10/15/23 10/16/23 10/17/23 23:59 23:59 23:59 23:59 Intake Total 70 1941.25 1999 1446 Output Total 100 Balance -30 1941.25 1999 1446 - Objective General Appearance: positive: Other (Appears chronically ill and older than stated age. He is alert and appropriately interactive today however he is disoriented. He follows some commands though not all commands. Able to verbalize some words.) Eyes Bilateral: positive: Normal inspection, PERRL, EOMI ENT: positive: ENT inspection nml, Pharynx nml, No signs of dehydration Neck: positive: Nml inspection, Thyroid nml, No JVD, Trachea midline Respiratory: positive: No respiratory distress, Breath sounds nml Cardiovascular: positive: Regular rate & rhythm, No murmur, No gallop Peripheral Pulses: 2+ Dorsalis pedis (R), 2+ Dorsalis pedis (L) Abdomen: positive: Non-tender, No organomegaly, Nml bowel sounds, No distention Back: positive: Nml inspection Skin: positive: Color nml, No rash, Warm, Dry Neurologic/Psychiatric: positive: CN's nml (2-12), Motor nml. negative: Oriented x3 - Lab Results Fish Bones: 10/17/23 05:52 10/17/23 05:52 Other Labs: Lab Results x24hrs 10/17/23 10/17/23 10/17/23 Range/Units 11:10 05:52 05:52 WBC (4.8-10.8) x10^3/uL RBC (4.70-6.10) 10^6/uL Hgb (14.0-18.0) g/dL Hct (42.0-52.0) % MCV (80.0-94.0) fL MCH (27.0-31.0) pg MCHC (32.0-36.0) g/dL RDW (12.0-15.0) % Plt Count (130-450) 10^3/uL MPV (7.4-11.4) fL Neut # (Auto) (1.5-6.6) 10^3/uL Lymph # (Auto) (1.5-3.5) 10^3/uL [place] # (Auto) (0.0-1.0) 10^3/uL Eos # (Auto) (0.0-0.7) 10^3/uL Baso # (Auto) (0.0-0.1) 10^3/uL Absolute Nucleated RBC x10^3/uL Nucleated RBC % /100WBC Sodium 140 (135-145) mmol/L Potassium 3.4 L (3.5-4.5) mmol/L Chloride 106 (101-111) mmol/L Carbon Dioxide 27 (21-32) mmol/L Anion Gap 7.0 (6-13) BUN 25 H (6-20) mg/dL Creatinine 0.9 (0.6-1.3) mg/dL Estimated GFR (MDRD) 81 L (>89) Glucose 156 H (74-104) mg/dL POC Whole Bld Glucose 143 H (70 - 100) mg/dL Calcium 9.0 (8.5-10.3) mg/dL Phosphorus 2.8 (2.5-5.0) mg/dL Magnesium 1.9 (1.7-2.3) mg/dL 10/17/23 10/17/23 10/17/23 Range/Units 05:52 05:51 00:11 WBC 10.8 (4.8-10.8) x10^3/uL RBC 4.34 L (4.70-6.10) 10^6/uL Hgb 13.6 L (14.0-18.0) g/dL Hct 42.1 (42.0-52.0) % MCV 97.0 H (80.0-94.0) fL MCH 31.3 H (27.0-31.0) pg MCHC 32.3 (32.0-36.0) g/dL RDW 14.6 (12.0-15.0) % Plt Count 212 (130-450) 10^3/uL MPV 11.4 (7.4-11.4) fL Neut # (Auto) 8.1 H (1.5-6.6) 10^3/uL Lymph # (Auto) 1.4 L (1.5-3.5) 10^3/uL [place] # (Auto) 0.8 (0.0-1.0) 10^3/uL Eos # (Auto) 0.5 (0.0-0.7) 10^3/uL Baso # (Auto) 0.1 (0.0-0.1) 10^3/uL Absolute Nucleated RBC 0.00 x10^3/uL Nucleated RBC % 0.0 /100WBC Sodium (135-145) mmol/L Potassium (3.5-4.5) mmol/L Chloride (101-111) mmol/L Carbon Dioxide (21-32) mmol/L Anion Gap (6-13) BUN (6-20) mg/dL Creatinine (0.6-1.3) mg/dL Estimated GFR (MDRD) (>89) Glucose (74-104) mg/dL POC Whole Bld Glucose 142 H 143 H (70 - 100) mg/dL Calcium (8.5-10.3) mg/dL Phosphorus (2.5-5.0) mg/dL Magnesium (1.7-2.3) mg/dL 10/16/23 Range/Units 17:34 WBC (4.8-10.8) x10^3/uL RBC (4.70-6.10) 10^6/uL Hgb (14.0-18.0) g/dL Hct (42.0-52.0) % MCV (80.0-94.0) fL MCH (27.0-31.0) pg MCHC (32.0-36.0) g/dL RDW (12.0-15.0) % Plt Count (130-450) 10^3/uL MPV (7.4-11.4) fL Neut # (Auto) (1.5-6.6) 10^3/uL Lymph # (Auto) (1.5-3.5) 10^3/uL [place] # (Auto) (0.0-1.0) 10^3/uL Eos # (Auto) (0.0-0.7) 10^3/uL Baso # (Auto) (0.0-0.1) 10^3/uL Absolute Nucleated RBC x10^3/uL Nucleated RBC % /100WBC Sodium (135-145) mmol/L Potassium (3.5-4.5) mmol/L Chloride (101-111) mmol/L Carbon Dioxide (21-32) mmol/L Anion Gap (6-13) BUN (6-20) mg/dL Creatinine (0.6-1.3) mg/dL Estimated GFR (MDRD) (>89) Glucose (74-104) mg/dL POC Whole Bld Glucose 141 H (70 - 100) mg/dL Calcium (8.5-10.3) mg/dL Phosphorus (2.5-5.0) mg/dL Magnesium (1.7-2.3) mg/dL - Diagnostic Imaging Diagnostic Imaging Comments: Chest X-ray: Stable left basilar opacity, probably atelectasis in the setting of left hemidiaphragm elevation. Sepsis Event Note (H) - Evaluation Current Stage of Sepsis: Ruled out Assessment/Plan - Problem List (1) Hypernatremia Impression: His hypernatremia is likely secondary to dehydration and poor oral intake. Speaking with staff at [facility], he had not been eating or drinking since his recent discharge on 10/10/23. -His total body water deficit was approximately 5.34 L at the time of admission. -Was placed on D5 IV fluids on admission. Sodium level normal today and he appears adequately hydrated. -Daily BMP panel. TSH normal. -Issue now is that he is still failing swallow evaluated. Discussed with VIDEO PRODUCTION ENGINEER, who knows him from his SNF, who has concerns for possible underlying CVA as a cause. See below under dysphagia problem. -Will change fluids to D5 1/2NS + 20KCl at 50 cc/hr while NPO. (2) Dysphagia Impression: He is still failing his bedside swallow evaluation (nursing) at this time, due to lack of coordination of his tongue (oral phase). I spoke with VIDEO PRODUCTION ENGINEER, who knows him for several years, and she has concerns he may have an underlying CVA as a cause. It is also possible that his dementia is a cause as well. No evidence for tardive dyskinesia. -Will continue NPO status for now. VIDEO PRODUCTION ENGINEER to evaluate tomorrow. -Obtain brain MRI to rule out CVA. -Will give Haldol prior to MRI given his restlessness. -When I spoke with Heidy, his [id number], I broached the subject of possibly needing a PEG tube for nutrition. She will discuss this with Basilio (patients son, legal next of kin) and she would like a care conference scheduled for tomorrow to discuss plan of care. During this phone call, I also touched on goals of care, including the possibility of DNR and/or transition to comfort care only status vs continuing current management. She will discuss this with Basilio as well. (3) Acute metabolic encephalopathy Impression: His acute on chronic metabolic encephalopathy is likely secondary to his hypernatremia. His leukocytosis is likely reactional to his acute issue as he had been treated appropriately for pneumonia with this chest x-ray overall improved from last admission. His urinalysis is unremarkable and his abdominal exam is benign. Primary INCIDENT MANAGER infection is unlikely as he is afebrile and has no neck stiffness. -Treat his hypernatremia as noted above. -He was given 2 separate doses of Narcan in the emergency department without any significant effect. -Holding home Risperdal and gabapentin for the time being to minimize neurologic medications. -TSH, B12, Folate normal. RPR non-reactive. -Mentation is improving with treatment of his hypernatremia. -Obtain Brain MRI to rule out CVA as noted above. No focal neuro deficit at this time, though has dysphagia. (4) Leukocytosis Impression: Most likely this is a stress-induced leukocytosis. He was recently treated with antibiotics for a left lower lobe pneumonia, with his current chest x-ray showing residual left lower lobe opacity though overall improved compared to prior. This may represent radiographic delay in resolution rather than true pathologic pneumonia as he has no other infectious issues/symptoms at this time. -Blood cultures NGTD. Procalcitonin normal. -Daily CBC. Has remained afebrile thus far. -Hold on starting IV antibiotics at this time unless he develops a fever or clinically develops sepsis. -Repeat chest x-ray showed improvement in previous changes. -Leukocytosis resolved today. (5) Chronic congestive heart failure Impression: He has a reported history of chronic CHF however I am unclear what type he has as there is no echocardiogram in our system. Despite a BNP of over 1600 on admission, he did not appear volume overloaded on presentation (was significantly dehydrated). -Holding home Lasix at this time while we fluid resuscitate with D5 IV fluids. -Would likely need Lasix reinitiated prior to discharge. Continue to hold for now, possibly resume in next 1-2 days. -If he develops hypoxia or signs of fluid overload may need to initiate IV Lasix. -If he develops clinical CHF this hospitalization, can obtain echocardiogram for further evaluation. Qualifiers: Heart failure type: unspecified Qualified Code(s): I50.9 - Heart failure, unspecified (6) Type II diabetes mellitus Impression: Typically only takes metformin at home. -Continue sliding scale insulin every 6 hours while NPO and on D5 IV fluids. -Start Lantus 5 units daily for now. Qualifiers: Diabetes mellitus alf insulin use: without maintenance leader use Diabetes mellitus complication status: without complication Qualified Code(s): E11.9 - Type 2 diabetes mellitus without complications (7) Chronic atrial fibrillation Impression: He has a history of being on Xarelto in the past however did have a GI bleed in 2020 resulting in the discontinuation of anticoagulation going forward. He currently only takes aspirin 81 mg. -Holding oral medications for the time being given his poor mentation. Bedside nursing swallow still unsafe to swallow. -Monitor on telemetry. If he develops RVR, can give as needed IV metoprolol versus starting an infusion if needed. (8) Hx of schizophrenia Impression: Currently is a long-term resident of [facility]. At baseline apparently he is disoriented due to his dementia and frequently pulls at items and rips off items as well. Per social work and hospital staff, the patient's family lives in [place] and the son is essentially estranged. He does not participate in the care for his father and none of the family members under the demographics section are interested in discussing goals of care, future plans, etc.. -Holding home Risperdal and sertraline for the time being as noted above. (9) HTN (hypertension) Impression: Currently normotensive to mildly hypertensive. -Holding oral Coreg and Lisinopril while n.p.o. due to his poor mentation. -If BP increases > 180, can have PRN medications. Qualifiers: Hypertension type: primary hypertension Qualified Code(s): I10 - Essential (primary) hypertension
[2023-10-17] MEDS: HALOPERIDOL 5 MG/ML VIAL IM PRN (14:45)
[2023-10-18 05:15] LABS: BASOPHILS # (AUTO) 0.1 10^3/uL (0.0-0.1); BASOPHILS % (AUTO) 0.8 %; EOSINOPHILS # (AUTO) 0.5 10^3/uL (0.0-0.7); EOSINOPHILS % (AUTO) 4.5 %; HCT - HEMATOCRIT 43.2 % (42.0-52.0); HGB - HEMOGLOBIN 13.8 g/dL (14.0-18.0); LYMPHOCYTES # (AUTO) 1.5 10^3/uL (1.5-3.5); LYMPHOCYTES % (AUTO) 12.6 %; MEAN CORPUSCULAR HEMOGLOBIN 31.1 pg (27.0-31.0); MEAN CORPUSCULAR HGB CONC 31.9 g/dL (32.0-36.0); MEAN CORPUSCULAR VOLUME 97.3 fL (80.0-94.0); MEAN PLATELET VOLUME 12.1 fL (7.4-11.4); MONOCYTES % (AUTO) 8.7 %; NEUTROPHILS # (AUTO) 8.7 10^3/uL (1.5-6.6); NEUTROPHILS % (AUTO) 73.1 %; PLT - PLATELET COUNT 230 10^3/uL (130-450); RED BLOOD COUNT 4.44 10^6/uL (4.70-6.10); RED CELL DISTRIBUTION WIDTH 14.6 % (12.0-15.0); WHITE BLOOD COUNT 11.9 x10^3/uL (4.8-10.8)
[2023-10-18 05:34] LABS: CALCIUM 9.2 mg/dL (8.5-10.3); CREATININE 0.9 mg/dL (0.6-1.3); POTASSIUM 3.9 mmol/L (3.5-4.5)
--- NOTE | 2023-10-18 13:07 | PROVIDER PROGRESS NOTE ---
Subjective - Prog Note Date Prog Note Date: 10/18/23 Prog Note Time: 13:05 - Subjective Pt reports feeling: No change Subjective: No acute events overnight, though he is intermittently agitated and pulling at lines. Attempted to obtain brain MRI yesterday but he was too agitated despite receiving Haldol. We were unable to obtain any brain imaging. This morning he is awake/alert however does not typically follow commands or interact much. Objective - Vital Signs/Intake & Output Reviewed Vital Signs: Yes Vital Signs: Vital Signs x48h Temp Pulse Resp BP Pulse Ox 10/18/23 09:00 36.3 C L 89 18 145/81 H 96 Intake & Output: Intake & Output 10/15/23 10/16/23 10/17/23 10/18/23 23:59 23:59 23:59 23:59 Intake Total 1999 1779.333 866.667 Balance 1999 1779.333 866.667 - Objective General Appearance: positive: Other (Appears chronically ill and older than stated age. He is alert and appropriately interactive today however he is disoriented. He follows some commands though not all commands. Able to verbalize some words.) Eyes Bilateral: positive: Normal inspection, PERRL, EOMI ENT: positive: ENT inspection nml, Pharynx nml, No signs of dehydration Neck: positive: Nml inspection, Thyroid nml, No JVD, Trachea midline Respiratory: positive: Chest non-tender, No respiratory distress, Breath sounds nml. negative: Wheezes, Rales, Rhonchi Cardiovascular: positive: Regular rate & rhythm, No murmur, No gallop Peripheral Pulses: 2+ Dorsalis pedis (R), 2+ Dorsalis pedis (L) Abdomen: positive: Non-tender, No organomegaly, Nml bowel sounds, No distention Back: positive: Nml inspection Skin: positive: Color nml, No rash, Warm, Dry Extremities: positive: No pedal edema Neurologic/Psychiatric: positive: CN's nml (2-12), Motor nml. negative: Jamison ented x3 - Lab Results Fish Bones: 10/18/23 04:56 10/18/23 04:56 Other Labs: Lab Results x24hrs 10/18/23 10/18/23 10/18/23 Range/Units 11:38 05:51 04:56 WBC (4.8-10.8) x10^3/uL RBC (4.70-6.10) 10^6/uL Hgb (14.0-18.0) g/dL Hct (42.0-52.0) % MCV (80.0-94.0) fL MCH (27.0-31.0) pg MCHC (32.0-36.0) g/dL RDW (12.0-15.0) % Plt Count (130-450) 10^3/uL MPV (7.4-11.4) fL Neut # (Auto) (1.5-6.6) 10^3/uL Lymph # (Auto) (1.5-3.5) 10^3/uL [place] # (Auto) (0.0-1.0) 10^3/uL Eos # (Auto) (0.0-0.7) 10^3/uL Baso # (Auto) (0.0-0.1) 10^3/uL Absolute Nucleated RBC x10^3/uL Nucleated RBC % /100WBC Sodium 140 (135-145) mmol/L Potassium 3.9 (3.5-4.5) mmol/L Chloride 107 (101-111) mmol/L Carbon Dioxide 25 (21-32) mmol/L Anion Gap 8.0 (6-13) BUN 22 H (6-20) mg/dL Creatinine 0.9 (0.6-1.3) mg/dL Estimated GFR (MDRD) 81 L (>89) Glucose 127 H (74-104) mg/dL POC Whole Bld Glucose 129 H 126 H (70 - 100) mg/dL Calcium 9.2 (8.5-10.3) mg/dL 10/18/23 10/17/23 10/17/23 Range/Units 04:56 23:44 18:55 WBC 11.9 H (4.8-10.8) x10^3/uL RBC 4.44 L (4.70-6.10) 10^6/uL Hgb 13.8 L (14.0-18.0) g/dL Hct 43.2 (42.0-52.0) % MCV 97.3 H (80.0-94.0) fL MCH 31.1 H (27.0-31.0) pg MCHC 31.9 L (32.0-36.0) g/dL RDW 14.6 (12.0-15.0) % Plt Count 230 (130-450) 10^3/uL MPV 12.1 H (7.4-11.4) fL Neut # (Auto) 8.7 H (1.5-6.6) 10^3/uL Lymph # (Auto) 1.5 (1.5-3.5) 10^3/uL [place] # (Auto) 1.0 (0.0-1.0) 10^3/uL Eos # (Auto) 0.5 (0.0-0.7) 10^3/uL Baso # (Auto) 0.1 (0.0-0.1) 10^3/uL Absolute Nucleated RBC 0.00 x10^3/uL Nucleated RBC % 0.0 /100WBC Sodium (135-145) mmol/L Potassium (3.5-4.5) mmol/L Chloride (101-111) mmol/L Carbon Dioxide (21-32) mmol/L Anion Gap (6-13) BUN (6-20) mg/dL Creatinine (0.6-1.3) mg/dL Estimated GFR (MDRD) (>89) Glucose (74-104) mg/dL POC Whole Bld Glucose 115 H 118 H (70 - 100) mg/dL Calcium (8.5-10.3) mg/dL Sepsis Event Note (H) - Evaluation Current Stage of Sepsis: Ruled out Assessment/Plan - Problem List (1) Hypernatremia Impression: His hypernatremia is likely secondary to dehydration and poor oral intake. Speaking with staff at [facility], he had not been eating or drinking since his recent discharge on 10/10/23. -His total body water deficit was approximately 5.34 L at the time of admission. Was placed on IV D5 fluids, with resolution of hypernatremia. -Daily BMP panel. -Issue now is that he is still failing swallow evaluation. Discussed with SUPERVISOR STEFFEN HOUSE, who knows him from his SNF, who has concerns for possible underlying CVA as a cause. See below under dysphagia problem. -Will continue fluids D5 1/2NS + 20KCl at 50 cc/hr while NPO. (2) Dysphagia Impression: He is still failing his bedside swallow evaluation (nursing) at this time, due to lack of coordination of his tongue (oral phase). I spoke with SUPERVISOR STEFFEN HOUSE, who knows him for several years, and she has concerns he may have an underlying CVA as a cause. It is also possible that his dementia is a cause as well. No evidence for tardive dyskinesia. -Will continue NPO status for now. SUPERVISOR STEFFEN HOUSE to evaluate today. -Unable to obtain brain MRI as he is too agitated despite haldol. Would require anesthesia to obtain MRI, which we cannot perform at our facility. No need to transfer solely for this test either. -When I spoke yesterday with Heidy, his [id number], I broached the subject of possibly needing a PEG tube for nutrition. She will discuss this with Basilio (patients son, legal next of kin). During this phone call, I also touched on goals of care, including the possibility of DNR and/or transition to comfort care only status vs continuing current management. She will discuss this with Basilio as well. -Will reach back out to family later this afternoon to discuss further. (3) Acute metabolic encephalopathy Impression: His acute on chronic metabolic encephalopathy is likely secondary to his hypernatremia. His leukocytosis is likely reactional to his acute issue as he had been treated appropriately for pneumonia with this chest x-ray overall improved from last admission. His urinalysis is unremarkable and his abdominal exam is benign. Primary ART DEPARTMENT HEAD infection is unlikely as he is afebrile and has no neck stiffness. -Treat his hypernatremia as noted above. -He was given 2 separate doses of Narcan in the emergency department without any significant effect. -Holding home Risperdal and gabapentin due to inability to swallow. -TSH, B12, Folate normal. RPR non-reactive. -Mentation is improving with treatment of his hypernatremia. Likely back to his baseline. (4) Leukocytosis Impression: Most likely this is a stress-induced leukocytosis. He was recently treated with antibiotics for a left lower lobe pneumonia, with his current chest x-ray showing residual left lower lobe opacity though overall improved compared to prior. This may represent radiographic delay in resolution rather than true pathologic pneumonia as he has no other infectious issues/symptoms at this time. -Blood cultures NGTD. Procalcitonin normal. -Daily CBC. Has remained afebrile thus far. -Hold on starting IV antibiotics at this time unless he develops a fever or clinically develops sepsis. -Repeat chest x-ray showed improvement in previous changes. (5) Chronic congestive heart failure Impression: He has a reported history of chronic CHF however I am unclear what type he has as there is no echocardiogram in our system. Despite a BNP of over 1600 on admission, he did not appear volume overloaded on presentation (was significantly dehydrated). -Holding home Lasix at this time while we fluid resuscitate with D5 IV fluids. -Would likely need Lasix reinitiated prior to discharge. Continue to hold for now due to NPO status. Not volume overloaded, thus no need for IV lasix currently. -If he develops hypoxia or signs of fluid overload may need to initiate IV Las ix. -If he develops clinical CHF this hospitalization, can obtain echocardiogram for further evaluation. Qualifiers: Heart failure type: unspecified Qualified Code(s): I50.9 - Heart failure, unspecified (6) Type II diabetes mellitus Impression: Typically only takes metformin at home. -Continue sliding scale insulin every 6 hours while NPO and on D5 IV fluids. -Continue Lantus 5 units daily for now. Qualifiers: Diabetes mellitus intermediate project manager insulin use: without care home use Diabetes mellitus complication status: without complication Qualified Code(s): E11.9 - Type 2 diabetes mellitus without complications (7) Chronic atrial fibrillation Impression: He has a history of being on Xarelto in the past however did have a GI bleed in 2020 resulting in the discontinuation of anticoagulation going forward. He currently only takes aspirin 81 mg. -Holding oral medications for the time being given his poor mentation. Bedside nursing swallow still unsafe to swallow. -Monitor on telemetry. If he develops RVR, can give as needed IV metoprolol versus starting an infusion if needed. (8) Hx of schizophrenia Impression: Currently is a long-term resident of [facility]. At baseline apparently he is disoriented due to his dementia and frequently pulls at items and rips off items as well. Per social work and hospital staff, the patient's family lives in [place] and the son is essentially estranged. He does not participate in the care for his father and none of the family members under the demographics section are interested in discussing goals of care, future plans, etc.. -Holding home Risperdal and sertraline for the time being as noted above. -Try sublingual Zyprexa 5 mg qHS. (9) HTN (hypertension) Impression: Currently normotensive to mildly hypertensive. -Holding oral Coreg and Lisinopril while n.p.o. due to his poor mentation. -If BP increases > 180, can have PRN medications. Qualifiers: Hypertension type: primary hypertension Qualified Code(s): I10 - Essential (primary) hypertension
[2023-10-18] MEDS: OLANZapine ODT 5 MG TABLET TL SCH (21:25)
[2023-10-18] MEDS: INSULIN LISPRO 300 UNIT/3 ML PEN SUBQ SCH (21:25)
[2023-10-19 05:45] LABS: BASOPHILS # (AUTO) 0.1 10^3/uL (0.0-0.1); BASOPHILS % (AUTO) 0.7 %; EOSINOPHILS # (AUTO) 0.6 10^3/uL (0.0-0.7); HGB - HEMOGLOBIN 13.2 g/dL (14.0-18.0); LYMPHOCYTES # (AUTO) 1.6 10^3/uL (1.5-3.5); LYMPHOCYTES % (AUTO) 13.7 %; MEAN CORPUSCULAR HEMOGLOBIN 31.1 pg (27.0-31.0); MEAN CORPUSCULAR HGB CONC 32.2 g/dL (32.0-36.0); MEAN CORPUSCULAR VOLUME 96.7 fL (80.0-94.0); MEAN PLATELET VOLUME 11.6 fL (7.4-11.4); MONOCYTES # (AUTO) 1.1 10^3/uL (0.0-1.0); MONOCYTES % (AUTO) 9.8 %; NEUTROPHILS # (AUTO) 8.2 10^3/uL (1.5-6.6); NEUTROPHILS % (AUTO) 70.5 %; PLT - PLATELET COUNT 237 10^3/uL (130-450); RED BLOOD COUNT 4.24 10^6/uL (4.70-6.10); WHITE BLOOD COUNT 11.7 x10^3/uL (4.8-10.8)
[2023-10-19 06:09] LABS: CALCIUM 8.9 mg/dL (8.5-10.3); CREATININE 0.9 mg/dL (0.6-1.3); POTASSIUM 3.6 mmol/L (3.5-4.5)
--- NOTE | 2023-10-19 15:40 | PROVIDER PROGRESS NOTE ---
Subjective - Prog Note Date Prog Note Date: 10/19/23 Prog Note Time: 15:10 - Subjective Pt reports feeling: No change Subjective: No acute events overnight however the patient is more lethargic and drowsy this morning. This is in the setting of receiving sublingual Zyprexa last evening. He has no complaints however he does interact with me and denies any chest pain, abdominal pain, vomiting. He expressed to me that he enjoyed eating some food yesterday. I spoke with Heidy, the patient's [id number], and gave her an update of the clinical status. Described that we were unable to get an MRI and that we would have to sedate him too much to obtain this safely, thus we are not going to try to get an MRI in the future. I advised her that speech therapy evaluated him and he was able to eat a modified diet however his swallowing ability is still tenuous and could change at any moment, and told her that even though he may be able to eat for the next several days to several weeks, we would likely have the same issue arise in the near future. I have voiced my concerns that while a PEG tube can improve the nutrition aspect, that feel the patient will become too confused/agitated from PEG tube insertion and there is a very high risk of him pulling out the PEG tube and causing more harm. Heidy indicates that Basilio, the patient's son and legal next of kin, is currently at work and unable to speak on the phone but that she will relay this information to Basilio. Tomorrow we should have a better idea on whether they would want continued aggressive care versus other possibilities. Objective - Vital Signs/Intake & Output Reviewed Vital Signs: Yes Vital Signs: Vital Signs x48h Temp Pulse Resp BP Pulse Ox 10/19/23 13:00 36.4 C L 89 18 127/70 96 10/19/23 09:00 36.5 C 72 18 133/80 H 98 Intake & Output: Intake & Output 10/16/23 10/17/23 10/18/23 10/19/23 23:59 23:59 23:59 23:59 Intake Total 1999 4039.333 986.667 360 Balance 1999 1779.333 986.667 360 - Objective General Appearance: positive: No acute distress, Lethargic Eyes Bilateral: positive: Normal inspection, PERRL, EOMI ENT: positive: ENT inspection nml, Pharynx nml, No signs of dehydration Neck: positive: Nml inspection, Thyroid nml, No JVD, Trachea midline Respiratory: positive: No respiratory distress, Breath sounds nml. negative: Wheezes, Rales, Rhonchi Cardiovascular: positive: Regular rate & rhythm, No murmur, No gallop Abdomen: positive: Non-tender, No organomegaly, Nml bowel sounds, No distention Extremities: positive: No pedal edema Neurologic/Psychiatric: positive: CN's nml (2-12), Motor nml, Sensation nml. negative: Oriented x3 - Lab Results Fish Bones: 10/19/23 05:34 10/19/23 05:34 Other Labs: Lab Results x24hrs 10/19/23 10/19/23 10/19/23 Range/Units 11:41 07:57 05:34 WBC (4.8-10.8) x10^3/uL RBC (4.70-6.10) 10^6/uL Hgb (14.0-18.0) g/dL Hct (42.0-52.0) % MCV (80.0-94.0) fL MCH (27.0-31.0) pg MCHC (32.0-36.0) g/dL RDW (12.0-15.0) % Plt Count (130-450) 10^3/uL MPV (7.4-11.4) fL Neut # (Auto) (1.5-6.6) 10^3/uL Lymph # (Auto) (1.5-3.5) 10^3/uL [place] # (Auto) (0.0-1.0) 10^3/uL Eos # (Auto) (0.0-0.7) 10^3/uL Baso # (Auto) (0.0-0.1) 10^3/uL Absolute Nucleated RBC x10^3/uL Nucleated RBC % /100WBC Sodium 141 (135-145) mmol/L Potassium 3.6 (3.5-4.5) mmol/L Chloride 109 (101-111) mmol/L Carbon Dioxide 25 (21-32) mmol/L Anion Gap 7.0 (6-13) BUN 23 H (6-20) mg/dL Creatinine 0.9 (0.6-1.3) mg/dL Estimated GFR (MDRD) 81 L (>89) Glucose 100 (74-104) mg/dL POC Whole Bld Glucose 194 H 106 H (70 - 100) mg/dL Calcium 8.9 (8.5-10.3) mg/dL 10/19/23 10/19/23 10/18/23 Range/Units 05:34 00:04 21:05 WBC 11.7 H (4.8-10.8) x10^3/uL RBC 4.24 L (4.70-6.10) 10^6/uL Hgb 13.2 L (14.0-18.0) g/dL Hct 41.0 L (42.0-52.0) % MCV 96.7 H (80.0-94.0) fL MCH 31.1 H (27.0-31.0) pg MCHC 32.2 (32.0-36.0) g/dL RDW 15.0 (12.0-15.0) % Plt Count 237 (130-450) 10^3/uL MPV 11.6 H (7.4-11.4) fL Neut # (Auto) 8.2 H (1.5-6.6) 10^3/uL Lymph # (Auto) 1.6 (1.5-3.5) 10^3/uL [place] # (Auto) 1.1 H (0.0-1.0) 10^3/uL Eos # (Auto) 0.6 (0.0-0.7) 10^3/uL Baso # (Auto) 0.1 (0.0-0.1) 10^3/uL Absolute Nucleated RBC 0.00 x10^3/uL Nucleated RBC % 0.0 /100WBC Sodium (135-145) mmol/L Potassium (3.5-4.5) mmol/L Chloride (101-111) mmol/L Carbon Dioxide (21-32) mmol/L Anion Gap (6-13) BUN (6-20) mg/dL Creatinine (0.6-1.3) mg/dL Estimated GFR (MDRD) (>89) Glucose (74-104) mg/dL POC Whole Bld Glucose 91 168 H (70 - 100) mg/dL Calcium (8.5-10.3) mg/dL Sepsis Event Note (H) - Evaluation Current Stage of Sepsis: Ruled out Assessment/Plan - Problem List (1) Hypernatremia Impression: His hypernatremia is likely secondary to dehydration and poor oral intake. Speaking with staff at [facility], he had not been eating or drinking since his recent discharge on 10/10/23. -His total body water deficit was approximately 5.34 L at the time of admission. Was placed on IV D5 fluids, with resolution of hypernatremia. -Daily BMP panel. -Passed his swallow eval with TECHNICAL SUPPORT COORDINATOR, for pureed diet and honey thick liquids, though his swallow study is very tenuous. -Off IV fluids currently. (2) Dysphagia Impression: He was failing his bedside swallow evaluation (nursing), due to lack of coordination of his tongue (oral phase). -TECHNICAL SUPPORT COORDINATOR evaluated yesterday and today. Can have pureed diet with honey thick liquids, but his swallow status is very tenuous and may not be reliable going forward. -Unable to obtain brain MRI as he is too agitated despite haldol. Would require anesthesia to obtain MRI, which we cannot perform at our facility. No need to transfer solely for this test either. -I spoke with Heidy, the patient's [id number], and gave her an update of the clinical status. Described that we were unable to get an MRI and that we would have to sedate him too much to obtain this safely, thus we are not going to try to get an MRI in the future. I advised her that speech therapy evaluated him and he was able to eat a modified diet however his swallowing ability is still tenuous and could change at any moment, and told her that even though he may be able to eat for the next several days to several weeks, we would likely have the same issue arise in the near future. I have voiced my concerns that while a PEG tube can improve the nutrition aspect, that feel the patient will become too confused/agitated from PEG tube insertion and there is a very high risk of him pulling out the PEG tube and causing more harm. -Heidy indicates that Basilio, the patient's son and legal next of kin, is currently at work and unable to speak on the phone but that she will relay this information to Basilio. Tomorrow we should have a better idea on whether they would want continued aggressive care versus other possibilities. (3) Acute metabolic encephalopathy Impression: His acute on chronic metabolic encephalopathy is likely secondary to his hypernatremia. His leukocytosis is likely reactional to his acute issue as he had been treated appropriately for pneumonia with this chest x-ray overall improved from last admission. His urinalysis is unremarkable and his abdominal exam is benign. Primary CHEMOTHERAPIST infection is unlikely as he is afebrile and has no neck stiffness. -Treated his hypernatremia as noted above. -He was given 2 separate doses of Narcan in the emergency department without any significant effect. -Holding home Risperdal and gabapentin. May need to hold these indefinitely to avoid oversedation. -TSH, B12, Folate normal. RPR non-reactive. -He was back to his baseline yesterday, but a bit more lethargic today due to Zyprexa last night (will hold). (4) Leukocytosis Impression: Most likely this is a stress-induced leukocytosis. He was recently treated with antibiotics for a left lower lobe pneumonia, with his current chest x-ray showing residual left lower lobe opacity though overall improved compared to prior. This may represent radiographic delay in resolution rather than true pathologic pneumonia as he has no other infectious issues/symptoms at this time. -Blood cultures NGTD. Procalcitonin normal. -No infectious issues noted this hospitalization. (5) Chronic congestive heart failure Impression: He has a reported history of chronic CHF however I am unclear what type he has as there is no echocardiogram in our system. Despite a BNP of over 1600 on admission, he did not appear volume overloaded on presentation (was significantly dehydrated). -Held lasix during his hospitalization, will continue to hold for now. -May need Lasix reinitiated prior to discharge. Continues to be euvolemic without evidence of fluid overload, thus will continue to hold. -If he develops hypoxia or signs of fluid overload may need to initiate IV Lasix. Qualifiers: Heart failure type: unspecified Qualified Code(s): I50.9 - Heart failure, unspecified (6) Type II diabetes mellitus Impression: Typically only takes metformin at home. -Change sliding scale insulin to qACHS. -Continue Lantus 5 units daily. Qualifiers: Diabetes mellitus terminal press operator insulin use: without penitentiary use Diabetes mellitus complication status: without complication Qualified Code(s): E11.9 - Type 2 diabetes mellitus without complications (7) Chronic atrial fibrillation Impression: He has a history of being on Xarelto in the past however did have a GI bleed in 2020 resulting in the discontinuation of anticoagulation going forward. He currently only takes aspirin 81 mg. -Resume Coreg 3.125 mg BID, Aspirin 81 mg. (8) Hx of schizophrenia Impression: Currently is a long-term resident of [facility]. At baseline apparently he is disoriented due to his dementia and frequently pulls at items and rips off items as well. -Holding home Risperdal and sertraline. May try minimizing medications to see if that would improve his mentation and quality of life. (9) HTN (hypertension) Impression: Currently normotensive to mildly hypertensive. -Resume home Coreg. Holding Lisinopril for now, may resume prior to discharge depending on BP. Qualifiers: Hypertension type: primary hypertension Qualified Code(s): I10 - Essential (primary) hypertension
[2023-10-19] MEDS: DEXTROSE 50% ABBOJECT 25 GM/50 ML SYRINGE IVP ONE (16:53)
[2023-10-19] MEDS: carvediloL 3.125 MG TABLET PO SCH (22:11)
[2023-10-20 05:35] LABS: BASOPHILS # (AUTO) 0.1 10^3/uL (0.0-0.1); EOSINOPHILS # (AUTO) 0.6 10^3/uL (0.0-0.7); EOSINOPHILS % (AUTO) 5.6 %; HCT - HEMATOCRIT 40.3 % (42.0-52.0); LYMPHOCYTES # (AUTO) 1.7 10^3/uL (1.5-3.5); LYMPHOCYTES % (AUTO) 16.5 %; MEAN CORPUSCULAR HEMOGLOBIN 31.1 pg (27.0-31.0); MEAN CORPUSCULAR HGB CONC 32.3 g/dL (32.0-36.0); MEAN CORPUSCULAR VOLUME 96.4 fL (80.0-94.0); MEAN PLATELET VOLUME 11.8 fL (7.4-11.4); MONOCYTES % (AUTO) 9.1 %; NEUTROPHILS # (AUTO) 7.1 10^3/uL (1.5-6.6); NEUTROPHILS % (AUTO) 67.5 %; PLT - PLATELET COUNT 228 10^3/uL (130-450); RED BLOOD COUNT 4.18 10^6/uL (4.70-6.10); RED CELL DISTRIBUTION WIDTH 15.2 % (12.0-15.0); WHITE BLOOD COUNT 10.5 x10^3/uL (4.8-10.8)
[2023-10-20 06:04] LABS: CALCIUM 8.9 mg/dL (8.5-10.3); CREATININE 0.9 mg/dL (0.6-1.3); POTASSIUM 3.8 mmol/L (3.5-4.5)
[2023-10-20] MEDS: PANTOPRAZOLE 40 MG TABLET PO SCH (06:07)
[2023-10-20] MEDS: DOCUSATE SODIUM 100 MG CAPSULE PO SCH (10:03)
[2023-10-20] MEDS: TAMSULOSIN 0.4 MG CAPSULE PO SCH (10:03)
[2023-10-20] MEDS: ASPIRIN EC 81 MG TABLET PO SCH (10:04)
--- NOTE | 2023-10-20 13:03 | Discharge Plan ---
"Discharge Plan for SNF / [facility] - Discharge Plan And Transition Orders Problem Reviewed?: Yes Disposition: 03 SNF DC/Xfer Condition: Stable Allergies and Adverse Reactions: Allergies Allergy/AdvReac Type Severity Reaction Status Date / Time hydroxyzine Allergy Unknown Verified 10/14/23 14:54 Health Concerns: You were admitted to the hospital for confusion which was ultimately due to hypernatremia (high sodium levels). This happened because you are not eating and drinking and he became significantly dehydrated. You are given IV fluids which improved your sodium level to a normal range and your confusion started to improve. During her stay he still had issues with swallowing however we were able to give you a modified diet which is a pured solid food with honey thick liquids. Even with this you are not taking in very much nutrition but it was better than when he came to the hospital. I discussed these issues with your family, specifically your [id number] who relayed the information to your son Basilio. They agree that a PEG tube is not a good option for you, which agrees with what you told myself and the speech therapist. Your family indicated that at this time you should remain a full code, but if your health deteriorates in the coming days, weeks or months, and you are unable to eat or drink or you get significantly ill, your son (Basilio) has indicated that he would be interested in transitioning you to DNR/DNI and comfort measures. Again he does not feel that you should have a PEG tube for feeding. You are being discharged back home to [facility]. We made changes to your medications as noted below. Plan of Treatment: Medication Changes: NEW MEDICATIONS: None DISCONTINUED MEDICATIONS: 1. Risperdal - please stop taking this as it may make you too drowsy. If you start becoming agitated or upset, this medication can be resumed at the direction of your doctor. 2. Oxycodone - please stop taking this as it can make you confused. 3. Gabapentin - please stop taking this as it can make you confused. Assessment: He is alert and oriented to name but disoriented to place, year, situation. He is drowsy at times but with stimulation he remains awake and interactive. He is able to verbalize/answer questions and he follows some commands. He is in no acute distress. His mucous membranes are moist. He is in no respiratory distress with good air movement bilaterally and no wheezes/rales/rhonchi. His heart has a normal rate and regular rhythm without any murmurs or gallops. His abdomen is soft, nontender and nondistended with active bowel sounds. His extremities show trace pitting edema. Neurologically he has appropriate strength in all 4 extremities without any focal neurologic deficit. - SNF / ASSISTED Transition Orders Admit to (Facility): [facility] Discharge Diagnosis: Hypernatremia Medicare Certification Statement: I certify that [facility] care is medically necessary on a continuing basis for any of the conditions for which she/he is receiving care during hospitalization. Notify PCP of admission and forward orders to primary provider for signature. Weight on admission and: Weekly Call PCP immediately if weight increases by: 5 kg Other Notification Orders: Call PCP immediately if patient develops dyspnea, chest pain/tightness or edema. House Bowel Program: Yes Additional Bowel Program Orders: If no BM after 2 days, nurse may give M.O.M. 30ml PO PRN and/or ducolax Supp 1 IN and/or MCKENNA 250mg P.O., and/or senna 1-2 tabs PO. On day 3 nurse may give repeat above order until residents constipation is resolved. Medication Orders: PLEASE REFER TO THE DISCHARGE MEDICATION LIST. Insulin Orders?: No - Diet Texture: Puree Liquids: Honey thick - Therapies | Activity Therapy: Evaluation | Treat if indicated: Speech, Swallowing / ST Rehabilitation Potential: Maximize functional status, Maintain present ADL Functional Activity: Activity as Tolerated Weight Bearing: Full Weight"
[2023-10-20] MEDS ORDERED: BISACODYL 10 MG SUPP PR PRN (13:09)
[2023-10-20] MEDS ORDERED: ALBUTEROL NEB 2.5 MG/3 ML INH PRN (13:13)
--- NOTE | 2023-10-20 13:21 | DISCHARGE SUMMARY ---
Discharge Summary Admit Date: 10/14/23 Discharge Date: 10/20/23 Discharging Provider: Martin Plummer MD Primary Care Provider: Krishna Alaniz Code Status: Attempt Resuscitation Condition at Discharge: Stable Discharge Disposition: SNF DC/Xfer Discharge Facility Name: [facility] - DIAGNOSES Admission Diagnoses: Hypernatremia Discharge Diagnoses with Status of Each Condition: 1. Hypernatremia - resolved 2. Acute Metabolic Encephalopathy - resolved 3. Leukocytosis - resolved 4. Dysphagia - improved, but ongoing 5. Chronic Congestive Heart Failure - stable 6. Type II Diabetes Mellitus - stable 7. Chronic Atrial Fibrillation - stable 8. Schizophrenia - stable 9. Dementia - stable 10. Hypertension - stable - HPI History of Present Illness: Mr. Zee is an 82-year-old male with a history of rate controlled atrial fibrillation on aspirin (off Xarelto since a GI bleed in 05/2020), type 2 diabetes, CHF, hypertension, hyperlipidemia, chronic DVTs, schizophrenia and dementia who presents from his permanent custodial facility for altered mental status. The patient is a permanent resident of [facility] who has been seen in our facility for altered mental status several times recently. On 10/01/2023 the patient was seen in the emergency department for lethargy and confusion where he was found to have a urinary tract infection and also felt to have altered mental status secondary to newly added hydroxyzine. He was ultim ately discharged back to his SNF. He came back to the hospital on 10/07/2023 after SNF staff found him unresponsive while sitting in a chair. His vitals were relatively unremarkable at that time aside from a oxygen saturation of 90% on room air but his GCS was noted to be 5. A CT and CTA head and neck was negative for any acute pathology. His chest x-ray at that time showed pulmonary edema and left basilar opacity. He was admitted to the hospital at that time for further workup of his altered mental status and treatment of left-sided pneumonia. During this hospitalization his mental status did improve however it was felt that at baseline he has significant disorientation and is frequently resisting care. He was impulsive and tended to rip things off, frequently requiring a one-to-one care due to his behaviors. Attempts were made to obtain a brain MRI to further evaluate his mental status however the patient was unable to clear himself for MRI due to his mentation and multiple attempts were made at contacting family members to no avail. Ultimately it was felt that his mental s tatus was likely secondary to pneumonia, though it is possible that his mental status was due to ciprofloxacin that has been previously prescribed for his UTI. He was discharged back to his SNF on 10/10/2023. For his current presentation apparently the nursing facility staff noticed that he was lethargic and minimally responsive again today however they deny any recent falls or traumatic injury. He was brought to the emergency department where his vital signs were relatively unremarkable and his labs showed a WBC of 14.7 with a sodium of 155 and chloride of 115 and creatinine of 1.3/BUN 49. His BNP was elevated to 1648 however he had no clinical evidence of CHF. Urinalysis was negative for infection but was significantly concentrated with a specific gravity greater than 1.03. He VBG showed a pH of 7.45 with pCO2 43.5. A respiratory viral panel was negative for all viral pathogens and a urine toxicology screen was unremarkable. His chest x-ray showed overall improvement from prior with mild left basilar atelectasis versus opacity along with prominent interstitial markings. It was felt that his altered mental status was secondary to hyponatremia and he was placed on D5 IV fluids and admitted for further care. - HOSPITAL COURSE Hospital Course: OVERVIEW OF HOSPITAL COURSE: It was felt that his altered mental status and acute metabolic encephalopathy was secondary to his significant hypernatremia. His hypernatremia was secondary to dehydration from furosemide in addition to inadequate oral intake, which was due to a combination of dysphagia and confusion from his recent hospitalization. He was placed on dextrose containing IV fluids with appropriate decrease in serum sodium levels down to normal range over several days. With the resolution of his hypernatremia, his mentation improved significantly. We also held his home Risperdal, sertraline and gabapentin as this could be contributing to his mentation. He had difficulties with swallowing and ultimately underwent an evaluation by speech therapy who felt that his dysphagia and swallowing abilities was tenuous at best but he was allowed to have a pured diet with h oney thickened liquid. His mentation did fluctuate while hospitalized, which was attributed to addition of Zyprexa sublingual as an initial trial to replace Risperdal, however since this made him more drowsy it was decided to remove all antipsychotics. Of note a brain MRI was attempted in order to rule out CVA as a cause of dysphagia however he was too agitated and combative in the MRI suite and it was felt that it we would have to sedate him to an unsafe level in order to get the MRI. Thus the MRI was discontinued and we would likely not be able to obtain this in the future. Clinically it did not appear that he had any focal neurologic deficit. There were goals of care discussions held with Heidy, his [id number], who spoke with Basilio, his son and legal next of kin. The patient himself during a lucid moment indicated that he would not want a PEG tube placed and he was not afraid of passing away if it came to that. This was relayed to family, who indicated that they agreed with Nate and that a PEG tube is not a good option in the future. Currently they want to keep Nate is a full code however they understand that he may return to the hospital and a brief period of time versus in the near future. They indicate that if he continues to worsen and gets to the point where he is unable to eat or drink safely, Basilio indicated he would speak to the physicians at that point to transition to comfort measures only. His other chronic medical conditions remained stable while hospitalized and at the time of discharge and he was advised to hold his furosemide, gabapentin and Risperdal to minimize cognitive side effects as well as further dehydration. These can be readdressed at [facility] as needed/indicated. PROBLEM LIST OVERVIEW DURING HOSPITALIZATION: (1) Hypernatremia Impression: His hypernatremia is likely secondary to dehydration and poor oral intake. Speaking with staff at [facility], he had not been eating or drinking since his recent discharge on 10/10/23. -His total body water deficit was approximately 5.34 L at the time of admission. Was placed on IV D5 fluids, with resolution of hypernatremia. Now off IV fluids. -Daily BMP panel. -Passed his swallow eval with FRONT OFFICE CLERK, for pureed diet and honey thick liquids, though his swallow study is very tenuous. (2) Dysphagia Impression: He was failing his bedside swallow evaluation (nursing), due to lack of coordination of his tongue (oral phase). -FRONT OFFICE CLERK evaluated yesterday and today. Can have pureed diet with honey thick liquids, but his swallow status is very tenuous and may not be reliable going forward. -Unable to obtain brain MRI as he is too agitated despite haldol. Would require anesthesia to obtain MRI, which we cannot perform at our facility. No need to transfer solely for this test either. -I spoke with Heidy, the patient's [id number], and gave her an update of the clinical status. Described that we were unable to get an MRI and that we would have to sedate him too much to obtain this safely, thus we are not going to try to get an MRI in the future. I advised her that speech therapy evaluated him and he was able to eat a modified diet however his swallowing ability is still tenuous and could change at any moment, and told her that even though he may be able to eat for the next several days to several weeks, we would likely have the same issue arise in the near future. I have voiced my concerns that while a PEG tube can improve the nutrition aspect, that feel the patient will become too confused/agitated from PEG tube insertion and there is a very high risk of him pulling out the PEG tube and causing more harm. -Heidy indicates that Basilio agrees that a PEG tube is not a good option for Nate, even if he stops eating in the near future. He wants to keep Nate a Full Code for now until he talks further with family members. If Nate worsens, gets readmitted, stops eating again, etc, then Basilio indicated he would speak to a physician at that time to transition to comfort care only. (3) Acute metabolic encephalopathy Impression: His acute on chronic metabolic encephalopathy is likely secondary to his hypernatremia. His leukocytosis is likely reactional to his acute issue as he had been treated appropriately for pneumonia with this chest x-ray overall improved from last admission. His urinalysis is unremarkable and his abdominal exam is benign. Primary [employer] infection is unlikely as he is afebrile and has no neck stiffness. -Treated his hypernatremia as noted above. -He was given 2 separate doses of Narcan in the emergency department without any significant effect. -Holding home Risperdal and gabapentin. Would hold these indefinitely to avoid oversedation unless agitation becomes an ongoing issue at [facility]. -TSH, B12, Folate normal. RPR non-reactive. -He was back to his baseline in the past 1-2 days. (4) Leukocytosis Impression: Most likely this is a stress-induced leukocytosis. He was recently treated with antibiotics for a left lower lobe pneumonia, with his current chest x-ray showing residual left lower lobe opacity though overall improved compared to prior. This may represent radiographic delay in resolution rather than true pathologic pneumonia as he has no other infectious issues/symptoms at this time. -Blood cultures NGTD. Procalcitonin normal. -No infectious issues noted this hospitalization. (5) Chronic congestive heart failure Impression: He has a reported history of chronic CHF however I am unclear what type he has as there is no echocardiogram in our system. Despite a BNP of over 1600 on admission, he did not appear volume overloaded on presentation (was significantly dehydrated). -Held lasix during his hospitalization, will continue to hold for now. -Clinically he did not have any fluid overload, thus lasix was discontinued to minimize chance of hypernatremia returning. This can be reassessed if he develops edema/fluid retention. (6) Type II diabetes mellitus Impression: Typically only takes metformin at home. -Can resume home Metformin at discharge. (7) Chronic atrial fibrillation Impression: He has a history of being on Xarelto in the past however did have a GI bleed in 2020 resulting in the discontinuation of anticoagulation going forward. He currently only takes aspirin 81 mg. -Continue Coreg 3.125 mg BID, Aspirin 81 mg. (8) Hx of schizophrenia Impression: Currently is a long-term resident of [facility]. At baseline apparently he is disoriented due to his dementia and frequently pulls at items and rips off items as well. -Holding home Risperdal and sertraline. May try minimizing medications to see if that would improve his mentation and quality of life. (9) HTN (hypertension) Impression: Currently normotensive to mildly hypertensive. -Continue home Coreg. Can resume Lisinopril. - ALLERGIES Allergies/Adverse Reactions: Allergies Allergy/AdvReac Type Severity Reaction Status Date / Time hydroxyzine Allergy Unknown Verified 10/14/23 14:54 - MEDICATIONS Home Medications: Ambulatory Orders Medication Instructions Recorded Confirmed Furosemide 10 mg PO DAILY 12/12/18 10/14/23 Gabapentin 300 mg PO TID 12/12/18 10/14/23 Acetaminophen [Aphen] 650 mg PO Q4H PRN 06/06/20 10/14/23 Calcium Carbonate [Tums (Calcium 500 mg PO BID 06/06/20 10/14/23 Carbonate 500mg)] Docusate Sodium [Dok] 100 mg PO DAILY 06/06/20 10/14/23 Loperamide [Imodium] 2 mg PO Q15M PRN MDD 12 MG 06/06/20 10/14/23 Tamsulosin HCl [Flomax] 0.4 mg PO DAILY 06/06/20 10/14/23 carvediloL [Coreg] 3.125 mg PO BID 06/06/20 10/14/23 metFORMIN [Glucophage] 500 mg PO BIDWM 06/06/20 10/14/23 risperiDONE [RisperDAL] 1 mg PO HS 06/06/20 10/14/23 Aspirin EC [Ecotrin] 81 mg PO DAILY 02/28/23 10/14/23 Albuterol Sulf [Ventolin Hfa 2 puffs INH Q4H PRN 10/07/23 10/14/23 Inhaler] Bisacodyl Supp [Dulcolax Supp] 10 mg GA PRN PRN 10/07/23 10/14/23 Carbamide Peroxide Otic Drop 10 drops EACHEAR .[id number] 10/07/23 10/14/23 [Debrox Otic Drops] Carboxymethylcellulose Sodium 2 drops EACHEYE TID PRN 10/07/23 10/14/23 [Artificial Tears] Dextran 70/Hypromellose [Genteal 1 drops EACHEYE Q4H PRN 10/07/23 10/14/23 Tears 0.1%-0.3% Drop] Diclofenac Sodium 1% Gel [Voltaren 1 applic TOP Q6H PRN 10/07/23 10/14/23 Gel] Eyelid Cleanser Combination 8 1 pad TOP DAILY 10/07/23 10/14/23 [Cleansing Eyelid Wipes] Ferrous Sulfate [Feosol] 325 mg PO DAILY 10/07/23 10/14/23 Lisinopril [Zestril] 10 mg PO DAILY 10/07/23 10/14/23 Melatonin 5 mg PO QPM 10/07/23 10/14/23 Mineral Oil [Mineral Oil Enema] 1 unit GA PRN PRN 10/07/23 10/14/23 Multivitamin [Theragran] 1 tab PO DAILY 10/07/23 10/14/23 Pantoprazole Sodium [Protonix] 20 mg PO QDAC 10/07/23 10/14/23 Senna [Senokot] 17.2 mg PO PRN PRN 10/07/23 10/14/23 Sertraline [Zoloft] 37.5 mg PO DAILY 10/07/23 10/14/23 polyethylene glycoL 3350 [Miralax] 17 gm PO PRN PRN 10/07/23 10/14/23 Oxycodone HCl 5 mg PO Q6HR PRN #30 cap 10/10/23 10/14/23 - PHYSICAL EXAM AT DISCHARGE General Appearance: positive: No acute distress, Alert Eyes Bilateral: positive: Normal inspection, PERRL, EOMI ENT: positive: ENT inspection nml, Pharynx nml, No signs of dehydration Neck: positive: Nml inspection, Thyroid nml, No JVD, Trachea midline Respiratory: positive: No respiratory distress, Breath sounds nml. negative: Wheezes, Rales, Rhonchi Cardiovascular: positive: Regular rate & rhythm, No murmur, No gallop Peripheral Pulses: positive: 2+ Abdomen: positive: Non-tender, No organomegaly, Nml bowel sounds, No distention Back: positive: Nml inspection Skin: positive: Color nml, No rash, Warm Extremities: positive: No pedal edema Neurologic/Psychiatric: positive: CN's nml (2-12), Motor nml, Sensation nml, Other (Drowsy when left alone, wakes up to verbal stimulus and remains awake) - LABS Result Diagrams: 10/20/23 05:09 10/20/23 05:09 Other Lab Results: Laboratory Last Values WBC 10.5 x10^3/uL (4.8-10.8) 10/20/23 05:09 RBC 4.18 10^6/uL (4.70-6.10) L 10/20/23 05:09 Hgb 13.0 g/dL (14.0-18.0) L 10/20/23 05:09 Hct 40.3 % (42.0-52.0) L 10/20/23 05:09 MCV 96.4 fL (80.0-94.0) H 10/20/23 05:09 MCH 31.1 pg (27.0-31.0) H 10/20/23 05:09 MCHC 32.3 g/dL (32.0-36.0) 10/20/23 05:09 RDW 15.2 % (12.0-15.0) H 10/20/23 05:09 Plt Count 228 10^3/uL (130-450) 10/20/23 05:09 MPV 11.8 fL (7.4-11.4) H 10/20/23 05:09 Neut # (Auto) 7.1 10^3/uL (1.5-6.6) H 10/20/23 05:09 Lymph # (Auto) 1.7 10^3/uL (1.5-3.5) 10/20/23 05:09 [place] # (Auto) 1.0 10^3/uL (0.0-1.0) 10/20/23 05:09 Eos # (Auto) 0.6 10^3/uL (0.0-0.7) 10/20/23 05:09 Baso # (Auto) 0.1 10^3/uL (0.0-0.1) 10/20/23 05:09 Absolute Nucleated RBC 0.00 x10^3/uL 10/20/23 05:09 Nucleated RBC % 0.0 /100WBC 10/20/23 05:09 VBG pH 7.446 (7.31-7.41) H 10/14/23 15:09 VBG pCO2 43.5 mmHg (41-51) 10/14/23 15:09 VBG pO2 49.8 mmHg (25-47) H 10/14/23 15:09 VBG HCO3 29.3 mmol/L (23-28) H 10/14/23 15:09 VBG Total CO2 30.6 mmol/L (24-29) H 10/14/23 15:09 VBG O2 Saturation 85.0 % (60-80) H 10/14/23 15:09 VBG Base Excess 4.6 mmol/L (-2 - +2) H 10/14/23 15:09 Sodium 142 mmol/L (135-145) 10/20/23 05:09 Potassium 3.8 mmol/L (3.5-4.5) 10/20/23 05:09 Chloride 110 mmol/L (101-111) 10/20/23 05:09 Carbon Dioxide 25 mmol/L (21-32) 10/20/23 05:09 Anion Gap 7.0 (6-13) 10/20/23 05:09 BUN 21 mg/dL (6-20) H 10/20/23 05:09 Creatinine 0.9 mg/dL (0.6-1.3) 10/20/23 05:09 Estimated GFR (MDRD) 81 (>89) L 10/20/23 05:09 Glucose 91 mg/dL (74-104) 10/20/23 05:09 POC Whole Bld Glucose 126 mg/dL (70 - 100) H 10/20/23 11:00 Calcium 8.9 mg/dL (8.5-10.3) 10/20/23 05:09 Phosphorus 2.8 mg/dL (2.5-5.0) 10/17/23 05:52 Magnesium 1.9 mg/dL (1.7-2.3) 10/17/23 05:52 Total Bilirubin 1.8 mg/dL (0.2-1.0) H 10/14/23 15:09 AST 43 IU/L (10-42) H 10/14/23 15:09 ALT 27 IU/L (10-60) 10/14/23 15:09 Alkaline Phosphatase 57 IU/L (42-121) 10/14/23 15:09 B-Natriuretic Peptide 1648 pg/mL (5-100) H 10/14/23 15:17 Total Protein 7.0 g/dL (6.4-8.9) 10/14/23 15:09 Albumin 3.9 g/dL (3.2-5.5) 10/14/23 15:09 Globulin 3.1 g/dL (2.1-4.2) 10/14/23 15:09 Albumin/Globulin Ratio 1.3 (1.0-2.2) 10/14/23 15:09 Vitamin B12 505 pg/mL (180-914) 10/15/23 05:31 Folate > 44.6 ng/mL (5.90 - >24.8) 10/15/23 05:31 Procalcitonin Immunoas 0.07 ng/mL (<0.5) 10/15/23 05:31 TSH 3.15 uIU/mL (0.34-5.60) 10/15/23 05:31 Urine Color YELLOW 10/14/23 15:20 Urine Clarity CLOUDY (CLEAR) 10/14/23 15:20 Urine pH 5.5 PH (5.0-7.5) 10/14/23 15:20 Ur Specific [place] >=1.030 (1.002-1.030) H 10/14/23 15:20 Urine Protein >=300 mg/dL (NEGATIVE) H 10/14/23 15:20 Urine Glucose (UA) NEGATIVE mg/dL (NEGATIVE) 10/14/23 15:20 Urine Ketones TRACE mg/dL (NEGATIVE) 10/14/23 15:20 Urine Occult Blood LARGE (NEGATIVE) H 10/14/23 15:20 Urine Nitrite NEGATIVE (NEGATIVE) 10/14/23 15:20 Urine Bilirubin SMALL (NEGATIVE) H 10/14/23 15:20 Urine Urobilinogen 0.2 (NORMAL) E.U./dL (NORMAL) 10/14/23 15:20 Ur Leukocyte Esterase NEGATIVE (NEGATIVE) 10/14/23 15:20 Urine RBC 6-10 /HPF (0-5) H 10/14/23 15:20 Urine WBC 0-3 /HPF (0-3) 10/14/23 15:20 Ur Squamous Epith Cells MOD Squamous (<= Few) H 10/14/23 15:20 Urine Bacteria None Seen /HPF (None Seen) 10/14/23 15:20 Urine Casts 3-5 Hyaline Casts /LPF 10/14/23 15:20 Ur Microscopic Review INDICATED 10/14/23 15:20 Urine Culture Comments NOT INDICATED 10/14/23 15:20 Nasal Adenovirus (PCR) NOT DETECTED 10/14/23 15:00 Nasal B. parapertussis DNA (PCR) NOT DETECTED 10/14/23 15:00 Nasal Coronavir 229E PCR NOT DETECTED 10/14/23 15:00 Nasal Coronavir HKU1 PCR NOT DETECTED 10/14/23 15:00 Nasal Coronavir NL63 PCR NOT DETECTED 10/14/23 15:00 Nasal Coronavir OC43 PCR NOT DETECTED 10/14/23 15:00 Nasal Enterovir/Rhinovir PCR NOT DETECTED 10/14/23 15:00 Nasal Influenza B PCR NOT DETECTED 10/14/23 15:00 Nasal Influenza A PCR NOT DETECTED 10/14/23 15:00 Nasal Parainfluen 1 PCR NOT DETECTED 10/14/23 15:00 Nasal Parainfluen 2 PCR NOT DETECTED 10/14/23 15:00 Nasal Parainfluen 3 PCR NOT DETECTED 10/14/23 15:00 Nasal Parainfluen 4 PCR NOT DETECTED 10/14/23 15:00 Nasal RSV (PCR) NOT DETECTED 10/14/23 15:00 Nasal B.pertussis DNA PCR NOT DETECTED 10/14/23 15:00 Nasal C.pneumoniae (PCR) NOT DETECTED 10/14/23 15:00 Shine Human Metapneumo PCR NOT DETECTED 10/14/23 15:00 Nasal M.pneumoniae (PCR) NOT DETECTED 10/14/23 15:00 Nasal SARS-CoV-2 (PCR) NOT DETECTED 10/14/23 15:00 Urine Opiates Screen NEGATIVE (NEGATIVE) 10/14/23 15:20 Ur Buprenorphine Scrn NEGATIVE (NEGATIVE) 10/14/23 15:20 Ur Oxycodone Screen NEGATIVE (NEGATIVE) 10/14/23 15:20 Urine Methadone Screen NEGATIVE (NEGATIVE) 10/14/23 15:20 Ur Barbiturates Screen NEGATIVE (NEGATIVE) 10/14/23 15:20 Ur Tricyclics Screen NEGATIVE (NEGATIVE) 10/14/23 15:20 Ur Phencyclidine Scrn NEGATIVE (NEGATIVE) 10/14/23 15:20 Ur Amphetamine Screen NEGATIVE (NEGATIVE) 10/14/23 15:20 U Methamphetamines Scrn NEGATIVE (NEGATIVE) 10/14/23 15:20 U Benzodiazepines Scrn NEGATIVE (NEGATIVE) 10/14/23 15:20 Urine Cocaine Screen NEGATIVE (NEGATIVE) 10/14/23 15:20 U Cannabinoids Screen NEGATIVE (NEGATIVE) 10/14/23 15:20 Ur Drug Screen Comment CUTOFF CONC BELOW: 10/14/23 15:20 RPR Non Reactive (Non Reactive) 10/15/23 05:31 - DIAGNOSTIC IMAGING Diagnostic Imaging Results: Final report reviewed Diagnostic Imaging Results Comments: Chest x-ray 10/14/2023 Prominent interstitial markings are improved compared to prior, may represent mild pulmonary edema. Elevation of left hemidiaphragm with left basilar atelectasis versus opacity. Chest x-ray 10/16/2023 Stable left basilar opacity, probably atelectasis in the setting of left hemidiaphragm elevation. Head CT 10/14/2023 No acute intracranial pathology. - SEPSIS Current Stage of Sepsis: Ruled out - TIME SPENT Time Spent in Discharge (Minutes): 40
[2023-10-20 15:33] VITALS: BP 133/67; O2SAT 99
[2023-10-20] MEDS ORDERED: metFORMIN 500 MG TABLET PO SCH (17:00)
[2023-10-21] MEDS ORDERED: lisinopriL 5 MG TABLET PO SCH (09:00)
[2023-10-21] MEDS ORDERED: MULTIVITAMIN TABLET PO SCH (09:00)
== END 2023-10-20 15:45 | DRG 640 ==
LOC: ED 14:48 → MS2 17:12 → OBSVTOIN 10-15 10:34 → ICU 10-16 20:41 → MS2 10-16 20:44
PROVIDERS: ADMIT Hospitalist; ATTEND Hospitalist
DX: E87.0 Hyperosmolality and hypernatremia (principal); I48.91 Unspecified atrial fibrillation; I45.89 Other specified conduction disorders; G93.41 Metabolic encephalopathy; I48.20 Chronic atrial fibrillation, unspecified; F03.911 Unspecified dementia, unspecified severity, with agitation; D72.829 Elevated white blood cell count, unspecified; R13.10 Dysphagia, unspecified; I50.9 Heart failure, unspecified; F03.90 Unspecified dementia, unspecified severity, without behavioral disturbance, psychotic disturbance, mood disturbance, and anxiety; S50.12XA Contusion of left forearm, initial encounter; W19.XXXA Unspecified fall, initial encounter; R05.9 Cough, unspecified; Z20.818 Contact with and (suspected) exposure to other bacterial communicable diseases; Z20.822 Contact with and (suspected) exposure to COVID-19; Z20.828 Contact with and (suspected) exposure to other viral communicable diseases; E11.9 Type 2 diabetes mellitus without complications; F20.9 Schizophrenia, unspecified; Z79.899 Other long term (current) drug therapy; I11.0 Hypertensive heart disease with heart failure; Z79.82 Long term (current) use of aspirin; E78.00 Pure hypercholesterolemia, unspecified; E86.0 Dehydration; T50.1X5A Adverse effect of loop [high-ceiling] diuretics, initial encounter; Z79.84 Long term (current) use of oral hypoglycemic drugs; Z86.59 Personal history of other mental and behavioral disorders; N40.1 Benign prostatic hyperplasia with lower urinary tract symptoms; N39.498 Other specified urinary incontinence
CPT/HCPCS: 36415; 51701; 70450; 71045; 73090; 80048; 80053; 80306; 81001; 82607; 82746; 82803; 83735; 83880; 84100; 84145; 84295; 84443; 85025; 86592; 87040; 87633; 92526; 92610; 93005; 96361; 96372; 96374; 99285; A9270; G0378; J1650; J1815; 81003; 87086

== ENCOUNTER 2023-10-20 15:49 | Outpatient (CLI) | payer MEDICARE, MEDICAID | END 2023-10-20 23:59 | LOC: EMS 15:49 | PROVIDERS: ATTEND Hospitalist | DX: R41.0 Disorientation, unspecified (principal); G20.A1 Parkinson's disease without dyskinesia, without mention of fluctuations | CPT/HCPCS: A0425; A0428 ==

== ENCOUNTER 2023-10-24 08:00 | Outpatient (CLI) | payer MEDICARE, MEDICAID ==
[2023-10-24 19:33] LABS: BASOPHILS % (AUTO) 0.6 %; EOSINOPHILS % (AUTO) 4.1 %; HCT - HEMATOCRIT 38.3 % (42.0-52.0); HGB - HEMOGLOBIN 12.1 g/dL (14.0-18.0); LYMPHOCYTES % (AUTO) 20.1 %; MEAN CORPUSCULAR HEMOGLOBIN 30.9 pg (27.0-31.0); MEAN CORPUSCULAR HGB CONC 31.6 g/dL (32.0-36.0); MEAN PLATELET VOLUME 12.1 fL (7.4-11.4); MONOCYTES % (AUTO) 6.9 %; NEUTROPHILS % (AUTO) 68.2 %; PLT - PLATELET COUNT 217 10^3/uL (130-450); RED BLOOD COUNT 3.91 10^6/uL (4.70-6.10); RED CELL DISTRIBUTION WIDTH 14.9 % (12.0-15.0); WHITE BLOOD COUNT 7.1 x10^3/uL (4.8-10.8)
[2023-10-24 19:35] LABS: ABNORMAL LYMPHS % (MANUAL) 0 %
[2023-10-24 19:46] LABS: ALBUMIN 3.2 g/dL (3.2-5.5); BILIRUBIN,TOTAL 1.2 mg/dL (0.2-1.0); CALCIUM 8.8 mg/dL (8.5-10.3); POTASSIUM 4.5 mmol/L (3.5-4.5); TOTAL PROTEIN 6.3 g/dL (6.4-8.9)
[2023-10-24 21:47] LABS: BAND NEUTROPHILS % (MANUAL) 2 %; DIFFERENTIAL COMMENT MANUAL DIFFERENTIAL; EOSINOPHILS # (MANUAL) 0.1 10^3/uL (0-0.7); LYMPHOCYTES # (MANUAL) 2.3 10^3/uL (1.5-3.5); LYMPHOCYTES % (MANUAL) 31 %; MONOCYTES # (MANUAL) 0.1 10^3/uL (0.0-1.0); NEUTROPHILS # (MANUAL) 4.5 10^3/uL (1.5-6.6); PLATELET ESTIMATE, MANUAL NORMAL (130-450,000) (NORMAL); PLATELET MORPHOLOGY NORMAL APPEARANCE (NORMAL); RBC MORPHOLOGY (MULTIPLE) NORMAL APPEARANCE (NORMAL); REACTIVE LYMPHS % (MANUAL) 1 %
== END 2023-10-24 23:59 | disposition home or self-care (01) ==
LOC: LAB.R 08:00 → MERGE 19:22 → LAB.R 23:59
PROVIDERS: ATTEND Family Medicine
DX: I11.0 Hypertensive heart disease with heart failure (principal); I48.20 Chronic atrial fibrillation, unspecified
CPT/HCPCS: 80053; 85025

== ENCOUNTER 2024-01-13 13:32 | Inpatient (IN) ==
--- NOTE | 2024-01-13 13:50 | ED Physician Documentation ---
PD HPI ALTERED MENTAL STATUS Stated complaint Stated Complaint: ALOC Chief complaint Chief Complaint: Neuro History obtained from History obtained from: Patient and EMS Additional information Additional information: Nate Zee is a 83-[facility]-old [facility] resident of [facility] who is sent to the emergency department today for altered level of consciousness. He has a similar episode in October of this year from left lower lobe pneumonia he does have chronic atrial fibrillation hypertension and type 2 diabetes and history of schizophrenia he has BPH and a priro history of indwelling stauffer catheter. [place]gozi Coma Scale Assess Eye opening: To Voice Verbal response: Confused Motor response: Localizes to Pain Total score: 12 Review of Systems Status of ROS: unobtainable due to mental status Meds/Allgy Home Medications Ambulatory Orders Medication Instructions Recorded Confirmed furosemide 20 mg tablet 10 mg PO DAILY 12/12/18 10/14/23 gabapentin 300 mg capsule 300 mg PO TID 12/12/18 10/14/23 acetaminophen 325 mg tablet (Aphen) 650 mg PO Q4H PRN Pain 06/06/20 10/14/23 calcium carbonate 500 mg PO BID 06/06/20 10/14/23 carvedilol 3.125 mg tablet 3.125 mg PO BID 06/06/20 10/14/23 docusate sodium 100 mg tablet (DOK) 100 mg PO DAILY 06/06/20 10/14/23 loperamide 2 mg capsule 2 mg PO Q15M PRN Diarrhea 06/06/20 10/14/23 metformin 500 mg tablet 500 mg PO BIDWM 06/06/20 10/14/23 risperidone 1 mg tablet 1 mg PO HS 06/06/20 10/14/23 tamsulosin 0.4 mg capsule (Flomax) 0.4 mg PO DAILY 06/06/20 10/14/23 aspirin 81 mg tablet,delayed 81 mg PO DAILY 02/28/23 10/14/23 release Melatonin 5 mg PO QPM 10/07/23 10/14/23 albuterol sulfate 90 mcg/actuation 2 puff inhalation Q4H PRN 10/07/23 10/14/23 aerosol inhaler (Ventolin HFA) Shortness Of Air/Wheezing bisacodyl 10 mg rectal suppository 10 mg SC PRN PRN Constipation 10/07/23 10/14/23 carbamide peroxide 6.5 % ear drops 10 drp EACHEAR .[id number] 10/07/23 10/14/23 (Ear Drops (carbamide peroxide)) carboxymethylcellulose sodium 1 % 2 drp EACHEYE TID PRN Dry Eye 10/07/23 10/14/23 eye drops (Artificial Tears (carboxymethylcellulose)) dextran 70-hypromellose 0.1 %-0.3 1 drp EACHEYE Q4H PRN EYE 10/07/23 10/14/23 % eye drops (GenTeal Tears Mild) IRRITATION diclofenac sodium 1 % topical gel 1 applic topical Q6H PRN Pain 1-4 10/07/23 10/14/23 (Arthritis Pain (diclofenac)) eyelid cleanser combination 8 1 pad topical DAILY 10/07/23 10/14/23 (Cleansing Eyelid Moist Pads topical pads) ferrous sulfate 325 mg (65 mg 325 mg PO DAILY 10/07/23 10/14/23 iron) tablet lisinopril 10 mg tablet (Zestril) 10 mg PO DAILY 10/07/23 10/14/23 mineral oil (Fleet Mineral Oil 1 unit SC PRN PRN Constipation 10/07/23 10/14/23 enema) multivitamin with folic acid 400 1 tab PO DAILY 10/07/23 10/14/23 mcg tablet (Thera) pantoprazole 20 mg tablet,delayed 20 mg PO QDAC 10/07/23 10/14/23 release (Protonix) polyethylene glycol 3350 17 gram 17 g PO PRN PRN Constipation 10/07/23 10/14/23 oral powder packet sennosides 8.6 mg tablet (Senna 17.2 mg PO PRN PRN Constipation 10/07/23 10/14/23 Lax) sertraline 25 mg tablet 37.5 mg PO DAILY 10/07/23 10/14/23 Oxycodone Hcl 5 mg PO Q6HR PRN Pain 5-7 #30 caps 10/10/23 10/14/23 Allergies Allergies Allergy/AdvReac Type Severity Reaction Status Date / Time hydroxyzine Allergy Unknown Verified 10/28/23 08:43 [facility] Medical History Medical History Congestive heart failure Hyperlipidemia Depression GERD (gastroesophageal reflux disease) History of atrial fibrillation History of pneumococcal infection Social History Social History Smoking Status: Never smoker Living arrangement: Other (SNF) Living Condition: Alone Relationship: Level: Dependent History of Abuse: No POLST Patient has POLST: No POLST Status: Full Code Exam Exam 83-old male eyes wide open looking around but not communicating effectively. He does not appear to be in acute distress. He definitely has altered level of consciousness. He is able to answer short sentences that do not always give the correct response. Constitutional normal general appearance and no apparent distress sleeping on his side. HENMT normocephalic Eyes PERRL and EOMs intact bilaterally Chest inspection of chest normal Respiratory normal respiratory effort Rhonchi in the left base and to the right upper lung. Cardiovascular Irregularly irregular rate and rhythm without murmur Gastrointestinal abdomen normal to inspection, abdomen soft to palpation and nontender to palpation Specifically there is no suprapubic tenderness or fullness to the bladder. Genitourinary no CVA tenderness and bladder normal to palpation Extremities There is doughy edema bilaterally to the lower extremities. Neurology sleeve separator II-XII intact The patient is able to sit up with assistance only and falls asleep again very easily. He is arousable to voice and will open his eyes he does not make appropriate answers to questions. When he is stimulated pushed up to a seated position to listen to the lungs he looks around but still does not make sense. Results Vitals Vitals: Vital Signs - 24 hr 01/13/24 13:34 01/13/24 14:13 01/13/24 14:37 Temperature 36.3 C L Temperature Source Temporal Artery Scan Pulse Rate 62 64 80 Respiratory Rate 18 24 23 Blood Pressure 112/51 L 136/69 H 136/69 H O2 Saturation 100 99 98 O2 Source Room air Room air Room air Pain Intensity 0 0 0 01/13/24 15:03 Temperature 35.9 C L Temperature Source Temporal Artery Scan Pulse Rate 64 Respiratory Rate 17 Blood Pressure 120/62 O2 Saturation 94 O2 Source Room air Pain Intensity 0 Oxygen O2 Source Room air EKG (time done) 1558: EKG releavant findings:: EKG personally interpreted by author of this note. Relevant findings are: Rate: Rate (enter#) (69) Rhythm: Atrial fibrillation QRS: LVH Ischemia: Non specific changes Compare to prior EKG: Changed from prior EKG (SPT 10-14-23 the rate is slower and PVC 's are present) Computer interpretation: Agree with computer Labs Labs: Laboratory Tests 01/13/24 01/13/24 14:28 15:15 WBC 10.2 RBC 3.83 L Hgb 12.2 L Hct 38.1 L MCV 99.5 H MCH 31.9 H MCHC 32.0 RDW 15.9 H Plt Count 211 MPV 10.9 Neut # (Auto) 7.5 H Lymph # (Auto) 1.3 L [place] # (Auto) 1.0 Eos # (Auto) 0.4 Baso # (Auto) 0.1 Absolute Nucleated RBC 0.00 Nucleated RBC % 0.0 Sodium 139 Potassium 4.4 Chloride 107 Carbon Dioxide 27 Anion Gap 5.0 L BUN 24 H Creatinine 1.3 Estimated GFR (MDRD) 53 L Glucose 113 H Lactic Acid 1.3 Calcium 9.1 Total Bilirubin 2.6 H AST 16 ALT 24 Alkaline Phosphatase 62 B-Natriuretic Peptide 1600 H Total Protein 6.0 L Albumin 3.4 Globulin 2.6 Albumin/Globulin Ratio 1.3 Lipase 12 TSH 0.99 Urine Color YELLOW Urine Clarity CLEAR Urine pH 5.5 Ur Specific [place] >=1.030 H Urine Protein 100 H Urine Glucose (UA) NEGATIVE Urine Ketones NEGATIVE Urine Occult Blood NEGATIVE Urine Nitrite POSITIVE H Urine Bilirubin NEGATIVE Urine Urobilinogen 1 (NORMAL) Ur Leukocyte Esterase NEGATIVE Urine RBC 0-5 Urine WBC 6-10 H Ur Squamous Epith Cells MOD Squamous H Urine Bacteria Rare Urine Mucus Few Strands Ur Microscopic Review INDICATED Urine Culture Comments NOT INDICATED Rads (name of study) Chest CT: Relevant Findings:: Prelim report reviewed, EMP independent interpretation of test and See rad report Interpretation: Impression: 1. Patchy opacities in both lungs are suspicious for pneumonia, including possibly with atypical or viral agents. Small bilateral pleural effusions. Mild the enlarged mediastinal lymph nodes are most likely reactive. Cardiomegaly. Moderately severe coronary calcifications. Cholelithiasis. chest: Relevant Findings:: Prelim report reviewed, EMP independent interpretation of test and See rad report Interpretation: Impression: Mild right upper lung zone opacity and bilateral interstitial prominence, suspicious for pulmonary edema versus pneumonia. Cardiomegaly. Procedures IVC sono (time) 1430: Bedside IVC sono: IVC measures (cm) (1.86) and Euvolemia PD Medical Decision Making ED course Complexity details: reviewed old records, reviewed results, re-evaluated patient, considered differential and d/w patient Reviewed Lab Results: We reviewed a complete blood count showing a white blood cell count of 10.2 hemoglobin and hematocrit were depressed at 12.2 and 38.1 similar to what the patient has had this past year. Platelets were normal at 211,000 differential shows a left shift. I interpret this to indicate the patient has a stable blood count and a left shift consistent with infection that the patient has been diagnosed with. Chemistries are remarkable for an elevated BUN of 24 with a creatinine of 1.3 these are both higher than the patient has had previously. Electrolytes are otherwise unremarkable total bilirubin elevated at 2.6 liver functions otherwise normal prior elevation of bilirubin of 1.2 BNP is elevated at 1600 there are no prior comparisons. Urinalysis shows a high specific gravity of 1.030 there is protein there is nitrite as well as 6-10 white blood cells per high-powered field and moderate squamous cells. This specimen did not make the grade for culture. I do not find overwhelming signs of infection in this patient's urine specimen ED course: Sanchez Carvajal is an 83-[facility] male [facility] presented to the emergency department today by ambulance with altered level of consciousness. He was ultimately found to have a recurrence of pneumonia. He has had prior similar presentation. Today he is treated in the emergency department with 1 g of Rocephin intravenously shortly after arrival. He did not require fluid resuscitation as we checked his IVC with POCUS and found he was euvolemic. His chest x-ray was concerning for the possibility of pulmonary edema and a BNP was added onto the patient's laboratory test which was elevated but without a comparison. I do not believe the patient is in acute failure today as his IVC was at 1.86 cm. Because of the concern about the possibility of failure on the plain film a CT scan of the chest is done without contrast and this appears to be consistent with pneumonia. Discharge Plan Discharge Patient Disposition: 66 [facility] DC/Xfer Condition: Fair Clinical Impression: Altered level of consciousness Pneumonia Qualifiers: Pneumonia type: due to unspecified organism Laterality: bilateral Lung location: unspecified part of lung Qualified Code(s): J18.9 - Pneumonia, unspecified organism Prescriptions: No Action furosemide 20 MG tablet 10 mg PO DAILY gabapentin 300 MG capsule 300 mg PO TID docusate sodium [DOK] 100 MG tablet 100 mg PO DAILY tamsulosin [Flomax] 0.4 MG capsule 0.4 mg PO DAILY risperidone 1 MG tablet 1 mg PO HS metformin 500 MG tablet 500 mg PO BIDWM carvedilol 3.125 MG tablet 3.125 mg PO BID Rx Instructions: HOLD IF SBP<110 OR HR<60 acetaminophen [Aphen] 325 MG tablet 650 mg PO Q4H PRN (Reason: Pain) loperamide 2 MG capsule 2 mg PO Q15M MDD 12 MG PRN (Reason: Diarrhea) calcium carbonate 500 MG tablet,chewable 500 mg PO BID aspirin 81 MG tablet,delayed release (DR/EC) 81 mg PO DAILY ferrous sulfate 325 MG tablet 325 mg PO DAILY lisinopril [Zestril] 10 MG tablet 10 mg PO DAILY Rx Instructions: HOLD IF SBP <110 albuterol sulfate [Ventolin HFA] 200 PUFFS/18 GM HFA aerosol inhaler 2 puff inhalation Q4H PRN (Reason: Shortness Of Air/Wheezing) diclofenac sodium [Arthritis Pain (diclofenac)] 50 GM gel 1 applic topical Q6H PRN (Reason: Pain 1-4) multivitamin with folic acid [Thera] 1 TAB tablet 1 tab PO DAILY carboxymethylcellulose sodium [Artificial Tears (cmc)] 15 ML drops 2 drp EACHEYE TID PRN (Reason: Dry Eye) Melatonin 5 MG Tablet 5 mg PO QPM dextran 70-hypromellose [GenTeal Tears Mild] 15 ML drops 1 drp EACHEYE Q4H PRN (Reason: EYE IRRITATION) eyelid cleanser combination 8 [Cleansing Eyelid Moist Pads] 1 EACH pads, medicated 1 pad topical DAILY pantoprazole [Protonix] 20 MG tablet,delayed release (DR/EC) 20 mg PO QDAC sertraline 25 MG tablet 37.5 mg PO DAILY sennosides [Senna Lax] 8.6 MG tablet 17.2 mg PO PRN PRN (Reason: Constipation) Rx Instructions: IF MIRALAX NOT EFFECTIVE INITIATE ON EVENING SHIFT OF 3RD DAY OF NO BM polyethylene glycol 3350 17 GM powder in packet 17 g PO PRN PRN (Reason: Constipation) Rx Instructions: AFTER 3 DAYS OF NO BM INITIATE ON DAY SHIFT. MIX WITH 8 OZ OF LIQUID. mineral oil [Fleet Mineral Oil] 133 ML enema 1 unit SC PRN PRN (Reason: Constipation) Rx Instructions: IF DULCOLAX SUPPOSITORY NOT EFFECTIVE INITIATE ON 4TH DAY EVENING SHIFT OF NO BM. NOTIFY MD IF NO RESULTS. bisacodyl 10 MG suppository 10 mg SC PRN PRN (Reason: Constipation) Rx Instructions: IF SENNA NOT EFFECTIVE INITIATE ON 4TH DAY OF NO BM carbamide peroxide [Ear Drops (carbamide peroxide)] 200 DROPS/15 ML drops 10 drp EACHEAR .[id number] Rx Instructions: INSTILL 10 DROPS IN BOTH EARS EVERY DAY SHIFT EVERY 3 MONTHS STARTING ON THE 8TH FOR 1 DAY FOR EAR WAX REMOVAL Oxycodone Hcl 5 MG Capsule 5 mg PO Q6HR PRN (Reason: Pain 5-7) Qty: 30 0RF Print Language: Nauruan
--- NOTE | 2024-01-13 14:25 | XRAY Report ---
PROCEDURE: XR Chest 1V INDICATIONS: chest pain TECHNIQUE: One view of the chest was acquired. COMPARISON: Chest radiograph 10/16/2023 FINDINGS: Surgical changes and devices: None. Lungs and pleura: Low lung volumes are seen bilaterally with atelectasis of the lung bases. Mild int erstitial prominence. Patchy opacities in the right upper lung. Mediastinum: Cardiac silhouette is enlarged. Bones and chest wall: No suspicious bony lesions. Overlying soft tissues appear unremarkable. IMPRESSION: Mild right upper lung zone opacity and bilateral interstitial prominence, suspicious for pulmonary ed patricia versus pneumonia. Cardiomegaly. Reviewed by: Manuel Wilson MD on 01/13/2024 2:23 PM PST Approved by: Manuel Wilson MD on 01/13/2024 2:23 PM PST Station ID: [id number]
[2024-01-13] MEDS: cefTRIAXone 1 GM VIAL IVP STA (14:32)
[2024-01-13 14:34] LABS: BASOPHILS # (AUTO) 0.1 10^3/uL (0.0-0.1); BASOPHILS % (AUTO) 0.8 %; EOSINOPHILS # (AUTO) 0.4 10^3/uL (0.0-0.7); EOSINOPHILS % (AUTO) 3.8 %; HCT - HEMATOCRIT 38.1 % (42.0-52.0); HGB - HEMOGLOBIN 12.2 g/dL (14.0-18.0); LYMPHOCYTES # (AUTO) 1.3 10^3/uL (1.5-3.5); LYMPHOCYTES % (AUTO) 12.3 %; MEAN CORPUSCULAR HEMOGLOBIN 31.9 pg (27.0-31.0); MEAN CORPUSCULAR VOLUME 99.5 fL (80.0-94.0); MEAN PLATELET VOLUME 10.9 fL (7.4-11.4); MONOCYTES % (AUTO) 9.8 %; NEUTROPHILS # (AUTO) 7.5 10^3/uL (1.5-6.6); NEUTROPHILS % (AUTO) 73.1 %; PLT - PLATELET COUNT 211 10^3/uL (130-450); RED BLOOD COUNT 3.83 10^6/uL (4.70-6.10); RED CELL DISTRIBUTION WIDTH 15.9 % (12.0-15.0); WHITE BLOOD COUNT 10.2 x10^3/uL (4.8-10.8)
[2024-01-13 14:53] LABS: ALBUMIN 3.4 g/dL (3.2-5.5); ALBUMIN/GLOBULIN RATIO 1.3 (1.0-2.2); BILIRUBIN,TOTAL 2.6 mg/dL (0.2-1.0); CALCIUM 9.1 mg/dL (8.5-10.3); CREATININE 1.3 mg/dL (0.6-1.3); POTASSIUM 4.4 mmol/L (3.5-4.5)
[2024-01-13 15:34] LABS: BILIRUBIN,URINE NEGATIVE (NEGATIVE); CLARITY,URINE CLEAR (CLEAR); GLUCOSE, URINE (UA) NEGATIVE (NEGATIVE); KETONES,URINE (UA) NEGATIVE (NEGATIVE); LEUKOCYTE ESTERASE, URINE NEGATIVE (NEGATIVE); NITRITE,URINE POSITIVE (NEGATIVE); OCCULT BLOOD,URINE NEGATIVE (NEGATIVE); PH,URINE 5.5 PH (5.0-7.5); PROTEIN,URINE 100 mg/dL (NEGATIVE); UROBILINOGEN,URINE 1 (NORMAL) E.U./dL (NORMAL)
[2024-01-13 15:46] LABS: BACTERIA,URINE Rare /HPF (None Seen); MUCUS,URINE Few Strands; RBC,URINE 0-5 /HPF (0-5); SQUAMOUS EPITHELIAL CELL,UR MOD Squamous (<= Few)
--- NOTE | 2024-01-13 16:56 | CT Report ---
PROCEDURE: CT Chest WO INDICATIONS: altered LOC persistent LLL findings TECHNIQUE: A CT scan of the chest was performed. Intravenous contrast media was not administered. Images were re corded and evaluated at appropriate window settings. Reformats: axial MIP of the chest, coronal and s agittal. For radiation dose reduction, the following was used: automated exposure control, adjustment of mA and/or kV according to patient size. COMPARISON: Chest radiograph 01/13/2024. FINDINGS: Image quality: Images are degraded by patient motion. Diagnostic information is obtained. Chest wall and lower neck: No thyroid nodule which requires sonographic follow up. No axillary or sup raclavicular adenopathy by size. Lungs and pleura: Bilateral patchy groundglass opacities are seen most notably in the medial left upp er lobe. Evaluation for small pulmonary nodules is compromised by patient motion. Small bilateral ple ural effusions. No pneumothorax. Mediastinum: Heart size is enlarged. No pericardial effusion. Three-vessel coronary calcifications. A scending thoracic aorta measures 4.5 cm in diameter. Main pulmonary artery measures 4.4 cm in diamete r, which can be seen with pulmonary arterial hypertension.. No enlarged mediastinal and hilar lymph n odes are most likely reactive. Bones: No aggressive osseous abnormality. Upper Abdomen: Cholelithiasis. IMPRESSION: 1.Patchy opacities in both lungs are suspicious for pneumonia, including possibly with atypical or vi ral agents. 2.Small bilateral pleural effusions. 3.Mildly enlarged mediastinal lymph nodes are most likely reactive. 4.Cardiomegaly. Moderate severe coronary calcifications. 5.Cholelithiasis. Reviewed by: Manuel Wilson MD on 01/13/2024 4:54 PM PST Approved by: Manuel Wilson MD on 01/13/2024 4:54 PM PST Station ID: [id number]
[2024-01-13] MEDS ORDERED: AZITHROMYCIN 250 MG TABLET PO SCH (18:30)
--- NOTE | 2024-01-13 18:31 | HISTORY & PHYSICAL EXAMINATION ---
Chief Complaint Chief Complaint Chief Complaint: Altered mental status at correction History of Present Illness History Obtained From Records Reviewed: Yes - from correction and previous admission History obtained from: Emergency room physician Exam Limitations: Patient altered History of Present Illness HPI Comment/Other: Patient is a 83-year-old male with a history of schizophrenia, major depressive disorder, delusional disorder who presents from his correction, [facility] for altered level of consciousness. Of note, he had a similar episode in October of this year, and was found to have a pneumonia at that time. Also of note, he does have an indwelling Langford catheter due to persistent BPH. When patient was seen, he was responsive to verbal stimuli. However, he was not able to answer most questions. He did state that he feels better than when he first came in. He was alert and oriented x 0, and was not able to tell me his name. On admission, he was afebrile, saturating 100% on room air. Per nurse, he does desaturate down to 84% when he is sleeping; likely component of struct of sleep apnea. He was normotensive, his heart rate was within normal limits, although it was irregular. Lab work was reviewed. At this time, he does not have a white count. His hemoglobin is 12.2, around his baseline. His electrolytes are within normal limits. His creatinine is mildly elevated at 1.3, with baseline being around 1. His BNP was elevated at 1600. UA was positive for nitrites, WBCs, but was contaminated with squamous epithelial cells. Chest x-ray was done, and showed mild right upper lung opacity and bilateral interstitial prominence. Chest CT was done which showed patchy opacities in both lungs suspicious for pneumonia, small bilateral pleural effusions, as well as cardiomegaly. He does not have an ECHO in our system. Meds/Allgy Home Medications Ambulatory Orders Medication Instructions Recorded Confirmed furosemide 20 mg tablet 10 mg PO DAILY 12/12/18 10/14/23 gabapentin 300 mg capsule 300 mg PO TID 12/12/18 10/14/23 acetaminophen 325 mg tablet (Aphen) 650 mg PO Q4H PRN Pain 06/06/20 10/14/23 calcium carbonate 500 mg PO BID 06/06/20 10/14/23 carvedilol 3.125 mg tablet 3.125 mg PO BID 06/06/20 10/14/23 docusate sodium 100 mg tablet (DOK) 100 mg PO DAILY 06/06/20 10/14/23 loperamide 2 mg capsule 2 mg PO Q15M PRN Diarrhea 06/06/20 10/14/23 metformin 500 mg tablet 500 mg PO BIDWM 06/06/20 10/14/23 risperidone 1 mg tablet 1 mg PO HS 06/06/20 10/14/23 tamsulosin 0.4 mg capsule (Flomax) 0.4 mg PO DAILY 06/06/20 10/14/23 aspirin 81 mg tablet,delayed 81 mg PO DAILY 02/28/23 10/14/23 release Melatonin 5 mg PO QPM 10/07/23 10/14/23 albuterol sulfate 90 mcg/actuation 2 puff inhalation Q4H PRN 10/07/23 10/14/23 aerosol inhaler (Ventolin HFA) Shortness Of Air/Wheezing bisacodyl 10 mg rectal suppository 10 mg MN PRN PRN Constipation 10/07/23 10/14/23 carbamide peroxide 6.5 % ear drops 10 drp EACHEAR .[id number] 10/07/23 10/14/23 (Ear Drops (carbamide peroxide)) carboxymethylcellulose sodium 1 % 2 drp EACHEYE TID PRN Dry Eye 10/07/23 10/14/23 eye drops (Artificial Tears (carboxymethylcellulose)) dextran 70-hypromellose 0.1 %-0.3 1 drp EACHEYE Q4H PRN EYE 10/07/23 10/14/23 % eye drops (GenTeal Tears Mild) IRRITATION diclofenac sodium 1 % topical gel 1 applic topical Q6H PRN Pain 1-4 10/07/23 10/14/23 (Arthritis Pain (diclofenac)) eyelid cleanser combination 8 1 pad topical DAILY 10/07/23 10/14/23 (Cleansing Eyelid Moist Pads topical pads) ferrous sulfate 325 mg (65 mg 325 mg PO DAILY 10/07/23 10/14/23 iron) tablet lisinopril 10 mg tablet (Zestril) 10 mg PO DAILY 10/07/23 10/14/23 mineral oil (Fleet Mineral Oil 1 unit MN PRN PRN Constipation 10/07/23 10/14/23 enema) multivitamin with folic acid 400 1 tab PO DAILY 10/07/23 10/14/23 mcg tablet (Thera) pantoprazole 20 mg tablet,delayed 20 mg PO QDAC 10/07/23 10/14/23 release (Protonix) polyethylene glycol 3350 17 gram 17 g PO PRN PRN Constipation 10/07/23 10/14/23 oral powder packet sennosides 8.6 mg tablet (Senna 17.2 mg PO PRN PRN Constipation 10/07/23 10/14/23 Lax) sertraline 25 mg tablet 37.5 mg PO DAILY 10/07/23 10/14/23 Oxycodone Hcl 5 mg PO Q6HR PRN Pain 5-7 #30 caps 10/10/23 10/14/23 Allergies Allergies Allergy/AdvReac Type Severity Reaction Status Date / Time hydroxyzine Allergy Unknown Verified 10/28/23 08:43 [facility] Medical History Medical History Congestive heart failure Hyperlipidemia Depression GERD (gastroesophageal reflux disease) History of atrial fibrillation History of pneumococcal infection Social History Social History Smoking Status: Never smoker Living arrangement: Other (SNF) Living Condition: Alone Relationship: Level: Dependent History of Abuse: No POLST Patient has POLST: Yes POLST Status: Full Code Review of Systems Status of ROS: unobtainable due to medical condition Exam Constitutional normal general appearance, abnormal body habitus (underweight) and level of alertness abnormal (lethargic) and (confused) HENMT normocephalic and head/scalp atraumatic Eyes PERRL, EOMs intact bilaterally, conjunctivae normal and no scleral icterus Neck/C-Spine visual inspection normal, trachea midline and cervical full ROM noted Chest inspection of chest normal and palpation of chest normal Respiratory breath sounds equal bilaterally (limited due to patient's non-compliance with exam), normal respiratory effort, rales noted (base) and no use of accessory muscles Cardiovascular normal heart rate noted, rhythm abnormal (irregular) and no murmur Gastrointestinal abdomen normal to inspection, abdomen soft to palpation, nontender to palpation, normoactive bowel sounds and no hepatosplenomegaly Genitourinary bladder normal to palpation Extremities normal to inspection, normal to palpation, no tenderness and full ROM Neurology no focal motor deficit noted and speech abnormality noted (garbled) Psychiatry orientation abnormal (disoriented to person), (disoriented to place) and (disoriented to time) Skin skin color normal, no rash and no lesions Conclusion/Plan Problem List (1) Acute metabolic encephalopathy: Plan: Patient confused, altered. No focal neurological deficits noted, patient moving all limbs spontaneously. Less concern for stroke at this time. If any focal deficits, will order CT head. Of note, CT head was done 10/31, no acute ischemia noted. Will order urine drug screen, TSH to rule out any other causes. Likely due to underlying infection, i.e. pneumonia; patient presented similarly in 10/31. (2) Community acquired pneumonia: Plan: Patient CT does show patchy opacities, concerning for pneumonia. Patient altered. No fever or white count at this time, patient not septic. Continue to trend. Continue Rocephin and azithromycin at this time. COVID, respiratory viral panel ordered, pending. Qualifiers: Laterality: unspecified laterality Qualified Code(s): J18.9 - Pneumonia, unspecified organism (3) Bilateral pleural effusion: Plan: Patient with cardiomegaly, bilateral pleural effusions on CT scan. Patient remains on room air at this time. Hold off on dieresis as patient with active infection. Echo ordered, pending. (4) Hyperlipidemia: Plan: Patient no longer on statin at correction likely due to age. Continue to monitor. Qualifiers: Hyperlipidemia type: unspecified Qualified Code(s): E78.5 - Hyperlipidemia, unspecified (5) Depression: Plan: Continue sertraline. Qualifiers: Depression Type: unspecified Qualified Code(s): F32.A - Depression, unspecified (6) GERD (gastroesophageal reflux disease): Plan: Patient on Protonix, continued. Qualifiers: Esophagitis presence: without esophagitis Qualified Code(s): K21.9 - Gastro-esophageal reflux disease without esophagitis (7) Hx of schizophrenia: Plan: Patient with a documented history of schizophrenia, previously on Risperdal. Stopped on 10/31, not taking at correction. Held at this time. (8) HTN (hypertension): Plan: Patient is normotensive in setting of active infection. Continue lisinopril, continue to monitor closely. Qualifiers: Hypertension type: primary hypertension Qualified Code(s): I10 - Essential (primary) hypertension (9) Diabetes: Plan: Patient is taking metformin and correction. Continue low-dose sliding scale, glucose checks, hypoglycemia protocol. 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 Per correction records, he is not on any anticoagulation, likely due to fall risk. Continue to monitor closely. Qualifiers: Atrial fibrillation type: paroxysmal Qualified Code(s): I48.0 - Paroxysmal atrial fibrillation Lab Results Lab results reviewed: Yes 01/13/24 14:28 01/13/24 14:28 Diagnostic Imaging Results Diagnostic Imaging Results: positive Final report reviewed Diagnostic Imaging Results Comments: CT chest reviewed; does show patchy opacities in both lungs suspicious for pneumonia, possibly atypical viral. Small bilateral pleural effusions, cardiomegaly, cholelithiasis. EKG Results EKG Interpreted Independently: Yes Core Measures Anticipated LOS I expect patient to be DC'd or transferred within 96 hours.: Yes DVT/VTE - Prophylaxis VTE/DVT Device ordered at admit?: Yes VTE/DVT Prophylaxis med ordered at admit?: Yes Stroke - Rehab Assessment Rehab services assessment to be ordered?: No Not Ordered - Medical Reason: Not indicated AMI - Statin at Admit Aspirin Prescribed on Admit: Yes
[2024-01-13] MEDS: AZITHROMYCIN INJ 500 MG in SODIUM CHLORIDE 0.9% 250 ML IV SCH (18:56)
[2024-01-13 19:20] LABS: THYROID STIMULATING HORMONE 0.99 uIU/mL (0.34-5.60)
[2024-01-13] MEDS ORDERED: polyethylene glycoL 3350 17 GM PACKET PO PRN (21:45)
[2024-01-13] MEDS ORDERED: LOPERAMIDE 2 MG CAPSULE PO PRN (21:45)
[2024-01-13] MEDS ORDERED: SENNA 8.6 MG TABLET PO PRN (21:45)
[2024-01-13] MEDS ORDERED: SODIUM CHLORIDE FLUSH 0.9% 10 ML SYRINGE IVP PRN (21:45)
[2024-01-13] MEDS ORDERED: CARBAMIDE PEROXIDE 6.5% OTIC DROPS EACHEAR SCH (21:45)
[2024-01-13] MEDS ORDERED: ACETAMINOPHEN 325 MG TABLET PO PRN (21:45)
[2024-01-13 22:02] LABS: B. PARAPERTUSSIS- RESP PCR PAN NOT DETECTED; B. PERTUSSIS- RESP PCR PANEL NOT DETECTED; C. PNEUMONIAE- RESP PCR PANEL NOT DETECTED; CORONAVIRUS 229E-RESP PCR NOT DETECTED; CORONAVIRUS HKU1-RESP PCR NOT DETECTED; CORONAVIRUS NL63-RESP PCR NOT DETECTED; CORONAVIRUS OC43-RESP PCR NOT DETECTED; HUMAN METAPNEUMOVIRUS NOT DETECTED; INFLUENZA A- RESP PCR PANEL NOT DETECTED; INFLUENZA B - RESP PCR PANEL NOT DETECTED; M. PNEUMONIAE- RESP PCR PANEL NOT DETECTED; PARAINFLUENZA VIRUS 1 NOT DETECTED; PARAINFLUENZA VIRUS 2 NOT DETECTED; PARAINFLUENZA VIRUS 3 NOT DETECTED; PARAINFLUENZA VIRUS 4 NOT DETECTED; RHINOVIRUS/ENTEROVIRUS NOT DETECTED; RSV- RESP PCR PANEL NOT DETECTED; SARS-CoV-2 -RESP PCR PANEL NOT DETECTED
[2024-01-13] MEDS: carvediloL 3.125 MG TABLET PO SCH (22:23)
[2024-01-13] MEDS: CALCIUM CARBONATE CHEW 500 MG TABLET PO SCH (22:23)
[2024-01-13] MEDS: INSULIN LISPRO 300 UNIT/3 ML PEN SUBQ SCH (22:23)
[2024-01-13] MEDS: MELATONIN 5 MG PO SCH (22:24)
[2024-01-13] MEDS ORDERED: ALBUTEROL NEB 2.5 MG/3 ML INH PRN (22:29)
[2024-01-13] MEDS ORDERED: oxyCODONE 5 MG TABLET PO PRN (22:43)
[2024-01-13] MEDS ORDERED: DICLOFENAC SODIUM 1% GEL 50 GM TUBE TOP PRN (22:45)
[2024-01-13] MEDS ORDERED: CARBOXYMETHYLCELLULOSE OPHTH DROPS EACHEYE PRN (22:48)
[2024-01-13] MEDS: MELATONIN 3 MG TABLET PO SCH (23:33)
[2024-01-14] MEDS: SODIUM CHLORIDE FLUSH 0.9% 10 ML SYRINGE IVP SCH (01:26)
[2024-01-14] MEDS ORDERED: OLANZapine 10 MG VIAL IM ONE (02:35)
--- NOTE | 2024-01-14 02:38 | PROVIDER PROGRESS NOTE ---
Homoeopath Note Homoeopath Note Homoeopath Note: RN paged" Pt in for pneumonia & altered mental status. Pt highly confused, aggravated, and attempting to exit bed. Do you want to add anything to help relax patient, showing signs of high anxiety." elderly patient. likely delirious. agitated. not a good candidate for benzodiazapines. will order Zyprexa x 1 prn delirium agitation Edna Motta DO Sound
[2024-01-14] MEDS: OLANZapine 10 MG VIAL IM ONE (03:12)
[2024-01-14 05:44] LABS: HCT - HEMATOCRIT 37.1 % (42.0-52.0); HGB - HEMOGLOBIN 11.8 g/dL (14.0-18.0); MEAN CORPUSCULAR HEMOGLOBIN 31.4 pg (27.0-31.0); MEAN CORPUSCULAR HGB CONC 31.8 g/dL (32.0-36.0); MEAN CORPUSCULAR VOLUME 98.7 fL (80.0-94.0); MEAN PLATELET VOLUME 11.3 fL (7.4-11.4); RED BLOOD COUNT 3.76 10^6/uL (4.70-6.10); RED CELL DISTRIBUTION WIDTH 15.9 % (12.0-15.0); WHITE BLOOD COUNT 8.6 x10^3/uL (4.8-10.8)
[2024-01-14 06:20] LABS: CALCIUM 9.1 mg/dL (8.5-10.3); CREATININE 1.3 mg/dL (0.6-1.3); POTASSIUM 4.5 mmol/L (3.5-4.5)
[2024-01-14] MEDS: PANTOPRAZOLE 40 MG TABLET PO SCH (06:25)
[2024-01-14] MEDS ORDERED: AZITHROMYCIN INJ 500 MG in SODIUM CHLORIDE 0.9% 250 ML IV SCH (09:00)
--- NOTE | 2024-01-14 09:26 | PROVIDER PROGRESS NOTE ---
Subjective Subjective Subjective: Today, patient appears better. He is alert and oriented x 1, responsive, answering questions appropriately. He does appear confused. Of note, overnight, he did experience delirium and required one-time dose of Zyprexa. He denies any shortness of breath, cough, fevers, chills. Current Medications Current Medications Current Medications: Current Medications Generic Name Dose Route Start Last Admin Trade Name Freq PRN Reason Stop Dose Admin Acetaminophen 650 mg 01/13/24 21:45 Acetaminophen 325 Mg Tablet PO Q4H PRN Pain Albuterol 2.5 mg 01/13/24 22:29 Albuterol Neb 2.5 Mg/3 Ml INH RTQ4H PRN Wheezing Aspirin 81 mg 01/14/24 09:00 Aspirin Ec 81 Mg Tablet PO DAILY JERRY Calcium Carbonate/Glycine 500 mg 01/13/24 21:45 01/13/24 22:23 Calcium Carbonate Chew 500 Mg Tablet PO Not Given BID JERRY Carbamide Perox/Anhydrous Glycerin 10 drops 01/13/24 21:45 Carbamide Peroxide 6.5% Otic Drops EACHEAR .[id number] [id number] Carboxymethylcellulose 2 drops 01/13/24 22:48 Carboxymethylcellulose Ophth Drops EACHEYE TID PRN Dry Eye Carvedilol 3.125 mg 01/13/24 21:45 01/13/24 22:23 Carvedilol 3.125 Mg Tablet PO Not Given BID JERRY Ceftriaxone Sodium 1 gm 01/14/24 09:00 Ceftriaxone 1 Gm Vial IVP 01/17/24 08:59 DAILY [facility] Diclofenac Sodium 2 gm 01/13/24 22:45 Diclofenac Sodium 1% Gel 50 Gm Tube TOP Q6H PRN Pain 1-4 Docusate Sodium 100 mg 01/14/24 09:00 Docusate Sodium 100 Mg Capsule PO DAILY [facility] Enoxaparin Sodium 40 mg 01/14/24 09:00 Enoxaparin 40 Mg/0.4 Ml Syringe SUBQ DAILY [facility] Ferrous Sulfate 325 mg 01/14/24 09:00 Ferrous Sulfate 325 Mg Tablet PO DAILY [facility] Azithromycin 500 mg/ Sodium 250 mls @ 250 mls/hr 01/13/24 18:45 01/13/24 23:34 Chloride IV Infused DAILY [facility] Infusion Insulin Human Lispro 1 - 5 unit 01/13/24 21:45 01/13/24 22:23 Insulin Lispro 300 Unit/3 Ml Pen SUBQ Not Given 0800,1200,1700,2100 [facility] Protocol Lisinopril 10 mg 01/14/24 09:00 Lisinopril 5 Mg Tablet PO DAILY [facility] Loperamide HCl 2 mg 01/13/24 21:45 Loperamide 2 Mg Capsule PO Q1H PRN Diarrhea Melatonin 6 mg 01/13/24 23:00 01/13/24 23:33 Melatonin 3 Mg Tablet PO Not Given QPM [facility] Multivitamins 1 tab 01/14/24 09:00 Multivitamin Tablet PO DAILY [facility] Oxycodone HCl 5 mg 01/13/24 22:43 Oxycodone 5 Mg Tablet PO Q6HR PRN Pain 5-7 Pantoprazole Sodium 40 mg 01/14/24 07:00 01/14/24 06:25 Pantoprazole 40 Mg Tablet PO Not Given QDAC [facility] Polyethylene Glycol 17 gm 01/13/24 21:45 Polyethylene Glycol 3350 17 Gm Packet PO PRN PRN Constipation Senna 17.2 mg 01/13/24 21:45 Senna 8.6 Mg Tablet PO PRN PRN Constipation Sertraline HCl 37.5 mg 01/14/24 09:00 Sertraline 25 Mg Tablet PO DAILY [facility] Sodium Chloride 10 ml 01/13/24 21:45 Sodium Chloride Flush 0.9% 10 Ml Syringe IVP PRN PRN NEEDED PER PROVIDER ORDERS Sodium Chloride 10 ml 01/14/24 01:00 01/14/24 01:26 Sodium Chloride Flush 0.9% 10 Ml Syringe IVP 10 ml 0100,0900,1700 [facility] Administration Tamsulosin HCl 0.4 mg 01/14/24 09:00 Tamsulosin 0.4 Mg Capsule PO DAILY [facility] Objective Vital Signs/Intake & Output Reviewed Vital Signs: Yes Intake & Output: Intake & Output 01/12/24 01/13/24 01/14/24 01/15/24 05:59 05:59 05:59 05:59 Intake Total 250 / 250 100 / 100 Balance 250 / 250 100 / 100 Weight (kg) 79.379 kg Objective General Appearance: positive No acute distress and Alert (only to self) Eyes Bilateral: positive Normal inspection, PERRL and EOMI ENT: positive Pharynx nml and No signs of dehydration Neck: positive Nml inspection, Thyroid nml and No JVD Respiratory: positive Chest non-tender, No respiratory distress and Breath sounds nml; negative Wheezes, Rales or Rhonchi Cardiovascular: positive No murmur, No gallop and Irregularly irregular; negative Systolic murmur or Diastolic murmur Abdomen: positive Non-tender and Nml bowel sounds; negative Guarding, Rebound, Splenomegaly or Mass Back: positive Nml inspection; negative CVA tenderness (R) or CVA tenderness (L) Skin: positive Color nml, No rash and Warm Extremities: positive Non-tender, Full ROM, Nml appearance and No pedal edema Neurologic/Psychiatric: positive Oriented x3, Motor nml and Mood/affect nml Lab Results 01/14/24 05:28 01/14/24 05:28 Other Labs: Lab Results x24hrs 01/14/24 01/13/24 01/13/24 Range/Units 05:28 21:50 21:00 WBC 8.6 (4.8-10.8) x10^3/uL RBC 3.76 L (4.70-6.10) 10^6/uL Hgb 11.8 L (14.0-18.0) g/dL Hct 37.1 L (42.0-52.0) % MCV 98.7 H (80.0-94.0) fL MCH 31.4 H (27.0-31.0) pg MCHC 31.8 L (32.0-36.0) g/dL RDW 15.9 H (12.0-15.0) % Plt Count 243 (130-450) 10^3/uL MPV 11.3 (7.4-11.4) fL Neut # (Auto) (1.5-6.6) 10^3/uL Lymph # (Auto) (1.5-3.5) 10^3/uL Bent # (Auto) (0.0-1.0) 10^3/uL Eos # (Auto) (0.0-0.7) 10^3/uL Baso # (Auto) (0.0-0.1) 10^3/uL Absolute Nucleated RBC x10^3/uL Nucleated RBC % /100WBC Sodium 139 (135-145) mmol/L Potassium 4.5 (3.5-4.5) mmol/L Chloride 108 (101-111) mmol/L Carbon Dioxide 21 (21-32) mmol/L Anion Gap 10.0 (6-13) BUN 25 H (6-20) mg/dL Creatinine 1.3 (0.6-1.3) mg/dL Estimated GFR (MDRD) 53 L (>89) Glucose 132 H (74-104) mg/dL POC Whole Bld Glucose 130 (70-100) mg/dL Lactic Acid (0.5-2.2) mmol/L Calcium 9.1 (8.5-10.3) mg/dL Total Bilirubin (0.2-1.0) mg/dL AST (10-42) IU/L ALT (10-60) IU/L Alkaline Phosphatase (42-121) IU/L B-Natriuretic Peptide (5-100) pg/mL Total Protein (6.4-8.9) g/dL Albumin (3.2-5.5) g/dL Globulin (2.1-4.2) g/dL Albumin/Globulin Ratio (1.0-2.2) Lipase (11-82) U/L TSH (0.34-5.60) uIU/mL Urine Color Urine Clarity (CLEAR) Urine pH (5.0-7.5) PH Ur Specific [place] (1.002-1.030) Urine Protein (NEGATIVE) mg/dL Urine Glucose (UA) (NEGATIVE) mg/dL Urine Ketones (NEGATIVE) mg/dL Urine Occult Blood (NEGATIVE) Urine Nitrite (NEGATIVE) Urine Bilirubin (NEGATIVE) Urine Urobilinogen (NORMAL) E.U./dL Ur Leukocyte Esterase (NEGATIVE) Urine RBC (0-5) /HPF Urine WBC (0-3) /HPF Ur Squamous Epith Cells (<= Few) Urine Bacteria (None Seen) /HPF Urine Mucus Ur Microscopic Review Urine Culture Comments Nasal Adenovirus (PCR) NOT DETECTED Nasal B. parapertussis DNA (PCR) NOT DETECTED Nasal Coronavir 229E PCR NOT DETECTED Nasal Coronavir HKU1 PCR NOT DETECTED Nasal Coronavir NL63 PCR NOT DETECTED Nasal Coronavir OC43 PCR NOT DETECTED Nasal Enterovir/Rhinovir PCR NOT DETECTED Nasal Influenza B PCR NOT DETECTED Nasal Influenza A PCR NOT DETECTED Nasal Parainfluen 1 PCR NOT DETECTED Nasal Parainfluen 2 PCR NOT DETECTED Nasal Parainfluen 3 PCR NOT DETECTED Nasal Parainfluen 4 PCR NOT DETECTED Nasal RSV (PCR) NOT DETECTED Nasal B.pertussis DNA PCR NOT DETECTED Nasal C.pneumoniae (PCR) NOT DETECTED Shine Human Metapneumo PCR NOT DETECTED Nasal M.pneumoniae (PCR) NOT DETECTED Nasal SARS-CoV-2 (PCR) NOT DETECTED 01/13/24 01/13/24 Range/Units 15:15 14:28 WBC 10.2 (4.8-10.8) x10^3/uL RBC 3.83 L (4.70-6.10) 10^6/uL Hgb 12.2 L (14.0-18.0) g/dL Hct 38.1 L (42.0-52.0) % MCV 99.5 H (80.0-94.0) fL MCH 31.9 H (27.0-31.0) pg MCHC 32.0 (32.0-36.0) g/dL RDW 15.9 H (12.0-15.0) % Plt Count 211 (130-450) 10^3/uL MPV 10.9 (7.4-11.4) fL Neut # (Auto) 7.5 H (1.5-6.6) 10^3/uL Lymph # (Auto) 1.3 L (1.5-3.5) 10^3/uL Bent # (Auto) 1.0 (0.0-1.0) 10^3/uL Eos # (Auto) 0.4 (0.0-0.7) 10^3/uL Baso # (Auto) 0.1 (0.0-0.1) 10^3/uL Absolute Nucleated RBC 0.00 x10^3/uL Nucleated RBC % 0.0 /100WBC Sodium 139 (135-145) mmol/L Potassium 4.4 (3.5-4.5) mmol/L Chloride 107 (101-111) mmol/L Carbon Dioxide 27 (21-32) mmol/L Anion Gap 5.0 L (6-13) BUN 24 H (6-20) mg/dL Creatinine 1.3 (0.6-1.3) mg/dL Estimated GFR (MDRD) 53 L (>89) Glucose 113 H (74-104) mg/dL POC Whole Bld Glucose (70-100) mg/dL Lactic Acid 1.3 (0.5-2.2) mmol/L Calcium 9.1 (8.5-10.3) mg/dL Total Bilirubin 2.6 H (0.2-1.0) mg/dL AST 16 (10-42) IU/L ALT 24 (10-60) IU/L Alkaline Phosphatase 62 (42-121) IU/L B-Natriuretic Peptide 1600 H (5-100) pg/mL Total Protein 6.0 L (6.4-8.9) g/dL Albumin 3.4 (3.2-5.5) g/dL Globulin 2.6 (2.1-4.2) g/dL Albumin/Globulin Ratio 1.3 (1.0-2.2) Lipase 12 (11-82) U/L TSH 0.99 (0.34-5.60) uIU/mL Urine Color YELLOW Urine Clarity CLEAR (CLEAR) Urine pH 5.5 (5.0-7.5) PH Ur Specific [place] >=1.030 H (1.002-1.030) Urine Protein 100 H (NEGATIVE) mg/dL Urine Glucose (UA) NEGATIVE (NEGATIVE) mg/dL Urine Ketones NEGATIVE (NEGATIVE) mg/dL Urine Occult Blood NEGATIVE (NEGATIVE) Urine Nitrite POSITIVE H (NEGATIVE) Urine Bilirubin NEGATIVE (NEGATIVE) Urine Urobilinogen 1 (NORMAL) (NORMAL) E.U./dL Ur Leukocyte Esterase NEGATIVE (NEGATIVE) Urine RBC 0-5 (0-5) /HPF Urine WBC 6-10 H (0-3) /HPF Ur Squamous Epith Cells MOD Squamous H (<= Few) Urine Bacteria Rare (None Seen) /HPF Urine Mucus Few Strands Ur Microscopic Review INDICATED Urine Culture Comments NOT INDICATED Nasal Adenovirus (PCR) Nasal B. parapertussis DNA (PCR) Nasal Coronavir 229E PCR Nasal Coronavir HKU1 PCR Nasal Coronavir NL63 PCR Nasal Coronavir OC43 PCR Nasal Enterovir/Rhinovir PCR Nasal Influenza B PCR Nasal Influenza A PCR Nasal Parainfluen 1 PCR Nasal Parainfluen 2 PCR Nasal Parainfluen 3 PCR Nasal Parainfluen 4 PCR Nasal RSV (PCR) Nasal B.pertussis DNA PCR Nasal C.pneumoniae (PCR) Shine Human Metapneumo PCR Nasal M.pneumoniae (PCR) Nasal SARS-CoV-2 (PCR) Assessment/Plan Problem List (1) Acute metabolic encephalopathy: Impression: Yesterday, patient was confused, altered, not following any commands. Today, he is alert and oriented x 1, following commands, able to answer some yes or no questions. This may be his baseline. Urine drug screen, alcohol level was negative. TSH was within normal limits. Altered mentation was likely due to underlying pneumonia, which is now being treated. (2) Community acquired pneumonia: Impression: Continue Rocephin and azithromycin. Azithromycin switched to oral as patient is more alert today. Qualifiers: Laterality: unspecified laterality Qualified Code(s): J18.9 - Pneumonia, unspecified organism (3) Bilateral pleural effusion: Impression: Echo pending. Patient still remains on room air, continue to monitor respiratory status. (4) Hyperlipidemia: Impression: Patient no longer on statin at retirement likely due to age. Continue to monitor. Qualifiers: Hyperlipidemia type: unspecified Qualified Code(s): E78.5 - Hyperlipidemia, unspecified (5) Depression: Impression: Continue sertraline. Qualifiers: Depression Type: unspecified Qualified Code(s): F32.A - Depression, unspecified (6) GERD (gastroesophageal reflux disease): Impression: Continue Protonix. Qualifiers: Esophagitis presence: without esophagitis Qualified Code(s): K21.9 - Gastro-esophageal reflux disease without esophagitis (7) Hx of schizophrenia: Impression: Patient with a documented history of schizophrenia, previously on Risperdal. Stopped on 10/31, not taking at retirement. Held at this time. (8) HTN (hypertension): Impression: Patient is normotensive in setting of active infection. Continue lisinopril, continue to monitor closely. Qualifiers: Hypertension type: primary hypertension Qualified Code(s): I10 - Essential (primary) hypertension (9) Diabetes: Impression: Patient is taking metformin and retirement. Continue low-dose sliding scale, glucose checks, hypoglycemia protocol. Qualifiers: Diabetes mellitus complication status: without complication Diabetes mellitus group home insulin use: unspecified group home insulin use status D iabetes mellitus type: type 2 Qualified Code(s): E11.9 - Type 2 diabetes mellitus without complications (10) A-fib: Impression: Patient currently in atrial fibrillation, but is rate controlled. Per retirement records, he is not on any anticoagulation, likely due to fall risk. Continue to monitor closely. Qualifiers: Atrial fibrillation type: paroxysmal Qualified Code(s): I48.0 - Paroxysmal atrial fibrillation
[2024-01-14] MEDS: cefTRIAXone 1 GM VIAL IVP SCH (10:18)
[2024-01-14] MEDS: TAMSULOSIN 0.4 MG CAPSULE PO SCH (11:55)
[2024-01-14] MEDS: MULTIVITAMIN TABLET PO SCH (11:55)
[2024-01-14] MEDS: lisinopriL 5 MG TABLET PO SCH (11:56)
[2024-01-14] MEDS: ASPIRIN EC 81 MG TABLET PO SCH (11:56)
[2024-01-14] MEDS: DOCUSATE SODIUM 100 MG CAPSULE PO SCH (11:57)
[2024-01-14] MEDS: SERTRALINE 25 MG TABLET PO SCH (11:57)
[2024-01-14] MEDS: ENOXAPARIN 40 MG/0.4 ML SYRINGE SUBQ SCH (11:57)
[2024-01-14] MEDS: FERROUS SULFATE 325 MG TABLET PO SCH (11:57)
[2024-01-14] MEDS: AZITHROMYCIN 250 MG TABLET PO SCH (11:59)
--- NOTE | 2024-01-14 13:19 | PHARMACY PROGRESS NOTE ---
Best Possible Medication History Admit Date and Time: 01/13/241808 Processed by: Pharmacy Medications reviewed in ED?: No Medication History completed: Yes Patient Interview: Pt unable to participate Secondary Source(s): Facility MAR as ONLY source [facility] Statement: As the person ultimately responsible for medication therapy, providers are able to order a medication from an existing home medication list in [facility] via the "Reconcile Routine" prior to Confirmation of that medication by network diagnostic support specialist. Such practice is discouraged except when the physician, in their clinical judgment, deems that a medical need exists for a medication without regard to previous use.
[2024-01-14] MEDS: HALOPERIDOL 5 MG/ML VIAL IVP PRN (17:42)
[2024-01-14] MEDS ORDERED: HALOPERIDOL 5 MG/ML VIAL IM ONE (22:00)
[2024-01-14] MEDS ORDERED: HALOPERIDOL 5 MG/ML VIAL IVP ONE (22:00)
[2024-01-15] MEDS ORDERED: AMOXICILLIN 250 MG CAPSULE PO SCH ×2 (09:00→10:00)
--- NOTE | 2024-01-15 10:07 | Discharge Summary ---
"Discharge Summary Admit Date: 01/13/24 Discharge Date: 01/16/24 Discharging Provider: Dr. Juan Mensah Discharge Facility Name: [facility] DIAGNOSES Admission Diagnoses: Acute metabolic encephalopathy Community-acquired pneumonia Bilateral pleural effusions Hyperlipidemia Depression GERD History of schizophrenia Hypertension Discharge Diagnoses with Status of Each Condition: Acute metabolic encephalopathyresolving. He does appear to have episodes of delirium overnight, but is redirectable. This morning, he is back at his baseline. Urine drug screen, alcohol level, TSH within normal limits. Community-acquired pneumoniatransition to amoxicillin and azithromycin today. Will complete 5-day course. Bilateral pleural effusionstable, not requiring any oxygen at this time. Echo was done and it did show EF of 30 to 35%, mild right ventricular enlargement, mild to moderate mitral regurgitation and moderate tricuspid regurgitation. He is on some GDMTlisinopril, Coreg. Would recommend starting Jardiance in the outpatient setting. Is euvolemic at this time, no diuretics started. Should follow-up with cardiology in the outpatient setting. Hyperlipidemiacontinue statin. Depressioncontinue sertraline. GERDcontinue Protonix. Schizophreniapreviously on Risperdal, not currently taking. Held at this time. Hypertensioncontinue lisinopril. [id number] is 5.8. Will stop metformin in the outpatient setting. Atrial fibrillationnot on any anticoagulation. Continue Coreg. HPI History of Present Illness: Patient is a 83-year-old male with a history of schizophrenia, major depressive disorder, delusional disorder who presents from his longterm, [facility] for altered level of consciousness. Of note, he had a similar episode in October of this year, and was found to have a pneumonia at that time. Also of note, he does have an indwelling Langford catheter due to persistent BPH. When patient was seen, he was responsive to verbal stimuli. However, he was not able to answer most questions. He did state that he feels better than when he first came in. He was alert and oriented x 0, and was not able to tell me his name. On admission, he was afebrile, saturating 100% on room air. Per nurse, he does desaturate down to 84% when he is sleeping; likely component of struct of sleep apnea. He was normotensive, his heart rate was within normal limits, although it was irregular. Lab work was reviewed. At this time, he does not have a white count. His hemoglobin is 12.2, around his baseline. His electrolytes are within normal limits. His creatinine is mildly elevated at 1.3, with baseline being around 1. His BNP was elevated at 1600. UA was positive for nitrites, WBCs, but was contaminated with squamous epithelial cells. Chest x-ray was done, and showed mild right upper lung opacity and bilateral interstitial prominence. Chest CT was done which showed patchy opacities in both lungs suspicious for pneumonia, small bilateral pleural effusions, as well as cardiomegaly. He does not have an ECHO in our system. CONSULTS | PROCEDURES Consultations: Social work Procedures: Chest x-ray, chest CT HOSPITAL COURSE Hospital Course: Patient is an 83-year-old male with a history of major depressive disorder, schizophrenia presented from [facility] for altered mental status. His mental status improved during his stay, and he is now alert and oriented x 1-2, redirectable, and answering questions. He did experience delirium overnight. While he was here, we treated him for a community-acquired pneumonia. He has been afebrile since. Oxygen was weaned off as well. He will complete a 5-day course of antibiotics, has not been transition to orals. Echo was also completed which showed EF of 30 to 35%. He is already on lisinopril, Coreg. As he was euvolemic, he did not require any diuretics at this time. Would recommend starting Jardiance in the outpatient setting, and would recommend follow-up with cardiology as well. Advised to follow up with PCP in outpatient setting. ALLERGIES Allergies Allergy/AdvReac Type Severity Reaction Status Date / Time hydroxyzine Allergy Unknown Verified 10/28/23 08:43 MEDICATIONS Ambulatory Orders Medication Instructions Recorded Confirmed acetaminophen 325 mg tablet (Aphen) 650 mg PO Q4H PRN Pain 06/06/20 01/14/24 calcium carbonate 500 mg PO BID 06/06/20 01/14/24 carvedilol 3.125 mg tablet 3.125 mg PO BID 06/06/20 01/14/24 docusate sodium 100 mg tablet (DOK) 100 mg PO DAILY 06/06/20 01/14/24 loperamide 2 mg capsule 2 mg PO Q15M PRN Diarrhea 06/06/20 01/14/24 tamsulosin 0.4 mg capsule (Flomax) 0.4 mg PO HS 06/06/20 01/14/24 aspirin 81 mg tablet,delayed 81 mg PO DAILY 02/28/23 01/14/24 release Melatonin 5 mg PO QPM 10/07/23 01/14/24 albuterol sulfate 90 mcg/actuation 2 puff inhalation Q4H PRN 10/07/23 01/14/24 aerosol inhaler (Ventolin HFA) Shortness Of Air/Wheezing bisacodyl 10 mg rectal suppository 10 mg DE PRN PRN Constipation 10/07/23 01/14/24 carbamide peroxide 6.5 % ear drops 10 drp EACHEAR .[id number] 10/07/23 01/14/24 (Ear Drops (carbamide peroxide)) carboxymethylcellulose sodium 1 % 2 drp EACHEYE TID PRN Dry Eye 10/07/23 01/14/24 eye drops (Artificial Tears (carboxymethylcellulose)) dextran 70-hypromellose 0.1 %-0.3 1 drp EACHEYE Q4H PRN EYE 10/07/23 01/14/24 % eye drops (GenTeal Tears Mild) IRRITATION diclofenac sodium 1 % topical gel 1 applic topical Q6H PRN Pain 1-4 10/07/23 01/14/24 (Arthritis Pain (diclofenac)) eyelid cleanser combination 8 1 pad topical DAILY 10/07/23 01/14/24 (Cleansing Eyelid Moist Pads topical pads) ferrous sulfate 325 mg (65 mg 325 mg PO DAILY 10/07/23 01/14/24 iron) tablet lisinopril 10 mg tablet (Zestril) 10 mg PO DAILY 10/07/23 01/14/24 mineral oil (Fleet Mineral Oil 1 unit DE PRN PRN Constipation 10/07/23 01/14/24 enema) multivitamin with folic acid 400 1 tab PO DAILY 10/07/23 01/14/24 mcg tablet (Thera) polyethylene glycol 3350 17 gram 17 g PO PRN PRN Constipation 10/07/23 01/14/24 oral powder packet sennosides 8.6 mg tablet (Senna 17.2 mg PO PRN PRN Constipation 10/07/23 01/14/24 Lax) sertraline 25 mg tablet 37.5 mg PO DAILY 10/07/23 01/14/24 aluminum-mag hydroxide-simethicone 30 ml PO Q4H PRN indigestion 01/14/24 01/14/24 200 mg-200 mg-20 mg/5 mL oral susp (Advanced Antacid-Antigas) miscellaneous medical supply 01/14/24 01/14/24 (Ocusoft Eyelid Cleansing Pads) pantoprazole 40 mg tablet,delayed 40 mg PO DAILY 01/14/24 01/14/24 release amoxicillin 250 mg capsule 1,000 mg (4 x 250 mg) PO TID 2 01/15/24 days #24 caps PHYSICAL EXAM AT DISCHARGE General Appearance: positive No acute distress and Alert Eyes Bilateral: positive Normal inspection, PERRL and EOMI ENT: positive Pharynx nml and No signs of dehydration Neck: positive Nml inspection, Thyroid nml and No JVD Respiratory: positive Chest non-tender, No respiratory distress and Breath sounds nml; negative Wheezes, Rales or Rhonchi Cardiovascular: positive No murmur and Irregularly irregular; negative Tachycardia or Bradycardia Peripheral Pulses: positive 2+ Abdomen: positive Non-tender and No organomegaly; negative Guarding, Rebound, Hepatomegaly, Splenomegaly or Mass Back: positive Nml inspection; negative CVA tenderness (R) or CVA tenderness (L) Skin: positive Color nml, No rash and Warm Extremities: positive Non-tender, Full ROM and Nml appearance Neurologic/Psychiatric: positive Mood/affect nml, Disoriented to place and Disoriented to time; negative Facial droop LABS 01/14/24 05:28 01/14/24 05:28 DIAGNOSTIC IMAGING Diagnostic Imaging Results: Final report reviewed Diagnostic Imaging Results Comments: Chest x-ray showed mild right upper lung zone opacity and bilateral interstitial prominence, as well as cardiomegaly. This was followed up with a chest CT which showed patchy opacities in both lungs suspicious for pneumonia, as well as small bilateral pleural effusions, cardiomegaly, and cholelithiasis. QUALITY (Female Hip Fx Only) Was patient sent home on osteoporosis medication?: No FOLLOW UP Follow Up: Follow-up with cardiology in the outpatient setting as well as primary care physician. TIME SPENT Time Spent in Discharge (Minutes): 30 Discharge Plan Discharge Patient Disposition: 03 [facility] DC/Xfer Condition: Fair Prescriptions: New amoxicillin 250 mg Capsule 1,000 mg PO TID 2 Days Qty: 24 0RF Continued docusate sodium [DOK] 100 MG tablet 100 mg PO DAILY tamsulosin [Flomax] 0.4 MG capsule 0.4 mg PO HS carvedilol 3.125 MG tablet 3.125 mg PO BID Rx Instructions: HOLD IF SBP<110 OR HR<60 acetaminophen [Aphen] 325 MG tablet 650 mg PO Q4H PRN (Reason: Pain) loperamide 2 MG capsule 2 mg PO Q15M MDD 12 MG PRN (Reason: Diarrhea) calcium carbonate 500 MG tablet,chewable 500 mg PO BID aspirin 81 MG tablet,delayed release (DR/EC) 81 mg PO DAILY ferrous sulfate 325 MG tablet 325 mg PO DAILY lisinopril [Zestril] 10 MG tablet 10 mg PO DAILY Rx Instructions: HOLD IF SBP <110 albuterol sulfate [Ventolin HFA] 200 PUFFS/18 GM HFA aerosol inhaler 2 puff inhalation Q4H PRN (Reason: Shortness Of Air/Wheezing) diclofenac sodium [Arthritis Pain (diclofenac)] 50 GM gel 1 applic topical Q6H PRN (Reason: Pain 1-4) multivitamin with folic acid [Thera] 1 TAB tablet 1 tab PO DAILY Artificial Tears (cmc) 15 ML drops 2 drp EACHEYE TID PRN (Reason: Dry Eye) Melatonin 5 MG Tablet 5 mg PO QPM GenTeal Tears Mild 15 ML drops 1 drp EACHEYE Q4H PRN (Reason: EYE IRRITATION) Cleansing Eyelid Moist Pads 1 EACH pads, medicated 1 pad topical DAILY sertraline 25 MG tablet 37.5 mg PO DAILY sennosides [Senna Lax] 8.6 MG tablet 17.2 mg PO PRN PRN (Reason: Constipation) Rx Instructions: IF MIRALAX NOT EFFECTIVE INITIATE ON EVENING SHIFT OF 3RD DAY OF NO BM polyethylene glycol 3350 17 GM powder in packet 17 g PO PRN PRN (Reason: Constipation) Rx Instructions: AFTER 3 DAYS OF NO BM INITIATE ON DAY SHIFT. MIX WITH 8 OZ OF LIQUID. mineral oil [Fleet Mineral Oil] 133 ML enema 1 unit DE PRN PRN (Reason: Constipation) Rx Instructions: IF DULCOLAX SUPPOSITORY NOT EFFECTIVE INITIATE ON 4TH DAY EVENING SHIFT OF NO BM. NOTIFY MD IF NO RESULTS. bisacodyl 10 MG suppository 10 mg DE PRN PRN (Reason: Constipation) Rx Instructions: IF SENNA NOT EFFECTIVE INITIATE ON 4TH DAY OF NO BM Ear Drops (carbamide peroxide) 200 DROPS/15 ML drops 10 drp EACHEAR .[id number] Rx Instructions: INSTILL 10 DROPS IN BOTH EARS EVERY DAY SHIFT EVERY 3 MONTHS STARTING ON THE 8TH FOR 1 DAY FOR EAR WAX REMOVAL (DME) Ocusoft Eyelid Cleansing Pads Pad See Rx Instructions .ROUTE Rx Instructions: As directed pantoprazole 40 mg tablet,delayed release (DR/EC) 40 mg PO DAILY alum-mag hydroxide-simeth [Advanced Antacid-Antigas] 200-200-20 mg/5 mL suspension 30 ml PO Q4H PRN (Reason: indigestion) Discontinued metformin 500 MG tablet 500 mg PO BIDWM Activity Restrictions: Activity as Tolerated Diet: Cardiac Health Concerns: You came in from your rehab at [facility] because people were worried that you were acting more confused than usual. When you got here, you were noted to have a fever. Your chest x-ray and your chest CT showed that you may have had a pneumonia. It also showed that your heart was big. For your pneumonia, we treated you with antibiotics, and you continue to improve. You got an ultrasound of your heart which showed that your heart was not pumping as well as it should be. You are already on some medications to help with this. However, you should see a rail car driver in the outpatient setting. You should also follow-up with the primary care doctor. We did stop your metformin as you are no longer a diabetic. We are glad you are feeling better, thank you for allowing us to take care of you. Care Plan Goals: 1. Finish your antibiotic course. 2. Follow-up with a rail car driver. 3. Follow-up with your primary care doctor. Print Language: Bengali Patient Instructions: Pneumonia Dc Stand Alone Forms: SNF Discharge, PCP List"
--- NOTE | 2024-01-15 10:17 | PROVIDER PROGRESS NOTE ---
Subjective Subjective Subjective: Overnight, he did experience delirium and required Haldol. As such, this morning he is sleepy and difficult to arouse. Will continue to monitor. He does wake to sternal rub, and answer some questions. He is able to tell me his name. He denies any shortness of breath, cough, fevers, chills. Current Medications Current Medications Current Medications: Current Medications Generic Name Dose Route Start Last Admin Trade Name Freq PRN Reason Stop Dose Admin Acetaminophen 650 mg 01/13/24 21:45 Acetaminophen 325 Mg Tablet PO Q4H PRN Pain Albuterol 2.5 mg 01/13/24 22:29 Albuterol Neb 2.5 Mg/3 Ml INH RTQ4H PRN Wheezing Amoxicillin 1,000 mg 01/15/24 10:00 Amoxicillin 250 Mg Capsule PO TID JERRY Aspirin 81 mg 01/14/24 09:00 01/14/24 11:56 Aspirin Ec 81 Mg Tablet PO 81 mg DAILY JERRY Administration Calcium Carbonate/Glycine 500 mg 01/13/24 21:45 01/14/24 21:14 Calcium Carbonate Chew 500 Mg Tablet PO 500 mg BID JERRY Administration Carbamide Perox/Anhydrous Glycerin 10 drops 01/13/24 21:45 Carbamide Peroxide 6.5% Otic Drops EACHEAR .[id number] [id number] Carboxymethylcellulose 2 drops 01/13/24 22:48 Carboxymethylcellulose Ophth Drops EACHEYE TID PRN Dry Eye Carvedilol 3.125 mg 01/13/24 21:45 01/14/24 21:12 Carvedilol 3.125 Mg Tablet PO 3.125 mg BID JERRY Administration Diclofenac Sodium 2 gm 01/13/24 22:45 Diclofenac Sodium 1% Gel 50 Gm Tube TOP Q6H PRN Pain 1-4 Docusate Sodium 100 mg 01/14/24 09:00 01/14/24 11:57 Docusate Sodium 100 Mg Capsule PO 100 mg DAILY JERRY Administration Enoxaparin Sodium 40 mg 01/14/24 09:00 01/14/24 11:57 Enoxaparin 40 Mg/0.4 Ml Syringe SUBQ 40 mg DAILY JERRY Administration Ferrous Sulfate 325 mg 01/14/24 09:00 01/14/24 11:57 Ferrous Sulfate 325 Mg Tablet PO 325 mg DAILY JERRY Administration Haloperidol 3 mg 01/14/24 17:14 01/14/24 17:42 Haloperidol 5 Mg/Ml Vial IVP 3 mg NIGHTLY PRN Administration delirium Insulin Human Lispro 1 - 5 unit 01/13/24 21:45 01/14/24 21:22 Insulin Lispro 300 Unit/3 Ml Pen SUBQ Not Given 0800,1200,1700,2100 [facility] Protocol Lisinopril 10 mg 01/14/24 09:00 01/14/24 11:56 Lisinopril 5 Mg Tablet PO 10 mg DAILY JERRY Administration Loperamide HCl 2 mg 01/13/24 21:45 Loperamide 2 Mg Capsule PO Q1H PRN Diarrhea Melatonin 6 mg 01/13/24 23:00 01/14/24 21:12 Melatonin 3 Mg Tablet PO 6 mg QPM JERRY Administration Multivitamins 1 tab 01/14/24 09:00 01/14/24 11:55 Multivitamin Tablet PO 1 tab DAILY [facility] Administration Oxycodone HCl 5 mg 01/13/24 22:43 Oxycodone 5 Mg Tablet PO Q6HR PRN Pain 5-7 Pantoprazole Sodium 40 mg 01/14/24 07:00 01/14/24 06:25 Pantoprazole 40 Mg Tablet PO Not Given QDAC [facility] Polyethylene Glycol 17 gm 01/13/24 21:45 Polyethylene Glycol 3350 17 Gm Packet PO PRN PRN Constipation Senna 17.2 mg 01/13/24 21:45 Senna 8.6 Mg Tablet PO PRN PRN Constipation Sertraline HCl 37.5 mg 01/14/24 09:00 01/14/24 11:57 Sertraline 25 Mg Tablet PO 37.5 mg DAILY JERRY Administration Sodium Chloride 10 ml 01/13/24 21:45 Sodium Chloride Flush 0.9% 10 Ml Syringe IVP PRN PRN NEEDED PER PROVIDER ORDERS Sodium Chloride 10 ml 01/14/24 01:00 01/14/24 17:41 Sodium Chloride Flush 0.9% 10 Ml Syringe IVP 10 ml 0100,0900,1700 [facility] Administration Tamsulosin HCl 0.4 mg 01/14/24 09:00 01/14/24 11:55 Tamsulosin 0.4 Mg Capsule PO 0.4 mg DAILY JERRY Administration Objective Vital Signs/Intake & Output Reviewed Vital Signs: Yes Vital Signs: Vital Signs x48h Temp Pulse Resp BP Pulse Ox O2 Flow Rate 01/15/24 07:41 98.1 F 64 20 141/76 H 99 2.5 Intake & Output: Intake & Output 01/13/24 01/14/24 01/15/24 01/16/24 05:59 05:59 05:59 05:59 Intake Total 250 / 250 720 / 720 Output Total 100 / 100 Balance 250 / 250 620 / 620 Weight (kg) 79.379 kg 75.5 kg Objective General Appearance: positive No acute distress and Alert (only to self) Eyes Bilateral: positive Normal inspection, PERRL and EOMI ENT: positive Pharynx nml and No signs of dehydration Neck: positive Nml inspection, Thyroid nml and No JVD Respiratory: positive Chest non-tender, No respiratory distress and Breath sounds nml; negative Wheezes, Rales or Rhonchi Cardiovascular: positive No murmur, No gallop and Irregularly irregular; negative Systolic murmur or Diastolic murmur Abdomen: positive Non-tender and Nml bowel sounds; negative Guarding, Rebound, Splenomegaly or Mass Back: positive Nml inspection; negative CVA tenderness (R) or CVA tenderness (L) Skin: positive Color nml, No rash and Warm Extremities: positive Non-tender, Full ROM, Nml appearance and No pedal edema Neurologic/Psychiatric: positive Oriented x3, Motor nml and Mood/affect nml Lab Results 01/14/24 05:28 01/14/24 05:28 Other Labs: Lab Results x24hrs 01/15/24 01/14/24 01/14/24 Range/Units 07:28 17:07 11:33 POC Whole Bld Glucose 123 153 109 (70-100) mg/dL Assessment/Plan Problem List (1) Acute metabolic encephalopathy: Impression: Urine drug screen, alcohol level was negative. TSH was within normal limits. Altered mentation was likely due to underlying pneumonia, which is now being treated. Now he is altered because of delirium. Will try to keep patient awake during the day with lights on, TV on, frequent reorientation. (2) Community acquired pneumonia: Impression: Continue Rocephin and azithromycin. Qualifiers: Laterality: unspecified laterality Qualified Code(s): J18.9 - Pneumonia, unspecified organism (3) Bilateral pleural effusion: Impression: Echo shows EF of 30-35%. Patient still remains on room air, continue to monitor respiratory status. (4) Hyperlipidemia: Impression: Patient no longer on statin at detention likely due to age. Continue to monitor. Qualifiers: Hyperlipidemia type: unspecified Qualified Code(s): E78.5 - Hyperlipidemia, unspecified (5) Depression: Impression: Continue sertraline. Qualifiers: Depression Type: unspecified Qualified Code(s): F32.A - Depression, unspecified (6) GERD (gastroesophageal reflux disease): Impression: Continue Protonix. Qualifiers: Esophagitis presence: without esophagitis Qualified Code(s): K21.9 - Gastro-esophageal reflux disease without esophagitis (7) Hx of schizophrenia: Impression: Patient with a documented history of schizophrenia, previously on Risperdal. Stopped on 10/31, not taking at detention. Held at this time. (8) HTN (hypertension): Impression: Patient is normotensive in setting of active infection. Continue lisinopril, continue to monitor closely. Qualifiers: Hypertension type: primary hypertension Qualified Code(s): I10 - Essential (primary) hypertension (9) Diabetes: Impression: Patient is taking metformin and detention. Continue low-dose sliding scale, glucose checks, hypoglycemia protocol. Qualifiers: Diabetes mellitus complication status: without complication Diabetes mellitus long term care administrator insulin use: unspecified halfway insulin use status D iabetes mellitus type: type 2 Qualified Code(s): E11.9 - Type 2 diabetes mellitus without complications (10) A-fib: Impression: Patient currently in atrial fibrillation, but is rate controlled. Per detention records, he is not on any anticoagulation, likely due to fall risk. Continue to monitor closely. Qualifiers: Atrial fibrillation type: paroxysmal Qualified Code(s): I48.0 - Paroxysmal atrial fibrillation (11) Congestive heart failure: Impression: ECHO shows EF of 30-35%. Not in acute exacerbation. Patient already on Coreg, lisinopril. Follow up with roll out manager in outpatient setting. Start Jardiance and spirnolactone in outpatient setting. Qualifiers: Heart failure chronicity: unspecified Heart failure type: systolic Q ualified Code(s): I50.20 - Unspecified systolic (congestive) heart failure
[2024-01-15] MEDS ORDERED: AZITHROMYCIN INJ 500 MG in SODIUM CHLORIDE 0.9% 250 ML IV SCH (17:00)
[2024-01-15] MEDS: HALOPERIDOL 5 MG/ML VIAL IM ONE (18:48)
[2024-01-15] MEDS: cefTRIAXone 1 GM VIAL IVP SCH (20:33)
[2024-01-16 10:59] VITALS: O2SAT 97
== END 2024-01-16 14:00 | DRG 193 ==
LOC: ED 13:32 → MS2 18:09
PROVIDERS: ADMIT Internal Medicine; ATTEND Internal Medicine
DX: I11.0 Hypertensive heart disease with heart failure; J18.9 Pneumonia, unspecified organism; Z20.818 Contact with and (suspected) exposure to other bacterial communicable diseases; E78.5 Hyperlipidemia, unspecified; Z96.0 Presence of urogenital implants; F32.9 Major depressive disorder, single episode, unspecified; K21.9 Gastro-esophageal reflux disease without esophagitis; Z20.828 Contact with and (suspected) exposure to other viral communicable diseases; N40.0 Benign prostatic hyperplasia without lower urinary tract symptoms; F20.9 Schizophrenia, unspecified; I48.20 Chronic atrial fibrillation, unspecified; J90 Pleural effusion, not elsewhere classified; R41.0 Disorientation, unspecified; I08.1 Rheumatic disorders of both mitral and tricuspid valves; I10 Essential (primary) hypertension; Z79.899 Other long term (current) drug therapy; Z20.822 Contact with and (suspected) exposure to COVID-19; I50.22 Chronic systolic (congestive) heart failure; E11.9 Type 2 diabetes mellitus without complications; G93.41 Metabolic encephalopathy; Z79.84 Long term (current) use of oral hypoglycemic drugs; I48.0 Paroxysmal atrial fibrillation

== ENCOUNTER 2024-02-13 04:44 | Inpatient (IN) ==
--- NOTE | 2024-02-13 04:52 | ED Physician Documentation ---
History of Present Illness Stated complaint Stated Complaint: AMS Chief complaint Chief Complaint: General History obtained from History obtained from: EMS Additonal information Additional information: 83-year-old man with history of schizophrenia, dementia, recent pneumonia on 2 L home oxygen at baseline, presents with confusion and agitation tonight per [facility] staff with heart rate in the 200s and O2 sat dropping to 79%. On EMS arrival, patient was calm and compliant, with facemask 10 L at 98%, heart rate in the 90s, blood pressure 100/52. Patient unable to give a history due to dementia. Meds/Allgy Home Medications Ambulatory Orders Medication Instructions Recorded Confirmed acetaminophen 325 mg tablet (Aphen) 650 mg PO Q4H PRN Pain 06/06/20 01/14/24 calcium carbonate 500 mg PO BID 06/06/20 01/14/24 carvedilol 3.125 mg tablet 3.125 mg PO BID 06/06/20 01/14/24 docusate sodium 100 mg tablet (DOK) 100 mg PO DAILY 06/06/20 01/14/24 loperamide 2 mg capsule 2 mg PO Q15M PRN Diarrhea 06/06/20 01/14/24 tamsulosin 0.4 mg capsule (Flomax) 0.4 mg PO HS 06/06/20 01/14/24 aspirin 81 mg tablet,delayed 81 mg PO DAILY 02/28/23 01/14/24 release Melatonin 5 mg PO QPM 10/07/23 01/14/24 albuterol sulfate 90 mcg/actuation 2 puff inhalation Q4H PRN 10/07/23 01/14/24 aerosol inhaler (Ventolin HFA) Shortness Of Air/Wheezing bisacodyl 10 mg rectal suppository 10 mg IA PRN PRN Constipation 10/07/23 01/14/24 carbamide peroxide 6.5 % ear drops 10 drp EACHEAR .[id number] 10/07/23 01/14/24 (Ear Drops (carbamide peroxide)) carboxymethylcellulose sodium 1 % 2 drp EACHEYE TID PRN Dry Eye 10/07/23 01/14/24 eye drops (Artificial Tears (carboxymethylcellulose)) dextran 70-hypromellose 0.1 %-0.3 1 drp EACHEYE Q4H PRN EYE 10/07/23 01/14/24 % eye drops (GenTeal Tears Mild) IRRITATION diclofenac sodium 1 % topical gel 1 applic topical Q6H PRN Pain 1-4 10/07/23 01/14/24 (Arthritis Pain (diclofenac)) eyelid cleanser combination 8 1 pad topical DAILY 10/07/23 01/14/24 (Cleansing Eyelid Moist Pads topical pads) ferrous sulfate 325 mg (65 mg 325 mg PO DAILY 10/07/23 01/14/24 iron) tablet lisinopril 10 mg tablet (Zestril) 10 mg PO DAILY 10/07/23 01/14/24 mineral oil (Fleet Mineral Oil 1 unit IA PRN PRN Constipation 10/07/23 01/14/24 enema) multivitamin with folic acid 400 1 tab PO DAILY 10/07/23 01/14/24 mcg tablet (Thera) polyethylene glycol 3350 17 gram 17 g PO PRN PRN Constipation 10/07/23 01/14/24 oral powder packet sennosides 8.6 mg tablet (Senna 17.2 mg PO PRN PRN Constipation 10/07/23 01/14/24 Lax) sertraline 25 mg tablet 37.5 mg PO DAILY 10/07/23 01/14/24 aluminum-mag hydroxide-simethicone 30 ml PO Q4H PRN indigestion 01/14/24 01/14/24 200 mg-200 mg-20 mg/5 mL oral susp (Advanced Antacid-Antigas) miscellaneous medical supply 01/14/24 01/14/24 (Ocusoft Eyelid Cleansing Pads) pantoprazole 40 mg tablet,delayed 40 mg PO DAILY 01/14/24 01/14/24 release amoxicillin 250 mg capsule 1,000 mg (4 x 250 mg) PO TID 2 01/15/24 days #24 caps Allergies Allergies Allergy/AdvReac Type Severity Reaction Status Date / Time hydroxyzine Allergy Unknown Verified 02/13/24 04:57 PFS Medical History Medical History (Updated 02/13/24 @ 06:15 by Courtney Hansen MD) Nuclear cataract of both eyes Polyosteoarthritis Congestive heart failure Hyperlipidemia Depression GERD (gastroesophageal reflux disease) History of atrial fibrillation History of pneumococcal infection Social History Social History (Updated 02/13/24 @ 05:21 by Dilcia Barakat RN) Smoking Status: Never smoker Living arrangement: [facility] Living Condition: Alone Relationship: Caregiver Physical Activity: Chairfast Level: Dependent Home Mobility Equipment: Wheelchair Do you feel safe in your home environment?: Yes Suffered physical, verbal, emotional, or financial abuse?: No History of Abuse: No Are you following a diet prescribed by a doctor: Yes Special Diet Details: Pureed diet; honey thick liquids POLST Patient has POLST: Yes POLST Status: Full Code Exam Constitutional elderly apperaring in [facility] normocephalic, head/scalp atraumatic and nasal mucous membranes normal dry oral MM Eyes PERRL Neck/C-Spine visual inspection normal Respiratory breath sounds equal bilaterally, normal respiratory effort and clear to auscultation bilaterally Cardiovascular normal heart rate noted and regular rhythm noted Gastrointestinal abdomen normal to inspection, abdomen soft to palpation and nontender to palpation Psychiatry cooperative calm, lying in bed, repeating his name over and over Skin skin color normal Results Vitals Vitals: Vital Signs - 24 hr 02/13/24 04:48 02/13/24 05:08 02/13/24 05:18 Temperature 36.0 C L Temperature Source Oral Pulse Rate 87 87 Respiratory Rate 20 22 Blood Pressure 95/56 L O2 Saturation 91 L 96 Oxygen Delivery Method Nasal Cannula O2 Source Room air Nasal cannula If not protocol: Oxygen Flow, liters/minute 2 2 Pain Intensity 0 02/13/24 05:37 Temperature Temperature Source Pulse Rate 84 Respiratory Rate 18 Blood Pressure 123/79 O2 Saturation 98 Oxygen Delivery Method O2 Source Nasal cannula If not protocol: Oxygen Flow, liters/minute 2 Pain Intensity Oxygen O2 Source Nasal cannula EKG (time done) 0502: EKG releavant findings:: EKG personally interpreted by author of this note. Relevant findings are: Rate: Rate (enter#) (88) Rhythm: Atrial fibrillation Other comments: Other comments (severe baseline artifact) Labs Labs: Laboratory Tests 02/13/24 02/13/24 05:05 06:20 WBC 7.0 RBC 3.78 L Hgb 11.9 L Hct 38.2 L MCV 101.1 H MCH 31.5 H MCHC 31.2 L RDW 15.8 H Plt Count 238 MPV 10.6 Neut # (Auto) 5.1 Lymph # (Auto) 1.0 L [place] # (Auto) 0.5 Eos # (Auto) 0.3 Baso # (Auto) 0.1 Absolute Nucleated RBC 0.00 Nucleated RBC % 0.0 VBG pH 7.347 VBG pCO2 54.0 H VBG pO2 56.0 H VBG HCO3 29.6 H VBG Total CO2 31.0 H VBG O2 Saturation 86.0 H VBG Base Excess 4.0 H Sodium 138 Potassium 4.7 H Chloride 103 Carbon Dioxide 29 Anion Gap 6.0 BUN 27 H Creatinine 1.4 H Estimated GFR (MDRD) 48 L Glucose 189 H Lactic Acid 2.0 Calcium 8.6 Total Bilirubin 1.1 H AST 15 ALT 11 Alkaline Phosphatase 70 B-Natriuretic Peptide 1746 H Total Protein 5.7 L Albumin 3.0 L Globulin 2.7 Albumin/Globulin Ratio 1.1 Lipase 15 PD Medical Decision Making ED course ED course: 83yM p/w agitation tonight and increased HR reported by [facility] staff in 200s by heart auscultation as well as hypoxia to 79%. When ems arrived this had resolved and he was 98% with hr in 90s. He continues to remain stable in the ED. cbc, abdominal panel, cxr, ekg ordered here. 500cc ivf provided since he has dry mucous membranes. Patient has cxr concerning for pneumonia vs chf exacerbation. minimal crackles on exam therefore concern for infectious process. blood cultures, vbg, lactic acid ordered as well as rvp. plan to admit for antibiotics and serial labs with oxygen supplementation. d/w Dr. Motta, hospitalist accepting. Discharge Plan Discharge Patient Disposition: [facility] DC/Xfer Condition: Fair Clinical Impression: Tachypnea, Pneumonia, Hypoxia Prescriptions: No Action docusate sodium [DOK] 100 MG tablet 100 mg PO DAILY tamsulosin [Flomax] 0.4 MG capsule 0.4 mg PO HS carvedilol 3.125 MG tablet 3.125 mg PO BID Rx Instructions: HOLD IF SBP<110 OR HR<60 acetaminophen [Aphen] 325 MG tablet 650 mg PO Q4H PRN (Reason: Pain) loperamide 2 MG capsule 2 mg PO Q15M MDD 12 MG PRN (Reason: Diarrhea) calcium carbonate 500 MG tablet,chewable 500 mg PO BID aspirin 81 MG tablet,delayed release (DR/EC) 81 mg PO DAILY ferrous sulfate 325 MG tablet 325 mg PO DAILY lisinopril [Zestril] 10 MG tablet 10 mg PO DAILY Rx Instructions: HOLD IF SBP <110 albuterol sulfate [Ventolin HFA] 200 PUFFS/18 GM HFA aerosol inhaler 2 puff inhalation Q4H PRN (Reason: Shortness Of Air/Wheezing) diclofenac sodium [Arthritis Pain (diclofenac)] 50 GM gel 1 applic topical Q6H PRN (Reason: Pain 1-4) multivitamin with folic acid [Thera] 1 TAB tablet 1 tab PO DAILY Artificial Tears (cmc) 15 ML drops 2 drp EACHEYE TID PRN (Reason: Dry Eye) Melatonin 5 MG Tablet 5 mg PO QPM GenTeal Tears Mild 15 ML drops 1 drp EACHEYE Q4H PRN (Reason: EYE IRRITATION) Cleansing Eyelid Moist Pads 1 EACH pads, medicated 1 pad topical DAILY sertraline 25 MG tablet 37.5 mg PO DAILY sennosides [Senna Lax] 8.6 MG tablet 17.2 mg PO PRN PRN (Reason: Constipation) Rx Instructions: IF MIRALAX NOT EFFECTIVE INITIATE ON EVENING SHIFT OF 3RD DAY OF NO BM polyethylene glycol 3350 17 GM powder in packet 17 g PO PRN PRN (Reason: Constipation) Rx Instructions: AFTER 3 DAYS OF NO BM INITIATE ON DAY SHIFT. MIX WITH 8 OZ OF LIQUID. mineral oil [Fleet Mineral Oil] 133 ML enema 1 unit IA PRN PRN (Reason: Constipation) Rx Instructions: IF DULCOLAX SUPPOSITORY NOT EFFECTIVE INITIATE ON 4TH DAY EVENING SHIFT OF NO BM. NOTIFY MD IF NO RESULTS. bisacodyl 10 MG suppository 10 mg IA PRN PRN (Reason: Constipation) Rx Instructions: IF SENNA NOT EFFECTIVE INITIATE ON 4TH DAY OF NO BM Ear Drops (carbamide peroxide) 200 DROPS/15 ML drops 10 drp EACHEAR .[id number] Rx Instructions: INSTILL 10 DROPS IN BOTH EARS EVERY DAY SHIFT EVERY 3 MONTHS STARTING ON THE 8TH FOR 1 DAY FOR EAR WAX REMOVAL (DME) Ocusoft Eyelid Cleansing Pads Pad See Rx Instructions .ROUTE Rx Instructions: As directed pantoprazole 40 mg tablet,delayed release (DR/EC) 40 mg PO DAILY alum-mag hydroxide-simeth [Advanced Antacid-Antigas] 200-200-20 mg/5 mL suspension 30 ml PO Q4H PRN (Reason: indigestion) amoxicillin 250 mg Capsule 1,000 mg PO TID 2 Days Qty: 24 0RF Print Language: Maori
[2024-02-13] MEDS: SODIUM CHLORIDE 0.9% 500 ML IV STA (05:02)
[2024-02-13 05:12] LABS: BASOPHILS # (AUTO) 0.1 10^3/uL (0.0-0.1); EOSINOPHILS # (AUTO) 0.3 10^3/uL (0.0-0.7); EOSINOPHILS % (AUTO) 4.3 %; HCT - HEMATOCRIT 38.2 % (42.0-52.0); HGB - HEMOGLOBIN 11.9 g/dL (14.0-18.0); LYMPHOCYTES % (AUTO) 14.6 %; MEAN CORPUSCULAR HEMOGLOBIN 31.5 pg (27.0-31.0); MEAN CORPUSCULAR HGB CONC 31.2 g/dL (32.0-36.0); MEAN CORPUSCULAR VOLUME 101.1 fL (80.0-94.0); MEAN PLATELET VOLUME 10.6 fL (7.4-11.4); MONOCYTES # (AUTO) 0.5 10^3/uL (0.0-1.0); MONOCYTES % (AUTO) 7.4 %; NEUTROPHILS # (AUTO) 5.1 10^3/uL (1.5-6.6); NEUTROPHILS % (AUTO) 72.4 %; PLT - PLATELET COUNT 238 10^3/uL (130-450); RED BLOOD COUNT 3.78 10^6/uL (4.70-6.10); RED CELL DISTRIBUTION WIDTH 15.8 % (12.0-15.0)
[2024-02-13 05:28] LABS: ALBUMIN/GLOBULIN RATIO 1.1 (1.0-2.2); BILIRUBIN,TOTAL 1.1 mg/dL (0.2-1.0); CALCIUM 8.6 mg/dL (8.5-10.3); CREATININE 1.4 mg/dL (0.6-1.3); POTASSIUM 4.7 mmol/L (3.5-4.5); TOTAL PROTEIN 5.7 g/dL (6.4-8.9)
[2024-02-13] MEDS ORDERED: cefTRIAXone 2 GM VIAL ONE (06:32)
[2024-02-13] MEDS: cefTRIAXone 2 GM in SODIUM CHLORIDE 0.9% MINIBAG 100 ML IV STA (06:38)
[2024-02-13 06:51] LABS: VBG HCO3 29.6 mmol/L (23-28); VBG PH 7.347 (7.31-7.41)
[2024-02-13] MEDS: FUROSEMIDE 40 MG/4 ML VIAL IVP STA (06:53)
[2024-02-13] MEDS: AZITHROMYCIN INJ 500 MG in SODIUM CHLORIDE 0.9% 250 ML IV STA (06:57)
[2024-02-13 07:42] LABS: CORONAVIRUS 229E-RESP PCR NOT DETECTED; CORONAVIRUS HKU1-RESP PCR NOT DETECTED; CORONAVIRUS NL63-RESP PCR NOT DETECTED; CORONAVIRUS OC43-RESP PCR NOT DETECTED; HUMAN METAPNEUMOVIRUS NOT DETECTED; INFLUENZA A- RESP PCR PANEL NOT DETECTED; RHINOVIRUS/ENTEROVIRUS NOT DETECTED; SARS-CoV-2 -RESP PCR PANEL NOT DETECTED
[2024-02-13 07:43] LABS: B. PARAPERTUSSIS- RESP PCR PAN NOT DETECTED; B. PERTUSSIS- RESP PCR PANEL NOT DETECTED; C. PNEUMONIAE- RESP PCR PANEL NOT DETECTED; INFLUENZA B - RESP PCR PANEL NOT DETECTED; M. PNEUMONIAE- RESP PCR PANEL NOT DETECTED; PARAINFLUENZA VIRUS 1 NOT DETECTED; PARAINFLUENZA VIRUS 2 NOT DETECTED; PARAINFLUENZA VIRUS 3 NOT DETECTED; PARAINFLUENZA VIRUS 4 NOT DETECTED; RSV- RESP PCR PANEL NOT DETECTED
--- NOTE | 2024-02-13 08:28 | XRAY Report ---
PROCEDURE: XR Chest 1V INDICATIONS: hypoxia at retirement TECHNIQUE: One view of the chest was acquired. COMPARISON: Chest CT 01/13/2024, x-ray 10/28/2023 FINDINGS: Surgical changes and devices: Overlying monitoring wires. Lungs and pleura: Bilateral mid to lower lung alveolar opacities and blunting of both diaphragm cont ours. No pneumothorax. Diffuse thickening of interstitial markings. Mediastinum: Moderate cardiomegaly, stable. Mild central vascular prominence. Stable ectatic aortic contour. Bones and chest wall: No suspicious bony lesions. Overlying soft tissues appear unremarkable. IMPRESSION: Stable cardiomegaly with findings most suggestive of CHF, volume overload, and/or bibasilar pneumonia . Final interpretation concordant with preliminary report. Reviewed by: Tiffanie Ayala MD on 02/13/2024 8:27 AM PST Approved by: Tiffanie Ayala MD on 02/13/2024 8:27 AM PST Station ID: [id number]
[2024-02-13] MEDS ORDERED: ACETAMINOPHEN 325 MG TABLET PO PRN (10:04)
[2024-02-13] MEDS ORDERED: SENNA 8.6 MG TABLET PO PRN (10:04)
[2024-02-13] MEDS ORDERED: SODIUM CHLORIDE FLUSH 0.9% 10 ML SYRINGE IVP PRN (10:04)
[2024-02-13] MEDS ORDERED: ONDANSETRON ODT 4 MG TABLET TL PRN (10:04)
--- NOTE | 2024-02-13 10:06 | HISTORY & PHYSICAL EXAMINATION ---
Chief Complaint Chief Complaint Chief Complaint: Altered mental status at [facility] History of Present Illness Admitted From Admitted From:: [facility] History Obtained From Records Reviewed: Yes - from [facility] and previous admission History obtained from: Emergency room physician Exam Limitations: Patient altered History of Present Illness HPI Comment/Other: Patient is a 83-year-old male with a history of schizophrenia, major depressive disorder, delusional disorder who presents from his [facility], [facility] for altered level of consciousness. Of note, he had a similar episode in October of this year, and was found to have a pneumonia at that time; he also had a similar episode last month in January. Also of note, he does have an indwelling Lang[place] catheter due to persistent BPH. Per documentation, he was confused and agitated per the [facility] staff. His heart rate was in the 200s, his oxygen saturations are dropping to 79%. He usually wears 2 L of oxygen, and when he came to the ED, he was on 10 L via facemask. He was saturating 98% at that time, heart rate was in the 90s, blood pressure was 100/52. When patient was seen, he was alert and oriented x 1, was very confused. As such, was not able to elicit any symptomology from the patient. His heart rate was 89, he was normotensive, and he was requiring 2 L of oxygen, back at his baseline. Lab work showed a normal white count, hemoglobin stable around his baseline of 11.9. His potassium was mildly elevated at 4.7. His creatinine was 1.4, which is around his new baseline. His BNP was elevated at 1746. Imaging was done, including a chest x-ray, which showedl bilateral pleural effusions. It also showed cardiomegaly. In the emergency room, he received 1 dose of Rocephin and azithromycin, as well as 40 mg of IV Lasix. Meds/Allgy Home Medications Ambulatory Orders Medication Instructions Recorded Confirmed acetaminophen 325 mg tablet (Aphen) 650 mg PO Q4H PRN Pain 06/06/20 01/14/24 calcium carbonate 500 mg PO BID 06/06/20 01/14/24 carvedilol 3.125 mg tablet 3.125 mg PO BID 06/06/20 01/14/24 docusate sodium 100 mg tablet (DOK) 100 mg PO DAILY 06/06/20 01/14/24 loperamide 2 mg capsule 2 mg PO Q15M PRN Diarrhea 06/06/20 01/14/24 tamsulosin 0.4 mg capsule (Flomax) 0.4 mg PO HS 06/06/20 01/14/24 aspirin 81 mg tablet,delayed 81 mg PO DAILY 02/28/23 01/14/24 release Melatonin 5 mg PO QPM 10/07/23 01/14/24 albuterol sulfate 90 mcg/actuation 2 puff inhalation Q4H PRN 10/07/23 01/14/24 aerosol inhaler (Ventolin HFA) Shortness Of Air/Wheezing bisacodyl 10 mg rectal suppository 10 mg IL PRN PRN Constipation 10/07/23 01/14/24 carbamide peroxide 6.5 % ear drops 10 drp EACHEAR .[id number] 10/07/23 01/14/24 (Ear Drops (carbamide peroxide)) carboxymethylcellulose sodium 1 % 2 drp EACHEYE TID PRN Dry Eye 10/07/23 01/14/24 eye drops (Artificial Tears (carboxymethylcellulose)) dextran 70-hypromellose 0.1 %-0.3 1 drp EACHEYE Q4H PRN EYE 10/07/23 01/14/24 % eye drops (GenTeal Tears Mild) IRRITATION diclofenac sodium 1 % topical gel 1 applic topical Q6H PRN Pain 1-4 10/07/23 01/14/24 (Arthritis Pain (diclofenac)) eyelid cleanser combination 8 1 pad topical DAILY 10/07/23 01/14/24 (Cleansing Eyelid Moist Pads topical pads) ferrous sulfate 325 mg (65 mg 325 mg PO DAILY 10/07/23 01/14/24 iron) tablet lisinopril 10 mg tablet (Zestril) 10 mg PO DAILY 10/07/23 01/14/24 mineral oil (Fleet Mineral Oil 1 unit [place] PRN PRN Constipation 10/07/23 01/14/24 enema) multivitamin with folic acid 400 1 tab PO DAILY 10/07/23 01/14/24 mcg tablet (Thera) polyethylene glycol 3350 17 gram 17 g PO PRN PRN Constipation 10/07/23 01/14/24 oral powder packet sennosides 8.6 mg tablet (Senna 17.2 mg PO PRN PRN Constipation 10/07/23 01/14/24 Lax) sertraline 25 mg tablet 37.5 mg PO DAILY 10/07/23 01/14/24 aluminum-mag hydroxide-simethicone 30 ml PO Q4H PRN indigestion 01/14/24 01/14/24 200 mg-200 mg-20 mg/5 mL oral susp (Advanced Antacid-Antigas) miscellaneous medical supply 01/14/24 01/14/24 (Ocusoft Eyelid Cleansing Pads) pantoprazole 40 mg tablet,delayed 40 mg PO DAILY 01/14/24 01/14/24 release amoxicillin 250 mg capsule 1,000 mg (4 x 250 mg) PO TID 2 01/15/24 days #24 caps Allergies Allergies Allergy/AdvReac Type Severity Reaction Status Date / Time hydroxyzine Allergy Unknown Verified 02/13/24 04:57 PFS Medical History Medical History (Updated 02/13/24 @ 10:10 by Juan Mensah MD) Nuclear cataract of both eyes Polyosteoarthritis Congestive heart failure Hyperlipidemia Depression GERD (gastroesophageal reflux disease) History of atrial fibrillation History of pneumococcal infection Social History Social History (Updated 02/13/24 @ 05:21 by Dilcia Barakat RN) Smoking Status: Never smoker Living arrangement: senior living Living Condition: Alone Relationship: Caregiver Physical Activity: Chairfast Level: Dependent Home Mobility Equipment: Wheelchair Do you feel safe in your home environment?: Yes Suffered physical, verbal, emotional, or financial abuse?: No History of Abuse: No Are you following a diet prescribed by a doctor: Yes Special Diet Details: Pureed diet; honey thick liquids POLST Patient has POLST: Yes POLST Status: Full Code Review of Systems Status of ROS: unobtainable due to medical condition Exam Constitutional normal general appearance, abnormal body habitus (underweight) and level of alertness abnormal (lethargic) and (confused) HENMT normocephalic and head/scalp atraumatic Eyes PERRL, EOMs intact bilaterally, conjunctivae normal and no scleral icterus Neck/C-Spine visual inspection normal, trachea midline and cervical full ROM noted Chest inspection of chest normal and palpation of chest normal Respiratory breath sounds equal bilaterally (limited due to patient's non-compliance with exam), normal respiratory effort, rales noted (base) and no use of accessory muscles Cardiovascular normal heart rate noted, rhythm abnormal (irregular) and no murmur Gastrointestinal abdomen normal to inspection, abdomen soft to palpation, nontender to palpation, normoactive bowel sounds and no hepatosplenomegaly Genitourinary bladder normal to palpation Extremities normal to inspection, normal to palpation, no tenderness and full ROM Neurology no focal motor deficit noted and speech abnormality noted (garbled) Psychiatry orientation abnormal (disoriented to person), (disoriented to place) and (disoriented to time) Skin skin color normal, no rash and no lesions Conclusion/Plan Problem List (1) Acute metabolic encephalopathy: Plan: Patient confused, altered. No focal neurological deficits noted, patient moving all limbs spontaneously. Less concern for stroke at this time. If any focal deficits, will order CT head. Of note, CT head was done 10/31, no acute ischemia noted. Likely due to delirium in setting of dementia, and fluid overload in setting of CHF. (2) CHF exacerbation: Plan: Echo completed at last visit; this showed moderate left ventricular enlargement, systolic function of 30 to 35%, mild to moderate mitral regurgitation, moderate tricuspid regurgitation. Patient presents with bilateral pleural effusions, reported desaturations. No leukocytosis, fevers, clear consolidation or infiltrate - monitor off antibiotics. Continue IV Lasix 40 mg daily. Will continue home Coreg, lisinopril as well. Start patient on Jardiance in outpatient setting, not on formulary here. Qualifiers: Heart failure type: systolic Qualified Code(s): I50.23 - Acute on chronic systolic (congestive) heart failure (3) Bilateral pleural effusion: Plan: Treatment as above. (4) Hyperlipidemia: Plan: Patient no longer on statin at [facility] likely due to age. Continue to monitor. Qualifiers: Hyperlipidemia type: unspecified Qualified Code(s): E78.5 - Hyperlipidemia, unspecified (5) Depression: Plan: Continue sertraline. Qualifiers: Depression Type: unspecified Qualified Code(s): F32.A - Depression, unspecified (6) GERD (gastroesophageal reflux disease): Plan: Patient on Protonix, continued. Qualifiers: Esophagitis presence: without esophagitis Qualified Code(s): K21.9 - Gastro-esophageal reflux disease without esophagitis (7) Hx of schizophrenia: Plan: Patient with a documented history of schizophrenia, previously on Risperdal. Stopped on 10/31, not taking at [facility]. Held at this time. (8) HTN (hypertension): Plan: Continue lisinopril, continue to monitor closely. Qualifiers: Hypertension type: primary hypertension Qualified Code(s): I10 - Essential (primary) hypertension (9) Diabetes: Plan: Patient was taking metformin and [facility] previously. No longer a diabetic; this was discontinued at last visit. 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 Per [facility] records, he is not on any anticoagulation, likely due to fall risk. Continue to monitor closely. Qualifiers: Atrial fibrillation type: paroxysmal Qualified Code(s): I48.0 - Paroxysmal atrial fibrillation Lab Results Lab results reviewed: Yes 02/13/24 05:05 02/13/24 05:05 Diagnostic Imaging Results Diagnostic Imaging Results: positive Final report reviewed Diagnostic Imaging Results Comments: CT chest reviewed; does show patchy opacities in both lungs suspicious for pneumonia, possibly atypical viral. Small bilateral pleural effusions, cardiomegaly, cholelithiasis. CXR shows bilateral pleural effusions. EKG Results EKG Interpreted Independently: Yes Core Measures Anticipated LOS I expect patient to be DC'd or transferred within 96 hours.: Yes DVT/VTE - Prophylaxis VTE/DVT Device ordered at admit?: Yes VTE/DVT Prophylaxis med ordered at admit?: Yes Stroke - Rehab Assessment Rehab services assessment to be ordered?: No Not Ordered - Medical Reason: Not indicated AMI - Statin at Admit Aspirin Prescribed on Admit: Yes
[2024-02-13] MEDS ORDERED: CARBOXYMETHYLCELLULOSE OPHTH DROPS EACHEYE PRN (10:38)
[2024-02-13] MEDS ORDERED: ALBUTEROL NEB 2.5 MG/3 ML INH PRN (10:41)
[2024-02-13] MEDS ORDERED: FUROSEMIDE 40 MG/4 ML VIAL IVP SCH (11:00)
[2024-02-13] MEDS: HEPARIN 5,000 UNIT/ML VIAL SUBQ SCH (11:22)
[2024-02-13] MEDS: SODIUM CHLORIDE FLUSH 0.9% 10 ML SYRINGE IVP SCH (11:28)
[2024-02-13] MEDS: FERROUS SULFATE 325 MG TABLET PO SCH (11:58)
[2024-02-13] MEDS: ASPIRIN EC 81 MG TABLET PO SCH (11:58)
[2024-02-13] MEDS: MULTIVITAMIN TABLET PO SCH (11:58)
[2024-02-13] MEDS: SERTRALINE 25 MG TABLET PO SCH (11:59)
[2024-02-13] MEDS ORDERED: AMPICILLIN/SULBACTAM 1.5 GM in SODIUM CHLORIDE 0.9% MINIBAG 100 ML IV SCH (12:00)
[2024-02-13] MEDS: carvediloL 3.125 MG TABLET PO SCH (12:00)
[2024-02-13] MEDS: lisinopriL 5 MG TABLET PO SCH (12:00)
[2024-02-13] MEDS: PANTOPRAZOLE 40 MG TABLET PO SCH (12:04)
--- NOTE | 2024-02-13 13:22 | PHARMACY PROGRESS NOTE ---
Best Possible Medication History Admit Date and Time: 02/13/24 [id number] Home Medications Medication Instructions Recorded Confirmed Type acetaminophen 325 mg tablet (Aphen) 650 mg PO Q4H PRN Pain 06/06/20 02/13/24 History calcium carbonate 500 mg PO BID 06/06/20 02/13/24 History carvedilol 3.125 mg tablet 3.125 mg PO BID 06/06/20 02/13/24 History docusate sodium 100 mg tablet (DOK) 100 mg PO DAILY 06/06/20 02/13/24 History loperamide 2 mg capsule 2 mg PO Q15M PRN Diarrhea 06/06/20 02/13/24 History tamsulosin 0.4 mg capsule (Flomax) 0.4 mg PO HS 06/06/20 02/13/24 History aspirin 81 mg tablet,delayed 81 mg PO DAILY 02/28/23 02/13/24 History release Melatonin 5 mg PO QPM 10/07/23 02/13/24 History albuterol sulfate 90 mcg/actuation 2 puff inhalation Q4H PRN 10/07/23 02/13/24 History aerosol inhaler (Ventolin HFA) Shortness Of Air/Wheezing bisacodyl 10 mg rectal suppository 10 mg HI ONCE PRN Constipation 10/07/23 02/13/24 History carbamide peroxide 6.5 % ear drops 10 drp EACHEAR .[id number] 10/07/23 02/13/24 History (Ear Drops (carbamide peroxide)) carboxymethylcellulose sodium 1 % 2 drp EACHEYE TID PRN Dry Eye 10/07/23 02/13/24 History eye drops (Artificial Tears (carboxymethylcellulose)) dextran 70-hypromellose 0.1 %-0.3 1 drp EACHEYE Q4H PRN EYE 10/07/23 02/13/24 History % eye drops (GenTeal Tears Mild) IRRITATION diclofenac sodium 1 % topical gel 1 applic topical Q6H PRN Pain 1-4 10/07/23 02/13/24 History (Arthritis Pain (diclofenac)) eyelid cleanser combination 8 1 pad topical DAILY 10/07/23 02/13/24 History (Cleansing Eyelid Moist Pads topical pads) ferrous sulfate 325 mg (65 mg 325 mg PO DAILY 10/07/23 02/13/24 History iron) tablet lisinopril 10 mg tablet (Zestril) 10 mg PO DAILY 10/07/23 02/13/24 History mineral oil (Fleet Mineral Oil 1 unit HI ONCE PRN Constipation 10/07/23 02/13/24 History enema) multivitamin with folic acid 400 1 tab PO DAILY 10/07/23 02/13/24 History mcg tablet (Thera) polyethylene glycol 3350 17 gram 17 g PO DAILY PRN Constipation 10/07/23 02/13/24 History oral powder packet sennosides 8.6 mg tablet (Senna 17.2 mg PO BID PRN Constipation 10/07/23 02/13/24 History Lax) sertraline 25 mg tablet 37.5 mg PO DAILY 10/07/23 02/13/24 History aluminum-mag hydroxide-simethicone 30 ml PO Q4H PRN indigestion 01/14/24 02/13/24 History 200 mg-200 mg-20 mg/5 mL oral susp (Advanced Antacid-Antigas) miscellaneous medical supply 01/14/24 01/14/24 History (Ocusoft Eyelid Cleansing Pads) pantoprazole 40 mg tablet,delayed 40 mg PO DAILY 01/14/24 02/13/24 History release apixaban 2.5 mg tablet (Eliquis) 2.5 mg PO BID 02/13/24 02/13/24 History empagliflozin 10 mg tablet 10 mg PO DAILY 02/13/24 02/13/24 History (Jardiance) furosemide 20 mg tablet 20 mg PO DAILY 02/13/24 02/13/24 History gabapentin 100 mg capsule 100 mg PO TID 02/13/24 02/13/24 History metformin 500 mg tablet 500 mg PO BIDWM 02/13/24 02/13/24 History Processed by: Pharmacy Medications reviewed in ED?: No Medication History completed: Yes Patient Interview: Pt unable to participate Secondary Source(s): Facility MAR as ONLY source [facility] Statement: As the person ultimately responsible for medication therapy, providers are able to order a medication from an existing home medication list in [facility] via the "Reconcile Routine" prior to Confirmation of that medication by technical support manager. Such practice is discouraged except when the physician, in their clinical judgment, deems that a medical need exists for a medication without regard to previous use.
[2024-02-13] MEDS: ACETAMINOPHEN 325 MG TABLET PO PRN (14:45)
[2024-02-13] MEDS ORDERED: HALOPERIDOL 5 MG/ML VIAL IVP PRN (17:22)
[2024-02-13] MEDS: MELATONIN 3 MG TABLET PO SCH (20:32)
[2024-02-13] MEDS: TAMSULOSIN 0.4 MG CAPSULE PO SCH (20:32)
[2024-02-14 06:45] LABS: HCT - HEMATOCRIT 39.8 % (42.0-52.0); HGB - HEMOGLOBIN 12.6 g/dL (14.0-18.0); MEAN CORPUSCULAR HEMOGLOBIN 31.7 pg (27.0-31.0); MEAN CORPUSCULAR HGB CONC 31.7 g/dL (32.0-36.0); MEAN CORPUSCULAR VOLUME 100.3 fL (80.0-94.0); MEAN PLATELET VOLUME 10.7 fL (7.4-11.4); RED BLOOD COUNT 3.97 10^6/uL (4.70-6.10); RED CELL DISTRIBUTION WIDTH 15.9 % (12.0-15.0); WHITE BLOOD COUNT 7.7 x10^3/uL (4.8-10.8)
[2024-02-14 07:04] LABS: CREATININE 1.7 mg/dL (0.6-1.3); MAGNESIUM 2.2 mg/dL (1.7-2.3); POTASSIUM 5.1 mmol/L (3.5-4.5)
[2024-02-14] MEDS: SODIUM CHLORIDE 0.9% 1,000 ML IV ONE (08:50)
[2024-02-14] MEDS: EYELID CLEANSER COMBINATION TOP SCH (08:56)
[2024-02-14] MEDS ORDERED: FUROSEMIDE 40 MG/4 ML VIAL IVP SCH (09:00)
--- NOTE | 2024-02-14 10:28 | PROVIDER PROGRESS NOTE ---
Subjective Subjective Subjective: Overnight, he did experience delirium and required Haldol. As such, this morning he is sleepy and difficult to arouse. Will continue to monitor. He does wake to sternal rub, and answer some questions. He is able to tell me his name. He denies any shortness of breath, cough, fevers, chills.This morning, he is more interactive. He is able to tell me his name. He states his mouth hurts. Apparently overnight, he did not get much sleep, and he was trying to get out of bed. Does have these episodes of delirium after every hospitalization. Current Medications Current Medications Current Medications: Current Medications Generic Name Dose Route Start Last Admin Trade Name Freq PRN Reason Stop Dose Admin Acetaminophen 650 mg 02/13/24 10:04 02/13/24 14:45 Acetaminophen 325 Mg Tablet PO 650 mg Q4HR PRN Administration Pain 1 to 4, or Fever Albuterol 2.5 mg 02/13/24 10:41 Albuterol Neb 2.5 Mg/3 Ml INH RTQ4H PRN Shortness Of Air/Wheezing Aspirin 81 mg 02/13/24 11:00 02/14/24 08:56 Aspirin Ec 81 Mg Tablet PO 81 mg DAILY JERRY Administration Carboxymethylcellulose 2 drops 02/13/24 10:38 Carboxymethylcellulose Ophth Drops EACHEYE TID PRN Dry Eye Carvedilol 3.125 mg 02/13/24 11:00 02/14/24 08:56 Carvedilol 3.125 Mg Tablet PO 3.125 mg BID JERRY Administration Ferrous Sulfate 325 mg 02/13/24 11:00 02/14/24 08:56 Ferrous Sulfate 325 Mg Tablet PO 325 mg DAILY JERRY Administration Haloperidol 2 mg 02/14/24 09:42 Haloperidol 5 Mg/Ml Vial IVP QPM PRN Agitation Heparin Sodium (Porcine) 5,000 unit 02/13/24 10:04 02/14/24 08:57 Heparin 5,000 Unit/Ml Vial SUBQ 5,000 unit BID JERRY Administration Sodium Chloride 1,000 mls @ 250 mls/hr 02/14/24 07:18 02/14/24 08:50 Normal Saline 0.9% IV 02/14/24 11:17 250 mls/hr ONCE ONE Administration Melatonin 4.5 mg 02/13/24 21:00 02/13/24 20:32 Melatonin 3 Mg Tablet PO 4.5 mg QPM JERRY Administration Multivitamins 1 tab 02/13/24 11:00 02/14/24 08:56 Multivitamin Tablet PO 1 tab DAILY JERRY Administration Ondansetron HCl 4 mg 02/13/24 10:04 Ondansetron Odt 4 Mg Tablet TL Q6HR PRN Nausea / Vomiting Pantoprazole Sodium 40 mg 02/13/24 11:00 02/14/24 08:56 Pantoprazole 40 Mg Tablet PO 40 mg DAILY JERRY Administration Eyelid Cleanser 1 each 02/14/24 09:00 02/14/24 08:56 Combination 8 TOP Not Given DAILY JERRY Senna 17.2 mg 02/13/24 10:04 Senna 8.6 Mg Tablet PO PRN PRN Constipation Sertraline HCl 37.5 mg 02/13/24 11:00 02/14/24 08:57 Sertraline 25 Mg Tablet PO 37.5 mg DAILY JERRY Administration Sodium Chloride 10 ml 02/13/24 10:04 Sodium Chloride Flush 0.9% 10 Ml Syringe IVP PRN PRN NEEDED PER PROVIDER ORDERS Sodium Chloride 10 ml 02/13/24 11:00 02/14/24 08:56 Sodium Chloride Flush 0.9% 10 Ml Syringe IVP 10 ml 0100,0900,1700 JERRY Administration Tamsulosin HCl 0.4 mg 02/13/24 21:00 02/13/24 20:32 Tamsulosin 0.4 Mg Capsule PO 0.4 mg HS JERRY Administration Objective Vital Signs/Intake & Output Reviewed Vital Signs: Yes Vital Signs: Vital Signs x48h Temp Pulse Resp BP BP Pulse Ox O2 Flow Rate 02/14/24 07:53 98.1 F 85 16 145/95 H 93 2 02/14/24 05:00 97.7 F 74 18 149/86 H 96 2 Intake & Output: Intake & Output 02/12/24 02/13/24 02/14/24 02/15/24 05:59 05:59 05:59 05:59 Intake Total 500 / 500 1150 / 1150 240 / 240 Balance 500 / 500 1150 / 1150 240 / 240 Weight (kg) 90.5 kg 82 kg Objective General Appearance: positive No acute distress and Alert (only to self) Eyes Bilateral: positive Normal inspection, PERRL and EOMI ENT: positive Pharynx nml and No signs of dehydration Neck: positive Nml inspection, Thyroid nml and No JVD Respiratory: positive Chest non-tender, No respiratory distress and Breath sounds nml; negative Wheezes, Rales or Rhonchi Cardiovascular: positive No murmur, No gallop and Irregularly irregular; negative Systolic murmur or Diastolic murmur Abdomen: positive Non-tender and Nml bowel sounds; negative Guarding, Rebound, Splenomegaly or Mass Back: positive Nml inspection; negative CVA tenderness (R) or CVA tenderness (L) Skin: positive Color nml, No rash and Warm Extremities: positive Non-tender, Full ROM, Nml appearance and No pedal edema Neurologic/Psychiatric: positive Motor nml, Mood/affect nml, Disoriented to place and Disoriented to time Lab Results 02/14/24 06:18 02/14/24 06:18 Other Labs: Lab Results x24hrs 02/14/24 Range/Units 06:18 WBC 7.7 (4.8-10.8) x10^3/uL RBC 3.97 L (4.70-6.10) 10^6/uL Hgb 12.6 L (14.0-18.0) g/dL Hct 39.8 L (42.0-52.0) % MCV 100.3 H (80.0-94.0) fL MCH 31.7 H (27.0-31.0) pg MCHC 31.7 L (32.0-36.0) g/dL RDW 15.9 H (12.0-15.0) % Plt Count 263 (130-450) 10^3/uL MPV 10.7 (7.4-11.4) fL Sodium 139 (135-145) mmol/L Potassium 5.1 H (3.5-4.5) mmol/L Chloride 101 (101-111) mmol/L Carbon Dioxide 27 (21-32) mmol/L Anion Gap 11.0 (6-13) BUN 32 H (6-20) mg/dL Creatinine 1.7 H (0.6-1.3) mg/dL Estimated GFR (MDRD) 39 L (>89) Glucose 119 H (74-104) mg/dL Calcium 9.0 (8.5-10.3) mg/dL Magnesium 2.2 (1.7-2.3) mg/dL Diagnostic Imaging Diagnostic Imaging Results: positive Final report reviewed Assessment/Plan Problem List (1) Acute metabolic encephalopathy: Impression: Urine drug screen, alcohol level was negative. TSH was within normal limits. Likely due to delirium. Will try to keep patient awake during the day with lights on, TV on, frequent reorientation. (2) CHF exacerbation: Impression: Received one dose of IV Lasix. Now back on home oxygen levels of 2 L. Qualifiers: Heart failure type: systolic Qualified Code(s): I50.23 - Acute on chronic systolic (congestive) heart failure (3) Acute kidney injury: Impression: Likely due to overdiuresis. Lasix stopped. Lisinopril held. PVR ordered as well. Will recheck creatinine later today; if normalized, can return to [facility]. (4) Hyperkalemia: Impression: Due to GAURANG - will recheck potassium later today after receiving IVF; if normalized, can return to [facility]. (5) Bilateral pleural effusion: Impression: Echo shows EF of 30-35%. Patient still remains on stable oxygen saturations, continue to monitor respiratory status. (6) Hyperlipidemia: Impression: Patient no longer on statin at [facility] likely due to age. Continue to monitor. Qualifiers: Hyperlipidemia type: unspecified Qualified Code(s): E78.5 - Hyperlipidemia, unspecified (7) Depression: Impression: Continue sertraline. Qualifiers: Depression Type: unspecified Qualified Code(s): F32.A - Depression, unspecified (8) GERD (gastroesophageal reflux disease): Impression: Continue Protonix. Qualifiers: Esophagitis presence: without esophagitis Qualified Code(s): K21.9 - Gastro-esophageal reflux disease without esophagitis (9) Hx of schizophrenia: Impression: Patient with a documented history of schizophrenia, previously on Risperdal. Stopped on 10/31, not taking at [facility]. Held at this time. (10) HTN (hypertension): Impression: Patient is normotensive, hold lisinopril this AM due to GAURANG, continue to monitor closely. Qualifiers: Hypertension type: primary hypertension Qualified Code(s): I10 - Essential (primary) hypertension (11) Diabetes: Impression: Patient was taking metformin and [facility], A1c was 6.3%, was stopped at last visit. Continue to hold. Qualifiers: Diabetes mellitus type: type 2 Diabetes mellitus residential insulin use: unspecified residential insulin use status Diabetes mellitus complication status: without complication Qualified Code(s): E11.9 - Type 2 diabetes mellitus without complications (12) A-fib: Impression: Patient currently in atrial fibrillation, but is rate controlled. Per [facility] records, he is not on any anticoagulation, likely due to fall risk. Continue to monitor closely. Qualifiers: Atrial fibrillation type: paroxysmal Qualified Code(s): I48.0 - Paroxysmal atrial fibrillation (13) Congestive heart failure: Impression: ECHO shows EF of 30-35%. Patient already on Coreg, lisinopril. Follow up with signal wirer in outpatient setting. Start Jardiance and spirnolactone in outpatient setting. Qualifiers: Heart failure type: systolic Heart failure chronicity: unspecified Q ualified Code(s): I50.20 - Unspecified systolic (congestive) heart failure
[2024-02-14 13:27] LABS: CALCIUM 8.6 mg/dL (8.5-10.3); CREATININE 1.7 mg/dL (0.6-1.3); POTASSIUM 5.1 mmol/L (3.5-4.5)
[2024-02-14] MEDS: DEXTROSE 50% ABBOJECT 25 GM/50 ML SYRINGE IVP ONE (14:19)
[2024-02-14] MEDS: INSULIN REGULAR, HUMAN 300 UNIT/3 ML PEN IVP ONE (14:25)
[2024-02-14] MEDS: SODIUM ZIRCONIUM CYCLOSILICATE 5 GM PACKET PO ONE (14:26)
[2024-02-14] MEDS: CONCENTRATED ALBUTEROL NEB 2.5 MG/0.5 ML INH STA (14:50)
[2024-02-14] MEDS: HALOPERIDOL 5 MG/ML VIAL IVP PRN (20:35)
--- NOTE | 2024-02-15 00:39 | PROVIDER PROGRESS NOTE ---
Shipper Receiver Note Shipper Receiver Note Shipper Receiver Note: Called by RN stating patient has very poor oral health and has concerns for pus, and is on pain, pics in chart, i have discussed with RN and have ordered Peridex and lidocaine oral. Morning team to decide if patient needs any further work up vs oral surgeon invovlement
[2024-02-15] MEDS: CHLORHEXIDINE GLUCONATE 15 ML UDC PO SCH (00:50)
[2024-02-15] MEDS: LIDOCAINE VISCOUS 2% 15 ML UDC MM PRN (00:50)
[2024-02-15] MEDS: ACETAMINOPHEN 1,000 MG/100 ML 1,000 MG/100 ML BAG IV ONE (02:36)
[2024-02-15 06:22] LABS: HCT - HEMATOCRIT 43.8 % (42.0-52.0); HGB - HEMOGLOBIN 13.3 g/dL (14.0-18.0); MEAN CORPUSCULAR HEMOGLOBIN 31.1 pg (27.0-31.0); MEAN CORPUSCULAR HGB CONC 30.4 g/dL (32.0-36.0); MEAN CORPUSCULAR VOLUME 102.6 fL (80.0-94.0); MEAN PLATELET VOLUME 10.6 fL (7.4-11.4); RED BLOOD COUNT 4.27 10^6/uL (4.70-6.10); RED CELL DISTRIBUTION WIDTH 15.9 % (12.0-15.0)
[2024-02-15 06:41] LABS: CALCIUM 8.7 mg/dL (8.5-10.3); CREATININE 1.7 mg/dL (0.6-1.3); MAGNESIUM 2.3 mg/dL (1.7-2.3); POTASSIUM 5.3 mmol/L (3.5-4.5)
[2024-02-15] MEDS: DEXTROSE 50% ABBOJECT 25 GM/50 ML SYRINGE IVP ONE (07:56)
[2024-02-15] MEDS: INSULIN REGULAR, HUMAN 300 UNIT/3 ML PEN IVP ONE (07:56)
[2024-02-15] MEDS: SODIUM ZIRCONIUM CYCLOSILICATE 5 GM PACKET PO ONE (08:00)
[2024-02-15] MEDS: CONCENTRATED ALBUTEROL NEB 2.5 MG/0.5 ML INH STA (08:50)
--- NOTE | 2024-02-15 10:37 | PROVIDER PROGRESS NOTE ---
Subjective Subjective Subjective: Overnight, he did experience delirium. He is able to tell me his name. He denies any shortness of breath, cough, fevers, chills. This morning, he is more interactive. He is able to tell me his name. He states his mouth hurts. Apparently overnight, he did not get much sleep, and he was trying to get out of bed. Does have these episodes of delirium after every hospitalization. Current Medications Current Medications Current Medications: Current Medications Generic Name Dose Route Start Last Admin Trade Name Freq PRN Reason Stop Dose Admin Acetaminophen 650 mg 02/13/24 10:04 02/14/24 19:30 Acetaminophen 325 Mg Tablet PO 650 mg Q4HR PRN Administration Pain 1 to 4, or Fever Albuterol 2.5 mg 02/13/24 10:41 Albuterol Neb 2.5 Mg/3 Ml INH RTQ4H PRN Shortness Of Air/Wheezing Aspirin 81 mg 02/13/24 11:00 02/15/24 08:43 Aspirin Ec 81 Mg Tablet PO 81 mg DAILY JERRY Administration Carboxymethylcellulose 2 drops 02/13/24 10:38 Carboxymethylcellulose Ophth Drops EACHEYE TID PRN Dry Eye Carvedilol 3.125 mg 02/13/24 11:00 02/15/24 08:43 Carvedilol 3.125 Mg Tablet PO 3.125 mg BID JERRY Administration Chlorhexidine Gluconate 15 ml 02/15/24 01:00 02/15/24 08:43 Chlorhexidine Gluconate 15 Ml Udc PO 15 ml BID JERRY Administration Ferrous Sulfate 325 mg 02/13/24 11:00 02/15/24 08:43 Ferrous Sulfate 325 Mg Tablet PO 325 mg DAILY JERRY Administration Haloperidol 2 mg 02/14/24 09:42 02/14/24 20:35 Haloperidol 5 Mg/Ml Vial IVP 2 mg QPM PRN Administration Agitation Heparin Sodium (Porcine) 5,000 unit 02/13/24 10:04 02/15/24 08:42 Heparin 5,000 Unit/Ml Vial SUBQ 5,000 unit BID JERRY Administration Lidocaine HCl 5 ml 02/15/24 00:36 02/15/24 00:50 Lidocaine Viscous 2% 15 Ml Udc MM 5 ml Q4H PRN Administration Mouth Sore Pain Melatonin 4.5 mg 02/13/24 21:00 02/14/24 20:34 Melatonin 3 Mg Tablet PO 4.5 mg QPM JERRY Administration Multivitamins 1 tab 02/13/24 11:00 02/15/24 08:43 Multivitamin Tablet PO 1 tab DAILY JERRY Administration Ondansetron HCl 4 mg 02/13/24 10:04 Ondansetron Odt 4 Mg Tablet TL Q6HR PRN Nausea / Vomiting Pantoprazole Sodium 40 mg 02/13/24 11:00 02/15/24 08:43 Pantoprazole 40 Mg Tablet PO 40 mg DAILY JERRY Administration Eyelid Cleanser 1 each 02/14/24 09:00 02/15/24 08:44 Combination 8 TOP Not Given DAILY JERRY Senna 17.2 mg 02/13/24 10:04 Senna 8.6 Mg Tablet PO PRN PRN Constipation Sertraline HCl 37.5 mg 02/13/24 11:00 02/15/24 08:43 Sertraline 25 Mg Tablet PO 37.5 mg DAILY JERRY Administration Sodium Chloride 10 ml 02/13/24 10:04 Sodium Chloride Flush 0.9% 10 Ml Syringe IVP PRN PRN NEEDED PER PROVIDER ORDERS Sodium Chloride 10 ml 02/13/24 11:00 02/15/24 08:44 Sodium Chloride Flush 0.9% 10 Ml Syringe IVP 10 ml 0100,0900,1700 JERRY Administration Tamsulosin HCl 0.4 mg 02/13/24 21:00 02/14/24 20:34 Tamsulosin 0.4 Mg Capsule PO 0.4 mg HS JERRY Administration Objective Vital Signs/Intake & Output Reviewed Vital Signs: Yes Vital Signs: Vital Signs x48h Temp Pulse Pulse Resp BP Pulse Ox O2 Flow Rate 02/15/24 08:53 80 22 4 02/15/24 08:00 97.3 F L 93 H 20 139/100 H 98 4 Intake & Output: Intake & Output 02/13/24 02/14/24 02/15/24 02/16/24 05:59 05:59 05:59 05:59 Intake Total 500 / 500 1150 / 1150 1999 Balance 500 / 500 1150 / 1150 1999 Weight (kg) 90.5 kg 82 kg Objective General Appearance: positive No acute distress and Alert (only to self) Eyes Bilateral: positive Normal inspection, PERRL and EOMI ENT: positive Pharynx nml and No signs of dehydration Neck: positive Nml inspection, Thyroid nml and No JVD Respiratory: positive Chest non-tender, No respiratory distress, Breath sounds nml and Rales (bibasilar crackles noted); negative Wheezes or Rhonchi Cardiovascular: positive No murmur, No gallop and Irregularly irregular; negative Systolic murmur or Diastolic murmur Abdomen: positive Non-tender and Nml bowel sounds; negative Guarding, Rebound, Splenomegaly or Mass Back: positive Nml inspection; negative CVA tenderness (R) or CVA tenderness (L) Skin: positive Color nml, No rash and Warm Extremities: positive Non-tender, Full ROM, Nml appearance and No pedal edema Neurologic/Psychiatric: positive Motor nml, Mood/affect nml, Disoriented to place and Disoriented to time Lab Results 02/15/24 06:06 02/15/24 06:06 Other Labs: Lab Results x24hrs 02/15/24 02/15/24 02/14/24 Range/Units 07:52 06:06 17:20 WBC 8.0 (4.8-10.8) x10^3/uL RBC 4.27 L (4.70-6.10) 10^6/uL Hgb 13.3 L (14.0-18.0) g/dL Hct 43.8 (42.0-52.0) % MCV 102.6 H (80.0-94.0) fL MCH 31.1 H (27.0-31.0) pg MCHC 30.4 L (32.0-36.0) g/dL RDW 15.9 H (12.0-15.0) % Plt Count 242 (130-450) 10^3/uL MPV 10.6 (7.4-11.4) fL Sodium 138 (135-145) mmol/L Potassium 5.3 H 4.5 (3.5-4.5) mmol/L Chloride 103 (101-111) mmol/L Carbon Dioxide 24 (21-32) mmol/L Anion Gap 11.0 (6-13) BUN 37 H (6-20) mg/dL Creatinine 1.7 H (0.6-1.3) mg/dL Estimated GFR (MDRD) 39 L (>89) Glucose 127 H (74-104) mg/dL POC Whole Bld Glucose 115 (70-100) mg/dL Calcium 8.7 (8.5-10.3) mg/dL Magnesium 2.3 (1.7-2.3) mg/dL 02/14/24 02/14/24 02/14/24 Range/Units 14:56 14:24 13:08 WBC (4.8-10.8) x10^3/uL RBC (4.70-6.10) 10^6/uL Hgb (14.0-18.0) g/dL Hct (42.0-52.0) % MCV (80.0-94.0) fL MCH (27.0-31.0) pg MCHC (32.0-36.0) g/dL RDW (12.0-15.0) % Plt Count (130-450) 10^3/uL MPV (7.4-11.4) fL Sodium 136 (135-145) mmol/L Potassium 5.1 H 5.1 H (3.5-4.5) mmol/L Chloride 104 (101-111) mmol/L Carbon Dioxide 22 (21-32) mmol/L Anion Gap 10.0 (6-13) BUN 33 H (6-20) mg/dL Creatinine 1.7 H (0.6-1.3) mg/dL Estimated GFR (MDRD) 39 L (>89) Glucose 164 H (74-104) mg/dL POC Whole Bld Glucose 134 (70-100) mg/dL Calcium 8.6 (8.5-10.3) mg/dL Magnesium (1.7-2.3) mg/dL Diagnostic Imaging Diagnostic Imaging Results: positive Final report reviewed Assessment/Plan Problem List (1) Acute metabolic encephalopathy: Impression: Urine drug screen, alcohol level was negative. TSH was within normal limits. Likely due to delirium. Will try to keep patient awake during the day with lights on, TV on, frequent reorientation. Will schedule Haldol tonight. (2) CHF exacerbation: Impression: Received one dose of IV Lasix. Holding Lasix at this time due to GAURANG. Qualifiers: Heart failure type: systolic Qualified Code(s): I50.23 - Acute on chronic systolic (congestive) heart failure (3) Acute kidney injury: Impression: Improving. Likely due to overdiuresis. Lasix stopped. Lisinopril held. PVR ordered as well. (4) Hyperkalemia: Impression: Due to GAURANG - will give another dose of Lokelma, nebulized albuterol, D50 and insulin. (5) Bilateral pleural effusion: Impression: Echo shows EF of 30-35%. Patient still remains on stable oxygen saturations, continue to monitor respiratory status. (6) Hyperlipidemia: Impression: Patient no longer on statin at assisted likely due to age. Continue to monitor. Qualifiers: Hyperlipidemia type: unspecified Qualified Code(s): E78.5 - Hyperlipidemia, unspecified (7) Depression: Impression: Continue sertraline. Qualifiers: Depression Type: unspecified Qualified Code(s): F32.A - Depression, unspecified (8) GERD (gastroesophageal reflux disease): Impression: Continue Protonix. Qualifiers: Esophagitis presence: without esophagitis Qualified Code(s): K21.9 - Gastro-esophageal reflux disease without esophagitis (9) Hx of schizophrenia: Impression: Patient with a documented history of schizophrenia, previously on Risperdal. Stopped on 10/31, not taking at assisted. Held at this time. (10) HTN (hypertension): Impression: Patient is normotensive, hold lisinopril this AM due to GAURANG, continue to monitor closely. Qualifiers: Hypertension type: primary hypertension Qualified Code(s): I10 - Essential (primary) hypertension (11) Diabetes: Impression: Patient was taking metformin and assisted, A1c was 6.3%, was stopped at last visit. Continue to hold. Qualifiers: Diabetes mellitus type: type 2 Diabetes mellitus salvage determiner insulin use: unspecified senior care insulin use status Diabetes mellitus complication status: without complication Qualified Code(s): E11.9 - Type 2 diabetes mellitus without complications (12) A-fib: Impression: Patient currently in atrial fibrillation, but is rate controlled. Per assisted records, he is not on any anticoagulation, likely due to fall risk. Continue to monitor closely. Qualifiers: Atrial fibrillation type: paroxysmal Qualified Code(s): I48.0 - Paroxysmal atrial fibrillation (13) Congestive heart failure: Impression: ECHO shows EF of 30-35%. Patient already on Coreg, lisinopril. Follow up with contract technician in outpatient setting. Start Jardiance and spirnolactone in outpatient setting. Qualifiers: Heart failure type: systolic Heart failure chronicity: unspecified Q ualified Code(s): I50.20 - Unspecified systolic (congestive) heart failure
[2024-02-15] MEDS: ACETAMINOPHEN 160 MG/5 ML SUSP UDC PO PRN (10:54)
[2024-02-15] MEDS: haloperidoL 1 MG TABLET PO ONE (19:55)
[2024-02-16] MEDS: FUROSEMIDE 40 MG TABLET PO SCH (09:01)
[2024-02-16 09:40] LABS: CALCIUM 8.6 mg/dL (8.5-10.3); CREATININE 1.7 mg/dL (0.6-1.3); POTASSIUM 4.4 mmol/L (3.5-4.5)
--- NOTE | 2024-02-16 10:50 | Discharge Summary ---
"Discharge Summary Admit Date: 02/13/24 Discharge Date: 02/16/24 Discharging Provider: Dr. Juan Mensah Discharge Facility Name: [facility] DIAGNOSES Admission Diagnoses: Acute metabolic encephalopathy CHF exacerbation Acute kidney injury Hyperkalemia Bilateral pleural effusions Hyperlipidemia Depression GERD History of schizophrenia Hypertension Discharge Diagnoses with Status of Each Condition: Acute metabolic encephalopathyresolving. He does appear to have episodes of delirium overnight, but is redirectable. This morning, he is back at his baseline. Urine drug screen, alcohol level, TSH within normal limits. CHF exacerbationContinue oral Lasix on discharge every other day. Recheck BMP in one week. Follow up with PCP in outpatient setting. Bilateral pleural effusionstable, not requiring any oxygen at this time. Echo was done and it did show EF of 30 to 35%, mild right ventricular enlargement, mild to moderate mitral regurgitation and moderate tricuspid regurgitation. He is on some GDMTlisinopril, Coreg. Would recommend starting Jardiance in the outpatient setting. Is euvolemic at this time, no diuretics started. Should follow-up with cardiology in the outpatient setting. Hyperlipidemiacontinue statin. Depressioncontinue sertraline. GERDcontinue Protonix. Schizophreniapreviously on Risperdal, not currently taking. Held at this time. Hypertensioncontinue lisinopril. [id number] is 5.8. Will stop metformin in the outpatient setting. Atrial fibrillationnot on any anticoagulation. Continue Coreg. HPI History of Present Illness: Patient is a 83-year-old male with a history of schizophrenia, major depressive disorder, delusional disorder who presents from his skilled nursing, [facility] for altered level of consciousness. Of note, he had a similar episode in October of this year, and was found to have a pneumonia at that time; he also had a similar episode last month in January. Also of note, he does have an indwelling Langford catheter due to persistent BPH. Per documentation, he was confused and agitated per the [facility] staff. His heart rate was in the 200s, his oxygen saturations are dropping to 79%. He usually wears 2 L of oxygen, and when he came to the ED, he was on 10 L via facemask. He was saturating 98% at that time, heart rate was in the 90s, blood pressure was 100/52. When patient was seen, he was alert and oriented x 1, was very confused. As such, was not able to elicit any symptomology from the patient. His heart rate was 89, he was normotensive, and he was requiring 2 L of oxygen, back at his baseline. Lab work showed a normal white count, hemoglobin stable around his baseline of 11.9. His potassium was mildly elevated at 4.7. His creatinine was 1.4, which is around his new baseline. His BNP was elevated at 1746. Imaging was done, including a chest x-ray, which showed bilateral pleural effusions. It also showed cardiomegaly. In the emergency room, he received 1 dose of Rocephin and azithromycin, as well as 40 mg of IV Lasix. CONSULTS | PROCEDURES Consultations: Social work Procedures: Chest x-ray HOSPITAL COURSE Hospital Course: Patient is an 83-year-old male with a history of major depressive disorder, schizophrenia presented from [facility] for altered mental status. His mental status improved during his stay, and he is now alert and oriented x 1-2, redirectable, and answering questions. He did experience delirium overnight. While he was here, we treated him for a CHF exacerbation with one time Lasix. He developed mild GAURANG, and hyerkalemia, so this was held for a few days. This is now resolved. Now transitioned to oral Lasix. He has been afebrile since. Oxygen was weaned off as well. Echo was also completed which showed EF of 30 to 35%. He is already on lisinopril, Coreg. Will discharge him on every other day Lasix. Would recommend starting Jardiance in the outpatient setting, and would recommend follow-up with cardiology as well. While he was here, he did complain of dental pain. Per [facility], he had a recent dental extraction. He was started on lidocaine viscus for this with some improvement of the pain. Advised to follow up with PCP in outpatient setting. Spoke with daughter in law as well, advised to see Cardiology in outpatient setting. Advised to follow up with OMFS as well. ALLERGIES Allergies Allergy/AdvReac Type Severity Reaction Status Date / Time hydroxyzine Allergy Unknown Verified 02/13/24 04:57 MEDICATIONS Ambulatory Orders Medication Instructions Recorded Confirmed acetaminophen 325 mg tablet (Aphen) 650 mg PO Q4H PRN Pain 06/06/20 02/13/24 calcium carbonate 500 mg PO BID 06/06/20 02/13/24 carvedilol 3.125 mg tablet 3.125 mg PO BID 06/06/20 02/13/24 docusate sodium 100 mg tablet (DOK) 100 mg PO DAILY 06/06/20 02/13/24 loperamide 2 mg capsule 2 mg PO Q15M PRN Diarrhea 06/06/20 02/13/24 tamsulosin 0.4 mg capsule (Flomax) 0.4 mg PO HS 06/06/20 02/13/24 aspirin 81 mg tablet,delayed 81 mg PO DAILY 02/28/23 02/13/24 release Melatonin 5 mg PO QPM 10/07/23 02/13/24 albuterol sulfate 90 mcg/actuation 2 puff inhalation Q4H PRN 10/07/23 02/13/24 aerosol inhaler (Ventolin HFA) Shortness Of Air/Wheezing bisacodyl 10 mg rectal suppository 10 mg WY ONCE PRN Constipation 10/07/23 02/13/24 carbamide peroxide 6.5 % ear drops 10 drp EACHEAR .[id number] 10/07/23 02/13/24 (Ear Drops (carbamide peroxide)) carboxymethylcellulose sodium 1 % 2 drp EACHEYE TID PRN Dry Eye 10/07/23 02/13/24 eye drops (Artificial Tears (carboxymethylcellulose)) dextran 70-hypromellose 0.1 %-0.3 1 drp EACHEYE Q4H PRN EYE 10/07/23 02/13/24 % eye drops (GenTeal Tears Mild) IRRITATION diclofenac sodium 1 % topical gel 1 applic topical Q6H PRN Pain 1-4 10/07/23 02/13/24 (Arthritis Pain (diclofenac)) eyelid cleanser combination 8 1 pad topical DAILY 10/07/23 02/13/24 (Cleansing Eyelid Moist Pads topical pads) ferrous sulfate 325 mg (65 mg 325 mg PO DAILY 10/07/23 02/13/24 iron) tablet lisinopril 10 mg tablet (Zestril) 10 mg PO DAILY 10/07/23 02/13/24 multivitamin with folic acid 400 1 tab PO DAILY 10/07/23 02/13/24 mcg tablet (Thera) polyethylene glycol 3350 17 gram 17 g PO DAILY PRN Constipation 10/07/23 02/13/24 oral powder packet sennosides 8.6 mg tablet (Senna 17.2 mg PO BID PRN Constipation 10/07/23 02/13/24 Lax) sertraline 25 mg tablet 37.5 mg PO DAILY 10/07/23 02/13/24 aluminum-mag hydroxide-simethicone 30 ml PO Q4H PRN indigestion 01/14/24 02/13/24 200 mg-200 mg-20 mg/5 mL oral susp (Advanced Antacid-Antigas) miscellaneous medical supply 01/14/24 01/14/24 (Ocusoft Eyelid Cleansing Pads) pantoprazole 40 mg tablet,delayed 40 mg PO DAILY 01/14/24 02/13/24 release apixaban 2.5 mg tablet (Eliquis) 2.5 mg PO BID 02/13/24 02/13/24 empagliflozin 10 mg tablet 10 mg PO DAILY 02/13/24 02/13/24 (Jardiance) gabapentin 100 mg capsule 100 mg PO TID 02/13/24 02/13/24 chlorhexidine gluconate 0.12 % 15 ml PO BID #1,893 mL 02/16/24 mouthwash furosemide 40 mg tablet 40 mg PO Q OTHER DAY #30 tabs 02/16/24 lidocaine HCl 2 % mucosal solution 5 ml mucous membrane Q4H PRN Mouth 02/16/24 Sore Pain #100 mL PHYSICAL EXAM AT DISCHARGE General Appearance: positive No acute distress and Alert Eyes Bilateral: positive Normal inspection, PERRL and EOMI ENT: positive Pharynx nml and No signs of dehydration Neck: positive Nml inspection, Thyroid nml and No JVD Respiratory: positive Chest non-tender, No respiratory distress and Breath sounds nml; negative Wheezes, Rales or Rhonchi Cardiovascular: positive No murmur and Irregularly irregular; negative Tachycardia or Bradycardia Peripheral Pulses: positive 2+ Abdomen: positive Non-tender and No organomegaly; negative Guarding, Rebound, Hepatomegaly, Splenomegaly or Mass Back: positive Nml inspection; negative CVA tenderness (R) or CVA tenderness (L) Skin: positive Color nml, No rash and Warm Extremities: positive Non-tender, Full ROM and Nml appearance Neurologic/Psychiatric: positive Mood/affect nml, Disoriented to place and Disoriented to time; negative Facial droop LABS 02/16/24 15:02 02/16/24 15:02 DIAGNOSTIC IMAGING Diagnostic Imaging Results: Final report reviewed QUALITY (Female Hip Fx Only) Was patient sent home on osteoporosis medication?: No FOLLOW UP Follow Up: Follow-up with cardiology, OMFS surgeon, in the outpatient setting as well as primary care physician. TIME SPENT Time Spent in Discharge (Minutes): 30 Discharge Plan Discharge Patient Disposition: [facility] DC/Xfer Condition: Fair Prescriptions: New chlorhexidine gluconate 0.12 % Mouthwash 15 ml PO BID Qty: 1893 0RF furosemide 40 mg Tablet 40 mg PO Q OTHER DAY Qty: 30 0RF lidocaine HCl 2 % Solution 5 ml mucous membrane Q4H PRN (Reason: Mouth Sore Pain) Qty: 100 0RF Continued docusate sodium [DOK] 100 MG tablet 100 mg PO DAILY tamsulosin [Flomax] 0.4 MG capsule 0.4 mg PO HS carvedilol 3.125 MG tablet 3.125 mg PO BID Rx Instructions: HOLD IF SBP<110 OR HR<60 acetaminophen [Aphen] 325 MG tablet 650 mg PO Q4H PRN (Reason: Pain) loperamide 2 MG capsule 2 mg PO Q15M MDD 12 MG PRN (Reason: Diarrhea) calcium carbonate 500 MG tablet,chewable 500 mg PO BID aspirin 81 MG tablet,delayed release (DR/EC) 81 mg PO DAILY ferrous sulfate 325 MG tablet 325 mg PO DAILY albuterol sulfate [Ventolin HFA] 200 PUFFS/18 GM HFA aerosol inhaler 2 puff inhalation Q4H PRN (Reason: Shortness Of Air/Wheezing) diclofenac sodium [Arthritis Pain (diclofenac)] 50 GM gel 1 applic topical Q6H PRN (Reason: Pain 1-4) multivitamin with folic acid [Thera] 1 TAB tablet 1 tab PO DAILY Artificial Tears (cmc) 15 ML drops 2 drp EACHEYE TID PRN (Reason: Dry Eye) Melatonin 5 MG Tablet 5 mg PO QPM GenTeal Tears Mild 15 ML drops 1 drp EACHEYE Q4H PRN (Reason: EYE IRRITATION) Cleansing Eyelid Moist Pads 1 EACH pads, medicated 1 pad topical DAILY sertraline 25 MG tablet 37.5 mg PO DAILY sennosides [Senna Lax] 8.6 MG tablet 17.2 mg PO BID PRN (Reason: Constipation) Rx Instructions: IF MIRALAX NOT EFFECTIVE INITIATE ON EVENING SHIFT OF 3RD DAY OF NO BM polyethylene glycol 3350 17 GM powder in packet 17 g PO DAILY PRN (Reason: Constipation) Rx Instructions: AFTER 3 DAYS OF NO BM INITIATE ON DAY SHIFT. MIX WITH 8 OZ OF LIQUID. bisacodyl 10 MG suppository 10 mg WY ONCE PRN (Reason: Constipation) Rx Instructions: IF SENNA NOT EFFECTIVE INITIATE ON 4TH DAY OF NO BM Ear Drops (carbamide peroxide) 200 DROPS/15 ML drops 10 drp EACHEAR .[id number] Rx Instructions: INSTILL 10 DROPS IN BOTH EARS EVERY DAY SHIFT EVERY 3 MONTHS STARTING ON THE 8TH FOR 1 DAY FOR EAR WAX REMOVAL pantoprazole 40 mg tablet,delayed release (DR/EC) 40 mg PO DAILY alum-mag hydroxide-simeth [Advanced Antacid-Antigas] 200-200-20 mg/5 mL suspension 30 ml PO Q4H PRN (Reason: indigestion) Eliquis 2.5 mg tablet 2.5 mg PO BID Jardiance 10 mg tablet 10 mg PO DAILY gabapentin 100 mg capsule 100 mg PO TID Held lisinopril [Zestril] 10 MG tablet 10 mg PO DAILY Hold Instructions: Resume on 02/25/24. Please recheck BMP and restart when creatinine is back at baseline. Rx Instructions: HOLD IF SBP <110 Discontinued mineral oil [Fleet Mineral Oil] 133 ML enema 1 unit WY ONCE PRN (Reason: Constipation) Rx Instructions: IF DULCOLAX SUPPOSITORY NOT EFFECTIVE INITIATE ON 4TH DAY EVENING SHIFT OF NO BM. NOTIFY MD IF NO RESULTS. furosemide 20 mg tablet 20 mg PO DAILY metformin 500 mg tablet 500 mg PO BIDWM No Action (DME) Ocusoft Eyelid Cleansing Pads Pad See Rx Instructions .ROUTE Rx Instructions: As directed Activity Restrictions: Activity as Tolerated Diet: Low Sodium Health Concerns: You came in because you are having some difficulty breathing, and you are confused. You are found to have some fluid overload on a chest x-ray. Giving a dose of IV Lasix, water pill. This unfortunately resulted in a small kidney injury. We held your Lasix for a couple days, and this resolved. Due to some fluid still in your lungs, I want you to continue the water pill, Lasix, every other day. Please hold your lisinopril until you recheck your kidney numbers. You had some pain in your mouth after this recent extraction. It does not appear infected. However, I will send you home with some viscous lidocaine to help with that dental pain. Please continue to follow-up with your primary care doctor, your heart doctor, as well as your dentist in the outpatient setting. We are glad you are feeling better, thank you for allowing us to take care of you. Print Language: Occitan Patient Instructions: Heart Failure Diet Changes Stand Alone Forms: SNF Discharge, PCP List"
[2024-02-16] MEDS ORDERED: iohexoL-300 100 ML VIAL ONE (14:30)
--- NOTE | 2024-02-16 14:52 | PROVIDER PROGRESS NOTE ---
Subjective Subjective Subjective: Patient finally got some sleep last night, he received some Haldol. This morning, he is alert and oriented x 1-2. He states that he has some pain around his dental incision site. He has no fevers, chills. He was doing a lot better, and suddenly he had some sharp abdominal pain. It was located mostly in the epigastric and left lower quadrant region. Even to light palpation, he would jump. There is no guarding or rigidity noted. He denied any nausea or vomiting. Current Medications Current Medications Current Medications: Current Medications Generic Name Dose Route Start Last Admin Trade Name Freq PRN Reason Stop Dose Admin Acetaminophen 650 mg 02/13/24 10:04 02/14/24 19:30 Acetaminophen 325 Mg Tablet PO 650 mg Q4HR PRN Administration Pain 1 to 4, or Fever Acetaminophen 640 mg 02/15/24 10:37 02/16/24 11:10 Acetaminophen 160 Mg/5 Ml Susp Udc PO 640 mg Q6HR PRN Administration Pain Albuterol 2.5 mg 02/13/24 10:41 Albuterol Neb 2.5 Mg/3 Ml INH RTQ4H PRN Shortness Of Air/Wheezing Aspirin 81 mg 02/13/24 11:00 02/16/24 09:01 Aspirin Ec 81 Mg Tablet PO 81 mg DAILY JERRY Administration Carboxymethylcellulose 2 drops 02/13/24 10:38 Carboxymethylcellulose Ophth Drops EACHEYE TID PRN Dry Eye Carvedilol 3.125 mg 02/13/24 11:00 02/16/24 09:01 Carvedilol 3.125 Mg Tablet PO 3.125 mg BID JERRY Administration Chlorhexidine Gluconate 15 ml 02/15/24 01:00 02/16/24 09:02 Chlorhexidine Gluconate 15 Ml Udc PO 15 ml BID JERRY Administration Ferrous Sulfate 325 mg 02/13/24 11:00 02/16/24 09:01 Ferrous Sulfate 325 Mg Tablet PO 325 mg DAILY JERRY Administration Furosemide 40 mg 02/16/24 09:00 02/16/24 09:01 Furosemide 40 Mg Tablet PO 40 mg DAILY JERRY Administration Heparin Sodium (Porcine) 5,000 unit 02/13/24 10:04 02/16/24 09:02 Heparin 5,000 Unit/Ml Vial SUBQ 5,000 unit BID JERRY Administration Lidocaine HCl 5 ml 02/15/24 00:36 02/16/24 11:11 Lidocaine Viscous 2% 15 Ml Udc MM 5 ml Q4H PRN Administration Mouth Sore Pain Melatonin 4.5 mg 02/13/24 21:00 02/15/24 21:10 Melatonin 3 Mg Tablet PO 4.5 mg QPM JERRY Administration Multivitamins 1 tab 02/13/24 11:00 02/16/24 09:01 Multivitamin Tablet PO 1 tab DAILY JERRY Administration Ondansetron HCl 4 mg 02/13/24 10:04 Ondansetron Odt 4 Mg Tablet TL Q6HR PRN Nausea / Vomiting Pantoprazole Sodium 40 mg 02/13/24 11:00 02/16/24 09:01 Pantoprazole 40 Mg Tablet PO 40 mg DAILY JERRY Administration Eyelid Cleanser 1 each 02/14/24 09:00 02/16/24 09:02 Combination 8 TOP Not Given DAILY JERRY Senna 17.2 mg 02/13/24 10:04 Senna 8.6 Mg Tablet PO PRN PRN Constipation Sertraline HCl 37.5 mg 02/13/24 11:00 02/16/24 09:01 Sertraline 25 Mg Tablet PO 37.5 mg DAILY JERRY Administration Sodium Chloride 10 ml 02/13/24 10:04 Sodium Chloride Flush 0.9% 10 Ml Syringe IVP PRN PRN NEEDED PER PROVIDER ORDERS Sodium Chloride 10 ml 02/13/24 11:00 02/16/24 09:02 Sodium Chloride Flush 0.9% 10 Ml Syringe IVP Not Given 0100,0900,1700 JERRY Tamsulosin HCl 0.4 mg 02/13/24 21:00 02/15/24 21:11 Tamsulosin 0.4 Mg Capsule PO 0.4 mg HS JERRY Administration Objective Vital Signs/Intake & Output Reviewed Vital Signs: Yes Vital Signs: Vital Signs x48h Temp Pulse Resp BP Pulse Ox 02/16/24 08:58 97.3 F L 95 H 20 157/89 H 98 Intake & Output: Intake & Output 02/13/24 02/14/24 02/15/24 02/16/24 23:59 23:59 23:59 23:59 Intake Total 1650 / 1650 2140 / 2140 1180 / 1180 110 / 110 Balance 1650 / 1650 2140 / 2140 1180 / 1180 110 / 110 Weight (kg) 82 kg Objective General Appearance: positive No acute distress and Alert (only to self) Eyes Bilateral: positive Normal inspection, PERRL and EOMI ENT: positive Pharynx nml and No signs of dehydration Neck: positive Nml inspection, Thyroid nml and No JVD Respiratory: positive Chest non-tender, No respiratory distress, Breath sounds nml and Rales (bibasilar crackles noted); negative Wheezes or Rhonchi Cardiovascular: positive No murmur, No gallop and Irregularly irregular; negative Systolic murmur or Diastolic murmur Abdomen: positive Nml bowel sounds and Tenderness (LLQ, epigastric region); negative Guarding, Rebound, Splenomegaly or Mass Back: positive Nml inspection; negative CVA tenderness (R) or CVA tenderness (L) Skin: positive Color nml, No rash and Warm Extremities: positive Non-tender, Full ROM, Nml appearance and No pedal edema Neurologic/Psychiatric: positive Motor nml, Mood/affect nml, Disoriented to place and Disoriented to time Lab Results 02/16/24 15:02 02/16/24 15:02 Other Labs: Lab Results x24hrs 02/16/24 Range/Units 09:21 Sodium 138 (135-145) mmol/L Potassium 4.4 (3.5-4.5) mmol/L Chloride 104 (101-111) mmol/L Carbon Dioxide 27 (21-32) mmol/L Anion Gap 7.0 (6-13) BUN 39 H (6-20) mg/dL Creatinine 1.7 H (0.6-1.3) mg/dL Estimated GFR (MDRD) 39 L (>89) Glucose 167 H (74-104) mg/dL Calcium 8.6 (8.5-10.3) mg/dL Diagnostic Imaging Diagnostic Imaging Results: positive Final report reviewed Assessment/Plan Problem List (1) Acute abdominal pain: Impression: Plan was to discharge back to [facility] today. However, patient started complaining of acute abdominal pain. It is tender to palpation even with light palpation. Located in the left lower quadrant, left upper quadrant, epigastric region. CBC, CMP ordered, pending. No guarding or rigidity noted. CT abdomen/pelvis ordered, pending. (2) Acute metabolic encephalopathy: Impression: Resolved. Drug screen, alcohol level was negative. TSH was within normal limits. Likely due to delirium. Will try to keep patient awake during the day with lights on, TV on, frequent reorientation. Will schedule Haldol tonight. (3) CHF exacerbation: Impression: Patient with mild bibasilar crackles. Will continue oral Lasix every other day at this time. Qualifiers: Heart failure type: systolic Qualified Code(s): I50.23 - Acute on chronic systolic (congestive) heart failure (4) Acute kidney injury: Impression: Stable. Creatinine of 1.7 may be his new baseline. Continue to trend. Lisinopril held. (5) Hyperkalemia: Impression: Was attributed due to GAURANG - has now resolved with dose of Lokelma, nebulized albuterol, D50 and insulin. Continue to trend; expect to stablize with the restarting of Lasix as well. (6) Bilateral pleural effusion: Impression: Echo shows EF of 30-35%. Patient still remains on stable oxygen saturations, continue to monitor respiratory status. Continue oral Lasix. (7) Hyperlipidemia: Impression: Patient no longer on statin at skilled nursing likely due to age. Continue to monitor. Qualifiers: Hyperlipidemia type: unspecified Qualified Code(s): E78.5 - Hyperlipidemia, unspecified (8) Depression: Impression: Continue sertraline. Qualifiers: Depression Type: unspecified Qualified Code(s): F32.A - Depression, unspecified (9) GERD (gastroesophageal reflux disease): Impression: Continue Protonix. Qualifiers: Esophagitis presence: without esophagitis Qualified Code(s): K21.9 - Gastro-esophageal reflux disease without esophagitis (10) Hx of schizophrenia: Impression: Patient with a documented history of schizophrenia, previously on Risperdal. Stopped on 10/31, not taking at skilled nursing. Held at this time. (11) HTN (hypertension): Impression: Patient is normotensive, hold lisinopril this AM due to GAURANG, continue to monitor closely. Qualifiers: Hypertension type: primary hypertension Qualified Code(s): I10 - Essential (primary) hypertension (12) Diabetes: Impression: Patient was taking metformin and skilled nursing, A1c was 6.3%, was stopped at last visit. Continue to hold. Qualifiers: Diabetes mellitus complication status: without complication Diabetes mellitus correction insulin use: unspecified correction insulin use status D iabetes mellitus type: type 2 Qualified Code(s): E11.9 - Type 2 diabetes mellitus without complications (13) A-fib: Impression: Patient currently in atrial fibrillation, but is rate controlled. Per skilled nursing records, he is not on any anticoagulation, likely due to fall risk (reviewed paper charts he came in with his medication list). Continue to monitor closely. Qualifiers: Atrial fibrillation type: paroxysmal Qualified Code(s): I48.0 - Paroxysmal atrial fibrillation (14) Congestive heart failure: Impression: ECHO shows EF of 30-35%. Patient already on Coreg, lisinopril. Follow up with sink maker in outpatient setting. Start Jardiance and spirnolactone in outpatient setting. Qualifiers: Heart failure chronicity: unspecified Heart failure type: systolic Q ualified Code(s): I50.20 - Unspecified systolic (congestive) heart failure
[2024-02-16 15:08] LABS: HCT - HEMATOCRIT 43.5 % (42.0-52.0); HGB - HEMOGLOBIN 13.5 g/dL (14.0-18.0); MEAN CORPUSCULAR HEMOGLOBIN 30.8 pg (27.0-31.0); MEAN CORPUSCULAR VOLUME 99.1 fL (80.0-94.0); MEAN PLATELET VOLUME 10.8 fL (7.4-11.4); RED BLOOD COUNT 4.39 10^6/uL (4.70-6.10); RED CELL DISTRIBUTION WIDTH 15.9 % (12.0-15.0); WHITE BLOOD COUNT 8.6 x10^3/uL (4.8-10.8)
[2024-02-16] MEDS: iohexoL-300 100 ML VIAL IVP ONE (15:27)
[2024-02-16 15:46] LABS: ALBUMIN/GLOBULIN RATIO 0.9 (1.0-2.2); BILIRUBIN,TOTAL 1.2 mg/dL (0.2-1.0); CALCIUM 8.8 mg/dL (8.5-10.3); CREATININE 1.8 mg/dL (0.6-1.3); POTASSIUM 5.1 mmol/L (3.5-4.5); TOTAL PROTEIN 6.3 g/dL (6.4-8.9)
--- NOTE | 2024-02-16 16:43 | CT Report ---
PROCEDURE: CT Abdomen/Pelvis W INDICATIONS: abd pain CONTRAST: Omni 300 100ml TECHNIQUE: After the administration of intravenous contrast, a CT scan of the abdomen and pelvis was performed. Images were recorded and evaluated at appropriate window settings. Reformats: coronal and sagittal. F or radiation dose reduction, the following was used: automated exposure control, adjustment of mA and /or kV according to patient size. COMPARISON: Chest film from 02/13/2024. FINDINGS: Image quality: Diagnostic. Lower chest: At least moderate cardiomegaly with enlargement of the left ventricle and both the right and left atria. Ascending aortic aneurysm measuring 4.6 cm. Moderate right pleural effusion and mild left pleural effusion. Bibasilar atelectasis. Pulmonary edema. Elevation of the left hemidiaphragm, likely eventration of the left hemidiaphragm.. Liver: No solid mass. Gallbladder: Calcified gallstone. Gallbladder nondistended. Biliary tree: No intrahepatic or extrahepatic dilation, accounting for age. Spleen: No splenomegaly. Pancreas: No pancreatic ductal dilation. Suspect tail of pancreas mass measuring 1.7 cm. Reference ax ial image 38 series 10. Adrenals: No adrenal nodule. Bilateral lipomatous hypertrophy of the adrenals. Kidneys and ureters: No hydronephrosis. No renal cystic lesion which requires follow up. No solid mas s. Stomach, bowel and peritoneum: No gastric or small bowel dilation. No abnormal wall thickening. No pa thologic free fluid. Sigmoid diverticulosis. Mild rectal fecal impaction. Lymph nodes: No central or retroperitoneal adenopathy. Vessels: No infrarenal aortic aneurysm. Patent portal vein. PELVIS Reproductive organs: Unremarkable. Bladder: No abnormal wall thickening, accounting for underdistention. Pelvic lymph nodes: No pelvic adenopathy by size criteria. Bones: No aggressive osseous abnormality. Remote right hip ORIF. Old L4 compression. No acute eugene sions.. Other: No significant ventral or inguinal hernia. Anasarca Incidental medial left upper thigh/lower p jerod lipoma measuring 9.9 x 4.3 cm on image 151 and series 10.. IMPRESSION: 1. At least moderate cardiomegaly, left ventricular plus biatrial enlargement, severe coronary artery calcifications. 2. Ascending aortic aneurysm measuring 4.6 cm. 3. Congestive heart failure exacerbation with pulmonary edema and bilateral pleural fluid and bibasil ar atelectasis. 4. Calcified gallstone. 5. 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 6. Mild rectal fecal impaction, sigmoid diverticulosis. 7. No acute process in the abdomen and pelvis. 8. Old lumbar compression fracture. Reviewed by: Yandel Kelly MD on 02/16/2024 4:42 PM PST Approved by: Yandel Kelly MD on 02/16/2024 4:42 PM PST Station ID: [id number]
[2024-02-16] MEDS: polyethylene glycoL 3350 17 GM PACKET PO SCH (17:06)
[2024-02-16] MEDS: SODIUM ZIRCONIUM CYCLOSILICATE 5 GM PACKET PO ONE (17:07)
[2024-02-16] MEDS: SENNA 8.6 MG TABLET PO SCH (18:07)
[2024-02-16] MEDS: haloperidoL 1 MG TABLET PO SCH (20:47)
[2024-02-17] MEDS: HALOPERIDOL 5 MG/ML VIAL IM PRN (02:59)
[2024-02-17 05:52] LABS: HCT - HEMATOCRIT 40.8 % (42.0-52.0); HGB - HEMOGLOBIN 12.8 g/dL (14.0-18.0); MEAN CORPUSCULAR HEMOGLOBIN 31.1 pg (27.0-31.0); MEAN CORPUSCULAR HGB CONC 31.4 g/dL (32.0-36.0); MEAN CORPUSCULAR VOLUME 99.3 fL (80.0-94.0); MEAN PLATELET VOLUME 10.9 fL (7.4-11.4); RED BLOOD COUNT 4.11 10^6/uL (4.70-6.10); RED CELL DISTRIBUTION WIDTH 16.2 % (12.0-15.0); WHITE BLOOD COUNT 7.8 x10^3/uL (4.8-10.8)
[2024-02-17 06:04] LABS: MAGNESIUM 2.2 mg/dL (1.7-2.3)
[2024-02-17 06:09] LABS: BILIRUBIN,TOTAL 1.3 mg/dL (0.2-1.0); CALCIUM 8.6 mg/dL (8.5-10.3); CREATININE 1.6 mg/dL (0.6-1.3); POTASSIUM 4.6 mmol/L (3.5-4.5)
[2024-02-17] MEDS: FUROSEMIDE 20 MG/2 ML VIAL IVP STA ×2 (10:52→17:19)
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
[2024-02-17 11:33] LABS: CALCIUM 8.5 mg/dL (8.5-10.3); CREATININE 1.5 mg/dL (0.6-1.3); POTASSIUM 4.2 mmol/L (3.5-4.5)
--- NOTE | 2024-02-17 17:14 | XRAY Report ---
PROCEDURE: XR Chest 1V INDICATIONS: armin leroy resp distress TECHNIQUE: One view of the chest was acquired. COMPARISON: Chest x-ray 02/13/2024 FINDINGS: Surgical changes and devices: None. Lungs and pleura: Mild bilateral effusions. Increased pulmonary vascularity relatively stable. Mediastinum: Mediastinal contours appear normal. Heart size is enlarged. Bones and chest wall: No suspicious bony lesions. Overlying soft tissues appear unremarkable. IMPRESSION: Cardiomegaly with increased vascularity and effusions consistent with edema. Underlying areas of pneu monia/atelectasis cannot be excluded. Reviewed by: Leonor Mejia MD on 02/17/2024 5:12 PM PST Approved by: Leonor Mejia MD on 02/17/2024 5:12 PM PST Station ID: [id number]
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
[2024-02-18 06:19] LABS: BASOPHILS # (AUTO) 0.1 10^3/uL (0.0-0.1); BASOPHILS % (AUTO) 0.7 %; EOSINOPHILS # (AUTO) 0.1 10^3/uL (0.0-0.7); EOSINOPHILS % (AUTO) 1.6 %; HCT - HEMATOCRIT 41.4 % (42.0-52.0); LYMPHOCYTES # (AUTO) 0.8 10^3/uL (1.5-3.5); LYMPHOCYTES % (AUTO) 11.4 %; MEAN CORPUSCULAR HEMOGLOBIN 31.3 pg (27.0-31.0); MEAN CORPUSCULAR HGB CONC 31.4 g/dL (32.0-36.0); MEAN CORPUSCULAR VOLUME 99.5 fL (80.0-94.0); MEAN PLATELET VOLUME 11.1 fL (7.4-11.4); MONOCYTES # (AUTO) 0.7 10^3/uL (0.0-1.0); MONOCYTES % (AUTO) 9.2 %; NEUTROPHILS # (AUTO) 5.7 10^3/uL (1.5-6.6); NEUTROPHILS % (AUTO) 76.8 %; NRBC ABSOLUTE COUNT (AUTO) 0.02 x10^3/uL; NUCLEATED RED BLOOD CELLS AUTO 0.3 /100WBC; PLT - PLATELET COUNT 237 10^3/uL (130-450); RED BLOOD COUNT 4.16 10^6/uL (4.70-6.10); RED CELL DISTRIBUTION WIDTH 16.5 % (12.0-15.0); WHITE BLOOD COUNT 7.4 x10^3/uL (4.8-10.8)
[2024-02-18 06:32] LABS: CALCIUM 8.6 mg/dL (8.5-10.3); CREATININE 1.5 mg/dL (0.6-1.3); POTASSIUM 4.4 mmol/L (3.5-4.5)
[2024-02-18] MEDS: FUROSEMIDE 20 MG/2 ML VIAL IVP STA (08:09)
[2024-02-18 08:49] VITALS: O2SAT 95
[2024-02-18] MEDS ORDERED: FUROSEMIDE 40 MG TABLET PO SCH (09:00)
--- NOTE | 2024-02-18 19:08 | Discharge Summary ---
"Discharge Summary Admit Date: 02/13/24 Discharge Date: 02/18/24 Discharging Provider: Susana Morel MD Primary Care Provider: Victor Manuel Orellana MD ([facility]) Code Status: Do Not Attempt Resuscitation Discharge Facility Name: [facility] DIAGNOSES Discharge Diagnoses with Status of Each Condition: 1. Acute metabolic encephalopathy present on admission, resolved 2. Acute on chronic systolic heart failure, resolved to chronic 3. New Alex-Leroy respiration, present at discharge 4. Bilateral pleural effusions 5. 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 GERD 7. History of schizophrenia 8. Prediabetes 9. Chronic atrial fibrillation 10. Acute abdominal pain, resolved 11. 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 DO NOT RESUSCITATE status HPI History of Present Illness: Patient is a 83-year-old male with a history of schizophrenia, major depressive disorder, delusional disorder who presents from his alf, [facility] for altered level of consciousness. Of note, he had a similar episode in October of this year, and was found to have a pneumonia at that time. Also of note, he does have an indwelling Langford catheter due to persistent BPH.This episode he was brought in by ambulance because the nursing facility reported decreased oxygen saturations to 79%, increased heart rate to 220, and increasing confusion on the patient's was already confused. On EMS arrival to the nursing facility his O2 sat was 98% on 10 L facemask. Heart rate was in the 90s. He had finished his antibiotics for the recent diagnosis of pneumonia. At baseline he wears 2 L. When patient was seen by hospitalist, he was responsive to verbal stimuli. However, he was not able to answer most questions. He did state that he feels better than when he first came in. He was alert and oriented x 0, and was not able to tell me his name. On admission, he was afebrile, saturating 100% on room air. Per nurse, he does desaturate down to 84% when he is sleeping; likely component of struct of sleep apnea. He was normotensive, his heart rate was within normal limits, although it was irregular. Lab work was reviewed. At this time, he does not have a white count. His hemoglobin is 12.2, around his baseline. His electrolytes are within normal limits except for K of 4.7. BUN was 27 and creat was 1.4 with baseline being around 1. His BNP was elevated at 1746. UA was positive for nitrites, WBCs, but was contaminated with squamous epithelial cells. Chest x-ray was done, and showed mild right upper lung opacity and bilateral interstitial prominence. Chest CT was done which showed patchy opacities in both lungs suspicious for pneumonia, small bilateral pleural effusions, as well as cardiomegaly. He does not have an ECHO in our system. CONSULTS | PROCEDURES Procedures: 1. Chest x-ray has stable cardiomegaly with findings suggestive of CHF, volume overload, and/or bibasilar pneumonia. 2. Abdomen pelvis CT with moderate cardiomegaly and enlargement of the left ventricle in both right and left atria. Ascending aortic aneurysm measuring 4.6 cm. Moderate right pleural effusion and mild left pleural effusion. Pulmonary edema, bibasilar atelectasis. Likely eventration of the left hemidiaphragm. Tail of the pancreas had a mass measuring 1.7 cm. A remote right hip ORIF. An old L4 compression. Anasarca. Incidental medial left upper thigh/lower pelvis lipoma measuring 9.9 x 4.3 cm. 3. Repeat chest x-ray was done because of the ccheybne leroy respiration changes. And he continued to have cardiomegaly with increased vascularity and effusions consistent with edema. t HOSPITAL COURSE Hospital Course: Patient was placed on MedSurg and was initially treated with empiric antibiotic therapy for pneumonia. Overnight he became agitated. When we speak to the alf, they stated that he has quite a bit of sundowning. Resistant to therapy. Definite behavioral issues. Although he is able to tell you his name, he really has poor insight with regards to symptoms. He refuses food. Refused to take his medications by mouth. Constantly trying to get out of bed. He was complaining of mouth pain and we found him to have dental caries. Quite a bit of gingivitis. Nighttime is really hard for him. We ended up having to use Haldol. He would do better in the mornings where he was oriented x 1, sometimes 2. We knew that he had chronic systolic heart failure from previous echo from her previous admission. He was refusing his Lasix but we felt that he could tolerate every other day Lasix. We were getting ready for to discharge him when he developed abdominal pain and it was in the epigastric and left lower quadrant region. Light palpation will cause him to jump. There is no rigidity or guarding. He was not nauseated and he was not vomiting. CT showed him to have tumor of the pancreatic tail. Uncertain whether it is malignant or not. I updated his family with this news. Explained that he had not been doing well with because he just could not cooperate with taking medication, eating, and now this new diagnosis. [id number] is a emergency medical services coordinator. She is the person to get all the news and delivers it to her who is the DPOA for this gentleman. Her is the son of this patient. Many conversations ensued over the next 2 days. He is a DO NOT RESUSCITATE. He then developed acute on chronic systolic heart failure that responded nicely to Lasix IV push. We were not able to measure his urine output because he did not allow us to do a Langford but he would soak the diapers. BNP did respond by coming down. He also had developed Alex-Leroy respiration with this respiratory distress. That was much improved at the time of discharge but still having Alex-Leroy changes that were mild. I carefully explained to the [id number] that this alisia man was not doing well. If he continues to refuse to eat or refuse to take medication, he was not going to do well. The only was the issue of the pancreatic tail mass. She states that her is easily overwhelmed with medical decisions for his dad. And she wanted to give her time to process all of this. She was amenable to the patient being transferred to the alf. And she will talk to her about whether they were going to focus on comfort measures and no longer bring this patient back to the hospital, or that they still want him to be treated and be brought back to the hospital. She would let me know but give me a phone call on the hospitalist phone. And then I could relay that to the alf. ALLERGIES Allergies Allergy/AdvReac Type Severity Reaction Status Date / Time hydroxyzine Allergy Unknown Verified 02/13/24 04:57 MEDICATIONS Ambulatory Orders Medication Instructions Recorded Confirmed acetaminophen 325 mg tablet (Aphen) 650 mg PO Q4H PRN Pain 06/06/20 02/13/24 calcium carbonate 500 mg PO BID 06/06/20 02/13/24 carvedilol 3.125 mg tablet 3.125 mg PO BID 06/06/20 02/13/24 docusate sodium 100 mg tablet (DOK) 100 mg PO DAILY 06/06/20 02/13/24 loperamide 2 mg capsule 2 mg PO Q15M PRN Diarrhea 06/06/20 02/13/24 tamsulosin 0.4 mg capsule (Flomax) 0.4 mg PO HS 06/06/20 02/13/24 aspirin 81 mg tablet,delayed 81 mg PO DAILY 02/28/23 02/13/24 release Melatonin 5 mg PO QPM 10/07/23 02/13/24 albuterol sulfate 90 mcg/actuation 2 puff inhalation Q4H PRN 10/07/23 02/13/24 aerosol inhaler (Ventolin HFA) Shortness Of Air/Wheezing bisacodyl 10 mg rectal suppository 10 mg NC ONCE PRN Constipation 10/07/23 02/13/24 carbamide peroxide 6.5 % ear drops 10 drp EACHEAR .[id number] 10/07/23 02/13/24 (Ear Drops (carbamide peroxide)) carboxymethylcellulose sodium 1 % 2 drp EACHEYE TID PRN Dry Eye 10/07/23 02/13/24 eye drops (Artificial Tears (carboxymethylcellulose)) dextran 70-hypromellose 0.1 %-0.3 1 drp EACHEYE Q4H PRN EYE 10/07/23 02/13/24 % eye drops (GenTeal Tears Mild) IRRITATION diclofenac sodium 1 % topical gel 1 applic topical Q6H PRN Pain 1-4 10/07/23 02/13/24 (Arthritis Pain (diclofenac)) eyelid cleanser combination 8 1 pad topical DAILY 10/07/23 02/13/24 (Cleansing Eyelid Moist Pads topical pads) ferrous sulfate 325 mg (65 mg 325 mg PO DAILY 10/07/23 02/13/24 iron) tablet lisinopril 10 mg tablet (Zestril) 10 mg PO DAILY 10/07/23 02/13/24 multivitamin with folic acid 400 1 tab PO DAILY 10/07/23 02/13/24 mcg tablet (Thera) polyethylene glycol 3350 17 gram 17 g PO DAILY PRN Constipation 10/07/23 02/13/24 oral powder packet sennosides 8.6 mg tablet (Senna 17.2 mg PO BID PRN Constipation 10/07/23 02/13/24 Lax) sertraline 25 mg tablet 37.5 mg PO DAILY 10/07/23 02/13/24 aluminum-mag hydroxide-simethicone 30 ml PO Q4H PRN indigestion 01/14/24 02/13/24 200 mg-200 mg-20 mg/5 mL oral susp (Advanced Antacid-Antigas) miscellaneous medical supply 01/14/24 01/14/24 (Ocusoft Eyelid Cleansing Pads) pantoprazole 40 mg tablet,delayed 40 mg PO DAILY 01/14/24 02/13/24 release apixaban 2.5 mg tablet (Eliquis) 2.5 mg PO BID 02/13/24 02/13/24 empagliflozin 10 mg tablet 10 mg PO DAILY 02/13/24 02/13/24 (Jardiance) gabapentin 100 mg capsule 100 mg PO TID 02/13/24 02/13/24 chlorhexidine gluconate 0.12 % 15 ml PO BID #1,893 mL 02/16/24 mouthwash furosemide 40 mg tablet 40 mg PO Q OTHER DAY #30 tabs 02/16/24 lidocaine HCl 2 % mucosal solution 5 ml mucous membrane Q4H PRN Mouth 02/16/24 Sore Pain #100 mL PHYSICAL EXAM AT DISCHARGE General Appearance: positive No acute distress, Alert and Other (Although he is alert, and answering questions, he does not know where he is, why he is here. Episodes of extreme fatigue where he closes his eyes or he spaces out and gazes into the distance and no response for 30 seconds. Alex-Leroy respiration minimal.) Eyes Bilateral: positive PERRL and Other (Occasional right lid lag but not right facial droop) ENT: positive Other (Dental caries. Halitosis.) Neck: positive Lymphadenopathy (R) (Shotty) and Lymphadenopathy (L) (Shotty); negative Stiff neck Respiratory: positive Rales (At the bases. Much improved from yesterday to the day of discharge.); negative Wheezes or Rhonchi Cardiovascular: positive Regular rate & rhythm and Systolic murmur Abdomen: positive Non-tender, No organomegaly, Nml bowel sounds and No distention Skin: positive Warm, Dry and Pallor Extremities: positive Non-tender, Full ROM and No pedal edema Neurologic/Psychiatric: positive CN's nml (2-12) (Except for the occasional right lid lag with the episodes where his gaze would drift), Motor nml (No focal findings, no facial droop), Disoriented to place and Disoriented to time LABS 02/18/24 05:42 02/18/24 05:42 TIME SPENT Time Spent in Discharge (Minutes): 40 Discharge Plan Discharge Patient Disposition: 03 [facility] DC/Xfer Condition: Fair Medically Cleared Date:: 02/18/24 Prescriptions: New chlorhexidine gluconate 0.12 % Mouthwash 15 ml PO BID Qty: 1893 0RF furosemide 40 mg Tablet 40 mg PO Q OTHER DAY Qty: 30 0RF lidocaine HCl 2 % Solution 5 ml mucous membrane Q4H PRN (Reason: Mouth Sore Pain) Qty: 100 0RF Continued docusate sodium [DOK] 100 MG tablet 100 mg PO DAILY tamsulosin [Flomax] 0.4 MG capsule 0.4 mg PO HS carvedilol 3.125 MG tablet 3.125 mg PO BID Rx Instructions: HOLD IF SBP<110 OR HR<60 acetaminophen [Aphen] 325 MG tablet 650 mg PO Q4H PRN (Reason: Pain) loperamide 2 MG capsule 2 mg PO Q15M MDD 12 MG PRN (Reason: Diarrhea) calcium carbonate 500 MG tablet,chewable 500 mg PO BID aspirin 81 MG tablet,delayed release (DR/EC) 81 mg PO DAILY ferrous sulfate 325 MG tablet 325 mg PO DAILY albuterol sulfate [Ventolin HFA] 200 PUFFS/18 GM HFA aerosol inhaler 2 puff inhalation Q4H PRN (Reason: Shortness Of Air/Wheezing) diclofenac sodium [Arthritis Pain (diclofenac)] 50 GM gel 1 applic topical Q6H PRN (Reason: Pain 1-4) multivitamin with folic acid [Thera] 1 TAB tablet 1 tab PO DAILY Artificial Tears (cmc) 15 ML drops 2 drp EACHEYE TID PRN (Reason: Dry Eye) Melatonin 5 MG Tablet 5 mg PO QPM GenTeal Tears Mild 15 ML drops 1 drp EACHEYE Q4H PRN (Reason: EYE IRRITATION) Cleansing Eyelid Moist Pads 1 EACH pads, medicated 1 pad topical DAILY sertraline 25 MG tablet 37.5 mg PO DAILY sennosides [Senna Lax] 8.6 MG tablet 17.2 mg PO BID PRN (Reason: Constipation) Rx Instructions: IF MIRALAX NOT EFFECTIVE INITIATE ON EVENING SHIFT OF 3RD DAY OF NO BM polyethylene glycol 3350 17 GM powder in packet 17 g PO DAILY PRN (Reason: Constipation) Rx Instructions: AFTER 3 DAYS OF NO BM INITIATE ON DAY SHIFT. MIX WITH 8 OZ OF LIQUID. bisacodyl 10 MG suppository 10 mg NC ONCE PRN (Reason: Constipation) Rx Instructions: IF SENNA NOT EFFECTIVE INITIATE ON 4TH DAY OF NO BM Ear Drops (carbamide peroxide) 200 DROPS/15 ML drops 10 drp EACHEAR .[id number] Rx Instructions: INSTILL 10 DROPS IN BOTH EARS EVERY DAY SHIFT EVERY 3 MONTHS STARTING ON THE 8TH FOR 1 DAY FOR EAR WAX REMOVAL pantoprazole 40 mg tablet,delayed release (DR/EC) 40 mg PO DAILY alum-mag hydroxide-simeth [Advanced Antacid-Antigas] 200-200-20 mg/5 mL suspension 30 ml PO Q4H PRN (Reason: indigestion) Eliquis 2.5 mg tablet 2.5 mg PO BID Jardiance 10 mg tablet 10 mg PO DAILY gabapentin 100 mg capsule 100 mg PO TID Held lisinopril [Zestril] 10 MG tablet 10 mg PO DAILY Hold Instructions: Resume on 02/25/24. Please recheck BMP and restart when creatinine is back at baseline. Rx Instructions: HOLD IF SBP <110 Discontinued mineral oil [Fleet Mineral Oil] 133 ML enema 1 unit NC ONCE PRN (Reason: Constipation) Rx Instructions: IF DULCOLAX SUPPOSITORY NOT EFFECTIVE INITIATE ON 4TH DAY EVENING SHIFT OF NO BM. NOTIFY MD IF NO RESULTS. furosemide 20 mg tablet 20 mg PO DAILY metformin 500 mg tablet 500 mg PO BIDWM No Action (DME) Ocusoft Eyelid Cleansing Pads Pad See Rx Instructions .ROUTE Rx Instructions: As directed Activity Restrictions: Activity as Tolerated Diet: Low Sodium Health Concerns: You came in because you are having some difficulty breathing, and you are confused. You are found to have some fluid overload on a chest x-ray. Giving a dose of IV Lasix, water pill. This unfortunately resulted in a small kidney injury. We held your Lasix for a couple days, and this resolved. Due to some fluid still in your lungs, I want you to continue the water pill, Lasix, every other day. Please hold your lisinopril until you recheck your kidney numbers. You had some pain in your mouth after this recent extraction. It does not appear infected. However, I will send you home with some viscous lidocaine to help with that dental pain. On the day we tried to send you back to your alf facility, you were complaining of abdominal pain. We did a CAT scan of the abdomen and canceled your transfer to the alf. The CAT scan shows that you have a small tumor in the tail of your pancreas. We have been in daily contact with your son Basilio and your deowyxgs-to-cky Heidy. They are your legal advocates and your DURABLE POWER OF PHOTOGRAMMETRIC COMPILATION SPECIALIST. They feel that you would not want to be resuscitated if your heart were to stop or you were to stop breathing. 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 Complicating the picture, however, is your refusal to take your medications and your refusal to eat. If you cannot take your medicines, and you cannot eat, you will feel worse and worse, weaker and weaker, until you eventually pass away. They are trying to decide if you should transition to hospice or comfort measures. They would like to talk about it amongst themselves before they decide. They feel you can go back to the alf while they decide. Please continue to follow-up with your primary care doctor, your heart doctor, as well as your dentist in the outpatient setting. We are glad you are feeling better, thank you for allowing us to take care of you. Care Plan Goals: Care goals have yet to be established by DPOA son. He will contact me and let me know what he wishes and then I will contact the alf. Assessment: Patient is with dementia and behavioral issues. He is not able to make his own decisions. Son and DPOA makes those decisions. Plan of Treatment: 1. To be followed up with daily weights, and [facility]. 2. I encouraged the patient to eat and to take his medications, otherwise he will deteriorate again with CHF. 3. Please check with family before you send the patient back to the hospital. They may have decided to make the patient comfort measures. They did ask me to make the patient DO NOT RESUSCITATE with a POLST form filled out at the hospital via verbal instruction. Print Language: Mexican Patient Instructions: Heart Failure Diet Changes Stand Alone Forms: SNF Discharge"
== END 2024-02-18 16:15 | DRG 70 ==
LOC: ED 04:44 → MS2 04:44
PROVIDERS: ADMIT Internal Medicine; ATTEND Internal Medicine
DX: I48.0 Paroxysmal atrial fibrillation; F03.93 Unspecified dementia, unspecified severity, with mood disturbance; F05 Delirium due to known physiological condition; F32.A Depression, unspecified; Z99.81 Dependence on supplemental oxygen; Z66 Do not resuscitate; K08.89 Other specified disorders of teeth and supporting structures; G93.41 Metabolic encephalopathy; F03.90 Unspecified dementia, unspecified severity, without behavioral disturbance, psychotic disturbance, mood disturbance, and anxiety; I11.0 Hypertensive heart disease with heart failure; E78.5 Hyperlipidemia, unspecified; R06.3 Periodic breathing; K21.9 Gastro-esophageal reflux disease without esophagitis; R09.02 Hypoxemia; R10.9 Unspecified abdominal pain; N17.9 Acute kidney failure, unspecified; F20.9 Schizophrenia, unspecified; J18.9 Pneumonia, unspecified organism; J90 Pleural effusion, not elsewhere classified; I50.23 Acute on chronic systolic (congestive) heart failure; Z87.01 Personal history of pneumonia (recurrent); R73.03 Prediabetes; E87.5 Hyperkalemia; D37.8 Neoplasm of uncertain behavior of other specified digestive organs; N40.0 Benign prostatic hyperplasia without lower urinary tract symptoms